=== PATIENT | female | born 1965 | race Caucasian/White ===

== ENCOUNTER 2016-12-08 10:31 | Outpatient (CLI) | payer MEDICAID | END 2016-12-08 10:32 | disposition home or self-care (01) | DX: Z47.89 Encounter for other orthopedic aftercare (principal); M21.162 Varus deformity, not elsewhere classified, left knee ==

== ENCOUNTER 2016-12-10 | Outpatient (CLI) | payer MEDICAID | END 2016-12-10 06:53 | disposition critical access hospital (66) | CPT/HCPCS: A0425; A0429 ==

== ENCOUNTER 2016-12-10 | Outpatient (CLI) | payer MEDICAID | END 2016-12-10 16:33 | disposition critical access hospital (66) | CPT/HCPCS: A0425; A0429 ==

== ENCOUNTER 2016-12-10 07:36 | Emergency (ER) | payer MEDICAID ==
[2016-12-10] MEDS ORDERED: SODIUM CHLORIDE 0.9% 1,000 ML IV ONE (08:04)
[2016-12-10] MEDS ORDERED: HYDROmorphone 1 MG/ML SYRINGE IVP STA (08:04)
[2016-12-10] MEDS ORDERED: ONDANSETRON 4 MG/2 ML VIAL IVP STA ×2 (08:04→12:08)
[2016-12-10] MEDS ORDERED: ONDANSETRON 4 MG/2 ML VIAL ONE ×2 (08:07→12:13)
[2016-12-10] MEDS ORDERED: HYDROmorphone 1 MG/ML SYRINGE ONE (08:07)
== END 2016-12-10 12:24 | disposition home or self-care (01) ==
DX: F11.23 Opioid dependence with withdrawal (principal); T40.2X5A Adverse effect of other opioids, initial encounter; R11.2 Nausea with vomiting, unspecified; R10.9 Unspecified abdominal pain; R51 Headache; E86.0 Dehydration; Z98.890 Other specified postprocedural states

== ENCOUNTER 2016-12-10 17:15 | Emergency (ER) | payer MEDICAID ==
[2016-12-10] MEDS ORDERED: ONDANSETRON 4 MG/2 ML VIAL IVP STA (19:12)
[2016-12-10] MEDS ORDERED: ONDANSETRON 4 MG/2 ML VIAL ONE (19:26)
[2016-12-10] MEDS ORDERED: SODIUM CHLORIDE 0.9% 1,000 ML IV ONE (20:05)
[2016-12-10] MEDS ORDERED: HALOPERIDOL 5 MG/ML VIAL IVP STA (20:58)
[2016-12-10] MEDS ORDERED: HALOPERIDOL 5 MG/ML VIAL ONE (21:24)
[2016-12-10] MEDS ORDERED: DICYCLOMINE 10 MG CAPSULE PO STA (21:24)
[2016-12-10] MEDS ORDERED: IOPAMIDOL-300 100 ML VIAL IVP ONE (21:25)
[2016-12-10] MEDS ORDERED: DICYCLOMINE 10 MG CAPSULE PO ONE (21:29)
[2016-12-10] MEDS ORDERED: CIPROFLOXACIN 250 MG TABLET PO STA (22:12)
[2016-12-10] MEDS ORDERED: metroNIDAZOLE 250 MG TABLET PO STA (22:12)
[2016-12-10] MEDS ORDERED: CIPROFLOXACIN 250 MG TABLET PO ONE (22:16)
[2016-12-10] MEDS ORDERED: metroNIDAZOLE 250 MG TABLET PO ONE (22:16)
== END 2016-12-10 22:36 | disposition home or self-care (01) ==
DX: K92.1 Melena (principal); R19.7 Diarrhea, unspecified; R10.31 Right lower quadrant pain; R10.32 Left lower quadrant pain; R51 Headache; K21.9 Gastro-esophageal reflux disease without esophagitis; F11.23 Opioid dependence with withdrawal; T40.2X5A Adverse effect of other opioids, initial encounter; R11.2 Nausea with vomiting, unspecified; E86.0 Dehydration; Z98.890 Other specified postprocedural states
CPT/HCPCS: 36415; 74177; 80053; 81003; 83690; 85025; 85610; 85730; 96361; 96374; 96375; 96376; 99284; A9270; J1170; Q9967

== ENCOUNTER 2016-12-16 10:43 | Outpatient (CLI) | payer MEDICAID | END 2016-12-16 10:44 | disposition home or self-care (01) | DX: R53.83 Other fatigue (principal); D72.829 Elevated white blood cell count, unspecified; M25.562 Pain in left knee ==

== ENCOUNTER 2016-12-17 16:02 | Outpatient (CLI) | payer MEDICAID | END 2016-12-17 16:03 | disposition home or self-care (01) | DX: R60.0 Localized edema (principal) ==

== ENCOUNTER 2017-01-28 08:00 | Outpatient (CLI) | payer MEDICAID | END 2017-01-28 23:59 | DX: Z79.891 Long term (current) use of opiate analgesic (principal) ==

== ENCOUNTER 2017-02-18 09:05 | Outpatient (CLI) | payer MEDICAID | END 2017-02-18 09:06 | disposition home or self-care (01) | DX: T84.623A Infection and inflammatory reaction due to internal fixation device of left tibia, initial encounter (principal) ==

== ENCOUNTER 2017-02-24 09:10 | Outpatient (CLI) | payer MEDICAID | END 2017-02-24 09:11 | disposition home or self-care (01) | DX: T84.623A Infection and inflammatory reaction due to internal fixation device of left tibia, initial encounter (principal) ==

== ENCOUNTER 2017-03-03 14:48 | Outpatient (CLI) | payer MEDICAID | END 2017-03-03 14:49 | disposition home or self-care (01) | DX: T84.623A Infection and inflammatory reaction due to internal fixation device of left tibia, initial encounter (principal) ==

== ENCOUNTER 2017-03-10 11:01 | Outpatient (CLI) | payer MEDICAID | END 2017-03-10 11:02 | disposition home or self-care (01) | DX: T84.623A Infection and inflammatory reaction due to internal fixation device of left tibia, initial encounter (principal) ==

== ENCOUNTER 2017-03-17 09:15 | Outpatient (CLI) | payer MEDICAID | END 2017-03-17 09:16 | disposition home or self-care (01) | DX: T84.623A Infection and inflammatory reaction due to internal fixation device of left tibia, initial encounter (principal) ==

== ENCOUNTER 2017-03-24 10:05 | Outpatient (CLI) | payer MEDICAID ==
[2017-03-24 11:27] LABS: BASOPHILS % (AUTO) 0.4 %; EOSINOPHILS # (AUTO) 0.3 10^3/uL (0.0-0.7); EOSINOPHILS % (AUTO) 4.5 %; HCT - HEMATOCRIT 29.4 % (37.0-47.0); HGB - HEMOGLOBIN 9.8 g/dL (12.0-16.0); LYMPHOCYTES # (AUTO) 1.4 10^3/uL (1.5-3.5); LYMPHOCYTES % (AUTO) 21.2 %; MEAN CORPUSCULAR HEMOGLOBIN 28.5 pg (27.0-31.0); MEAN CORPUSCULAR HGB CONC 33.5 g/dL (32.0-36.0); MEAN CORPUSCULAR VOLUME 85.1 fL (81.0-99.0); MEAN PLATELET VOLUME 7.2 fL (7.9-10.8); MONOCYTES # (AUTO) 0.6 10^3/uL (0.0-1.0); MONOCYTES % (AUTO) 9.7 %; NEUTROPHILS # (AUTO) 4.1 10^3/uL (1.5-6.6); NEUTROPHILS % (AUTO) 64.2 %; RED BLOOD COUNT 3.45 10^6/uL (4.20-5.40); RED CELL DISTRIBUTION WIDTH 14.3 % (12.0-15.0); UNCORRECTED WHITE BLOOD COUNT 6.4 x10^3/uL; WHITE BLOOD COUNT 6.4 x10^3/uL (4.8-10.8)
[2017-03-24 11:49] LABS: ALBUMIN/GLOBULIN RATIO 1.2 (1.0-2.2); BILIRUBIN,TOTAL 0.3 mg/dL (0.2-1.0); BUN - BLOOD UREA NITROGEN 19 mg/dL (6-20); CALCIUM 8.8 mg/dL (8.5-10.3); CARBON DIOXIDE - CO2 24 mmol/L (21-32); CHLORIDE 105 mmol/L (101-111); CREATININE 1.3 mg/dL (0.4-1.0); GFR - MDRD 43 (>89); GLUCOSE 95 mg/dL (70-100); POTASSIUM 4.6 mmol/L (3.5-5.0); SODIUM 136 mmol/L (135-145); TOTAL PROTEIN 6.4 g/dL (6.7-8.2)
== END 2017-03-24 10:06 | disposition home or self-care (01) ==
LOC: LAB.R 10:05
PROVIDERS: ATTEND Internal Medicine Infectious Disease
DX: T84.623A Infection and inflammatory reaction due to internal fixation device of left tibia, initial encounter (principal)
CPT/HCPCS: 80053; 85025

== ENCOUNTER 2017-04-28 03:38 | Outpatient (CLI) | payer MEDICAID | END 2017-04-28 03:39 | disposition critical access hospital (66) | LOC: EMS 03:38 | PROVIDERS: ATTEND Surgery | DX: R07.9 Chest pain, unspecified (principal) | CPT/HCPCS: A0425; A0429 ==

== ENCOUNTER 2017-04-28 04:17 | Emergency (ER) | payer MEDICAID ==
--- NOTE | 2017-04-28 04:44 | ED Physician Documentation ---
PD HPI CHEST PAIN - Stated complaint Stated Complaint: CP/VOMITING - Chief complaint Chief Complaint: Abd Pain - History obtained from History obtained from: Patient, EMS - History of Present Illness Timing - onset: Today Timing - onset during: Rest Timing - details: Abrupt onset, Now resolved, Intermittant Quality: Sharp, Pain Location: Left chest, Left shoulder/arm Improved by: Nothing Associated symptoms: Nausea, Vomiting Similar symptoms before: Has not had sx before Recently seen: Other (The patient has) - Additional information Additional information: 51 y/o female s/p left tibial osteotomy 02-10-17. with post surgical infection has been on a 6 week course of abx by vein followed by a 6 week course of oral antibiotic has developed nausea and vomiting with oral doxycycline and since has developed random vomiting. She is off of the doxy and continues to have some issues with vomiting and this evening she developed a pain in her left upper chest and has come to the hospital not feeling well. She has been on pain management with oxycocone 10 about 7 per day. She indicates that she had a 2 week fill on the of this month and ran out early because of the vomiting. She did call [facility] about the vomiting with the antibiotic and was prescribed zofran. Review of Systems Constitutional: denies: Fever Eyes: denies: Decreased vision Ears: denies: Ear pain Nose: denies: Rhinorrhea / runny nose, Congestion Throat: denies: Sore throat Cardiac: reports: Chest pain / pressure, Calf pain. denies: Palpitations, Pedal edema Respiratory: denies: Dyspnea, Cough GI: reports: Nausea, Vomiting. denies: Abdominal Pain : denies: Dysuria, Frequency Skin: denies: Rash Musculoskeletal: reports: Extremity pain. 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 - Present Medications Home Medications: Ambulatory Orders Medication Instructions Recorded Confirmed Trazodone HCl 200 mg PO HS 06/02/12/10/16 Guanfacine HCl [Tenex] 3 mg PO QPM 11/30/15 12/10/16 Lisinopril 20 mg PO DAILY 05/04/16 12/10/16 Albuterol Sulf [Ventolin Hfa 2 puffs INH Q4HR PRN 09/17/16 12/10/16 Inhaler] Estradiol [Estrace] 1 mg PO DAILY 09/17/16 12/10/16 Promethazine [Phenergan] 25 mg PO Q6H PRN 09/17/16 12/10/16 tiZANidine [Zanaflex] 4 mg PO TID 09/17/16 12/10/16 Venlafaxine [Effexor] 75 mg PO TID 09/20/16 12/10/16 Ciprofloxacin HCl [Cipro] 500 mg PO BID #6 tablet 12/10/16 Dicyclomine [Bentyl] 10 mg PO QID PRN #20 capsule 12/10/16 Metronidazole [Flagyl] 500 mg PO BID #6 tablet 12/10/16 Ondansetron Odt [Zofran] 4 mg TL Q6H PRN #10 tablet 12/10/16 12/10/16 oxyCODONE [Roxicodone] 10 mg PO Q6H PRN #25 tablet 04/28/17 - Allergies Allergies/Adverse Reactions: Allergies Allergy/AdvReac Type Severity Reaction Status Date / Time amoxicillin trihydrate * Allergy anaphalaxis Verified 12/10/16 17:19 [From Augmentin] cephalexin monohydrate * Allergy anaphalaxis Verified 12/10/16 17:19 [From Keflex] doxycycline Allergy Unknown Verified 12/10/16 17:19 hydrocodone bitartrate * Allergy itchy Verified 12/10/16 17:19 [From Vicodin] Penicillins Allergy anaphalaxis Verified 12/10/16 17:19 potassium clavulanate * Allergy anaphalaxis Verified 12/10/16 17:19 [From Augmentin] prednisone Allergy psychotic Verified 12/10/16 17:19 prochlorperazine edisylate * Allergy anxious Verified 12/10/16 17:19 [From Compazine] prochlorperazine maleate * Allergy anxious Verified 12/10/16 17:19 [From Compazine] propoxyphene napsylate * Allergy Unknown Verified 12/10/16 17:19 [From Darvocet-N] codeine AdvReac Nausea Verified 12/10/16 17:19 gabapentin [From Neurontin] AdvReac Unknown Verified 12/10/16 17:19 topiramate [From Topamax] AdvReac Unknown Verified 12/10/16 17:19 steroids Allergy Unknown Uncoded 12/10/16 17:19 - Social History Does the pt smoke?: No Smoking Status: Never smoker Does the pt drink ETOH?: Yes Does the pt have substance abuse?: No - Immunizations Immunizations are current?: Yes - POLST Patient has POLST: No PD ED PE NORMAL - Vitals Vital signs reviewed: Yes - General General: Alert and oriented X 3, Well developed/nourished, Other (The patient appears to be in pain with lsat instructor tone and flat affect ) - HEENT HEENT: Atraumatic, PERRL - Neck Neck: Supple, no meningeal sign - Cardiac Cardiac: RRR, No murmur - Respiratory Respiratory: No respiratory distress, Clear bilaterally - Abdomen Abdomen: Soft, Non tender - Back Back: No CVA TTP, No spinal TTP - Derm Derm: Normal color, Warm and dry, No rash - Extremities Extremities: Other (The surgical wound on the left calf is without inflamation or specific point tenderness. ) - Neuro Neuro: No motor deficit, No sensory deficit, Normal speech - Psych Psych: Other (mood is painful and the affect is flat ) Results - Vitals Vitals: Vital Signs - 24 hr 04/28/17 04/28/17 04/28/17 04:19 06:09 07:12 Temperature 36.5 C Heart Rate 76 78 77 Respiratory 18 18 11 L Rate Blood Pressure 131/81 H 142/63 H 145/65 H O2 Saturation 100 100 98 Oxygen O2 Source Room air - EKG (time done) 0519 Rate: Rate (enter#) (70) Rhythm: NSR Compare to prior EKG: Unchanged from prior EKG (09-16-16) Computer interpretation: Agree with computer - Labs Labs: Laboratory Tests 04/28/17 04/28/17 04/28/17 04:45 04:45 04:45 WBC 8.1 RBC 4.22 Hgb 11.7 L Hct 35.2 L MCV 83.6 MCH 27.7 MCHC 33.2 RDW 15.0 Plt Count 321 MPV 7.1 L Neut # 5.8 Lymph # 1.5 Tyrrell # 0.6 Eos # 0.2 Baso # 0.0 Absolute Nucleated RBC 0.00 Nucleated RBCs 0.0 ESR D-Dimer Sodium 138 Potassium 3.9 Chloride 105 Carbon Dioxide 25 Anion Gap 8.0 BUN 14 Creatinine 1.1 H Estimated GFR (MDRD) 53 L Glucose 126 H Lactic Acid Calcium 9.0 Total Bilirubin 0.2 AST 15 ALT 11 Alkaline Phosphatase 85 Troponin I 0.04 C-Reactive Protein Total Protein 7.4 Albumin 3.5 Globulin 3.9 Albumin/Globulin Ratio 0.9 L Lipase 13 L Urine Color Urine Clarity Urine pH Ur Specific Thermal Urine Protein Urine Glucose (UA) Urine Ketones Urine Occult Blood Urine Nitrite Urine Bilirubin Urine Urobilinogen Ur Leukocyte Esterase Ur Microscopic Review Urine Culture Comments 04/28/17 04/28/17 04/28/17 04:45 04:45 04:45 WBC RBC Hgb Hct MCV MCH MCHC RDW Plt Count MPV Neut # Lymph # Tyrrell # Eos # Baso # Absolute Nucleated RBC Nucleated RBCs ESR D-Dimer < 200.0 L Sodium Potassium Chloride Carbon Dioxide Anion Gap BUN Creatinine Estimated GFR (MDRD) Glucose Lactic Acid 1.2 Calcium Total Bilirubin AST ALT Alkaline Phosphatase Troponin I C-Reactive Protein < 1.0 Total Protein Albumin Globulin Albumin/Globulin Ratio Lipase Urine Color Urine Clarity Urine pH Ur Specific Thermal Urine Protein Urine Glucose (UA) Urine Ketones Urine Occult Blood Urine Nitrite Urine Bilirubin Urine Urobilinogen Ur Leukocyte Esterase Ur Microscopic Review Urine Culture Comments 04/28/17 04/28/17 04:45 06:09 WBC RBC Hgb Hct MCV MCH MCHC RDW Plt Count MPV Neut # Lymph # Tyrrell # Eos # Baso # Absolute Nucleated RBC Nucleated RBCs ESR 66 H D-Dimer Sodium Potassium Chloride Carbon Dioxide Anion Gap BUN Creatinine Estimated GFR (MDRD) Glucose Lactic Acid Calcium Total Bilirubin AST ALT Alkaline Phosphatase Troponin I C-Reactive Protein Total Protein Albumin Globulin Albumin/Globulin Ratio Lipase Urine Color YELLOW Urine Clarity CLEAR Urine pH 6.0 Ur Specific Thermal 1.025 Urine Protein NEGATIVE Urine Glucose (UA) NEGATIVE Urine Ketones NEGATIVE Urine Occult Blood NEGATIVE Urine Nitrite NEGATIVE Urine Bilirubin NEGATIVE Urine Urobilinogen 0.2 (NORMAL) Ur Leukocyte Esterase NEGATIVE Ur Microscopic Review NOT INDICATED Urine Culture Comments NOT INDICATED - Rads (name of study) 2 view chest Radiology: Prelim report reviewed (Impression: 1. No acute abnormality seen in the chest.), EMP read indepedently, See rad report Procedures - IVC sono (time) 0430 Bedside IVC sono: IVC measures (cm) (1.3), IVC collapsed c insp (cm) (complete) , Dehydration PD MEDICAL DECISION MAKING - ED course Complexity details: reviewed old records, reviewed results, re-evaluated patient , considered differential, d/w patient ED course: 51 y/o female does not feel well for the past 3 weeks with starting doxycycline. She has had nausea and vomiting and has run out of her pain medication. Here in the ED she appeared uncomfortable and dilaludid and zofran helped. Her pain appears to be in the left chest wall and is lancinating in nature and she describes it as a shock like sensation and episodes are brief and severe. She has had chicken pox as an adult 20 years ago and I suspect this may be shinlges but I am not seeing a rash or skin breakdown. She does indicate a lot of stress living with her fiance in someone else's house and needing to move. The bigger problem is she is out of her pain medication a week early and she takes a lot of pain medication and I believe she is having withdrawal symptoms now. Her PMD Betsy Clemens called me here in the ED this morning regarding her care and elaborated on the trouble this patient has had with narcotics over the past 5 years. The patient is unreliable and has been terminated by pain clinics previously. She is trying to get the patient referred to the pain clinic at [facility] as it is apparent we will need help with her care. I have agreed to script the patient 5 pills per day for 5 days and Betsy will taper further next week. Departure - Departure Disposition: 01 Home, Self Care Clinical Impression: Narcotic withdrawal, Left-sided chest wall pain Condition: Stable Instructions: ED Withdrawal Narcotic Follow-Up: Deidre Clemens ARNP [Provider Admit Priv/Credential] - Prescriptions: oxyCODONE [Roxicodone] 10 mg PO Q6H PRN #25 tablet PRN Reason: Pain Comments: Today it appears some of your symptoms are related to narcotic withdrawal and we will provide you with 5 pills per day for 5 days and you will need to follow up with Betsy next week. If your skin breaks out over the area of pain call the clinic immediately as there is medication to treat shingles that will help.
[2017-04-28] MEDS ORDERED: HYDROmorphone 1 MG/ML SYRINGE IVP STA ×2 (05:02→05:53)
[2017-04-28] MEDS ORDERED: ONDANSETRON 4 MG/2 ML VIAL IVP STA ×2 (05:02→07:19)
[2017-04-28] MEDS ORDERED: SODIUM CHLORIDE 0.9% 1,000 ML IV ONE (05:02)
[2017-04-28] MEDS ORDERED: HYDROmorphone 1 MG/ML SYRINGE ONE ×2 (05:03→06:03)
[2017-04-28] MEDS ORDERED: ONDANSETRON 4 MG/2 ML VIAL ONE ×2 (05:03→07:18)
[2017-04-28 05:19] LABS: BASOPHILS % (AUTO) 0.5 %; EOSINOPHILS # (AUTO) 0.2 10^3/uL (0.0-0.7); EOSINOPHILS % (AUTO) 1.9 %; HCT - HEMATOCRIT 35.2 % (37.0-47.0); HGB - HEMOGLOBIN 11.7 g/dL (12.0-16.0); LYMPHOCYTES # (AUTO) 1.5 10^3/uL (1.5-3.5); LYMPHOCYTES % (AUTO) 18.8 %; MEAN CORPUSCULAR HEMOGLOBIN 27.7 pg (27.0-31.0); MEAN CORPUSCULAR HGB CONC 33.2 g/dL (32.0-36.0); MEAN CORPUSCULAR VOLUME 83.6 fL (81.0-99.0); MEAN PLATELET VOLUME 7.1 fL (7.9-10.8); MONOCYTES # (AUTO) 0.6 10^3/uL (0.0-1.0); MONOCYTES % (AUTO) 7.5 %; NEUTROPHILS # (AUTO) 5.8 10^3/uL (1.5-6.6); NEUTROPHILS % (AUTO) 71.3 %; RED BLOOD COUNT 4.22 10^6/uL (4.20-5.40); UNCORRECTED WHITE BLOOD COUNT 8.1 x10^3/uL; WHITE BLOOD COUNT 8.1 x10^3/uL (4.8-10.8)
[2017-04-28 05:33] LABS: ALBUMIN/GLOBULIN RATIO 0.9 (1.0-2.2); BILIRUBIN,TOTAL 0.2 mg/dL (0.2-1.0); CREATININE 1.1 mg/dL (0.4-1.0); POTASSIUM 3.9 mmol/L (3.5-5.0); TOTAL PROTEIN 7.4 g/dL (6.7-8.2)
--- NOTE | 2017-04-28 06:19 | XRAY Preliminary Report ---
Exam: XR Chest 2 View PA/LAT IMPRESSION: 1. No acute abnormality seen in the chest. [facility] SITE ID: [id number]
[2017-04-28 06:21] LABS: BILIRUBIN,URINE NEGATIVE (NEGATIVE)
--- NOTE | 2017-04-28 06:21 | XRAY Report ---
EXAM: CHEST RADIOGRAPHY EXAM DATE: 04/28/2017 06:00 AM. CLINICAL HISTORY: Left upper chest pain and vomiting. COMPARISON: 10/25/2014. TECHNIQUE: 2 views. FINDINGS: Lungs/Pleura: No alveolar consolidation or pleural effusion. No pneumothorax. Mediastinum: Heart and mediastinal contours are unremarkable. Other: None. IMPRESSION: 1. No acute abnormality seen in the chest. [facility] Referring Provider Line: [phone] SITE ID: [id number]
[2017-04-28 06:27] LABS: UA CHARGE (STRIP ONLY) YES; UR CULTURE IF IND NOT INDICATED
[2017-04-28 07:14] VITALS: BP 145/65
== END 2017-04-28 07:45 | disposition home or self-care (01) ==
LOC: EDUNIT# → ED 04:17
DX: F11.23 Opioid dependence with withdrawal (principal); T40.2X5A Adverse effect of other opioids, initial encounter; R07.89 Other chest pain; R11.2 Nausea with vomiting, unspecified; J45.909 Unspecified asthma, uncomplicated; K21.9 Gastro-esophageal reflux disease without esophagitis
CPT/HCPCS: 36415; 71020; 80053; 81001; 81003; 83605; 83690; 84484; 85025; 85379; 85651; 86140; 87040; 87086; 93005; 93010; 96374; 96375; 96376; 99284; 99285

== ENCOUNTER 2017-04-28 18:45 | Outpatient (CLI) | payer MEDICAID | END 2017-04-28 18:46 | disposition critical access hospital (66) | LOC: EMS 18:45 | PROVIDERS: ATTEND Surgery | DX: R07.9 Chest pain, unspecified (principal) | CPT/HCPCS: A0425; A0427 ==

== ENCOUNTER 2017-04-28 19:30 | Emergency (ER) | payer MEDICAID ==
[2017-04-28] MEDS ORDERED: HYDROmorphone 1 MG/ML SYRINGE IVP STA (19:55)
[2017-04-28] MEDS ORDERED: SODIUM CHLORIDE 0.9% 1,000 ML IV ONE (19:55)
[2017-04-28] MEDS ORDERED: METOCLOPRAMIDE 10 MG/2 ML VIAL IVP STA (19:55)
[2017-04-28] MEDS ORDERED: METOCLOPRAMIDE 10 MG/2 ML VIAL ONE (19:56)
[2017-04-28] MEDS ORDERED: HYDROmorphone 1 MG/ML SYRINGE ONE (19:56)
--- NOTE | 2017-04-28 20:03 | ED Physician Documentation ---
PD HPI ABD PAIN - Stated complaint Stated Complaint: NAUSEA - Chief complaint Chief Complaint: Abd Pain - History obtained from History obtained from: Patient - History of Present Illness Timing - onset: Other (51-year-old woman with now chronic leg infection, sound like osteomyelitis. Was being seen at [facility], transitioned from PICC line Vanco to oral doxycycline about a month ago. In the past she's had issues with doxycycline and she's had intermittent vomiting ever since starting the doxycycline which is been worse over the last few days. Seen last night and felt like some of the presentation was related to narcotic withdrawal and given narcotics but despite that she is still having vomiting today associated with upper, pain radiating to the left chest. There is no associated shortness of breath. The pain and nausea comes in waves. She's vomited several times but has had normal albeit frequent formed bowel movements.) - Additional information Additional information: She does use marijuana but only a couple of times a month, denies any help with hot shower/bath. 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 - Present Medications Home Medications: Ambulatory Orders Medication Instructions Recorded Confirmed Trazodone HCl 200 mg PO HS 06/02/13 12/10/16 Guanfacine HCl [Tenex] 3 mg PO QPM 11/30/15 12/10/16 Lisinopril 20 mg PO DAILY 05/04/16 12/10/16 Albuterol Sulf [Ventolin Hfa 2 puffs INH Q4HR PRN 09/17/16 12/10/16 Inhaler] Estradiol [Estrace] 1 mg PO DAILY 09/17/16 12/10/16 Promethazine [Phenergan] 25 mg PO Q6H PRN 09/17/16 12/10/16 tiZANidine [Zanaflex] 4 mg PO TID 09/17/16 12/10/16 Venlafaxine [Effexor] 75 mg PO TID 09/20/16 12/10/16 Ciprofloxacin HCl [Cipro] 500 mg PO BID #6 tablet 12/10/16 Dicyclomine [Bentyl] 10 mg PO QID PRN #20 capsule 12/10/16 Metronidazole [Flagyl] 500 mg PO BID #6 tablet 12/10/16 Ondansetron Odt [Zofran] 4 mg TL Q6H PRN #10 tablet 12/10/16 12/10/16 Metoclopramide [Reglan] 10 mg PO Q6H PRN #20 tablet 04/28/17 Moxifloxacin [Avelox] 400 mg PO DAILY #10 tablet 04/28/17 oxyCODONE [Roxicodone] 10 mg PO Q6H PRN #25 tablet 04/28/17 - Allergies Allergies/Adverse Reactions: Allergies Allergy/AdvReac Type Severity Reaction Status Date / Time amoxicillin trihydrate * Allergy anaphalaxis Verified 12/10/16 17:19 [From Augmentin] cephalexin monohydrate * Allergy anaphalaxis Verified 12/10/16 17:19 [From Keflex] doxycycline Allergy Unknown Verified 12/10/16 17:19 hydrocodone bitartrate * Allergy itchy Verified 12/10/16 17:19 [From Vicodin] Penicillins Allergy anaphalaxis Verified 12/10/16 17:19 potassium clavulanate * Allergy anaphalaxis Verified 12/10/16 17:19 [From Augmentin] prednisone Allergy psychotic Verified 12/10/16 17:19 prochlorperazine edisylate * Allergy anxious Verified 12/10/16 17:19 [From Compazine] prochlorperazine maleate * Allergy anxious Verified 12/10/16 17:19 [From Compazine] propoxyphene napsylate * Allergy Unknown Verified 12/10/16 17:19 [From Darvocet-N] codeine AdvReac Nausea Verified 12/10/16 17:19 gabapentin [From Neurontin] AdvReac Unknown Verified 12/10/16 17:19 topiramate [From Topamax] AdvReac Unknown Verified 12/10/16 17:19 steroids Allergy Unknown Uncoded 12/10/16 17:19 - Social History Does the pt smoke?: No Smoking Status: Never smoker Does the pt drink ETOH?: Yes Does the pt have substance abuse?: No - Immunizations Immunizations are current?: Yes - POLST Patient has POLST: No PD ED PE NORMAL - Vitals Vital signs reviewed: Yes - General General: Alert and oriented X 3, No acute distress, Other (ooccasionally retching) - Abdomen Abdomen: Normal bowel sounds, Soft, Non tender - Back Back: No CVA TTP, No spinal TTP - Extremities Extremities: No edema, No calf tenderness / cord - Neuro Neuro: Alert and oriented X 3, Normal speech - Psych Psych: Normal mood, Normal affect Results - Vitals Vitals: Vital Signs - 24 hr 04/28/17 19:32 Temperature 36.7 C Heart Rate 71 Respiratory 18 Rate Blood Pressure 203/91 H O2 Saturation 98 Oxygen O2 Source Room air PD MEDICAL DECISION MAKING - ED course ED course: 51-year-old woman presents with upper abdominal pain and vomiting, potentially related to doxycycline use, seems less likely to be cannabinoid hyperemesis. Some of her description sounds consistent with gastroparesis. She excellent relief here with Reglan and pass an oral challenge. Given 2 Reglan tablets to go. I spoke with [facility], they have plans to switch her over to moxifloxacin because of her GI symptoms related to doxycycline and she was given a prescription for this. Departure - Departure Disposition: 01 Home, Self Care Clinical Impression: Vomiting Qualifiers: Vomiting type: unspecified Vomiting Intractability: non-intractable Nausea presence: with nausea Qualified Code(s): R11.2 - Nausea with vomiting, unspecified Condition: Good Record reviewed to determine appropriate education?: Yes Instructions: ED Nausea Vomiting Prescriptions: Moxifloxacin [Avelox] 400 mg PO DAILY #10 tablet Metoclopramide [Reglan] 10 mg PO Q6H PRN #20 tablet PRN Reason: Nausea / Vomiting Comments: Followup with the infectious disease clinic at [facility] next week as scheduled. Return if worse. Your blood pressure was elevated today on check in to the emergency department. This does not mean that you have hypertension, it is a common phenomenon to check into the emergency department and have elevated blood pressure. I recommend that you see your primary care physician within the week to have it rechecked when you're feeling better.
[2017-04-28] MEDS ORDERED: METOCLOPRAMIDE 10 MG TABLET ONE (20:58)
[2017-04-28] MEDS ORDERED: METOCLOPRAMIDE 10 MG TABLET PO STA (20:59)
[2017-04-28 21:03] VITALS: BP 143/70
== END 2017-04-28 21:19 | disposition home or self-care (01) ==
LOC: EDUNIT# → EDBD → ED 19:30
DX: F11.23 Opioid dependence with withdrawal (principal); T40.2X5A Adverse effect of other opioids, initial encounter; R11.2 Nausea with vomiting, unspecified; R07.89 Other chest pain; J45.909 Unspecified asthma, uncomplicated; K21.9 Gastro-esophageal reflux disease without esophagitis; Z86.19 Personal history of other infectious and parasitic diseases; R03.0 Elevated blood-pressure reading, without diagnosis of hypertension
CPT/HCPCS: 36415; 71020; 80053; 81003; 83605; 83690; 84484; 85025; 85379; 85651; 86140; 87040; 93005; 93010; 96374; 96375; 96376; 99283; 99284; 99285; A9270; J1170; 81001; 87086

== ENCOUNTER 2017-06-01 11:03 | Outpatient (CLI) | payer MEDICAID ==
--- NOTE | 2017-06-01 13:22 | Mammography Report ---
DIGITAL DIAGNOSTIC BILATERAL MAMMOGRAM: 06/01/2017 CLINICAL HISTORY: A 51-year-old female who had a palpable prominence in the 9 o'clock position of th e left breast on a physical exam by her physician. The patient also notes some palpable prominences in the upper outer quadrant of the right breast. Patient does have a family history of breast cancer . Her mother had breast cancer at age 60. Her sister had breast cancer at age 43. Patient has had no prior breast surgeries. COMPARISON: 06/21/2007, 03/18/2011, 06/16/2012, 02/12/2014, 12/04/2015 TECHNIQUE: Craniocaudad and oblique lateral views of each breast were obtained with [facility] digital mammography. To compliment the exam, bilateral mediolateral views of each breast were obt ained. FINDINGS: Breasts are almost entirely composed of fat. No significant clusters of calcification are seen. No significant masses are noted. No change is detected as compared to multiple preceding exa ms. Because there are palpable prominences in each breast reported by patient's physician and/or the rodolfo ent, recommend present exam be complimented by bilateral breast ultrasound, especially in the upper o uter quadrant of the right breast and in the 9 o'clock position of the left breast. Ultrasound can s how abnormalities that are not demonstrable on mammography. IMPRESSION: BIRADS CATEGORY 0 - INCOMPLETE. NEEDS ADDITIONAL IMAGING EVALUATION. BILATERAL BREAST ULTRASOUND IS INDICATED FOR REASONS DISCUSSED ABOVE. BREAST ULTRASOUND WILL BE DONE TODAY PART OF PATIENT'S EVALUATION. STANDARD QUALIFYING STATEMENTS 1. This examination was reviewed with the aid of Computer-Aided Detection (CAD). 2. A negative or benign imaging report should not delay biopsy if clinically suspicious findings are present. Consider surgical consultation if warranted. More than 5% of cancers are not identified by i asif. 3. Dense breasts may obscure an underlying neoplasm. JOB #: [id number] EXT JOB #:
--- NOTE | 2017-06-01 13:25 | Ultrasound Report ---
REVISED: THIS REPORT WAS ORIGINALLY SIGNED ON 06/01/2017 @ 2200. ORDERS LINKED ON 06/14/2017. BILATERAL BREAST ULTRASOUND: 06/01/2017 CLINICAL HISTORY: A 51-year-old female who has a mother and a sister with breast cancer. Patient had a negative mammogram today. Patient does have some palpable prominences in the tail of the right breast to right axilla and also in the 9 o'clock position of the left breast. These areas were each evaluated by ultrasound today after patient's negative mammogram was read. FINDINGS: The right axilla and tail of the right breast show a few small benign -appearing lymph node. These are of no clinical concern. They each measure 1 cm or less in diameter. Left breast ultrasound shows no significant abnormality in the 9 o'clock position. Ultrasound findings in the breast as well as the right axilla indicate the patient's area of palpable concern is of benign etiology. Recommend patient be followed with annual bilateral screening mammography. IMPRESSION: NEGATIVE BILATERAL BREAST ULTRASOUND. BIRADS CATEGORY 1 - NEGATIVE. RECOMMENDATIONS: Annual bilateral screening mammogram. COMMENT: Dr. Howe informed the patient of the benign results. He encouraged her to return for annual bilateral screening mammography next year. He also gave her a written form instructing her to return for annual screening mammography in one year. JOB #: [id number] EXT JOB #: [id number] [facility]
== END 2017-06-01 11:04 | disposition home or self-care (01) ==
LOC: DI 11:03
PROVIDERS: ATTEND Nurse Practitioner Family
DX: N63 Unspecified lump in breast (principal)
CPT/HCPCS: 76642; 77066

== ENCOUNTER 2017-07-03 07:04 | Emergency (ER) | payer MEDICAID ==
[2017-07-03] MEDS ORDERED: ONDANSETRON 4 MG/2 ML VIAL IVP STA (07:29)
[2017-07-03] MEDS ORDERED: HYOSCYAMINE SL 0.125 MG TABLET SL STA (07:29)
[2017-07-03] MEDS ORDERED: KETOROLAC 15 MG/ML VIAL IVP STA (07:29)
[2017-07-03] MEDS ORDERED: SODIUM CHLORIDE 0.9% 1,000 ML IV ONE (07:29)
--- NOTE | 2017-07-03 07:33 | ED Physician Documentation ---
PD HPI ABD PAIN - Stated complaint Stated Complaint: VOMITING/BLOOD IN STOOL - Chief complaint Chief Complaint: Abd Pain - History obtained from History obtained from: Patient - History of Present Illness Timing - onset: How many days ago (2) Timing - duration: Days (2) Timing - details: Gradual onset Pain level max: 8 Pain level now: 8 Quality: Cramping, Aching, Pain Location: All over / everywhere (worse in the LLQ) Radiation: Other (non-radiating) Improved by: Other (nothing) Worsened by: Other (nothing) Associated symptoms: Nausea, Vomiting, Diarrhea (with bright red blood in the stool today). No: Fever, Hematemesis, Constipation, Melena Similar symptoms before: Diagnosis (diverticulitis) Recently seen: Not recently seen - Additional information Additional information: Patient is a 52-year-old female who presents to the emergency department with nausea, vomiting and diarrhea for the past 2 days. States feels weak today and noticed blood in her stool today. Similar findings with diverticulitis in the past. Denies any recent antibiotics. Denies any recent travel. No fevers. She also states that she has had a headache for the past week. Has not taken any medication for this at home. Did take a dose of Phenergan prior to arrival for the nausea. She also states that she has been off of narcotics since the end of April. Does use cannabis occasionally. Review of Systems Ten Systems: 10 systems reviewed and negative Constitutional: denies: Fever, Chills Ears: denies: Ear pain Nose: denies: Rhinorrhea / runny nose, Congestion Throat: denies: Sore throat Cardiac: denies: Chest pain / pressure Respiratory: denies: Cough : denies: Dysuria, Frequency, Hesitancy Skin: denies: Rash Musculoskeletal: denies: Neck pain, Back pain Neurologic: reports: Headache (Gradual onset, holoacranial). 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 HEENT: Chronic vision loss Psych: Depression, Anxiety Musculoskeletal: Chronic back pain Derm: None - Past Surgical History Past Surgical History: Yes General: Appendectomy, Other Ortho: Spine surgery /VIRTUAL CUSTOMER ASSISTANT: 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 - Present Medications Home Medications: Ambulatory Orders Medication Instructions Recorded Confirmed Trazodone HCl 200 mg PO HS 06/02/13 07/03/17 Guanfacine HCl [Tenex] 3 mg PO QPM 11/30/15 07/03/17 Lisinopril 20 mg PO DAILY 05/04/16 07/03/17 Albuterol Sulf [Ventolin Hfa 2 puffs INH Q4HR PRN 09/17/16 07/03/17 Inhaler] Estradiol [Estrace] 1 mg PO DAILY 09/17/16 07/03/17 Promethazine [Phenergan] 25 mg PO Q6H PRN 09/17/16 07/03/17 tiZANidine [Zanaflex] 4 mg PO TID 09/17/16 07/03/17 Venlafaxine [Effexor] 75 mg PO TID 09/20/16 07/03/17 oxyCODONE [Roxicodone] 10 mg PO Q6H PRN #25 tablet 04/28/17 07/03/17 Ciprofloxacin HCl [Cipro] 500 mg PO BID #20 tablet 07/03/17 Dicyclomine [Bentyl] 10 mg PO QID PRN #20 capsule 07/03/17 Metronidazole [Flagyl] 500 mg PO BID #20 tablet 07/03/17 oxyCODONE [Roxicodone] 5 mg PO Q4-6H PRN #20 tablet 07/03/17 - Allergies Allergies/Adverse Reactions: Allergies Allergy/AdvReac Type Severity Reaction Status Date / Time amoxicillin trihydrate * Allergy anaphalaxis Verified 12/10/16 17:19 [From Augmentin] cephalexin monohydrate * Allergy anaphalaxis Verified 12/10/16 17:19 [From Keflex] doxycycline Allergy Unknown Verified 12/10/16 17:19 hydrocodone bitartrate * Allergy itchy Verified 12/10/16 17:19 [From Vicodin] metoclopramide HCl * Allergy Anxiety Verified 07/03/17 07:13 [From Reglan] Penicillins Allergy anaphalaxis Verified 12/10/16 17:19 potassium clavulanate * Allergy anaphalaxis Verified 12/10/16 17:19 [From Augmentin] prednisone Allergy psychotic Verified 12/10/16 17:19 prochlorperazine edisylate * Allergy anxious Verified 12/10/16 17:19 [From Compazine] prochlorperazine maleate * Allergy anxious Verified 12/10/16 17:19 [From Compazine] propoxyphene napsylate * Allergy Unknown Verified 12/10/16 17:19 [From Darvocet-N] codeine AdvReac Nausea Verified 12/10/16 17:19 gabapentin [From Neurontin] AdvReac Unknown Verified 12/10/16 17:19 topiramate [From Topamax] AdvReac Unknown Verified 12/10/16 17:19 steroids Allergy Unknown Uncoded 12/10/16 17:19 - Social History Does the pt smoke?: No Smoking Status: Never smoker Does the pt drink ETOH?: Yes Does the pt have substance abuse?: No - Immunizations Immunizations are current?: Yes - POLST Patient has POLST: No PD ED PE NORMAL - Vitals Vital signs reviewed: Yes - General General: Alert and oriented X 3, No acute distress, Well developed/nourished - HEENT HEENT: Atraumatic, PERRL, EOMI, Ears normal, Moist mucous membranes, Pharynx benign - Neck Neck: Supple, no meningeal sign - Cardiac Cardiac: RRR, Strong equal pulses - Respiratory Respiratory: No respiratory distress, Clear bilaterally - Abdomen Abdomen: Soft, Other (Mild tender to palpation left lower quadrant. No peritoneal signs.) - Rectal Rectal: Pt declined - Derm Derm: Warm and dry - Extremities Extremities: No calf tenderness / cord - Neuro Neuro: Alert and oriented X 3 - Psych Psych: Normal mood, Normal affect Results - Vitals Vitals: Vital Signs - 24 hr 07/03/17 07:10 Temperature 36.8 C Heart Rate 93 Respiratory 16 Rate Blood Pressure 154/84 H O2 Saturation 99 Oxygen O2 Source Room air - Labs Labs: Laboratory Tests 07/03/17 07/03/17 07/03/17 07:29 07:29 07:29 WBC 15.5 H RBC 4.49 Hgb 11.6 L Hct 35.6 L MCV 79.3 L MCH 25.8 L MCHC 32.6 RDW 16.3 H Plt Count 371 MPV 6.7 L Neut # 13.2 H Lymph # 1.4 L [place] # 0.7 Eos # 0.0 Baso # 0.1 Absolute Nucleated RBC 0.02 Nucleated RBCs 0.1 PT 12.7 H INR 1.1 APTT 26.2 Sodium 136 Potassium 3.7 Chloride 104 Carbon Dioxide 22 Anion Gap 10.0 BUN 17 Creatinine 1.2 H Estimated GFR (MDRD) 47 L Glucose 124 H Calcium 9.3 Total Bilirubin 0.8 AST 16 ALT 13 Alkaline Phosphatase 108 Total Protein 8.4 H Albumin 4.1 Globulin 4.3 H Albumin/Globulin Ratio 1.0 Lipase 14 L Urine Color Urine Clarity Urine pH Ur Specific [place] Urine Protein Urine Glucose (UA) Urine Ketones Urine Occult Blood Urine Nitrite Urine Bilirubin Urine Urobilinogen Ur Leukocyte Esterase Ur Microscopic Review Urine Culture Comments 07/03/17 08:15 WBC RBC Hgb Hct MCV MCH MCHC RDW Plt Count MPV Neut # Lymph # [place] # Eos # Baso # Absolute Nucleated RBC Nucleated RBCs PT INR APTT Sodium Potassium Chloride Carbon Dioxide Anion Gap BUN Creatinine Estimated GFR (MDRD) Glucose Calcium Total Bilirubin AST ALT Alkaline Phosphatase Total Protein Albumin Globulin Albumin/Globulin Ratio Lipase Urine Color DARK YELLOW Urine Clarity CLEAR Urine pH 5.5 Ur Specific [place] 1.015 Urine Protein NEGATIVE Urine Glucose (UA) NEGATIVE Urine Ketones NEGATIVE Urine Occult Blood NEGATIVE Urine Nitrite NEGATIVE Urine Bilirubin NEGATIVE Urine Urobilinogen 0.2 (NORMAL) Ur Leukocyte Esterase NEGATIVE Ur Microscopic Review NOT INDICATED Urine Culture Comments NOT INDICATED - Rads (name of study) CT abdomen and pelvis Radiology: Prelim report reviewed, EMP read contemporaneously, See rad report ( Probable colitis centered at the splenic flexure. Early colonoscopy would be recommended to exclude underlying mass if not recently performed.) PD MEDICAL DECISION MAKING - ED course Complexity details: reviewed results, re-evaluated patient, considered differential, d/w patient ED course: Patient is a 52-year-old female who presents to the emergency department with what appears to be colitis. She is tolerating p.o. without difficulty after medications here. Pain improved with Toradol. Will prescribe a small amount of pain medication for home. She is well-appearing, nontoxic. Afebrile. No diarrhea in the emergency department. She has multiple allergies to antibiotics , therefore we will use ciprofloxacin and Flagyl together. She was counseled regarding the black box warnings associated with ciprofloxacin as well as the risk of Clostridium difficile. She accepts these risks. Her last colonoscopy was approximately 5 years ago, will have her follow-up with her doctor for repeat colonoscopy after the infection clears. Patient counseled regarding signs and symptoms for which I believe and urgent re-evaluation would be necessary. Patient with good understanding of and agreement to plan and is comfortable going home at this time This document was made in part using voice recognition software. While efforts are made to proofread this document, sound alike and grammatical errors may occur. Patient states that she has Phenergan at home for nausea and declines any other nausea medication for home. Departure - Departure Disposition: 01 Home, Self Care Clinical Impression: Colitis Condition: Good Instructions: ED Diverticulitis Follow-Up: your,doctor in 1 week [Other] Prescriptions: Dicyclomine [Bentyl] 10 mg PO QID PRN #20 capsule PRN Reason: Abdominal Pain Ciprofloxacin HCl [Cipro] 500 mg PO BID #20 tablet Metronidazole [Flagyl] 500 mg PO BID #20 tablet oxyCODONE [Roxicodone] 5 mg PO Q4-6H PRN #20 tablet PRN Reason: Abdominal Pain Comments: Return if you worsen. Take all antibiotics until gone. You need to have a colonoscopy after your infection clears. This can be arranged with your doctor. Do not drink alcohol or drive while on narcotic pain medicine. Note that many narcotic pain relievers also contain tylenol/acetaminophen. Please ensure that your total dose of acetaminophen from all sources does not exceed 3 grams (3000mg) per day. You may constipated on this medication, take a stool softener such as "Colace" twice a day while you are on it. Also recommend a knlo-ybe-emmuybd laxative such as senna or MiraLAX any day that you do not have a bowel movement. If you received narcotic pain medication in the emergency department, do not drive or operate machinery for the next 24 hours. Your blood pressure was elevated today on check in to the emergency department. This does not mean that you have hypertension, it is a common phenomenon to check into the emergency department and have elevated blood pressure. I recommend that you see your primary care physician within the week to have it rechecked when you're feeling better.
[2017-07-03 07:39] LABS: BASOPHILS # (AUTO) 0.1 10^3/uL (0.0-0.1); BASOPHILS % (AUTO) 0.5 %; EOSINOPHILS % (AUTO) 0.2 %; HCT - HEMATOCRIT 35.6 % (37.0-47.0); HGB - HEMOGLOBIN 11.6 g/dL (12.0-16.0); LYMPHOCYTES # (AUTO) 1.4 10^3/uL (1.5-3.5); LYMPHOCYTES % (AUTO) 9.3 %; MEAN CORPUSCULAR HEMOGLOBIN 25.8 pg (27.0-31.0); MEAN CORPUSCULAR HGB CONC 32.6 g/dL (32.0-36.0); MEAN CORPUSCULAR VOLUME 79.3 fL (81.0-99.0); MEAN PLATELET VOLUME 6.7 fL (7.9-10.8); MONOCYTES # (AUTO) 0.7 10^3/uL (0.0-1.0); MONOCYTES % (AUTO) 4.8 %; NEUTROPHILS # (AUTO) 13.2 10^3/uL (1.5-6.6); NEUTROPHILS % (AUTO) 85.2 %; NUCLEATED RED BLOOD CELLS AUTO 0.1 /100WBC; RED BLOOD COUNT 4.49 10^6/uL (4.20-5.40); RED CELL DISTRIBUTION WIDTH 16.3 % (12.0-15.0); UNCORRECTED WHITE BLOOD COUNT 15.5 x10^3/uL; WHITE BLOOD COUNT 15.5 x10^3/uL (4.8-10.8)
[2017-07-03] MEDS ORDERED: HYOSCYAMINE SL 0.125 MG TABLET SL ONE (07:42)
[2017-07-03] MEDS ORDERED: KETOROLAC 30 MG/ML VIAL ONE (07:42)
[2017-07-03] MEDS ORDERED: ONDANSETRON 4 MG/2 ML VIAL ONE (07:42)
[2017-07-03 07:43] LABS: INR 1.1 (0.8-1.2); PT - PROTHROMBIN TIME 12.7 secs (9.9-12.6)
[2017-07-03] MEDS ORDERED: KETOROLAC 15 MG/ML VIAL ONE (07:44)
[2017-07-03] MEDS ORDERED: SODIUM CHLORIDE FLUSH 0.9% 10 ML SYRINGE IVP ONE (07:47)
[2017-07-03 07:48] LABS: BILIRUBIN,TOTAL 0.8 mg/dL (0.2-1.0); CALCIUM 9.3 mg/dL (8.5-10.3); CREATININE 1.2 mg/dL (0.4-1.0); POTASSIUM 3.7 mmol/L (3.5-5.0); TOTAL PROTEIN 8.4 g/dL (6.7-8.2)
[2017-07-03 08:02] LABS: PARTIAL THROMBOPLASTIN TIME 26.2 secs (24.9-33.3)
[2017-07-03] MEDS ORDERED: IOPAMIDOL-300 100 ML VIAL IVP ONE (08:04)
[2017-07-03 08:25] LABS: BILIRUBIN,URINE NEGATIVE (NEGATIVE); PH,URINE 5.5 PH (5.0-7.5)
--- NOTE | 2017-07-03 08:29 | CT Preliminary Report ---
Exam: CT Abdomen/Pelvis W/ IMPRESSION: Probable colitis centered at splenic flexure. Early colonoscopy would be recommended to e xclude underlying mass if not recently performed. [facility] SITE ID: [id number]
[2017-07-03 08:30] LABS: UA CHARGE (STRIP ONLY) YES; UR CULTURE IF IND NOT INDICATED
--- NOTE | 2017-07-03 08:31 | CT Report ---
EXAM: CT ABDOMEN AND PELVIS EXAM DATE: 07/03/2017 08:06 AM. CLINICAL HISTORY: LLQ abd pain, diarrhea. COMPARISONS: Abdominal pelvic CT 12/10/2016. TECHNIQUE: Routine helical CT imaging was performed through the abdomen and pelvis. IV contrast: 100 cc Isovue 300. Enteric contrast: No. Reconstructions: Coronal and sagittal. In accordance with CT protocol optimization, one or more of the following dose reduction techniques w ere utilized for this exam: automated exposure control, adjustment of mA and/or KV based on patient s ize, or use of iterative reconstructive technique. FINDINGS: Lung Bases: Unremarkable. Liver: Normal. No masses. Gallbladder/Bile Ducts: Unremarkable. Spleen: Normal. Pancreas: Partial fatty replacement. Adrenal Glands: Normal. Kidneys: Normal. No masses or hydronephrosis. Peritoneal Cavity/Bowel: Long segment of wall thickening involving the distal transverse colon, splen ic flexure and proximal descending colon. Evaluation limited by under distention and lack of enteric contrast. Mild adjacent soft tissue stranding. Appendix not identified. No inflamed appendix evident. Pelvic Organs: Prior hysterectomy. Bladder is mostly collapsed. Vasculature: No aneurysms or other significant abnormality. Bones: Prior posterior L4-S1 fusion. Other: None. IMPRESSION: Probable colitis centered at splenic flexure. Early colonoscopy would be recommended to e xclude underlying mass if not recently performed. [facility] Referring Provider Line: [phone] SITE ID: [id number]
[2017-07-03] MEDS ORDERED: metroNIDAZOLE 250 MG TABLET PO STA (08:32)
[2017-07-03] MEDS ORDERED: CIPROFLOXACIN 250 MG TABLET PO STA (08:32)
[2017-07-03] MEDS ORDERED: metroNIDAZOLE 250 MG TABLET PO ONE (08:41)
[2017-07-03] MEDS ORDERED: CIPROFLOXACIN 250 MG TABLET PO ONE (08:41)
[2017-07-03 08:51] VITALS: BP 162/78
== END 2017-07-03 08:50 | disposition home or self-care (01) ==
LOC: ED 07:04
DX: K52.9 Noninfective gastroenteritis and colitis, unspecified (principal); R03.0 Elevated blood-pressure reading, without diagnosis of hypertension
CPT/HCPCS: 36415; 74177; 80053; 80306; 81003; 83690; 85025; 85610; 85730; 96361; 96374; 96375; 99283; 99284; A9270; Q9967; 81001; 87086

== ENCOUNTER 2017-07-14 09:23 | Outpatient (CLI) | payer MEDICAID ==
[2017-07-14 18:09] LABS: BASOPHILS % (AUTO) 0.6 %; EOSINOPHILS # (AUTO) 0.2 10^3/uL (0.0-0.7); EOSINOPHILS % (AUTO) 2.9 %; HCT - HEMATOCRIT 38.9 % (37.0-47.0); HGB - HEMOGLOBIN 12.5 g/dL (12.0-16.0); LYMPHOCYTES # (AUTO) 1.6 10^3/uL (1.5-3.5); LYMPHOCYTES % (AUTO) 24.9 %; MEAN CORPUSCULAR HEMOGLOBIN 26.3 pg (27.0-31.0); MEAN CORPUSCULAR HGB CONC 32.2 g/dL (32.0-36.0); MEAN CORPUSCULAR VOLUME 81.7 fL (81.0-99.0); MEAN PLATELET VOLUME 7.3 fL (7.9-10.8); MONOCYTES # (AUTO) 0.5 10^3/uL (0.0-1.0); MONOCYTES % (AUTO) 7.2 %; NEUTROPHILS # (AUTO) 4.1 10^3/uL (1.5-6.6); NEUTROPHILS % (AUTO) 64.4 %; NUCLEATED RED BLOOD CELLS AUTO 0.2 /100WBC; RED BLOOD COUNT 4.76 10^6/uL (4.20-5.40); RED CELL DISTRIBUTION WIDTH 17.2 % (12.0-15.0); UNCORRECTED WHITE BLOOD COUNT 6.3 x10^3/uL; WHITE BLOOD COUNT 6.3 x10^3/uL (4.8-10.8)
[2017-07-14 18:25] LABS: BILIRUBIN,TOTAL 0.4 mg/dL (0.2-1.0); CREATININE 1.2 mg/dL (0.4-1.0); POTASSIUM 4.2 mmol/L (3.5-5.0); TOTAL PROTEIN 7.7 g/dL (6.7-8.2)
== END 2017-07-14 09:24 | disposition home or self-care (01) ==
LOC: LAB.F 09:23
PROVIDERS: ATTEND Nurse Practitioner Family
DX: R10.9 Unspecified abdominal pain (principal)
CPT/HCPCS: 36415; 80053; 81001; 83690; 85025; 87086

== ENCOUNTER 2017-07-22 16:58 | Outpatient (CLI) | payer MEDICAID ==
--- NOTE | 2017-07-23 08:12 | Ultrasound Report ---
EXAM: LEFT LOWER EXTREMITY VENOUS ULTRASOUND EXAM DATE: 07/22/2017 05:26 PM. CLINICAL HISTORY: PAIN IN LEFT LEG. History osteotomy. COMPARISON: None. TECHNIQUE: Real-time sonographic vascular imaging was performed by the csr technician through the lower extremity utilizing both color-flow and Doppler spectral analysis. Multiple medical field representative static jeff ges were saved for review. FINDINGS: Common Femoral Vein (CFV): Normal. CFV-GSV Junction: Normal. Profunda Femoral Vein (PFV): Normal. Femoral Vein (FV) Prox: Normal. Femoral Vein (FV) Mid: Limited for compression. Femoral Vein (FV) Dist: Limited for compression. Popliteal Vein: Normal. Posterior Tibial Veins: Not well visualized. Peroneal Veins: Not well visualized. Other: Ill-defined fluid collection in the anterior calf may represent hematoma or focal inflammation . IMPRESSION: No convincing evidence for deep venous thrombosis. Note limitations described above. [facility] Referring Provider Line: [phone] SITE ID: [id number]
--- NOTE | 2017-07-24 09:17 | Ultrasound Report ---
EXAM: RIGHT/LEFT UPPER EXTREMITY ULTRASOUND - LIMITED EXAM DATE: 07/22/2017 05:42 PM. CLINICAL HISTORY: PAIN IN LEFT LEG. COMPARISON: None. TECHNIQUE: Real-time scanning of the anterior calf process palpable lump) was performed with static i mages obtained. FINDINGS/IMPRESSION: Heterogeneous subcutaneous soft tissue focus measuring 2.6 cm in maximal transverse dimension may rep resent residual hematoma/ scar formation. Active inflammation cannot be excluded. Recommend correlation with surgical history and clinical presentation. [facility] Referring Provider Line: [phone] SITE ID: [id number]
== END 2017-07-22 16:59 | disposition home or self-care (01) ==
LOC: DI 16:58
PROVIDERS: ATTEND Nurse Practitioner Family
DX: R22.42 Localized swelling, mass and lump, left lower limb (principal)
CPT/HCPCS: 76882

== ENCOUNTER 2017-08-03 10:44 | Emergency (ER) | payer MEDICAID ==
[2017-08-03 12:51] LABS: BILIRUBIN,URINE NEGATIVE (NEGATIVE)
[2017-08-03 12:52] LABS: UA CHARGE (STRIP ONLY) YES; UR CULTURE IF IND NOT INDICATED
[2017-08-03] MEDS ORDERED: KETOROLAC 60 MG/2 ML VIAL IM STA (14:11)
[2017-08-03] MEDS ORDERED: ACETAMINOPHEN 325 MG TABLET PO STA (14:11)
[2017-08-03] MEDS ORDERED: CYCLOBENZAPRINE 10 MG TABLET PO STA (14:11)
[2017-08-03] MEDS ORDERED: CYCLOBENZAPRINE 10 MG TABLET PO ONE (14:30)
[2017-08-03] MEDS ORDERED: KETOROLAC 60 MG/2 ML VIAL ONE (14:30)
[2017-08-03] MEDS ORDERED: ACETAMINOPHEN 325 MG TABLET PO ONE (14:30)
--- NOTE | 2017-08-03 14:54 | ED Physician Documentation ---
PD HPI BACK PAIN - Stated complaint Stated Complaint: BACK PX - Chief complaint Chief Complaint: Back Pain - History obtained from History obtained from: Patient - History of Present Illness Timing - onset: Chronic Timing - duration: Other (chronic back pain) Timing - details: Gradual onset Pain level max: 8 Pain level now: 8 Location: Lower, Right, Left Quality: Pain, Spasm, Similar to prior episodes Associated symptoms: No: Fever, Weakness, Numbness, Incontinent of urine, Unable to urinate, Hematuria, Incontinent of stool Improves with: Rest Worsened by: Movement Contributing factors: Out of meds. No: Lifting, Twisting, Trauma, Anticoagulated, Cancer, IVDA Similar symptoms before: Diagnosis (low back pain) Review of Systems Constitutional: denies: Fever, Chills Nose: denies: Rhinorrhea / runny nose, Congestion Throat: denies: Sore throat Cardiac: denies: Chest pain / pressure Respiratory: denies: Cough, Wheezing GI: denies: Abdominal Pain, Nausea, Vomiting, Diarrhea : denies: Dysuria, Frequency, Hesitancy, Incontinent Skin: denies: Rash Musculoskeletal: denies: Neck pain Neurologic: denies: Focal weakness, Numbness PD PAST MEDICAL HISTORY - Past Medical History Cardiovascular: None Respiratory: Asthma, Pneumonia Neuro: None Endocrine/Autoimmune: None GI: GERD 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 HEENT: None Psych: Depression, Anxiety Musculoskeletal: Chronic back pain Derm: None - Past Surgical History Past Surgical History: Yes General: Appendectomy, Other Ortho: Spine surgery /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: 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 - Present Medications Home Medications: Ambulatory Orders Medication Instructions Recorded Confirmed Guanfacine HCl [Tenex] 3 mg PO QPM 11/30/15 08/03/17 Lisinopril 40 mg PO DAILY 05/04/16 08/03/17 Albuterol Sulf [Ventolin Hfa 2 puffs INH Q4HR PRN 09/17/16 08/03/17 Inhaler] Estradiol [Estrace] 1 mg PO DAILY 09/17/16 08/03/17 Promethazine [Phenergan] 25 mg PO Q6H PRN 09/17/16 08/03/17 tiZANidine [Zanaflex] 4 mg PO TID 09/17/16 08/03/17 Venlafaxine [Effexor] 75 mg PO TID 09/20/16 08/03/17 Dicyclomine [Bentyl] 10 mg PO QID PRN #20 capsule 07/03/17 08/03/17 Cyclobenzaprine [Flexeril] 10 mg PO TID PRN #20 tablet 08/03/17 Diclofenac Epolamine [Flector] 1 each TD BID PRN #10 patch.td12 08/03/17 diazePAM [Valium] 5 mg PO DAILY 08/03/17 08/03/17 - Allergies Allergies/Adverse Reactions: Allergies Allergy/AdvReac Type Severity Reaction Status Date / Time amoxicillin trihydrate * Allergy anaphalaxis Verified 12/10/16 17:19 [From Augmentin] cephalexin monohydrate * Allergy anaphalaxis Verified 12/10/16 17:19 [From Keflex] doxycycline Allergy Unknown Verified 12/10/16 17:19 hydrocodone bitartrate * Allergy itchy Verified 12/10/16 17:19 [From Vicodin] metoclopramide HCl * Allergy Anxiety Verified 07/03/17 07:13 [From Reglan] Penicillins Allergy anaphalaxis Verified 12/10/16 17:19 potassium clavulanate * Allergy anaphalaxis Verified 12/10/16 17:19 [From Augmentin] prednisone Allergy psychotic Verified 12/10/16 17:19 prochlorperazine edisylate * Allergy anxious Verified 12/10/16 17:19 [From Compazine] prochlorperazine maleate * Allergy anxious Verified 12/10/16 17:19 [From Compazine] propoxyphene napsylate * Allergy Unknown Verified 12/10/16 17:19 [From Darvocet-N] codeine AdvReac Nausea Verified 12/10/16 17:19 gabapentin [From Neurontin] AdvReac Unknown Verified 12/10/16 17:19 topiramate [From Topamax] AdvReac Unknown Verified 12/10/16 17:19 steroids Allergy Unknown Uncoded 12/10/16 17:19 - Social History Does the pt smoke?: No Smoking Status: Never smoker Does the pt drink ETOH?: Yes Does the pt have substance abuse?: No - Immunizations Immunizations are current?: Yes - POLST Patient has POLST: No PD ED PE NORMAL - Vitals Vital signs reviewed: Yes - General General: Alert and oriented X 3, No acute distress - HEENT HEENT: Moist mucous membranes - Neck Neck: Supple, no meningeal sign - Cardiac Cardiac: RRR, Strong equal pulses - Respiratory Respiratory: No respiratory distress, Clear bilaterally - Abdomen Abdomen: Soft, Non tender, Non distended - Back Back: No CVA TTP, Other (Mild lower lumbar tenderness to palpation, midline. No significant paraspinal spasm. ) - Derm Derm: Warm and dry - Extremities Extremities: Normal ROM s pain, Other (normal bilateral lower extremity patellar and ankle jerk reflexes. Normal great toe extension bilaterally) - Neuro Neuro: Alert and oriented X 3, No motor deficit, No sensory deficit - Psych Psych: Normal mood, Normal affect Results - Vitals Vitals: Oxygen O2 Source Room air - Labs Labs: Laboratory Tests 08/03/17 12:35 Urine Color YELLOW Urine Clarity CLEAR Urine pH 6.0 Ur Specific [place] 1.025 Urine Protein NEGATIVE Urine Glucose (UA) NEGATIVE Urine Ketones NEGATIVE Urine Occult Blood NEGATIVE Urine Nitrite NEGATIVE Urine Bilirubin NEGATIVE Urine Urobilinogen 0.2 (NORMAL) Ur Leukocyte Esterase NEGATIVE Ur Microscopic Review NOT INDICATED Urine Culture Comments NOT INDICATED Urine Opiates Screen NEGATIVE Ur Oxycodone Screen NEGATIVE Urine Methadone Screen NEGATIVE Ur Propoxyphene Screen NEGATIVE Ur Barbiturates Screen NEGATIVE Ur Tricyclics Screen NEGATIVE Ur Phencyclidine Scrn NEGATIVE Ur Amphetamine Screen NEGATIVE U Methamphetamines Scrn NEGATIVE U Benzodiazepines Scrn POSITIVE H Urine Cocaine Screen NEGATIVE U Cannabinoids Screen NEGATIVE - Rads (name of study) L spine xray Radiology: Prelim report reviewed, EMP read contemporaneously, See rad report ( Posterior rods and pedicle screws at L4 S1 with laminectomies, unchanged. New minimal anterior listhesis of 2 mm at L3-L4. L3-L4 degenerative disc disease appears mildly worse, otherwise as above) PD MEDICAL DECISION MAKING - ED course Complexity details: reviewed old records, reviewed results, re-evaluated patient , considered differential (no cauda equina, no spinal epidural abscess, no fracture, no aortic dissection or evidence of aneursym rupture), d/w patient, d/ w PMD ED course: Patient is a 52-year-old female who presents to the emergency department with chronic back pain. Her primary care provider called the emergency department and requested that we do not use any narcotics or controlled substances for this patient. Her lumbar spine film reveals no acute abnormalities. She became upset when told that, when after evaluation, we would not use narcotics for her issue and walked out of the emergency department without her paperwork or prescriptions. Steady gait. Patient counseled regarding signs and symptoms for which I believe and urgent re-evaluation would be necessary. Patient with good understanding of and agreement to plan and is comfortable going home at this time This document was made in part using voice recognition software. While efforts are made to proofread this document, sound alike and grammatical errors may occur. Departure - Departure Disposition: 01 Home, Self Care Clinical Impression: Low back pain Qualifiers: Chronicity: acute Back pain laterality: bilateral Sciatica presence: without sciatica Qualified Code(s): M54.5 - Low back pain Condition: Good Instructions: ED Back Care Tips, ED Neck Back Pain General Follow-Up: Deidre Clemens ARNP [Provider Admit Priv/Credential] - 08/05/17 (as scheduled ) Prescriptions: Diclofenac Epolamine [Flector] 1 each TD BID PRN #10 patch.td12 PRN Reason: back pain Cyclobenzaprine [Flexeril] 10 mg PO TID PRN #20 tablet PRN Reason: Spasms Comments: You need to follow-up with your doctor about your pain medication. You may benefit from physical therapy or steroid injections in your back which can be arranged with your doctor. Your x-rays did not reveal any acute abnormalities today. Discharge Date/Time: 08/03/17 15:07
[2017-08-03 15:11] VITALS: BP 136/94
--- NOTE | 2017-08-03 15:42 | XRAY Preliminary Report ---
Exam: XR Lumbar Spine 2 View IMPRESSION: 1. Posterior rods and pedicle screws at L4-S1 with laminectomies, unchanged. 2. New minimal anterior listhesis of 2 mm at L3-L4. L3-L4 degenerative disk disease appears mildly wo rse. Otherwise, as above. [facility] SITE ID: [id number]
--- NOTE | 2017-08-03 15:45 | XRAY Report ---
EXAM: LUMBOSACRAL SPINE RADIOGRAPHY EXAM DATE: 08/03/2017 02:53 PM. CLINICAL HISTORY: Fall, low back pain. COMPARISONS: Lumbar spine 08/06/2014. TECHNIQUE: 3 views. FINDINGS: Alignment: New minimal anterior listhesis of 2 mm at L3-L4. Moderate L3-L4 disk height loss, appears mildly worse. Bones: No evidence for acute fracture or bone lesion. Disks: Posterior rods and pedicle screws at L4-S1 with laminectomies, unchanged. Moderate L3-L4 disk height loss, appears mildly worse. Mild endplate osteophytes at L3-L4. Facets: Mild facet arthropathy suspected at L3-L4. Sacroiliac Joints: There appears to be mild right sacroiliac degenerative joint disease. Soft Tissues: No acute findings. IMPRESSION: 1. Posterior rods and pedicle screws at L4-S1 with laminectomies, unchanged. 2. New minimal anterior listhesis of 2 mm at L3-L4. L3-L4 degenerative disk disease appears mildly wo rse. Otherwise, as above. [facility] Referring Provider Line: [phone] SITE ID: [id number]
== END 2017-08-03 15:07 | disposition home or self-care (01) ==
LOC: ED 10:44
DX: M54.5 Low back pain (principal); G89.29 Other chronic pain
CPT/HCPCS: 72100; 80306; 81003; 96372; 99283; A9270; 81001; 87086

== ENCOUNTER 2017-08-26 13:45 | Outpatient (CLI) | payer MEDICAID | END 2017-08-26 13:46 | disposition home or self-care (01) | LOC: LAB.F 13:45 | PROVIDERS: ATTEND Nurse Practitioner Family | DX: R10.9 Unspecified abdominal pain (principal) | CPT/HCPCS: 36415; 80053 ==

== ENCOUNTER 2017-11-22 18:16 | Outpatient (CLI) | payer MEDICAID | END 2017-11-22 18:17 | disposition critical access hospital (66) | LOC: EMS 18:16 | PROVIDERS: ATTEND Surgery | DX: R46.89 Other symptoms and signs involving appearance and behavior (principal) | CPT/HCPCS: A0425; A0427 ==

== ENCOUNTER 2017-11-22 18:40 | Emergency (ER) | payer MEDICAID ==
--- NOTE | 2017-11-22 18:49 | ED Physician Documentation ---
PD HPI ALTERED MENTAL STATUS - Stated complaint Stated Complaint: AMS - History obtained from History obtained from: Patient, EMS - History of Present Illness Timing - onset: Today Timing - duration: Days (1) Timing - details: Gradual onset Quality / character: Confused, Disoriented, Agitated, Combative, Hallucinating Associated symptoms: No: Fever, Headache, Stiff neck, Dyspnea, Cough, NVD, Urinary sx, General weakness, Focal weakness, Seizure activity, Syncope Basline status: Alert and oriented X 3 - Additional information Additional information: has a history of chronic back pain and substance abuse of narcotics and benzos. 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: None : None HEENT: None Psych: Depression, Anxiety Musculoskeletal: Chronic back pain Derm: None - Past Surgical History Past Surgical History: Yes General: Appendectomy, Other Ortho: Spine surgery /OVEN STRIPPER: 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 - Present Medications Home Medications: Ambulatory Orders Medication Instructions Recorded Confirmed Guanfacine HCl [Tenex] 3 mg PO QPM 11/30/15 11/22/17 Lisinopril 40 mg PO DAILY 05/04/16 11/22/17 Albuterol Sulf [Ventolin Hfa 2 puffs INH Q4HR PRN 09/17/16 11/22/17 Inhaler] Estradiol [Estrace] 1 mg PO DAILY 09/17/16 11/22/17 Promethazine [Phenergan] 25 mg PO Q6H PRN 09/17/16 11/22/17 tiZANidine [Zanaflex] 4 mg PO TID 09/17/16 11/22/17 Venlafaxine [Effexor] 75 mg PO TID 09/20/16 11/22/17 Dicyclomine [Bentyl] 10 mg PO QID PRN #20 capsule 07/03/17 11/22/17 Cyclobenzaprine [Flexeril] 10 mg PO TID PRN #20 tablet 08/03/17 11/22/17 Diclofenac Epolamine [Flector] 1 each TD BID PRN #10 patch.td12 08/03/17 diazePAM [Valium] 5 mg PO DAILY 08/03/17 11/22/17 - Allergies Allergies/Adverse Reactions: Allergies Allergy/AdvReac Type Severity Reaction Status Date / Time amoxicillin trihydrate * Allergy anaphalaxis Verified 11/22/17 18:49 [From Augmentin] cephalexin monohydrate * Allergy anaphalaxis Verified 11/22/17 18:49 [From Keflex] doxycycline Allergy Unknown Verified 11/22/17 18:49 hydrocodone bitartrate * Allergy itchy Verified 11/22/17 18:49 [From Vicodin] metoclopramide HCl * Allergy Anxiety Verified 11/22/17 18:49 [From Reglan] Penicillins Allergy anaphalaxis Verified 11/22/17 18:49 potassium clavulanate * Allergy anaphalaxis Verified 11/22/17 18:49 [From Augmentin] prednisone Allergy psychotic Verified 11/22/17 18:49 prochlorperazine edisylate * Allergy anxious Verified 11/22/17 18:49 [From Compazine] prochlorperazine maleate * Allergy anxious Verified 11/22/17 18:49 [From Compazine] propoxyphene napsylate * Allergy Unknown Verified 11/22/17 18:49 [From Darvocet-N] codeine AdvReac Nausea Verified 11/22/17 18:49 gabapentin [From Neurontin] AdvReac Unknown Verified 11/22/17 18:49 topiramate [From Topamax] AdvReac Unknown Verified 11/22/17 18:49 steroids Allergy Unknown Uncoded 12/10/16 17:19 - Social History Does the pt smoke?: No Smoking Status: Never smoker Does the pt drink ETOH?: Yes Does the pt have substance abuse?: No - Immunizations Immunizations are current?: Yes - POLST Patient has POLST: No PD ED PE NORMAL - Vitals Vital signs reviewed: Yes - General General: Other (agitated, restless, repetitive) - HEENT HEENT: PERRL, Moist mucous membranes - Neck Neck: Supple, no meningeal sign - Cardiac Cardiac: RRR - Respiratory Respiratory: No respiratory distress, Clear bilaterally - Abdomen Abdomen: Soft, Non tender, Non distended - Derm Derm: Warm and dry - Extremities Extremities: Other (FROM without pain.) - Neuro Neuro: Other (alert) Results - Vitals Vitals: Vital Signs - 24 hr 11/22/17 11/22/17 11/22/17 18:41 19:37 20:35 Temperature 37.1 C Heart Rate 92 83 72 Respiratory 22 15 18 Rate Blood Pressure 142/126 H 121/75 99/58 L O2 Saturation 98 96 92 11/22/17 11/22/17 21:31 23:16 Temperature Heart Rate 94 98 Respiratory 18 18 Rate Blood Pressure 111/57 L 133/104 H O2 Saturation 100 94 Oxygen O2 Source Room air - Labs Labs: Laboratory Tests 11/22/17 11/22/17 11/22/17 19:00 19:00 19:00 WBC 15.7 H RBC 4.57 Hgb 12.3 Hct 38.1 MCV 83.4 MCH 27.0 MCHC 32.4 RDW 15.9 H Plt Count 349 MPV 6.5 L Neut # 13.5 H Lymph # 1.3 L Armstrong # 0.8 Eos # 0.0 Baso # 0.1 Absolute Nucleated RBC 0.00 Nucleated RBC % 0.0 Sodium 140 Potassium 4.3 Chloride 106 Carbon Dioxide 22 Anion Gap 12.0 BUN 25 H Creatinine 2.2 H Estimated GFR (MDRD) 24 L Glucose 112 H Calcium 9.3 Total Bilirubin 0.5 AST 23 ALT 16 Alkaline Phosphatase 86 Total Protein 8.7 H Albumin 4.5 Globulin 4.2 Albumin/Globulin Ratio 1.1 Lipase 11 L Urine Color Urine Clarity Urine pH Ur Specific [place] Urine Protein Urine Glucose (UA) Urine Ketones Urine Occult Blood Urine Nitrite Urine Bilirubin Urine Urobilinogen Ur Leukocyte Esterase Ur Microscopic Review Urine Culture Comments Salicylates < 6.0 Urine Opiates Screen Ur Oxycodone Screen Urine Methadone Screen Ur Propoxyphene Screen Acetaminophen < 10 L Ur Barbiturates Screen Ur Tricyclics Screen Ur Phencyclidine Scrn Ur Amphetamine Screen U Methamphetamines Scrn U Benzodiazepines Scrn Urine Cocaine Screen U Cannabinoids Screen Ethyl Alcohol < 5.0 11/22/17 19:24 WBC RBC Hgb Hct MCV MCH MCHC RDW Plt Count MPV Neut # Lymph # Armstrong # Eos # Baso # Absolute Nucleated RBC Nucleated RBC % Sodium Potassium Chloride Carbon Dioxide Anion Gap BUN Creatinine Estimated GFR (MDRD) Glucose Calcium Total Bilirubin AST ALT Alkaline Phosphatase Total Protein Albumin Globulin Albumin/Globulin Ratio Lipase Urine Color DARK YELLOW Urine Clarity CLEAR Urine pH 5.5 Ur Specific [place] >=1.030 H Urine Protein TRACE Urine Glucose (UA) NEGATIVE Urine Ketones 15 H Urine Occult Blood NEGATIVE Urine Nitrite NEGATIVE Urine Bilirubin NEGATIVE Urine Urobilinogen 0.2 (NORMAL) Ur Leukocyte Esterase NEGATIVE Ur Microscopic Review NOT INDICATED Urine Culture Comments NOT INDICATED Salicylates Urine Opiates Screen NEGATIVE Ur Oxycodone Screen NEGATIVE Urine Methadone Screen NEGATIVE Ur Propoxyphene Screen NEGATIVE Acetaminophen Ur Barbiturates Screen NEGATIVE Ur Tricyclics Screen NEGATIVE Ur Phencyclidine Scrn POSITIVE H Ur Amphetamine Screen NEGATIVE U Methamphetamines Scrn POSITIVE H U Benzodiazepines Scrn POSITIVE H Urine Cocaine Screen POSITIVE H U Cannabinoids Screen POSITIVE H Ethyl Alcohol PD MEDICAL DECISION MAKING - ED course Complexity details: reviewed results, re-evaluated patient, considered differential, d/w patient ED course: Patient is a 52-year-old female presents to the emergency department with altered mental status and agitation. She is found to be positive for several illicit substances on her drug screen. She denies any drug use. She was given IV fluids for her renal insufficiency. Monitored in the emergency department and her spasms began to decrease and her mental status is beginning to clear. Will likely need a few more hours of observation and then will likely be able to be discharged home. Patient will be signed out to the [facility] emergency department physician for repeat evaluation and likely be able to be discharged home by morning. This document was made in part using voice recognition software. While efforts are made to proofread this document, sound alike and grammatical errors may occur. Departure - Departure Clinical Impression: Methamphetamine abuse, Cocaine abuse, Dehydration, Acute renal insufficiency Phencyclidine (PCP) intoxication Qualifiers: Complication of substance-induced condition: uncomplicated Qualified Code(s): F16.920 - Hallucinogen use, unspecified with intoxication, uncomplicated Condition: Good Instructions: ED Drug Abuse General Follow-Up: Deidre Clemens ARNP [Primary Care Provider] - Within 1 week Comments: You tested positive for cocaine, methamphetamines and PCP tonight. You need to stop using all of these drugs.
[2017-11-22 19:05] LABS: BASOPHILS # (AUTO) 0.1 10^3/uL (0.0-0.1); BASOPHILS % (AUTO) 0.6 %; EOSINOPHILS % (AUTO) 0.2 %; HGB - HEMOGLOBIN 12.3 g/dL (12.0-16.0); LYMPHOCYTES # (AUTO) 1.3 10^3/uL (1.5-3.5); LYMPHOCYTES % (AUTO) 8.1 %; MEAN CORPUSCULAR HGB CONC 32.4 g/dL (32.0-36.0); MEAN CORPUSCULAR VOLUME 83.4 fL (81.0-99.0); MEAN PLATELET VOLUME 6.5 fL (7.9-10.8); MONOCYTES # (AUTO) 0.8 10^3/uL (0.0-1.0); MONOCYTES % (AUTO) 5.1 %; NEUTROPHILS # (AUTO) 13.5 10^3/uL (1.5-6.6); PLT - PLATELET COUNT 349 10^3/uL (130-450); RED BLOOD COUNT 4.57 10^6/uL (4.20-5.40); RED CELL DISTRIBUTION WIDTH 15.9 % (12.0-15.0); WHITE BLOOD COUNT 15.7 x10^3/uL (4.8-10.8)
[2017-11-22 19:20] LABS: ALBUMIN 4.5 g/dL (3.2-5.5); ALBUMIN/GLOBULIN RATIO 1.1 (1.0-2.2); ALKALINE PHOSPHATASE 86 IU/L (42-121); ALT ALANINE AMINOTRANSFERASE 16 IU/L (10-60); AST ASPARTATE AMINOTRANSFERASE 23 IU/L (10-42); BILIRUBIN,TOTAL 0.5 mg/dL (0.2-1.0); BUN - BLOOD UREA NITROGEN 25 mg/dL (6-20); CALCIUM 9.3 mg/dL (8.5-10.3); CARBON DIOXIDE - CO2 22 mmol/L (21-32); CHLORIDE 106 mmol/L (101-111); CREATININE 2.2 mg/dL (0.4-1.0); GFR - MDRD 24 (>89); GLUCOSE 112 mg/dL (70-100); LIPASE 11 U/L (22-51); SODIUM 140 mmol/L (135-145); TOTAL PROTEIN 8.7 g/dL (6.7-8.2)
[2017-11-22 19:30] LABS: MUDS CUTOFF CONCENTRATIONS CUTOFF CONC BELOW:
[2017-11-22] MEDS ORDERED: SODIUM CHLORIDE 0.9% 1,000 ML IV ONE ×2 (19:30→21:46)
[2017-11-22 19:32] LABS: GLUCOSE, URINE (UA) NEGATIVE (NEGATIVE); KETONES,URINE (UA) 15 mg/dL (NEGATIVE); LEUKOCYTE ESTERASE, URINE NEGATIVE (NEGATIVE); NITRITE,URINE NEGATIVE (NEGATIVE); OCCULT BLOOD,URINE NEGATIVE (NEGATIVE); PH,URINE 5.5 PH (5.0-7.5); PROTEIN,URINE TRACE mg/dL (NEGATIVE); UROBILINOGEN,URINE 0.2 (NORMAL) E.U./dL (NORMAL)
[2017-11-22 19:45] LABS: BILIRUBIN,URINE NEGATIVE (NEGATIVE); CLARITY,URINE CLEAR (CLEAR)
[2017-11-22 19:47] LABS: AMPHETAMINE SCREEN,URINE NEGATIVE (NEGATIVE); BENZODIAZEPINES SCREEN, URINE POSITIVE (NEGATIVE); COCAINE SCREEN URINE POSITIVE (NEGATIVE); METHADONE SCREEN, URINE NEGATIVE (NEGATIVE); METHAMPHETAMINES SCREEN, URINE POSITIVE (NEGATIVE); OPIATE SCREEN, URINE NEGATIVE (NEGATIVE); OXYCODONE SCREEN, URINE NEGATIVE (NEGATIVE); PROPOXYPHENE SCREEN, URINE NEGATIVE (NEGATIVE); TRICYCLIC ANTIDEPRESSANT,URINE NEGATIVE (NEGATIVE)
[2017-11-22 20:08] LABS: SALICYLATE < 6.0 mg/dL
[2017-11-22 20:09] LABS: ACETAMINOPHEN < 10 ug/mL (10-30)
[2017-11-23] MEDS ORDERED: ONDANSETRON 4 MG/2 ML VIAL IVP STA (02:19)
[2017-11-23 02:57] VITALS: BP 178/95
== END 2017-11-23 04:10 | disposition home or self-care (01) ==
LOC: EDUNIT# → ED 18:40
DX: F15.10 Other stimulant abuse, uncomplicated (principal); F14.10 Cocaine abuse, uncomplicated; E86.0 Dehydration; N28.9 Disorder of kidney and ureter, unspecified; F16.920 Hallucinogen use, unspecified with intoxication, uncomplicated
CPT/HCPCS: 36415; 51701; 80053; 80306; 80307; 80320; 80329; 81001; 81003; 83690; 85025; 87086; 96361; 96374; 99284

== ENCOUNTER 2018-01-05 11:28 | Outpatient (CLI) | payer MEDICAID | END 2018-01-05 11:29 | disposition critical access hospital (66) | LOC: EMS 11:28 | PROVIDERS: ATTEND Surgery | DX: M54.2 Cervicalgia (principal); M54.5 Low back pain; V48.5XXA Car driver injured in noncollision transport accident in traffic accident, initial encounter; Y92.410 Unspecified street and highway as the place of occurrence of the external cause | CPT/HCPCS: A0425; A0429 ==

== ENCOUNTER 2018-01-05 12:01 | Emergency (ER) | payer MEDICAID ==
[2018-01-05] MEDS ORDERED: oxyCOD/ACETAMIN 5 MG/325 MG TABLET PO STA (12:09)
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
--- NOTE | 2018-01-05 13:18 | CT Preliminary Report ---
Exam: CT CERVICAL SPINE W/O IMPRESSION: No fracture or subluxation in the cervical spine. [facility] SITE ID: [id number]
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
[2018-01-05 13:36] VITALS: BP 155/90
== END 2018-01-05 13:34 | disposition home or self-care (01) ==
LOC: EDUNIT# → ED 12:01 → SUPCPDRO 12:01 → ED 13:34
DX: M54.30 Sciatica, unspecified side (principal); S16.1XXA Strain of muscle, fascia and tendon at neck level, initial encounter; V57.9XXA Unspecified occupant of pick-up truck or van injured in collision with fixed or stationary object in traffic accident, initial encounter
CPT/HCPCS: 72125; 72131; 99283; 99284; A9270

== ENCOUNTER 2018-07-17 07:01 | Emergency (ER) | payer MEDICAID ==
[2018-07-17] MEDS ORDERED: ONDANSETRON 4 MG/2 ML VIAL IVP STA ×2 (08:15→09:38)
[2018-07-17 08:25] LABS: BASOPHILS % (AUTO) 0.4 %; EOSINOPHILS # (AUTO) 0.2 10^3/uL (0.0-0.7); EOSINOPHILS % (AUTO) 1.8 %; HGB - HEMOGLOBIN 12.4 g/dL (12.0-16.0); LYMPHOCYTES # (AUTO) 1.3 10^3/uL (1.5-3.5); LYMPHOCYTES % (AUTO) 14.8 %; MEAN CORPUSCULAR HEMOGLOBIN 26.6 pg (27.0-31.0); MEAN CORPUSCULAR VOLUME 80.7 fL (81.0-99.0); MEAN PLATELET VOLUME 7.2 fL (7.9-10.8); MONOCYTES # (AUTO) 0.5 10^3/uL (0.0-1.0); MONOCYTES % (AUTO) 5.5 %; NEUTROPHILS # (AUTO) 6.9 10^3/uL (1.5-6.6); NEUTROPHILS % (AUTO) 77.5 %; PLT - PLATELET COUNT 312 10^3/uL (130-450); RED BLOOD COUNT 4.64 10^6/uL (4.20-5.40); RED CELL DISTRIBUTION WIDTH 16.4 % (12.0-15.0); WHITE BLOOD COUNT 8.8 x10^3/uL (4.8-10.8)
[2018-07-17 08:35] LABS: ALBUMIN 3.7 g/dL (3.2-5.5); ALBUMIN/GLOBULIN RATIO 0.9 (1.0-2.2); BILIRUBIN,TOTAL 0.3 mg/dL (0.2-1.0); CREATININE 1.1 mg/dL (0.4-1.0); TOTAL PROTEIN 7.8 g/dL (6.7-8.2)
[2018-07-17 08:37] LABS: BILIRUBIN,URINE NEGATIVE (NEGATIVE); CLARITY,URINE CLEAR (CLEAR); GLUCOSE, URINE (UA) NEGATIVE (NEGATIVE); KETONES,URINE (UA) NEGATIVE (NEGATIVE); LEUKOCYTE ESTERASE, URINE NEGATIVE (NEGATIVE); NITRITE,URINE NEGATIVE (NEGATIVE); OCCULT BLOOD,URINE NEGATIVE (NEGATIVE); PROTEIN,URINE NEGATIVE (NEGATIVE); UROBILINOGEN,URINE 0.2 (NORMAL) E.U./dL (NORMAL)
[2018-07-17] MEDS ORDERED: HYDROmorphone 1 MG/ML CARPUJECT IVP STA (09:38)
[2018-07-17] MEDS ORDERED: SODIUM CHLORIDE 0.9% 1,000 ML IV ONE (09:38)
--- NOTE | 2018-07-17 11:08 | CT Report ---
Reason: LLQ pain Procedure Date: 07/17/2018 Accession Number: [id number] / [id number] Procedure: CT - Abdomen/Pelvis W/O CPT Code: FULL RESULT: EXAM: CT ABDOMEN AND PELVIS EXAM DATE: 07/17/2018 10:12 AM. CLINICAL HISTORY: LLQ pain. History of multiple laparoscopic abdominal surgeries. COMPARISONS: 07/03/2017. TECHNIQUE: Routine helical CT imaging was performed through the abdomen and pelvis. IV contrast: None. Enteric contrast: No. Reconstructions: Coronal and sagittal. In accordance with CT protocol optimization, one or more of the following dose reduction techniques were utilized for this exam: automated exposure control, adjustment of mA and/or KV based on patient size, or use of iterative reconstructive technique. FINDINGS: Lung Bases: Unremarkable. Liver: Normal. No masses. Gallbladder/Bile Ducts: Unremarkable. Spleen: Normal. Pancreas: Normal. Adrenal Glands: Normal. Kidneys: Normal. No masses or hydronephrosis. Peritoneal Cavity/Bowel: There may be very minimal thickening of the sigmoid colon, suggestive of colitis. No free fluid, free air or adenopathy. No masses. The appendix is not well visualized. Pelvic Organs: Bladder is normal. Uterus and ovaries not well visualized and may have been surgically removed. Vasculature: Atherosclerotic disease of the aorta and its branches. No aneurysm. Bones: Posterior fusion of L4-S1. Other: None. IMPRESSION: 1. Very minimal thickening of the sigmoid colon, suggestive of colitis. 2. Probable hysterectomy and oophorectomy. 3. Appendix is not well visualized, but no evidence of appendicitis. [facility]
--- NOTE | 2018-07-17 11:10 | ED Physician Documentation ---
PD HPI ABD PAIN - Stated complaint Stated Complaint: N/V/D - Chief complaint Chief Complaint: Abd Pain - History obtained from History obtained from: Patient - History of Present Illness Timing - onset: How many weeks ago (1) Timing - duration: Weeks (1) Timing - details: Gradual onset, Still present, Waxing and waning Quality: Sharp, Pain Location: LLQ Radiation: Right flank Improved by: Laying still Associated symptoms: Nausea, Constipation, Loss of appetite Similar symptoms before: Diagnosis (colitis and diverticulitis) Recently seen: Not recently seen - Additional information Additional information: 53-year-old female is had 1 week history of abdominal pain with some nausea she has had constipation and she has not had relief of her constipation. She did have some mucousy stool out yesterday. She feels similar to what she has had previously when she has had colitis. Review of Systems Constitutional: reports: Chills, Myalgias, Fatigue, Sweats. denies: Fever Eyes: denies: Decreased vision Ears: denies: Ear pain Nose: denies: Congestion Throat: denies: Sore throat Cardiac: denies: Chest pain / pressure, Palpitations Respiratory: denies: Dyspnea, Cough GI: reports: Abdominal Pain, Nausea, Constipation : denies: Dysuria, Frequency Skin: denies: Rash Musculoskeletal: denies: Neck pain, Back pain, Extremity pain Neurologic: reports: Generalized weakness. denies: Focal weakness, Numbness PD PAST MEDICAL HISTORY - Past Medical History Cardiovascular: None Respiratory: Asthma, Pneumonia Endocrine/Autoimmune: None GI: GERD CLERICAL ORDER FILLER: None : None HEENT: None Psych: Depression, Anxiety Musculoskeletal: Chronic back pain Derm: None - Past Surgical History Past Surgical History: Yes General: Appendectomy, Other Ortho: Spine surgery /CLERICAL ORDER FILLER: 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 - Present Medications Home Medications: Ambulatory Orders Medication Instructions Recorded Confirmed Lisinopril 40 mg PO DAILY 05/04/16 01/05/18 Albuterol Sulf [Ventolin Hfa 2 puffs INH Q4HR PRN 09/17/16 01/05/18 Inhaler] Venlafaxine [Effexor] 75 mg PO TID 09/20/16 01/05/18 Oxycodone HCl/Acetaminophen 1 - 2 tab PO Q4H PRN #15 tablet 01/05/18 [Percocet 5-325 mg Tablet] traZODone [Desyrel] 100 mg PO QPM 01/05/18 01/05/18 Ciprofloxacin HCl [Cipro] 500 mg PO BID #14 tablet 07/17/18 Metronidazole [Flagyl] 500 mg PO BID #14 tablet 07/17/18 oxyCODONE/ACET 5/325 [Percocet 5 1 - 2 each PO Q4-6H PRN #12 tablet 07/17/18 mg/325 mg] - Allergies Allergies/Adverse Reactions: Allergies Allergy/AdvReac Type Severity Reaction Status Date / Time amoxicillin trihydrate * Allergy anaphalaxis Verified 07/17/18 07:23 [From Augmentin] cephalexin monohydrate * Allergy anaphalaxis Verified 07/17/18 07:23 [From Keflex] doxycycline Allergy Unknown Verified 07/17/18 07:23 hydrocodone bitartrate * Allergy itchy Verified 07/17/18 07:23 [From Vicodin] metoclopramide HCl * Allergy Anxiety Verified 07/17/18 07:23 [From Reglan] Penicillins Allergy anaphalaxis Verified 07/17/18 07:23 potassium clavulanate * Allergy anaphalaxis Verified 07/17/18 07:23 [From Augmentin] prednisone Allergy psychotic Verified 07/17/18 07:23 prochlorperazine edisylate * Allergy anxious Verified 07/17/18 07:23 [From Compazine] prochlorperazine maleate * Allergy anxious Verified 07/17/18 07:23 [From Compazine] propoxyphene napsylate * Allergy Unknown Verified 07/17/18 07:23 [From Darvocet-N] codeine AdvReac Nausea Verified 07/17/18 07:23 gabapentin [From Neurontin] AdvReac Unknown Verified 07/17/18 07:23 topiramate [From Topamax] AdvReac Unknown Verified 07/17/18 07:23 steroids Allergy Unknown Uncoded 07/17/18 07:23 - Social History Does the pt smoke?: No Smoking Status: Never smoker Does the pt drink ETOH?: Yes Does the pt have substance abuse?: No - Immunizations Immunizations are current?: Yes - POLST Patient has POLST: No PD ED PE NORMAL - Vitals Vital signs reviewed: Yes (hypoertensive) - General General: Alert and oriented X 3, Well developed/nourished - HEENT HEENT: Atraumatic, PERRL, EOMI - Neck Neck: Supple, no meningeal sign - Cardiac Cardiac: RRR, No murmur - Respiratory Respiratory: No respiratory distress, Clear bilaterally - Abdomen Abdomen: Soft, Other (left lower quadrant tenderness to palpation without garding ) - Back Back: No CVA TTP, No spinal TTP - Derm Derm: Normal color, Warm and dry, No rash - Extremities Extremities: No deformity, No edema - Neuro Neuro: Alert and oriented X 3, state assessed properties director 2-12 intact, No motor deficit, No sensory deficit, Normal speech Eye Opening: Spontaneous Motor: Obeys Commands Verbal: Oriented GCS Score: 15 - Psych Psych: Other (mood is helpless and the affect is flat. ) Results - Vitals Vitals: Vital Signs - 24 hr 07/17/18 07/17/18 07/17/18 07:20 08:23 09:52 Temperature 37.2 C 98.9 C H Heart Rate 72 64 Respiratory 16 15 Rate Blood Pressure 178/92 H 161/96 H O2 Saturation 100 100 07/17/18 11:22 Temperature Heart Rate 70 Respiratory 18 Rate Blood Pressure 139/73 H O2 Saturation 100 Oxygen O2 Source Room air - Labs Labs: Laboratory Tests 07/17/18 07/17/18 07/17/18 07:36 07:36 07:36 WBC 8.8 RBC 4.64 Hgb 12.4 Hct 37.4 MCV 80.7 L MCH 26.6 L MCHC 33.0 RDW 16.4 H Plt Count 312 MPV 7.2 L Neut # (Auto) 6.9 H Lymph # (Auto) 1.3 L [place] # (Auto) 0.5 Eos # (Auto) 0.2 Baso # (Auto) 0.0 Absolute Nucleated RBC 0.00 Nucleated RBC % 0.0 Sodium 137 Potassium 4.0 Chloride 103 Carbon Dioxide 27 Anion Gap 7.0 BUN 13 Creatinine 1.1 H Estimated GFR (MDRD) 52 L Glucose 114 H Calcium 9.0 Total Bilirubin 0.3 AST 17 ALT 14 Alkaline Phosphatase 91 Troponin I < 0.04 Total Protein 7.8 Albumin 3.7 Globulin 4.1 Albumin/Globulin Ratio 0.9 L Lipase 25 Urine Color Urine Clarity Urine pH Ur Specific [place] Urine Protein Urine Glucose (UA) Urine Ketones Urine Occult Blood Urine Nitrite Urine Bilirubin Urine Urobilinogen Ur Leukocyte Esterase Ur Microscopic Review Urine Culture Comments 07/17/18 08:10 WBC RBC Hgb Hct MCV MCH MCHC RDW Plt Count MPV Neut # (Auto) Lymph # (Auto) [place] # (Auto) Eos # (Auto) Baso # (Auto) Absolute Nucleated RBC Nucleated RBC % Sodium Potassium Chloride Carbon Dioxide Anion Gap BUN Creatinine Estimated GFR (MDRD) Glucose Calcium Total Bilirubin AST ALT Alkaline Phosphatase Troponin I Total Protein Albumin Globulin Albumin/Globulin Ratio Lipase Urine Color YELLOW Urine Clarity CLEAR Urine pH 6.0 Ur Specific [place] 1.025 Urine Protein NEGATIVE Urine Glucose (UA) NEGATIVE Urine Ketones NEGATIVE Urine Occult Blood NEGATIVE Urine Nitrite NEGATIVE Urine Bilirubin NEGATIVE Urine Urobilinogen 0.2 (NORMAL) Ur Leukocyte Esterase NEGATIVE Ur Microscopic Review NOT INDICATED Urine Culture Comments NOT INDICATED - Rads (name of study) CT abd/pel without Radiology: Prelim report reviewed (Impression: 1. Very minimal thickening of the sigmoid colon, suggestive of colitis. Probable hysterectomy and nephrectomy. Appendix is not well-visualized, but no evidence of appendicitis.) , EMP read indepedently, See rad report PD MEDICAL DECISION MAKING - ED course Complexity details: reviewed results, re-evaluated patient, considered differential, d/w patient, d/w family ED course: 53 y/o female with a history of colitis has colitis again. She has some improvement with the use of dilaudid and zofran and she is hydrated with saline. We will provide empiric antibiotic therapy for colitis with flagyl and cipro and provide a short course of pain management. - Sepsis Event Vital Signs: Vital Signs - 24 hr 07/17/18 07/17/18 07/17/18 07:20 08:23 09:52 Temperature 37.2 C 98.9 C H Heart Rate 72 64 Respiratory 16 15 Rate Blood Pressure 178/92 H 161/96 H O2 Saturation 100 100 07/17/18 11:22 Temperature Heart Rate 70 Respiratory 18 Rate Blood Pressure 139/73 H O2 Saturation 100 Oxygen O2 Source Room air Departure - Departure Disposition: 01 Home, Self Care Clinical Impression: Colitis Condition: Stable Instructions: ED IBS Follow-Up: LYDIA DIOP MD [Primary Care Provider] - Prescriptions: Ciprofloxacin HCl [Cipro] 500 mg PO BID #14 tablet Metronidazole [Flagyl] 500 mg PO BID #14 tablet oxyCODONE/ACET 5/325 [Percocet 5 mg/325 mg] 1 - 2 each PO Q4-6H PRN #12 tablet PRN Reason: Pain
[2018-07-17 12:13] VITALS: BP 157/80
== END 2018-07-17 12:14 | disposition home or self-care (01) ==
LOC: ED 07:01
DX: K52.9 Noninfective gastroenteritis and colitis, unspecified (principal)
CPT/HCPCS: 36415; 74176; 80053; 81003; 83690; 84484; 85025; 96361; 96374; 96375; 96376; 99283; 99284; J1170; 81001; 87086

== ENCOUNTER 2018-12-03 07:01 | Emergency (ER) | payer MEDICAID ==
--- NOTE | 2018-12-03 07:22 | ED Physician Documentation ---
PD HPI NVD - Stated complaint Stated Complaint: N/D - Chief complaint Chief Complaint: Abd Pain - History obtained from History obtained from: Patient - History of Present Illness Timing - onset: How many days ago (5) Timing - duration: Days (5) Timing - details: Gradual onset (initially with some headache and general malaise, nausea, then worsened nausea and developed loose stool/diarrhea with blood and mucous to it. Similar episodes in the past Dx as colitis. Last episode was July. She says between episodes she still has commonly intestinal cramping but formed stools.) Associated symptoms: Abdominal pain (cramping diffuse), Dizzy (yesterday and today, feeling lightheaded.), Loss of appetite. No: Fever Contributing factors: No: Sick contact, Bad food, Recent antibiotics Improved by: BM Worsened by: Eating Similar symptoms before: No diagnosis (nonspecific diagnosis of colitis) Review of Systems Constitutional: reports: Myalgias, Fatigue. denies: Fever, Chills Nose: denies: Rhinorrhea / runny nose, Congestion Throat: denies: Sore throat Cardiac: denies: Chest pain / pressure Respiratory: denies: Dyspnea, Cough GI: reports: Abdominal Pain, Nausea, Diarrhea, Bloody / black stool (red blood streaks with mucous. No large volume of blood.). denies: Abdominal Swelling, Vomiting, Constipation : denies: Dysuria, Frequency PD PAST MEDICAL HISTORY - Past Medical History Cardiovascular: None Respiratory: Asthma, Pneumonia Endocrine/Autoimmune: None GI: GERD DELIVERY TECH: None : None HEENT: None Psych: Depression, Anxiety Musculoskeletal: Chronic back pain Derm: None - Past Surgical History Past Surgical History: Yes General: Appendectomy, Other Ortho: Spine surgery /DELIVERY TECH: 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 - Present Medications Home Medications: Ambulatory Orders Medication Instructions Recorded Confirmed Lisinopril 40 mg PO DAILY 05/04/16 01/05/18 Albuterol Sulf [Ventolin Hfa 2 puffs INH Q4HR PRN 09/17/16 01/05/18 Inhaler] Venlafaxine [Effexor] 75 mg PO TID 09/20/16 01/05/18 Oxycodone HCl/Acetaminophen 1 - 2 tab PO Q4H PRN #15 tablet 01/05/18 [Percocet 5-325 mg Tablet] traZODone [Desyrel] 100 mg PO QPM 01/05/18 01/05/18 Ciprofloxacin HCl [Cipro] 500 mg PO BID #14 tablet 07/17/18 Metronidazole [Flagyl] 500 mg PO BID #14 tablet 07/17/18 oxyCODONE/ACET 5/325 [Percocet 5 1 - 2 each PO Q4-6H PRN #12 tablet 07/17/18 mg/325 mg] Ciprofloxacin HCl [Cipro] 500 mg PO BID #10 tablet 12/03/18 Diphenoxylate/Atropine [Lomotil] 1 each PO QID PRN #12 tablet 12/03/18 Metronidazole [Flagyl] 500 mg PO BID #14 tablet 12/03/18 Ondansetron Odt [Zofran] 4 mg TL Q6H PRN #10 tablet 12/03/18 Oxycodone HCl/Acetaminophen 1 - 2 each PO Q6H PRN #14 tablet 12/03/18 [Percocet 5-325 mg Tablet] - Allergies Allergies/Adverse Reactions: Allergies Allergy/AdvReac Type Severity Reaction Status Date / Time amoxicillin trihydrate * Allergy anaphalaxis Verified 12/03/18 07:11 [From Augmentin] cephalexin monohydrate * Allergy anaphalaxis Verified 12/03/18 07:11 [From Keflex] doxycycline Allergy Unknown Verified 12/03/18 07:11 hydrocodone bitartrate * Allergy itchy Verified 12/03/18 07:11 [From Vicodin] metoclopramide HCl * Allergy Anxiety Verified 12/03/18 07:11 [From Reglan] Penicillins Allergy anaphalaxis Verified 12/03/18 07:11 potassium clavulanate * Allergy anaphalaxis Verified 12/03/18 07:11 [From Augmentin] prednisone Allergy psychotic Verified 12/03/18 07:11 prochlorperazine edisylate * Allergy anxious Verified 12/03/18 07:11 [From Compazine] prochlorperazine maleate * Allergy anxious Verified 12/03/18 07:11 [From Compazine] propoxyphene napsylate * Allergy Unknown Verified 12/03/18 07:11 [From Darvocet-N] codeine AdvReac Nausea Verified 12/03/18 07:11 gabapentin [From Neurontin] AdvReac Unknown Verified 12/03/18 07:11 topiramate [From Topamax] AdvReac Unknown Verified 12/03/18 07:11 steroids Allergy Unknown Uncoded 12/03/18 07:11 - Social History Does the pt smoke?: No Smoking Status: Never smoker Does the pt drink ETOH?: Yes Does the pt have substance abuse?: No - Immunizations Immunizations are current?: Yes - POLST Patient has POLST: No PD ED PE NORMAL - Vitals Vital signs reviewed: Yes - General General: Alert and oriented X 3, Well developed/nourished, Other (appears uncomfortable) - HEENT HEENT: Pharynx benign. No: Moist mucous membranes - Neck Neck: Supple, no meningeal sign, No adenopathy - Cardiac Cardiac: RRR, No murmur - Respiratory Respiratory: Clear bilaterally - Abdomen Abdomen: Soft, Non distended, No organomegaly, Other (tender diffusely, least tender right side. No percussion nor rebound nor guarding. ). No: Normal bowel sounds (diminished) - Female Female : Deferred - Rectal Rectal: Deferred - Back Back: No CVA TTP - Derm Derm: Normal color - Extremities Extremities: No deformity, Normal ROM s pain - Neuro Neuro: Alert and oriented X 3, No motor deficit, Normal speech Results - Vitals Vitals: Vital Signs - 24 hr 12/03/18 12/03/18 12/03/18 07:09 11:39 12:30 Temperature 35.5 C L Heart Rate 74 63 58 L Respiratory 14 18 16 Rate Blood Pressure 163/100 H 157/87 H 165/82 H O2 Saturation 98 100 99 Oxygen O2 Source Room air - Labs Labs: Laboratory Tests 12/03/18 12/03/18 12/03/18 07:15 08:06 08:06 WBC 8.3 RBC 4.89 Hgb 13.8 Hct 40.9 MCV 83.7 MCH 28.2 MCHC 33.7 RDW 16.1 H Plt Count 284 MPV 6.9 L Neut # (Auto) 6.3 Lymph # (Auto) 1.4 L [place] # (Auto) 0.4 Eos # (Auto) 0.2 Baso # (Auto) 0.1 Absolute Nucleated RBC 0.00 Nucleated RBC % 0.0 ESR Sodium 139 Potassium 3.6 Chloride 104 Carbon Dioxide 27 Anion Gap 8.0 BUN 13 Creatinine 0.9 Estimated GFR (MDRD) 66 L Glucose 107 H Calcium 9.4 Magnesium 1.9 Total Bilirubin 0.5 AST 21 ALT 18 Alkaline Phosphatase 97 Total Protein 7.8 Albumin 3.9 Globulin 3.9 Albumin/Globulin Ratio 1.0 Lipase 19 L Urine Color YELLOW Urine Clarity CLEAR Urine pH 6.0 Ur Specific [place] 1.025 Urine Protein NEGATIVE Urine Glucose (UA) NEGATIVE Urine Ketones NEGATIVE Urine Occult Blood NEGATIVE Urine Nitrite NEGATIVE Urine Bilirubin NEGATIVE Urine Urobilinogen 0.2 (NORMAL) Ur Leukocyte Esterase TRACE H Urine RBC 0-5 Urine WBC 0-3 Ur Squamous Epith Cells MOD Squamous H Urine Bacteria Many H Ur Microscopic Review INDICATED Urine Culture Comments NOT INDICATED Urine HCG, Qual NEGATIVE 12/03/18 08:06 WBC RBC Hgb Hct MCV MCH MCHC RDW Plt Count MPV Neut # (Auto) Lymph # (Auto) [place] # (Auto) Eos # (Auto) Baso # (Auto) Absolute Nucleated RBC Nucleated RBC % ESR 8 Sodium Potassium Chloride Carbon Dioxide Anion Gap BUN Creatinine Estimated GFR (MDRD) Glucose Calcium Magnesium Total Bilirubin AST ALT Alkaline Phosphatase Total Protein Albumin Globulin Albumin/Globulin Ratio Lipase Urine Color Urine Clarity Urine pH Ur Specific [place] Urine Protein Urine Glucose (UA) Urine Ketones Urine Occult Blood Urine Nitrite Urine Bilirubin Urine Urobilinogen Ur Leukocyte Esterase Urine RBC Urine WBC Ur Squamous Epith Cells Urine Bacteria Ur Microscopic Review Urine Culture Comments Urine HCG, Qual PD MEDICAL DECISION MAKING - ED course Complexity details: reviewed old records, re-evaluated patient (improved with fluids and meds. ), considered differential (has had colitis in the past, with CT scan twice for this showing colitis, without abscess nor free air. ), d/w patient Departure - Departure Disposition: 01 Home, Self Care Clinical Impression: Acute colitis Abdominal pain Qualifiers: Abdominal location: generalized Qualified Code(s): R10.84 - Generalized abdominal pain Diarrhea Qualifiers: Diarrhea type: presumed infectious Qualified Code(s): R19.7 - Diarrhea, unspecified Condition: Stable Record reviewed to determine appropriate education?: Yes Instructions: ED Gastroenteritis Non Infec Follow-Up: LYDIA DIOP MD [Primary Care Provider] - Prescriptions: Ciprofloxacin HCl [Cipro] 500 mg PO BID #10 tablet Diphenoxylate/Atropine [Lomotil] 1 each PO QID PRN #12 tablet PRN Reason: Diarrhea Metronidazole [Flagyl] 500 mg PO BID #14 tablet Ondansetron Odt [Zofran] 4 mg TL Q6H PRN #10 tablet PRN Reason: Nausea / Vomiting Oxycodone HCl/Acetaminophen [Percocet 5-325 mg Tablet] 1 - 2 each PO Q6H PRN #14 tablet PRN Reason: pain Comments: We will treat this as the other episodes of colitis have been treated with Cipro and metronidazole antibiotics as well as Lomotil for diarrhea and ondansetron for nausea. Use Tylenol or Percocet if needed for pains. Follow-up with your primary care this coming week, call for an appointment. Return if worsening symptoms. Discharge Date/Time: 12/03/18 12:37
[2018-12-03 07:37] LABS: BILIRUBIN,URINE NEGATIVE (NEGATIVE); GLUCOSE, URINE (UA) NEGATIVE (NEGATIVE); KETONES,URINE (UA) NEGATIVE (NEGATIVE); LEUKOCYTE ESTERASE, URINE TRACE (NEGATIVE); NITRITE,URINE NEGATIVE (NEGATIVE); OCCULT BLOOD,URINE NEGATIVE (NEGATIVE); PROTEIN,URINE NEGATIVE (NEGATIVE); UROBILINOGEN,URINE 0.2 (NORMAL) E.U./dL (NORMAL)
[2018-12-03 07:41] LABS: CLARITY,URINE CLEAR (CLEAR); HCG UR QUAL NEGATIVE
[2018-12-03] MEDS ORDERED: ONDANSETRON 4 MG/2 ML VIAL IVP STA ×2 (07:42→09:59)
[2018-12-03] MEDS ORDERED: SODIUM CHLORIDE 0.9% 1,000 ML IV ONE ×2 (07:42→07:47)
[2018-12-03] MEDS ORDERED: DIPHENOX/ATROPINE 2.5/0.025 MG TABLET PO STA (07:43)
[2018-12-03] MEDS ORDERED: KETOROLAC 15 MG/ML VIAL IVP STA (07:43)
[2018-12-03] MEDS ORDERED: HYDROmorphone 2 MG/ML VIAL IVP STA (07:43)
[2018-12-03 07:50] LABS: BACTERIA,URINE Many /HPF (None Seen); RBC,URINE 0-5 /HPF (0-5); SQUAMOUS EPITHELIAL CELL,UR MOD Squamous (<= Few)
[2018-12-03 08:21] LABS: BASOPHILS # (AUTO) 0.1 10^3/uL (0.0-0.1); EOSINOPHILS # (AUTO) 0.2 10^3/uL (0.0-0.7); EOSINOPHILS % (AUTO) 2.1 %; HGB - HEMOGLOBIN 13.8 g/dL (12.0-16.0); LYMPHOCYTES # (AUTO) 1.4 10^3/uL (1.5-3.5); LYMPHOCYTES % (AUTO) 16.6 %; MEAN CORPUSCULAR HEMOGLOBIN 28.2 pg (27.0-31.0); MEAN CORPUSCULAR HGB CONC 33.7 g/dL (32.0-36.0); MEAN CORPUSCULAR VOLUME 83.7 fL (81.0-99.0); MEAN PLATELET VOLUME 6.9 fL (7.9-10.8); MONOCYTES # (AUTO) 0.4 10^3/uL (0.0-1.0); MONOCYTES % (AUTO) 4.3 %; NEUTROPHILS # (AUTO) 6.3 10^3/uL (1.5-6.6); PLT - PLATELET COUNT 284 10^3/uL (130-450); RED BLOOD COUNT 4.89 10^6/uL (4.20-5.40); RED CELL DISTRIBUTION WIDTH 16.1 % (12.0-15.0); WHITE BLOOD COUNT 8.3 x10^3/uL (4.8-10.8)
[2018-12-03 08:37] LABS: ALBUMIN 3.9 g/dL (3.2-5.5); BILIRUBIN,TOTAL 0.5 mg/dL (0.2-1.0); CALCIUM 9.4 mg/dL (8.5-10.3); CREATININE 0.9 mg/dL (0.4-1.0); MAGNESIUM 1.9 mg/dL (1.7-2.8); TOTAL PROTEIN 7.8 g/dL (6.7-8.2)
[2018-12-03] MEDS ORDERED: metroNIDAZOLE 500 MG/100 ML 500 MG/100 ML BAG IV ONE (09:59)
[2018-12-03] MEDS ORDERED: CIPROFLOXACIN 250 MG TABLET PO STA (09:59)
[2018-12-03] MEDS ORDERED: HYDROmorphone 1 MG/ML CARPUJECT IVP STA (11:26)
[2018-12-03 12:32] VITALS: BP 165/82
== END 2018-12-03 12:37 | disposition home or self-care (01) ==
LOC: ED 07:01
DX: K52.9 Noninfective gastroenteritis and colitis, unspecified (principal)
CPT/HCPCS: 36415; 80053; 81001; 81025; 83516; 83690; 83735; 85025; 85651; 96361; 96365; 96375; 96376; 99283; 99284; A9270; J1170; 81003; 87086

== ENCOUNTER 2019-03-08 08:58 | Outpatient (CLI) | payer MEDICAID ==
--- NOTE | 2019-03-08 11:40 | Mammography Report ---
Reason: SCREENING MAMMO Procedure Date: 03/08/2019 Accession Number: [id number] / [id number] Procedure: [facility] - Screening Mammo w/[facility] CPT Code: FULL RESULT: EXAM: Screening Mammo w/[facility] DATE: 03/08/2019 9:24 AM CLINICAL HISTORY: Screening encounter. History of early menses. Family history of breast cancer in the mother at age 60 and sister at age 42. TECHNIQUE: (B) - Bilateral CC and MLO views were obtained. COMPARISON: 02/16/2017 2 01/16/2014. PARENCHYMAL PATTERN: (A) - The breast(s) demonstrate(s) scattered fibroglandular densities. FINDINGS: Interval increase in apparent right breast density, asymmetry, in the upper portion of the right MLO projection, possibly tissue overlap and no definite correlate on CC images. This finding requires additional views for clarification. There are no suspicious masses, calcifications, or areas of distortion in the left breast. IMPRESSION: Incomplete examination. BI-RADS category 0. RECOMMENDATION: ([facility]) - Additional views using both Mammography and Ultrasound recommended. Additional views of the right breast, possibly ultrasound. BI-RADS CATEGORY: (0) - Incomplete Examination - need additional evaluation. STANDARD QUALIFYING STATEMENTS: 1. This examination was not reviewed with the aid of Computer-Aided Detection (CAD). 2. A negative or benign imaging report should not preclude biopsy if clinically suspicious findings are present. 3. Dense breasts may obscure an underlying neoplasm. 4. This examination was reviewed without the aid of 3D breast imaging (tomosynthesis).
== END 2019-03-08 08:59 | disposition home or self-care (01) ==
LOC: DI 08:58
PROVIDERS: ATTEND Student in an Organized Health Care Education/Training Program
DX: Z12.31 Encounter for screening mammogram for malignant neoplasm of breast (principal); Z80.3 Family history of malignant neoplasm of breast
CPT/HCPCS: 77063; 77067

== ENCOUNTER 2019-05-02 07:14 | Emergency (ER) | payer MEDICAID ==
--- NOTE | 2019-05-02 07:32 | ED Physician Documentation ---
History of Present Illness - Stated complaint Stated Complaint: LEG PX - History obtained from History obtained from: Patient - History of Present Illness Timing: Yesterday - Additonal information Additional information: Patient is a 53-year-old female presenting with left toe and foot pain after accidentally running her foot into the wall yesterday and then dropping a vacuum on it. Patient reports left fourth toe pain with extensive bruising and mild swelling. Patient states this pain radiates towards the underside of her foot. Patient denies other injuries or areas of pain. No change in sensation, strength, range of motion. Patient has been able to bear weight on this foot. Patient is not on any anticoagulation. No other improving or worsening factors noted. Review of Systems Skin: reports: Other (Ecchymosis) Musculoskeletal: reports: Extremity pain PD PAST MEDICAL HISTORY - Past Medical History Cardiovascular: None Respiratory: Asthma, Pneumonia Endocrine/Autoimmune: None GI: GERD TRIPPER: None : None HEENT: None Psych: Depression, Anxiety Musculoskeletal: Chronic back pain Derm: None - Past Surgical History Past Surgical History: Yes General: Appendectomy, Other Ortho: Spine surgery /TRIPPER: 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 - Present Medications Home Medications: Ambulatory Orders Medication Instructions Recorded Confirmed Venlafaxine [Effexor] 75 mg PO TID 09/20/16 01/05/18 Zolpidem Tartrate [Ambien] 05/02/19 - Allergies Allergies/Adverse Reactions: Allergies Allergy/AdvReac Type Severity Reaction Status Date / Time amoxicillin trihydrate * Allergy anaphalaxis Verified 05/02/19 07:45 [From Augmentin] cephalexin monohydrate * Allergy anaphalaxis Verified 05/02/19 07:45 [From Keflex] doxycycline Allergy Unknown Verified 05/02/19 07:45 hydrocodone bitartrate * Allergy itchy Verified 05/02/19 07:45 [From Vicodin] metoclopramide HCl * Allergy Anxiety Verified 05/02/19 07:45 [From Reglan] Penicillins Allergy anaphalaxis Verified 05/02/19 07:45 potassium clavulanate * Allergy anaphalaxis Verified 05/02/19 07:45 [From Augmentin] prednisone Allergy psychotic Verified 05/02/19 07:45 prochlorperazine edisylate * Allergy anxious Verified 05/02/19 07:45 [From Compazine] prochlorperazine maleate * Allergy anxious Verified 05/02/19 07:45 [From Compazine] propoxyphene napsylate * Allergy Unknown Verified 05/02/19 07:45 [From Darvocet-N] codeine AdvReac Nausea Verified 05/02/19 07:45 gabapentin [From Neurontin] AdvReac Unknown Verified 05/02/19 07:45 topiramate [From Topamax] AdvReac Unknown Verified 05/02/19 07:45 steroids Allergy Unknown Uncoded 12/03/18 07:11 - Social History Does the pt smoke?: No Smoking Status: Never smoker Does the pt drink ETOH?: Yes Does the pt have substance abuse?: No - Immunizations Immunizations are current?: Yes - POLST Patient has POLST: No PD ED PE NORMAL - Vitals Vital signs reviewed: Yes - General General: Alert and oriented X 3, No acute distress, Well developed/nourished - HEENT HEENT: Atraumatic, Moist mucous membranes - Cardiac Cardiac: Strong equal pulses (Cap refill brisk) - Respiratory Respiratory: No respiratory distress - Derm Derm: Warm and dry, No rash, Other (Area of ecchymosis over left fourth toe only with mild swelling and erythema present.) - Extremities Extremities: No deformity, Normal ROM s pain, Other (No change in strength, sensation, range of motion to left lower extremity including foot and toes.). No: No tenderness to palpate (Left fourth toe tender to the touch.) - Neuro Neuro: Alert and oriented X 3, No motor deficit, No sensory deficit - Psych Psych: Normal mood, Normal affect Results - Vitals Vitals: Vital Signs - 24 hr 05/02/19 07:30 Temperature 36.3 C L Heart Rate 72 Respiratory 18 Rate Blood Pressure 174/88 H O2 Saturation 99 Oxygen O2 Source Room air PD MEDICAL DECISION MAKING - ED course Complexity details: reviewed results, re-evaluated patient, considered differential, d/w patient ED course: Patient presenting with mechanical injury to her left foot and toes. Do have concern for possible dislocation and fracture. Obtained plain films which returned without evidence of acute abnormalities. Do not feel patient is at high risk for other etiologies such as DVT, joint infection, gout, cellulitis, abscess. Feel that she is safe to discharge home with supportive care such as elevation, ice application, anti-inflammatories. Also discussed return precautions and appropriate follow-up. Patient voiced understanding and is comfortable with discharge plan. Departure - Departure Disposition: 01 Home, Self Care Clinical Impression: Pain of lower extremity Qualifiers: Laterality: left Qualified Code(s): M79.605 - Pain in left leg Instructions: ED Contusion Lower Ext Follow-Up: LYDIA DIOP MD [Primary Care Provider] - Within 3 Days Comments: Please continue home medications as previously instructed. Recommend supportive cares for your toe such as elevation, ice application, ibuprofen/Tylenol as needed. Follow-up with your primary care physician and return to ED sooner if experience worsening symptoms or have other concerns.
[2019-05-02 07:44] VITALS: BP 174/88
[2019-05-02] MEDS ORDERED: KETOROLAC 60 MG/2 ML VIAL IM STA (07:47)
--- NOTE | 2019-05-02 08:43 | XRAY Report ---
Reason: 5th toe pain and bruising extending into foot Procedure Date: 05/02/2019 Accession Number: [id number] / [id number] Procedure: XR - Foot 3 View LT CPT Code: FULL RESULT: EXAM: LEFT FOOT RADIOGRAPHY EXAM DATE: 05/02/2019 08:01 AM. CLINICAL HISTORY: 5th toe pain and bruising extending into foot. COMPARISON: None. TECHNIQUE: 3 views. FINDINGS: Bones: Bones are osteopenic. Joints: Mild degenerative changes at the interphalangeal joint of the first digit. Question chronic fracture deformity of the distal aspect of the proximal first phalanx. Mild degenerative changes at the PIP joint of the fifth digit. Soft Tissues: Normal. No soft tissue swelling. IMPRESSION: 1. Question chronic fracture deformity of the distal aspect of the proximal first phalanx. 2. Mild degenerative changes at the interphalangeal joint of the first digit. 3. Mild degenerative changes at the PIP joint of the fifth digit. RADIA
== END 2019-05-02 08:56 | disposition home or self-care (01) ==
LOC: ED 07:14
DX: S90.122A Contusion of left lesser toe(s) without damage to nail, initial encounter (principal); M79.675 Pain in left toe(s); W20.8XXA Other cause of strike by thrown, projected or falling object, initial encounter; W22.01XA Walked into wall, initial encounter
CPT/HCPCS: 96372; 99282

== ENCOUNTER 2019-08-08 17:29 | Outpatient (CLI) | payer MEDICAID ==
--- NOTE | 2019-08-10 08:16 | Ultrasound Report ---
Reason: ABDOMINAL PAIN Procedure Date: 08/08/2019 Accession Number: [id number] / [id number] Procedure: US - Abdomen Complete CPT Code: FULL RESULT: EXAM: ABDOMEN ULTRASOUND EXAM DATE: 08/08/2019 05:52 PM. CLINICAL HISTORY: Abdominal pain. COMPARISON: ABDOMEN/PELVIS W/O 07/17/2018 9:59 AM. TECHNIQUE: Real-time scanning was performed with static images obtained. FINDINGS: Liver: Suboptimal visualization of the left liver due to body habitus. Parenchyma is heterogeneous. No mass or intrahepatic bile duct dilation. 13.8 cm. Main portal vein flow: Hepatopetal. Gallbladder: Normal. No stones, wall thickening, or sonographic Zayas's sign. Biliary System: Common bile duct measures 2.5 mm. No intrahepatic or extrahepatic ductal dilatation. Pancreas: Obscured by bowel gas. Kidneys: Right: 10.8 cm longitudinally. Normal. No contour-deforming mass, stones, or hydronephrosis. Left: 10.5 cm longitudinally. Normal. No contour-deforming mass, stones, or hydronephrosis. Spleen: 9.1 x 4.5 x 6.9 cm. Normal in size and echotexture. Aorta and Inferior Vena Cava: Abdominal aorta largely obscured. Given the limitations, no abdominal aortic aneurysm. IVC is obscured. Other: Study limited by body habitus and bowel gas. IMPRESSION: 1. Study significantly limited due to body habitus and bowel gas. 2. Heterogeneous liver parenchyma. No mass or intrahepatic bile duct dilation. 3. Normal gallbladder and common bile duct. Pancreas obscured by bowel gas. 4. If symptoms persist, recommend contrast enhanced CT evaluation of the abdomen and pelvis. RADIA
== END 2019-08-08 17:30 | disposition home or self-care (01) ==
LOC: DI 17:29
DX: R10.9 Unspecified abdominal pain (principal)
CPT/HCPCS: 76700

== ENCOUNTER 2019-11-21 14:55 | Outpatient (CLI) | payer MEDICAID | END 2019-11-21 14:56 | disposition critical access hospital (66) | LOC: EMS 14:55 | PROVIDERS: ATTEND Surgery | DX: M54.5 Low back pain (principal); M25.552 Pain in left hip | CPT/HCPCS: A0425; A0427; A0999 ==

== ENCOUNTER 2019-11-21 15:25 | Emergency (ER) | payer MEDICAID ==
--- NOTE | 2019-11-21 15:33 | ED Physician Documentation ---
PD HPI LOWER EXT INJURY - Stated complaint Stated Complaint: HIP PX - Chief complaint Chief Complaint: Back Pain - History obtained from History obtained from: Patient, EMS - History of Present Illness PD HPI LOW EXT INJURY LOCATION: Left, Hip, Other (lower back) Type of injury: Twist (She was getting out of her car earlier and just stopped down onto her left leg and felt a pop in her hip and low back. She had significant pain and spasming occurring with movement and weightbearing since that time which was about 6 hours ago. She tried smoking marijuana without any improvement. She did not take any medication. She has had previous low back surgeries but had not been having any pain recently. No prior hip problems in the past.) Where injury occurred: Home Timing - onset: How many hours ago (6), Today Timing - duration: Hours (6) Timing - details: Abrupt onset, Still present Improved by: No: Rest Worsened by: Moving, Palpating Associated symptoms: Numbness (She has some chronic numbness in the left leg from prior back surgeries. She denies any new symptoms of that today.). No: Weakness Contributing factors: Prior ortho surgery (lumbar spine with hardware.) Recently seen: Not recently seen Review of Systems Constitutional: denies: Fever, Chills, Myalgias Nose: denies: Rhinorrhea / runny nose, Congestion Throat: denies: Sore throat Respiratory: denies: Cough : denies: Dysuria, Frequency Skin: denies: Rash, Lesions Neurologic: reports: Numbness (chronic lateral lower leg, from prior back disc problem). 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 : None HEENT: None Psych: Depression, Anxiety Musculoskeletal: Chronic back pain Derm: None - Past Surgical History Past Surgical History: Yes General: Appendectomy, Other Ortho: Spine surgery /AEROSPACE MECHANIC: 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 - Present Medications Home Medications: Ambulatory Orders Medication Instructions Recorded Confirmed Venlafaxine [Effexor] 75 mg PO TID 09/20/16 01/05/18 Zolpidem Tartrate [Ambien] 05/02/19 Naproxen 375 mg PO BID #20 tablet 11/21/19 Oxycodone HCl/Acetaminophen 1 each PO Q4H PRN #25 tablet 01/08/20 [Oxycodon-Acetaminophen 7.5-325] Tizanidine HCl 4 mg PO TID PRN #25 capsule 11/21/19 - Allergies Allergies/Adverse Reactions: Allergies Allergy/AdvReac Type Severity Reaction Status Date / Time amoxicillin trihydrate * Allergy anaphalaxis Verified 11/21/19 15:30 [From Augmentin] cephalexin monohydrate * Allergy anaphalaxis Verified 11/21/19 15:30 [From Keflex] doxycycline Allergy Unknown Verified 11/21/19 15:30 hydrocodone bitartrate * Allergy itchy Verified 11/21/19 15:30 [From Vicodin] metoclopramide HCl * Allergy Anxiety Verified 11/21/19 15:30 [From Reglan] Penicillins Allergy anaphalaxis Verified 11/21/19 15:30 potassium clavulanate * Allergy anaphalaxis Verified 11/21/19 15:30 [From Augmentin] prednisone Allergy psychotic Verified 11/21/19 15:30 prochlorperazine edisylate * Allergy anxious Verified 11/21/19 15:30 [From Compazine] prochlorperazine maleate * Allergy anxious Verified 11/21/19 15:30 [From Compazine] propoxyphene napsylate * Allergy Unknown Verified 11/21/19 15:30 [From Darvocet-N] codeine AdvReac Nausea Verified 11/21/19 15:30 gabapentin [From Neurontin] AdvReac Unknown Verified 11/21/19 15:30 topiramate [From Topamax] AdvReac Unknown Verified 11/21/19 15:30 steroids Allergy Unknown Uncoded 12/03/18 07:11 - Social History Does the pt smoke?: No Smoking Status: Never smoker Does the pt drink ETOH?: Yes Does the pt have substance abuse?: No - Immunizations Immunizations are current?: Yes - POLST Patient has POLST: No PD ED PE NORMAL - Vitals Vital signs reviewed: Yes - General General: Alert and oriented X 3, Well developed/nourished, Other (She appears in pain and has guarded range of motion both of the left hip and the low back. No obvious deformity.) - Abdomen Abdomen: Soft, Non tender - Back Back: No CVA TTP, Other (She has tenderness in the left lateral lumbar area and along the iliac crest and the SI joint. There is also tenderness on the lateral aspect of the left hip. Pain is elicited with impaction and rotation of the left hip. There is no obvious deformity.) - Derm Derm: Normal color, Warm and dry, No rash - Extremities Extremities: No tenderness to palpate, No edema - Neuro Neuro: Alert and oriented X 3, No motor deficit, Normal speech, Other (Some decrease sensation to touch along the lateral aspect of the lower leg on the left which she states is baseline. There is good color pulses and capillary refill in the ankle and toes. She is good motor exam of both lower ankles/toes. This is of course limited because of guarded motion at the hip.) Results - Vitals Vitals: Vital Signs - 24 hr 11/21/19 11/21/19 11/21/19 15:30 15:38 17:10 Temperature 37.3 C 37.2 C Heart Rate 89 85 75 Respiratory 18 18 16 Rate Blood Pressure 167/89 H 165/110 H 174/103 H O2 Saturation 98 98 96 Oxygen O2 Source Room air - Rads (name of study) lumbar and pelvic CT Radiology: Prelim report reviewed (Patient's prior surgical hardware is in place. There is no obvious displacement of it. No noted fractures nor dislocation. There is arthritis at the SI joint. No acute abnormality to account for the pain.), See rad report PD MEDICAL DECISION MAKING - ED course Complexity details: reviewed results (The CT scans of do not show any acute process. At this point we can approach it with anti-inflammatories, muscle relaxants, pain medicines. She has no acute neurologic symptoms in the legs. There are no other red flags to suggest need for other testing.), re-evaluated patient (Stepwise improvement in the pain with doses of pain medicine as well as muscle relaxant and a dose of Toradol. She is able to walk to the bathroom. It was still hurting but not nearly as bad and was tolerable enough to at home.), considered differential, d/w patient Departure - Departure Disposition: 01 Home, Self Care Clinical Impression: Acute pain of left hip Strain of pelvis Qualifiers: Encounter type: initial encounter Qualified Code(s): S39.013A - Strain of muscle, fascia and tendon of pelvis, initial encounter Condition: Stable Record reviewed to determine appropriate education?: Yes Instructions: ED Low Back Pain Injury Follow-Up: LYDIA DIOP MD [Primary Care Provider] - Prescriptions: Naproxen 375 mg PO BID #20 tablet Oxycodone HCl/Acetaminophen [Oxycodon-Acetaminophen 7.5-325] 1 each PO Q4H PRN #25 tablet PRN Reason: Pain Tizanidine HCl 4 mg PO TID PRN #25 capsule PRN Reason: Spasms Comments: Gentle range of motion and stretching of the hip and low back. Try some anti- inflammatories such as naproxen low-dose twice daily, with food to try not to upset your stomach. Do this for 4 to 5 days. Tizanidine muscle relaxant for spasms and stiffness. Add Tylenol 500 mg 4 times a day for pain or oxycodone every 4-6 hours if needed for worse pain. Recheck with your primary care if not improving well over the next several days for potential of physical therapy or other treatments. Your CT scan does not show any acute dislodgment of the hardware nor any fractures or other identifiable process. This does not preclude muscular problem, strain of ligaments, some disc displacement/ nerve impingement or arthritic flareup.
[2019-11-21] MEDS ORDERED: HYDROmorphone 2 MG/ML VIAL IVP STA (15:49)
[2019-11-21] MEDS ORDERED: KETOROLAC 30 MG/ML VIAL IVP STA (15:49)
[2019-11-21] MEDS ORDERED: LORazepam 2 MG/ML VIAL IVP STA ×2 (15:49→17:39)
[2019-11-21] MEDS ORDERED: HYDROmorphone 1 MG/ML CARPUJECT IVP STA ×2 (17:01→17:39)
--- NOTE | 2019-11-21 17:02 | CT Report ---
Reason: pain left hip and low back, onset 9 am Procedure Date: 11/21/2019 Accession Number: [id number] / [id number] Procedure: CT - LUMBAR SPINE WO CPT Code: Final Report FULL RESULT: EXAM: CT LUMBAR SPINE WITHOUT CONTRAST EXAM DATE: 11/21/2019 04:33 PM. CLINICAL HISTORY: Pain left hip and low back, onset 9 am. COMPARISONS: LUMBAR SPINE W/O 01/05/2018 12:49 PM. TECHNIQUE: Thin-section axial images were acquired of the lumbar spine from T12 to S1 without contrast. Post-processing: Coronal and sagittal reformats. Other: None. In accordance with CT protocol optimization, one or more of the following dose reduction techniques were utilized for this exam: automated exposure control, adjustment of mA and/or KV based on patient size, or use of iterative reconstructive technique. FINDINGS: Alignment: There is grade 1 anterolisthesis of L3 on L4. No acute dislocation. No evidence of scoliosis. Patient has undergone L4-S1 fusion and laminectomy. No evidence of hardware dysfunction. Bones: Normal mineralization. No fractures or bone lesions. Disk Levels/Facets: T12-L1: Unremarkable. L1-L2: Unremarkable. L2-L3: Unremarkable. L3-L4: There is moderate to severe spinal stenosis and bilateral neural foramen narrowing secondary to disk bulge, anterolisthesis, and facet arthrosis. L4-L5: Unremarkable. L5-S1: Unremarkable. Musculature: Normal. No fatty atrophy. Other: The visualized retroperitoneum is unremarkable. IMPRESSION: 1. Status post L4-S1 laminectomy and fusion. No evidence of hardware dysfunction. 2. There is moderate to severe spinal stenosis and neural foramen narrowing at the L3-L4 level secondary to disk bulge, anterolisthesis, and facet arthrosis. 3. No evidence of fracture or dislocation. [facility]
--- NOTE | 2019-11-21 17:10 | CT Report ---
Reason: pain left hip and low back, onset 9 am Procedure Date: 11/21/2019 Accession Number: [id number] / [id number] Procedure: CT - PELVIS WO CPT Code: Final Report FULL RESULT: EXAM: CT BONY PELVIS WITHOUT CONTRAST EXAM DATE: 11/21/2019 04:33 PM. CLINICAL HISTORY: Pain left hip and low back, onset 9 am. COMPARISON: 11/21/[address] TECHNIQUE: Thin-section axial images were acquired of the pelvis without contrast. Post-processing: Coronal and sagittal reformats. Other: None. In accordance with CT protocol optimization, one or more of the following dose reduction techniques were utilized for this exam: automated exposure control, adjustment of mA and/or KV based on patient size, or use of iterative reconstructive technique. FINDINGS: Bones: No fracture or bone lesion. Postsurgical changes of lumbosacral fusion, with solid osseous bridging across the disk spaces. No osteolysis surrounding the pedicle screws. Prior posterior decompression at the fused levels. Sacroiliac Joints: Minimal subchondral sclerosis and small marginal osteophytes at the bilateral sacroiliac joints. Symphysis Pubis: Unremarkable. Right Hip: The joint space is preserved. No calcified loose bodies. Left Hip: The joint space is preserved. No calcified loose bodies. Musculature: Normal. No fatty atrophy. Pelvic Cavity: The visualized bowel, bladder, and reproductive organs are unremarkable on this noncontrast exam. Other: No lymphadenopathy. No free air or free fluid. The other visualized soft tissues are unremarkable. IMPRESSION: 1. No fractures. 2. Mild bilateral sacroiliac joint osteoarthritis. 3. Prior L4-S1 posterior segmental instrumented fusion and posterior decompression, with a solid fusion across the disk spaces and no evidence of hardware complication. [facility]
[2019-11-21 17:53] VITALS: BP 162/81
== END 2019-11-21 18:04 | disposition home or self-care (01) ==
LOC: EDUNIT# → ED 15:25
DX: S39.013A Strain of muscle, fascia and tendon of pelvis, initial encounter (principal); M25.552 Pain in left hip; X50.1XXA Overexertion from prolonged static or awkward postures, initial encounter; Y93.89 Activity, other specified; Y92.008 Other place in unspecified non-institutional (private) residence as the place of occurrence of the external cause; M47.818 Spondylosis without myelopathy or radiculopathy, sacral and sacrococcygeal region; M48.061 Spinal stenosis, lumbar region without neurogenic claudication; M51.26 Other intervertebral disc displacement, lumbar region; Z98.1 Arthrodesis status
CPT/HCPCS: 72131; 72192; 96374; 96375; 96376; 99284; J1170; J2060

== ENCOUNTER 2019-12-26 10:08 | Emergency (ER) | payer MEDICAID ==
[2019-12-26 10:41] LABS: BILIRUBIN,URINE NEGATIVE (NEGATIVE); GLUCOSE, URINE (UA) NEGATIVE (NEGATIVE); KETONES,URINE (UA) TRACE mg/dL (NEGATIVE); LEUKOCYTE ESTERASE, URINE NEGATIVE (NEGATIVE); NITRITE,URINE NEGATIVE (NEGATIVE); OCCULT BLOOD,URINE NEGATIVE (NEGATIVE); PROTEIN,URINE NEGATIVE (NEGATIVE); UROBILINOGEN,URINE 0.2 (NORMAL) E.U./dL (NORMAL)
[2019-12-26] MEDS ORDERED: SODIUM CHLORIDE 0.9% 1,000 ML IV ONE (10:49)
[2019-12-26] MEDS ORDERED: KETOROLAC 30 MG/ML VIAL IVP STA (10:49)
--- NOTE | 2019-12-26 10:51 | ED Physician Documentation ---
PD HPI ABD PAIN - Stated complaint Stated Complaint: ABD PX,DIARRHEA - Chief complaint Chief Complaint: Abd Pain - History obtained from History obtained from: Patient - History of Present Illness Timing - onset: How many days ago (5) Timing - duration: Days (5) Timing - details: Gradual onset, Still present Quality: Sharp, Pain Location: LLQ Radiation: Lower back Improved by: Laying still Worsened by: Moving, Position, Palpation Associated symptoms: Nausea, Diarrhea Similar symptoms before: Diagnosis (colitis) Recently seen: Not recently seen - Additional information Additional information: 54-year-old female with a history of recurrent colitis has developed some diarrhea and abdominal pain starting about 5 days ago she has had a progression of the pain in the left lower quadrant similar to what she is had previously with colitis. She indicates that she has had improvement with the use of Cipro and Flagyl previously. She has not had fever with this. Review of Systems Constitutional: reports: Fatigue. denies: Fever, Chills Eyes: denies: Decreased vision Ears: denies: Ear pain Nose: denies: Rhinorrhea / runny nose, Congestion Throat: denies: Sore throat Cardiac: denies: Chest pain / pressure, Palpitations Respiratory: denies: Dyspnea GI: reports: Abdominal Pain, Nausea, Diarrhea : denies: Dysuria, Frequency Skin: denies: Rash Musculoskeletal: reports: Back pain. 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 : None HEENT: None Psych: Depression, Anxiety Musculoskeletal: Chronic back pain Derm: None Other Past Medical History: colitis - Past Surgical History Past Surgical History: Yes General: Appendectomy, Other Ortho: Spine surgery /SHOW WORKER: 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 - Present Medications Home Medications: Ambulatory Orders Medication Instructions Recorded Confirmed Venlafaxine [Effexor] 75 mg PO TID 09/20/16 01/05/18 Zolpidem Tartrate [Ambien] 05/02/19 Naproxen 375 mg PO BID #20 tablet 11/21/19 Oxycodone HCl/Acetaminophen 1 each PO Q4H PRN #25 tablet 11/21/19 [Oxycodon-Acetaminophen 7.5-325] Tizanidine HCl 4 mg PO TID PRN #25 capsule 11/21/19 Ciprofloxacin HCl [Cipro] 500 mg PO BID #14 tablet 12/26/19 Ondansetron Odt [Zofran] 4 mg TL Q6H PRN #10 tablet 12/26/19 Oxycodone HCl/Acetaminophen 1 - 2 each PO Q6H PRN #14 tablet 12/26/19 [Percocet 5-325 mg Tablet] - Allergies Allergies/Adverse Reactions: Allergies Allergy/AdvReac Type Severity Reaction Status Date / Time amoxicillin trihydrate * Allergy anaphalaxis Verified 12/26/19 10:15 [From Augmentin] cephalexin monohydrate * Allergy anaphalaxis Verified 12/26/19 10:15 [From Keflex] doxycycline Allergy Unknown Verified 12/26/19 10:15 hydrocodone bitartrate * Allergy itchy Verified 12/26/19 10:15 [From Vicodin] metoclopramide HCl * Allergy Anxiety Verified 12/26/19 10:15 [From Reglan] Penicillins Allergy anaphalaxis Verified 12/26/19 10:15 potassium clavulanate * Allergy anaphalaxis Verified 12/26/19 10:15 [From Augmentin] prednisone Allergy psychotic Verified 12/26/19 10:15 prochlorperazine edisylate * Allergy anxious Verified 12/26/19 10:15 [From Compazine] prochlorperazine maleate * Allergy anxious Verified 12/26/19 10:15 [From Compazine] propoxyphene napsylate * Allergy Unknown Verified 12/26/19 10:15 [From Darvocet-N] codeine AdvReac Nausea Verified 12/26/19 10:15 gabapentin [From Neurontin] AdvReac Unknown Verified 12/26/19 10:15 topiramate [From Topamax] AdvReac Unknown Verified 12/26/19 10:15 steroids Allergy Unknown Uncoded 12/26/19 10:15 - Social History Does the pt smoke?: No Smoking Status: Never smoker Does the pt drink ETOH?: Yes Does the pt have substance abuse?: No - Immunizations Immunizations are current?: Yes - POLST Patient has POLST: No PD ED PE NORMAL - Vitals Vital signs reviewed: Yes (tachy and hypertensive ) - General General: Alert and oriented X 3, No acute distress, Well developed/nourished - HEENT HEENT: Atraumatic, PERRL, EOMI - Neck Neck: Supple, no meningeal sign, No bony TTP - Cardiac Cardiac: RRR, Other (2/6 blowing holosystolic murmer at LSB consistent with aortic stenosis. ) - Respiratory Respiratory: No respiratory distress, Clear bilaterally - Abdomen Abdomen: Soft, Other (LLQ tenderness without gaurding or rebound. Referred and direct tenderness to palpation of the RLQ. ) - Back Back: No CVA TTP, No spinal TTP - Derm Derm: Normal color, Warm and dry, No rash - Extremities Extremities: No deformity, No edema, No calf tenderness / cord - Neuro Neuro: Alert and oriented X 3, goodwill representative 2-12 intact, No motor deficit, No sensory deficit, Normal speech Eye Opening: Spontaneous Motor: Obeys Commands Verbal: Oriented GCS Score: 15 - Psych Psych: Normal mood, Normal affect Results - Vitals Vitals: Vital Signs - 24 hr 12/26/19 10:12 Temperature 36.5 C Heart Rate 102 H Respiratory 17 Rate Blood Pressure 171/105 H O2 Saturation 99 Oxygen O2 Source Room air - Labs Labs: Laboratory Tests 12/26/19 12/26/19 12/26/19 10:36 11:18 11:18 WBC 6.8 RBC 4.91 Hgb 14.3 Hct 44.6 MCV 90.8 MCH 29.1 MCHC 32.1 RDW 13.4 Plt Count 277 MPV 8.6 Neut # (Auto) 5.0 Lymph # (Auto) 1.3 L Meagher # (Auto) 0.4 Eos # (Auto) 0.1 Baso # (Auto) 0.0 Absolute Nucleated RBC 0.00 Nucleated RBC % 0.0 Sodium 140 Potassium 3.7 Chloride 102 Carbon Dioxide 29 Anion Gap 9.0 BUN 13 Creatinine 1.0 Estimated GFR (MDRD) 58 L Glucose 106 H Calcium 9.1 Total Bilirubin 0.4 AST 18 ALT 19 Alkaline Phosphatase 80 Total Protein 7.9 Albumin 3.8 Globulin 4.1 Albumin/Globulin Ratio 0.9 L Lipase 28 Urine Color YELLOW Urine Clarity CLEAR Urine pH 6.0 Ur Specific [place] >=1.030 H Urine Protein NEGATIVE Urine Glucose (UA) NEGATIVE Urine Ketones TRACE Urine Occult Blood NEGATIVE Urine Nitrite NEGATIVE Urine Bilirubin NEGATIVE Urine Urobilinogen 0.2 (NORMAL) Ur Leukocyte Esterase NEGATIVE Ur Microscopic Review NOT INDICATED Urine Culture Comments NOT INDICATED - Rads (name of study) CT ab/pel w Radiology: Prelim report reviewed (Impression: No bowel obstruction, or CT evidence of colitis or diverticulitis.), EMP read indepedently, See rad report PD MEDICAL DECISION MAKING - ED course Complexity details: reviewed old records, reviewed results, re-evaluated patient, considered differential, d/w patient ED course: 54-year-old female with abdominal pain similar to what she is had previously with colitis has some diarrhea associated with this and she does not have findings on her CT scan to confirm the diagnosis. She has had similar symptoms previously a number of times sometimes she has resolved symptoms spontaneously by herself and this time she has not and a course of empiric antibiotic is indicated. I discussed these findings with the patient she will also try some yogurt. Departure - Departure Disposition: 01 Home, Self Care Clinical Impression: Colitis Condition: Stable Instructions: ED Gastroenteritis Bacterial Follow-Up: LYDIA DIOP MD [Primary Care Provider] - Prescriptions: Ciprofloxacin HCl [Cipro] 500 mg PO BID #14 tablet Ondansetron Odt [Zofran] 4 mg TL Q6H PRN #10 tablet PRN Reason: Nausea / Vomiting Oxycodone HCl/Acetaminophen [Percocet 5-325 mg Tablet] 1 - 2 each PO Q6H PRN #14 tablet PRN Reason: pain
[2019-12-26 10:52] LABS: CLARITY,URINE CLEAR (CLEAR)
[2019-12-26 11:27] LABS: BASOPHILS % (AUTO) 0.3 %; EOSINOPHILS # (AUTO) 0.1 10^3/uL (0.0-0.7); EOSINOPHILS % (AUTO) 1.3 %; HGB - HEMOGLOBIN 14.3 g/dL (12.0-16.0); LYMPHOCYTES # (AUTO) 1.3 10^3/uL (1.5-3.5); LYMPHOCYTES % (AUTO) 18.4 %; MEAN CORPUSCULAR HEMOGLOBIN 29.1 pg (27.0-31.0); MEAN CORPUSCULAR HGB CONC 32.1 g/dL (32.0-36.0); MEAN CORPUSCULAR VOLUME 90.8 fL (81.0-99.0); MEAN PLATELET VOLUME 8.6 fL (7.9-10.8); MONOCYTES # (AUTO) 0.4 10^3/uL (0.0-1.0); MONOCYTES % (AUTO) 5.9 %; NEUTROPHILS % (AUTO) 73.8 %; PLT - PLATELET COUNT 277 10^3/uL (130-450); RED BLOOD COUNT 4.91 10^6/uL (4.20-5.40); RED CELL DISTRIBUTION WIDTH 13.4 % (12.0-15.0); WHITE BLOOD COUNT 6.8 x10^3/uL (4.8-10.8)
[2019-12-26] MEDS ORDERED: ONDANSETRON 4 MG/2 ML VIAL IVP STA ×2 (11:32→12:19)
[2019-12-26] MEDS ORDERED: ONDANSETRON 4 MG/2 ML VIAL ONE (11:36)
[2019-12-26 11:39] LABS: ALBUMIN 3.8 g/dL (3.2-5.5); ALBUMIN/GLOBULIN RATIO 0.9 (1.0-2.2); BILIRUBIN,TOTAL 0.4 mg/dL (0.2-1.0); CALCIUM 9.1 mg/dL (8.5-10.3); TOTAL PROTEIN 7.9 g/dL (6.7-8.2)
[2019-12-26] MEDS ORDERED: IOVERSOL 320 100 ML VIAL IVP ONE (11:45)
[2019-12-26] MEDS ORDERED: HYDROmorphone 1 MG/ML CARPUJECT IVP STA (12:19)
--- NOTE | 2019-12-26 12:37 | CT Report ---
Reason: LLQ pain, diverticulitis suspected Procedure Date: 12/26/2019 Accession Number: [id number] / [id number] Procedure: CT - Abdomen/Pelvis W CPT Code: Final Report FULL RESULT: EXAM: CT ABDOMEN AND PELVIS EXAM DATE: 12/26/2019 12:02 PM. CLINICAL HISTORY: Left lower quadrant, pain, diverticulitis suspected. COMPARISONS: ABDOMEN/PELVIS W/O 07/17/2018 9:59 AM. TECHNIQUE: Routine helical CT imaging was performed through the abdomen and pelvis. IV contrast: 100 mL Optiray 320. Enteric contrast: No. Reconstructions: Coronal and sagittal. In accordance with CT protocol optimization, one or more of the following dose reduction techniques were utilized for this exam: automated exposure control, adjustment of mA and/or KV based on patient size, or use of iterative reconstructive technique. FINDINGS: Lung Bases: Unremarkable. Liver: Normal. No masses. Gallbladder/Bile Ducts: Unremarkable. Spleen: Normal. Pancreas: Normal. Adrenal Glands: Normal. Kidneys: Normal. No masses or hydronephrosis. Peritoneal Cavity/Bowel: No bowel obstruction. No pericolonic fat stranding, free fluid, or mural thickening to indicate diverticulitis or colitis. No significant diverticulosis. The appendix is not well seen. Pelvic Organs: Normal. The bladder and visualized pelvic organs are within normal limits. Vasculature: No aneurysms or other significant abnormality. Bones: Previous posterior lower lumbar spinous fixation. Other: None. IMPRESSION: No bowel obstruction, or CT evidence of colitis or diverticulitis. [facility]
[2019-12-26 13:03] VITALS: BP 175/94
== END 2019-12-26 13:15 | disposition home or self-care (01) ==
LOC: ED 10:08
DX: K52.9 Noninfective gastroenteritis and colitis, unspecified (principal); R01.1 Cardiac murmur, unspecified
CPT/HCPCS: 36415; 74177; 80053; 81003; 83690; 85025; 96374; 96375; 99284; J1170; Q9967; 81001; 87086

== ENCOUNTER 2020-04-29 06:33 | Outpatient (CLI) | payer MEDICAID ==
--- NOTE | 2020-04-29 08:41 | Ultrasound Report ---
Reason: ENLARGED LYMPH NODES Procedure Date: 04/29/2020 Accession Number: [id number] / [id number] Procedure: US - Head or Neck Soft Tissue CPT Code: Final Report FULL RESULT: PROCEDURE: Head or Neck Soft Tissue INDICATIONS: ENLARGED LYMPH NODES TECHNIQUE: Real time scanning was performed of the neck region of interest, with image documentation. COMPARISON: CT neck dated 01/05/2018. FINDINGS: At the patient directed palpable area of concern, there is a right submandibular lymph node measuring approximately 1.4 x 0.8 x 1.2 cm in size. It maintains normal reniform shape with uniform cortex and a central fatty hilum. Otherwise, no soft tissue neck abnormality seen in the imaged portions of the neck. IMPRESSION: Palpable area of concern correlates with a morphologically normal-appearing submandibular lymph node in the right neck. This may be reactive in etiology. Recommend continued clinical surveillance with follow-up imaging as needed. Reviewed by: Wesley English MD on 04/29/2020 8:39 AM PDT Approved by: Wesley English MD on 04/29/2020 8:39 AM PDT Station ID: [id number]
== END 2020-04-29 06:34 | disposition home or self-care (01) ==
LOC: DI 06:33
PROVIDERS: ATTEND Student in an Organized Health Care Education/Training Program
DX: R59.0 Localized enlarged lymph nodes (principal)
CPT/HCPCS: 76536

== ENCOUNTER 2020-04-29 06:35 | Outpatient (CLI) | payer MEDICAID ==
--- NOTE | 2020-04-29 09:29 | MRI Report ---
PROCEDURE: Lumbar Spine W/O INDICATIONS: LUMBAR RADICULOPATHY TECHNIQUE: Noncontrast sagittal T1 spin echo and T2 fast echo, and sagittal STIR sequences were obtained. Patien t was unable to tolerate further imaging secondary to claustrophobia.. COMPARISON: CT examination dated 11.21.19 FINDINGS: Image quality: Excellent. Alignment and Curvature: 5 lumbar type vertebral bodies are present by CT. There is mild grade 1 ante rolisthesis of L3 on L4. Bone Marrow: Marrow is of normal overall signal. No acute vertebral body compression fractures. Po sterior fusion of S1 has been performed, as before. There is mild reactive signal within the endplate s adjacent to the L3-L4 intervertebral disc. Spinal Cord: Conus medullaris terminates at the mid L1 level. Visualized cord demonstrates normal s ignal and size. Paraspinous Soft Tissues: No paravertebral masses. Postsurgical STIR signal elevation within the po sterior subcutaneous fat. T12-L1: Normal in appearance on sagittal imaging. L1-L2: Normal in appearance on sagittal imaging. L2-L3: Epidural lipomatosis. Mild facet hypertrophy bilaterally. Mild canal stenosis. Mild bilater al foraminal stenosis on sagittal imaging only. L3-L4: Moderate disc desiccation. Mild diffuse disc bulge. Mild facet and ligament flavum hypertrop hy. Epidural lipomatosis. Severe canal stenosis. Moderate subarticular foraminal stenosis on sagittal imaging only. L4-L5: Status post fusion. No definite canal, nor foraminal stenosis seen on sagittal imaging only. L5-S1: Status post fusion. No definite canal, nor foraminal stenosis is seen on sagittal imaging on ly. IMPRESSION: 1. Limited examination as described above. 2. L4-S1 fusion with no definite canal, nor foraminal stenosis at the fused levels. 3. Disc and facet disease, as well as ligament flavum hypertrophy and epidural lipomatosis, causing s evere canal stenosis above the fused levels, at L3-L4. Moderate subarticular foraminal stenosis is pr esent at L3-L4. Reviewed by: Lea Grijalva MD on 04/29/2020 9:27 AM PDT Approved by: Lea Grijalva MD on 04/29/2020 9:27 AM PDT Station ID: [id number]
== END 2020-04-29 06:36 | disposition home or self-care (01) ==
LOC: DI 06:35
PROVIDERS: ATTEND Student in an Organized Health Care Education/Training Program
DX: M43.16 Spondylolisthesis, lumbar region (principal); M47.816 Spondylosis without myelopathy or radiculopathy, lumbar region; M51.36 Other intervertebral disc degeneration, lumbar region; E88.2 Lipomatosis, not elsewhere classified; M48.061 Spinal stenosis, lumbar region without neurogenic claudication; R59.0 Localized enlarged lymph nodes; D72.829 Elevated white blood cell count, unspecified; Z98.1 Arthrodesis status
CPT/HCPCS: 36415; 72148; 76536; 85025

== ENCOUNTER 2020-04-29 06:42 | Outpatient (CLI) | payer MEDICAID ==
[2020-04-29 07:17] LABS: BASOPHILS % (AUTO) 0.6 %; EOSINOPHILS # (AUTO) 0.3 10^3/uL (0.0-0.7); EOSINOPHILS % (AUTO) 4.9 %; LYMPHOCYTES # (AUTO) 2.1 10^3/uL (1.5-3.5); LYMPHOCYTES % (AUTO) 31.1 %; MEAN CORPUSCULAR HEMOGLOBIN 29.7 pg (27.0-31.0); MEAN CORPUSCULAR HGB CONC 32.9 g/dL (32.0-36.0); MEAN CORPUSCULAR VOLUME 90.3 fL (81.0-99.0); MEAN PLATELET VOLUME 8.6 fL (7.9-10.8); MONOCYTES # (AUTO) 0.5 10^3/uL (0.0-1.0); MONOCYTES % (AUTO) 7.9 %; NEUTROPHILS # (AUTO) 3.7 10^3/uL (1.5-6.6); NEUTROPHILS % (AUTO) 55.2 %; PLT - PLATELET COUNT 276 10^3/uL (130-450); RED BLOOD COUNT 4.72 10^6/uL (4.20-5.40); RED CELL DISTRIBUTION WIDTH 13.6 % (12.0-15.0); WHITE BLOOD COUNT 6.8 x10^3/uL (4.8-10.8)
== END 2020-04-29 06:43 | disposition home or self-care (01) ==
LOC: LAB 06:42
PROVIDERS: ATTEND Family Medicine
DX: D72.829 Elevated white blood cell count, unspecified (principal)
CPT/HCPCS: 36415; 85025

== ENCOUNTER 2020-05-30 09:14 | Emergency (ER) | payer MEDICAID ==
--- NOTE | 2020-05-30 09:41 | ED Physician Documentation ---
PD HPI LOWER EXT INJURY - Stated complaint Stated Complaint: BODY MUSCLE PX - Chief complaint Chief Complaint: General - History obtained from History obtained from: Patient - History of Present Illness PD HPI LOW EXT INJURY LOCATION: Both Type of injury: Other (Pt states that she has been having lower extremity muscle "spasms and weakness" that has been getting worse and worse over the past couple weeks. pt states difficulty and pain with ambulation. no injury to muscles. pt has chronic back problems, denies any issues with bowel or bladder control). No: Fall, Twist, Blunt / blow Where injury occurred: Home Timing - onset: How many weeks ago (2-3) Timing - duration: Weeks (2-3) Timing - details: Gradual onset, Still present Improved by: No: Rest (she has noted pain in legs with walking, right more than left. No edema. Better if rests. But also with pain while trying to sleep at night, and gettting awoken from sleep due to it. She feels that she is "going to go crazy if I don't get a night sleep soon".), Meds (OTC meds at home. Did use some tizanidine 2 mg at night, from prior Rx for back pain. Did not help much.) Worsened by: No: Palpating Associated symptoms: Discolored (says feet seem pale and cool at times.). No: Weakness, Numbness, Swelling Similar symptoms before: Has not had sx before Recently seen: Not recently seen Review of Systems Constitutional: reports: Myalgias (both legs/thighs, more to the right.). denies: Fever, Chills, Fatigue Nose: denies: Rhinorrhea / runny nose, Congestion Throat: denies: Sore throat Cardiac: denies: Chest pain / pressure, Pedal edema Respiratory: denies: Dyspnea, Cough Skin: denies: Rash, Lesions Musculoskeletal: reports: Back pain (some to lower back, with history of prior back pain and back surgeries/busion of lumbar area.). 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 : None HEENT: None Psych: Depression, Anxiety Musculoskeletal: Chronic back pain Derm: None - Past Surgical History Past Surgical History: Yes General: Appendectomy, Other Ortho: Spine surgery /PROPERTY AND CASUALTY INSURANCE AGENT: 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 - Present Medications Home Medications: Ambulatory Orders Medication Instructions Recorded Confirmed Naproxen 375 mg PO BID #20 tablet 11/21/19 Oxycodone HCl/Acetaminophen 1 each PO Q4H PRN #25 tablet 11/21/19 [Oxycodon-Acetaminophen 7.5-325] Tizanidine HCl 4 mg PO TID PRN #25 capsule 11/21/19 Oxycodone HCl/Acetaminophen 1 - 2 each PO Q6H PRN #14 tablet 12/26/19 [Percocet 5-325 mg Tablet] Eszopiclone [Lunesta] 2 mg PO 05/30/20 LORazepam [Ativan] 05/30/20 Naproxen 500 mg PO BID #20 tablet 05/30/20 Oxycodone HCl/Acetaminophen 1 each PO Q4H PRN #20 tablet 05/30/20 [Percocet 7.5-325 mg Tablet] Promethazine [Phenergan] 05/30/20 Tizanidine HCl 4 mg PO TID PRN #25 capsule 05/30/20 - Allergies Allergies/Adverse Reactions: Allergies Allergy/AdvReac Type Severity Reaction Status Date / Time amoxicillin trihydrate * Allergy anaphalaxis Verified 05/30/20 09:51 [From Augmentin] cephalexin monohydrate * Allergy anaphalaxis Verified 05/30/20 09:51 [From Keflex] doxycycline Allergy Unknown Verified 05/30/20 09:51 hydrocodone bitartrate * Allergy itchy Verified 05/30/20 09:51 [From Vicodin] metoclopramide HCl * Allergy Anxiety Verified 05/30/20 09:51 [From Reglan] Penicillins Allergy anaphalaxis Verified 05/30/20 09:51 potassium clavulanate * Allergy anaphalaxis Verified 05/30/20 09:51 [From Augmentin] prednisone Allergy psychotic Verified 05/30/20 09:51 prochlorperazine edisylate * Allergy anxious Verified 05/30/20 09:51 [From Compazine] prochlorperazine maleate * Allergy anxious Verified 05/30/20 09:51 [From Compazine] propoxyphene napsylate * Allergy Unknown Verified 07/17/20 09:51 [From Darvocet-N] codeine AdvReac Nausea Verified 05/30/20 09:51 gabapentin [From Neurontin] AdvReac Unknown Verified 05/30/20 09:51 topiramate [From Topamax] AdvReac Unknown Verified 05/30/20 09:51 steroids Allergy Unknown Uncoded 05/30/20 09:51 - Social History Does the pt smoke?: No Smoking Status: Never smoker Does the pt drink ETOH?: Yes Does the pt have substance abuse?: No - Immunizations Immunizations are current?: Yes - POLST Patient has POLST: No PD ED PE NORMAL - Vitals Vital signs reviewed: Yes - General General: Alert and oriented X 3, Well developed/nourished, Other (seems uncomfortable ) - Cardiac Cardiac: RRR, No murmur - Respiratory Respiratory: Clear bilaterally - Abdomen Abdomen: Non tender - Back Back: No CVA TTP, No spinal TTP - Derm Derm: Normal color, Warm and dry, No rash - Neuro Neuro: Alert and oriented X 3, No motor deficit, No sensory deficit, Normal speech, Other (normal knee reflexes) Results - Vitals Vitals: Vital Signs - 24 hr 05/30/20 05/30/20 05/30/20 09:21 09:26 11:42 Temperature 36.6 C 37 C Heart Rate 77 80 75 Respiratory 16 18 16 Rate Blood Pressure 153/81 H 167/83 H 142/89 H O2 Saturation 100 100 96 05/30/20 12:57 Temperature 37.4 C Heart Rate 66 Respiratory 18 Rate Blood Pressure 128/90 H O2 Saturation 98 Oxygen O2 Source Room air - Labs Labs: Laboratory Tests 05/30/20 05/30/20 05/30/20 10:30 10:41 10:41 WBC 8.9 RBC 4.62 Hgb 13.8 Hct 42.2 MCV 91.3 MCH 29.9 MCHC 32.7 RDW 13.1 Plt Count 291 MPV 8.6 Neut # (Auto) 7.2 H Lymph # (Auto) 1.1 L [place] # (Auto) 0.4 Eos # (Auto) 0.1 Baso # (Auto) 0.0 Absolute Nucleated RBC 0.00 Nucleated RBC % 0.0 ESR Sodium 139 Potassium 4.2 Chloride 102 Carbon Dioxide 29 Anion Gap 8.0 BUN 22 H Creatinine 1.1 H Estimated GFR (MDRD) 52 L Glucose 108 H Calcium 9.2 Magnesium 2.1 Total Bilirubin 0.7 AST 17 ALT 17 Alkaline Phosphatase 74 Total Creatine Kinase 220 Total Protein 8.1 Albumin 4.6 Globulin 3.5 Albumin/Globulin Ratio 1.3 Lipase 23 Urine Color YELLOW Urine Clarity CLEAR Urine pH 7.5 Ur Specific [place] 1.015 Urine Protein NEGATIVE Urine Glucose (UA) NEGATIVE Urine Ketones NEGATIVE Urine Occult Blood NEGATIVE Urine Nitrite NEGATIVE Urine Bilirubin NEGATIVE Urine Urobilinogen 0.2 (NORMAL) Ur Leukocyte Esterase NEGATIVE Ur Microscopic Review NOT INDICATED Urine Culture Comments NOT INDICATED 05/30/20 10:41 WBC RBC Hgb Hct MCV MCH MCHC RDW Plt Count MPV Neut # (Auto) Lymph # (Auto) [place] # (Auto) Eos # (Auto) Baso # (Auto) Absolute Nucleated RBC Nucleated RBC % ESR 24 Sodium Potassium Chloride Carbon Dioxide Anion Gap BUN Creatinine Estimated GFR (MDRD) Glucose Calcium Magnesium Total Bilirubin AST ALT Alkaline Phosphatase Total Creatine Kinase Total Protein Albumin Globulin Albumin/Globulin Ratio Lipase Urine Color Urine Clarity Urine pH Ur Specific [place] Urine Protein Urine Glucose (UA) Urine Ketones Urine Occult Blood Urine Nitrite Urine Bilirubin Urine Urobilinogen Ur Leukocyte Esterase Ur Microscopic Review Urine Culture Comments - Rads (name of study) duplex arteries legs Radiology: Prelim report reviewed (normal flow both extremities. ), See rad report PD MEDICAL DECISION MAKING - ED course Complexity details: reviewed results (no acute labs: normal duplex, CK, chemistry, and ESR. ), considered differential (consider sciatic pain of legs. No weakness. ALso consider myositis, arterial insufficiency, inflammatory processes. ), d/w patient Departure - Departure Disposition: 01 Home, Self Care Clinical Impression: Radiculitis Leg pain Qualifiers: Laterality: bilateral Qualified Code(s): M79.604 - Pain in right leg Condition: Stable Record reviewed to determine appropriate education?: Yes Instructions: ED Sciatica Follow-Up: LYDIA DIOP MD [Primary Care Provider] - Prescriptions: Naproxen 500 mg PO BID #20 tablet Oxycodone HCl/Acetaminophen [Percocet 7.5-325 mg Tablet] 1 each PO Q4H PRN #20 tablet PRN Reason: Pain Tizanidine HCl 4 mg PO TID PRN #25 capsule PRN Reason: Spasms Comments: Stay well-hydrated. Your blood tests and electrolytes as well as the ultrasound of your arterial flow is good. I presume that pain is referred nerve pain from your back. Use the anti- inflammatory naproxen twice daily with food. To that it continues to tizanidine 3-4 times a day at 4 mg dosing. Add Tylenol or Percocet as needed for pain. Follow-up with your primary care regarding further evaluation and treatment. Discharge Date/Time: 05/30/20 13:00
[2020-05-30] MEDS ORDERED: ONDANSETRON 4 MG/2 ML VIAL IVP STA (10:10)
[2020-05-30] MEDS ORDERED: HYDROmorphone 1 MG/ML CARPUJECT IVP STA ×2 (10:10→12:34)
[2020-05-30] MEDS ORDERED: KETOROLAC 15 MG/ML VIAL IVP STA (10:14)
[2020-05-30 10:49] LABS: BASOPHILS % (AUTO) 0.3 %; EOSINOPHILS # (AUTO) 0.1 10^3/uL (0.0-0.7); EOSINOPHILS % (AUTO) 1.6 %; HGB - HEMOGLOBIN 13.8 g/dL (12.0-16.0); LYMPHOCYTES # (AUTO) 1.1 10^3/uL (1.5-3.5); LYMPHOCYTES % (AUTO) 12.9 %; MEAN CORPUSCULAR HEMOGLOBIN 29.9 pg (27.0-31.0); MEAN CORPUSCULAR HGB CONC 32.7 g/dL (32.0-36.0); MEAN CORPUSCULAR VOLUME 91.3 fL (81.0-99.0); MEAN PLATELET VOLUME 8.6 fL (7.9-10.8); MONOCYTES # (AUTO) 0.4 10^3/uL (0.0-1.0); MONOCYTES % (AUTO) 3.9 %; NEUTROPHILS # (AUTO) 7.2 10^3/uL (1.5-6.6); NEUTROPHILS % (AUTO) 80.8 %; PLT - PLATELET COUNT 291 10^3/uL (130-450); RED BLOOD COUNT 4.62 10^6/uL (4.20-5.40); RED CELL DISTRIBUTION WIDTH 13.1 % (12.0-15.0); WHITE BLOOD COUNT 8.9 x10^3/uL (4.8-10.8)
[2020-05-30 11:03] LABS: BILIRUBIN,URINE NEGATIVE (NEGATIVE); GLUCOSE, URINE (UA) NEGATIVE (NEGATIVE); KETONES,URINE (UA) NEGATIVE (NEGATIVE); LEUKOCYTE ESTERASE, URINE NEGATIVE (NEGATIVE); NITRITE,URINE NEGATIVE (NEGATIVE); OCCULT BLOOD,URINE NEGATIVE (NEGATIVE); PH,URINE 7.5 PH (5.0-7.5); PROTEIN,URINE NEGATIVE (NEGATIVE); UROBILINOGEN,URINE 0.2 (NORMAL) E.U./dL (NORMAL)
[2020-05-30 11:07] LABS: ALBUMIN 4.6 g/dL (3.2-5.5); ALBUMIN/GLOBULIN RATIO 1.3 (1.0-2.2); BILIRUBIN,TOTAL 0.7 mg/dL (0.2-1.0); CALCIUM 9.2 mg/dL (8.5-10.3); CREATININE 1.1 mg/dL (0.4-1.0); MAGNESIUM 2.1 mg/dL (1.7-2.8); TOTAL PROTEIN 8.1 g/dL (6.7-8.2)
[2020-05-30 11:07] LABS: CLARITY,URINE CLEAR (CLEAR)
--- NOTE | 2020-05-30 12:39 | Ultrasound Report ---
PROCEDURE: Duplex Lwr Ext Arterial Bilat INDICATIONS: leg pains with walking and at night TECHNIQUE: Color and pulse Doppler interrogation was performed of both lower extremity arterial systems, with im age documentation. COMPARISON: None FINDINGS: Right lower extremity: Common femoral artery: 117 cm/sec, with triphasic flow. Deep femoral artery: 89 cm/sec, with triphasic flow. Proximal superficial femoral artery: 105 cm/sec, with triphasic flow. Mid superficial femoral artery: 106 cm/sec, with triphasic flow. Distal superficial femoral artery: 84 cm/sec, with triphasic flow. Popliteal artery: 54 cm/sec, with triphasic flow. Posterior tibial artery: 84 cm/sec, with triphasic flow. Anterior tibial artery/dorsalis pedis: 48/28 cm/sec, with triphasic/triphasic flow. Scales-scale imaging description: Unremarkable Left lower extremity: Common femoral artery: 121 cm/sec, with triphasic flow. Deep femoral artery: 74 cm/sec, with triphasic flow. Proximal superficial femoral artery: 123 cm/sec, with triphasic flow. Mid superficial femoral artery: 119 cm/sec, with triphasic flow. Distal superficial femoral artery: 117 cm/sec, with triphasic flow. Popliteal artery: 78 cm/sec, with triphasic flow. Posterior tibial artery: 55 cm/sec, with biphasic flow. Anterior tibial artery/dorsalis pedis: 63/48 cm/sec, with triphasic/biphasic flow. Scales-scale imaging description: Unremarkable IMPRESSION: No areas of hemodynamically significant stenosis, vascular occlusion or aneurysmal dilation is identi fied. Reviewed by: Corrie Stuart MD on 05/30/2020 12:37 PM PDT Approved by: Corrie Stuart MD on 05/30/2020 12:37 PM PDT Station ID: [id number]
[2020-05-30 12:58] VITALS: BP 128/90
== END 2020-05-30 13:00 | disposition home or self-care (01) ==
LOC: ED 09:14
DX: M54.10 Radiculopathy, site unspecified (principal); M79.604 Pain in right leg; M79.605 Pain in left leg
CPT/HCPCS: 36415; 80053; 81003; 82550; 83690; 83735; 85025; 85651; 93925; 96374; 96376; 99284; J1170; 81001; 87086

== ENCOUNTER 2020-07-03 08:17 | Observation (INO) | payer MEDICAID ==
[2020-07-03 09:23] LABS: BASOPHILS # (AUTO) 0.1 10^3/uL (0.0-0.1); BASOPHILS % (AUTO) 0.9 %; EOSINOPHILS # (AUTO) 0.3 10^3/uL (0.0-0.7); EOSINOPHILS % (AUTO) 4.8 %; HGB - HEMOGLOBIN 13.7 g/dL (12.0-16.0); LYMPHOCYTES # (AUTO) 1.6 10^3/uL (1.5-3.5); LYMPHOCYTES % (AUTO) 29.1 %; MEAN CORPUSCULAR HEMOGLOBIN 29.9 pg (27.0-31.0); MEAN CORPUSCULAR HGB CONC 33.3 g/dL (32.0-36.0); MEAN PLATELET VOLUME 8.3 fL (7.9-10.8); MONOCYTES # (AUTO) 0.5 10^3/uL (0.0-1.0); MONOCYTES % (AUTO) 9.2 %; NEUTROPHILS # (AUTO) 3.1 10^3/uL (1.5-6.6); NEUTROPHILS % (AUTO) 55.6 %; PLT - PLATELET COUNT 272 10^3/uL (130-450); RED BLOOD COUNT 4.58 10^6/uL (4.20-5.40); RED CELL DISTRIBUTION WIDTH 13.1 % (12.0-15.0); WHITE BLOOD COUNT 5.6 x10^3/uL (4.8-10.8)
--- NOTE | 2020-07-03 09:29 | XRAY Report ---
PROCEDURE: Chest 1 View X-Ray INDICATIONS: Chest pain TECHNIQUE: One view of the chest was acquired. COMPARISON: 2 view chest 04/28/2017 reviewed. FINDINGS: Surgical changes and devices: None. Lungs and pleura: No pleural effusions or pneumothorax. Lungs are abnormal with a mild degree of pu lmonary venous congestion and possible slight pulmonary edema considering body habitus.. Mediastinum: Mediastinal contours appear normal. Heart size is normal. Bones and chest wall: No suspicious bony lesions. Overlying soft tissues appear unremarkable. IMPRESSION: Pulmonary venous congestion pattern, possible slight pulmonary edema pattern. No cardiomegaly at this time. Reviewed by: Justus Sheffield MD on 07/03/2020 9:28 AM PDT Approved by: Justus Sheffield MD on 07/03/2020 9:28 AM PDT Station ID: [id number]
[2020-07-03 09:38] LABS: ALBUMIN 3.8 g/dL (3.2-5.5); ALBUMIN/GLOBULIN RATIO 1.1 (1.0-2.2); BILIRUBIN,TOTAL 0.3 mg/dL (0.2-1.0); CALCIUM 8.8 mg/dL (8.5-10.3); CREATININE 1.1 mg/dL (0.4-1.0); TOTAL PROTEIN 7.3 g/dL (6.7-8.2)
--- NOTE | 2020-07-03 09:40 | ED Physician Documentation ---
History of Present Illness - Stated complaint Stated Complaint: HBP/BACK PX/THOMPSON - Chief complaint Chief Complaint: Cardiac - History obtained from History obtained from: Patient - History of Present Illness Timing: How many weeks ago (2) - Additonal information Additional information: 55-year-old female with chronic back pain is preparing to get surgery done on her back and she has had issues with excessive pain. She has had elevation in her blood pressure and she has noted that when she gets blood pressure she will have this pain in the left upper quadrant of her abdomen and it she notes when her blood pressure is improved this will improve and she is noted that this pain has come on when she is working as well. 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 She is found now that this pain is coming on over the past 2 weeks with walking. Her pain is now resolved and her blood pressure is improved. She states that this morning before coming into the emergency department she took oxycodone propranolol and something for nausea. She did not get immediate improvement with this and came to the emergency department shortly after arrival to the emergency department she began to feel improved. She does have a family history of early coronary disease with a grandfather dying in his 60s and having heart attack in his 30s. She is reporting having hot flashes and when she gets these hot flashes she will get this pain in her chest as well. She feels that the hot flashes she is having are hormonally related. She relates that she has had a hysterectomy previously. Review of Systems Constitutional: reports: Fatigue, Sweats. denies: Fever, Chills, Myalgias Eyes: denies: Decreased vision Ears: denies: Ear pain Nose: denies: Rhinorrhea / runny nose, Congestion Throat: denies: Sore throat Cardiac: reports: Chest pain / pressure. denies: Palpitations, Pedal edema, Calf pain Respiratory: reports: Dyspnea. denies: Cough GI: denies: Abdominal Pain, Nausea, Vomiting : denies: Dysuria, Frequency Skin: denies: Rash Musculoskeletal: reports: Back pain, Extremity pain. 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 HEENT: None Psych: Depression, Anxiety Musculoskeletal: Chronic back pain Derm: None - Past Surgical History Past Surgical History: Yes General: Appendectomy, Other Ortho: Spine surgery /WOOD GRINDER: 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 - Present Medications Home Medications: Ambulatory Orders Medication Instructions Recorded Confirmed Naproxen 375 mg PO BID #20 tablet 11/21/19 Oxycodone HCl/Acetaminophen 1 each PO Q4H PRN #25 tablet 11/21/19 [Oxycodon-Acetaminophen 7.5-325] Tizanidine HCl 4 mg PO TID PRN #25 capsule 11/21/19 Oxycodone HCl/Acetaminophen 1 - 2 each PO Q6H PRN #14 tablet 12/26/19 [Percocet 5-325 mg Tablet] Eszopiclone [Lunesta] 2 mg PO 05/30/20 LORazepam [Ativan] 05/30/20 Naproxen 500 mg PO BID #20 tablet 05/30/20 Oxycodone HCl/Acetaminophen 1 each PO Q4H PRN #20 tablet 05/30/20 [Percocet 7.5-325 mg Tablet] Promethazine [Phenergan] 05/30/20 Tizanidine HCl 4 mg PO TID PRN #25 capsule 05/30/20 - Allergies Allergies/Adverse Reactions: Allergies Allergy/AdvReac Type Severity Reaction Status Date / Time amoxicillin trihydrate * Allergy anaphalaxis Verified 07/03/20 08:38 [From Augmentin] cephalexin monohydrate * Allergy anaphalaxis Verified 07/03/20 08:38 [From Keflex] doxycycline Allergy Unknown Verified 07/03/20 08:38 Penicillins Allergy anaphalaxis Verified 07/03/20 08:38 potassium clavulanate * Allergy anaphalaxis Verified 07/03/20 08:38 [From Augmentin] propoxyphene napsylate * Allergy "feels Verified 07/03/20 14:06 [From Darvocet-N] unbalanced" tetanus and diphtheria Allergy Edema Verified 07/03/20 10:56 toxoids codeine AdvReac Nausea Verified 07/03/20 08:38 dexamethasone AdvReac psychotic Verified 07/03/20 14:06 gabapentin [From Neurontin] AdvReac forgets Verified 07/03/20 14:06 everything, dizziness hydrocodone bitartrate * AdvReac agitated Verified 08/20/20 14:06 [From Vicodin] metoclopramide HCl * AdvReac Anxiety Verified 07/03/20 14:06 [From Reglan] prednisone AdvReac psychotic Verified 07/03/20 14:06 prochlorperazine edisylate * AdvReac anxious Verified 07/03/20 14:06 [From Compazine] prochlorperazine maleate * AdvReac anxious Verified 07/03/20 14:06 [From Compazine] topiramate [From Topamax] AdvReac Unknown Verified 07/03/20 08:38 - Social History Does the pt smoke?: No Smoking Status: Never smoker Does the pt drink ETOH?: Yes Does the pt have substance abuse?: No - Immunizations Immunizations are current?: Yes - POLST Patient has POLST: No PD ED PE NORMAL - Vitals Vital signs reviewed: Yes (hypertensive ) - General General: Alert and oriented X 3, Well developed/nourished, Other (appears mildly anxious ) - HEENT HEENT: Atraumatic, PERRL, EOMI - Neck Neck: Supple, no meningeal sign, No bony TTP - Cardiac Cardiac: RRR, Other (2/6 holosystolic murmer @LSB) - Respiratory Respiratory: No respiratory distress, Clear bilaterally - Abdomen Abdomen: Normal bowel sounds, Soft, Non tender, Non distended, No organomegaly - Back Back: No CVA TTP, No spinal TTP - Derm Derm: Normal color, Warm and dry, No rash - Extremities Extremities: No deformity, No edema, No calf tenderness / cord - Neuro Neuro: Alert and oriented X 3, manager architecture 2-12 intact, No motor deficit, No sensory deficit, Normal speech Eye Opening: Spontaneous Motor: Obeys Commands Verbal: Oriented GCS Score: 15 - Psych Psych: Normal mood, Normal affect Results - Vitals Vitals: Vital Signs - 24 hr 07/03/20 07/03/20 07/03/20 08:25 08:38 09:00 Temperature 36.7 C Heart Rate 73 70 72 Respiratory 20 16 17 Rate Blood Pressure 177/89 H 148/87 H 127/83 H O2 Saturation 99 99 100 07/03/20 07/03/20 07/03/20 10:56 11:47 12:13 Temperature 37.2 C Heart Rate 68 74 72 Respiratory 17 15 15 Rate Blood Pressure 172/84 H 118/80 102/74 O2 Saturation 100 100 100 Oxygen O2 Source Room air - EKG (time done) 0829 Rate: Rate (enter#) (70) Rhythm: NSR Compare to prior EKG: Unchanged from prior EKG (SPT 04-28-2017 no changes) Computer interpretation: Agree with computer - Labs Labs: Laboratory Tests 07/03/20 07/03/20 07/03/20 09:20 09:20 09:20 WBC 5.6 RBC 4.58 Hgb 13.7 Hct 41.2 MCV 90.0 MCH 29.9 MCHC 33.3 RDW 13.1 Plt Count 272 MPV 8.3 Neut # (Auto) 3.1 Lymph # (Auto) 1.6 [place] # (Auto) 0.5 Eos # (Auto) 0.3 Baso # (Auto) 0.1 Absolute Nucleated RBC 0.00 Nucleated RBC % 0.0 Sodium 137 Potassium 4.3 Chloride 103 Carbon Dioxide 26 Anion Gap 8.0 BUN 20 Creatinine 1.1 H Estimated GFR (MDRD) 52 L Glucose 112 H Calcium 8.8 Total Bilirubin 0.3 AST 17 ALT 18 Alkaline Phosphatase 83 Troponin I High Sens 5.6 B-Natriuretic Peptide Total Protein 7.3 Albumin 3.8 Globulin 3.5 Albumin/Globulin Ratio 1.1 Lipase 26 07/03/20 07/03/20 09:20 11:16 WBC RBC Hgb Hct MCV MCH MCHC RDW Plt Count MPV Neut # (Auto) Lymph # (Auto) [place] # (Auto) Eos # (Auto) Baso # (Auto) Absolute Nucleated RBC Nucleated RBC % Sodium Potassium Chloride Carbon Dioxide Anion Gap BUN Creatinine Estimated GFR (MDRD) Glucose Calcium Total Bilirubin AST ALT Alkaline Phosphatase Troponin I High Sens 6.4 B-Natriuretic Peptide 51 Total Protein Albumin Globulin Albumin/Globulin Ratio Lipase - Rads (name of study) chest Radiology: Prelim report reviewed (Impression: Pulmonary venous congestion pattern, possibly slight pulmonary edema pattern. No cardiomegaly at this time.) PD MEDICAL DECISION MAKING - ED course Complexity details: reviewed old records, reviewed results, re-evaluated patient, considered differential, d/w patient ED course: 55-year-old female with a history of back pain and hypertension is developing symptoms of chest pressure with exertion and with elevated blood pressure and with hot flashes. She has a family history of early coronary disease and I have asked her hospitalist to consider admission for stress testing. Dr. Walton has graciously agreed to care for the patient in the hospital. Departure - Departure Disposition: ED Place in Observation Clinical Impression: Crescendo angina Discharge Date/Time: 07/03/20 14:09
[2020-07-03] MEDS ORDERED: SODIUM CHLORIDE 0.9% 1,000 ML IV STA (09:58)
[2020-07-03] MEDS ORDERED: LORazepam 2 MG/ML VIAL IVP STA (10:43)
[2020-07-03] MEDS ORDERED: oxyCODONE 5 MG TABLET PO PRN (12:28)
[2020-07-03] MEDS ORDERED: SODIUM CHLORIDE FLUSH 0.9% 10 ML SYRINGE IVP PRN (12:28)
[2020-07-03] MEDS ORDERED: ONDANSETRON ODT 4 MG TABLET TL PRN (12:28)
[2020-07-03] MEDS ORDERED: ONDANSETRON 4 MG/2 ML VIAL IVP PRN (12:28)
[2020-07-03] MEDS ORDERED: ASPIRIN CHEW 81 MG TABLET PO STA (12:32)
[2020-07-03] MEDS ORDERED: ATORVASTATIN 40 MG TABLET PO STA (12:32)
[2020-07-03] MEDS ORDERED: oxyCODONE 5 MG TABLET PO STA (12:37)
[2020-07-03] MEDS ORDERED: GI COCKTAIL 120 ML BOTTLE PO PRN (12:46)
--- NOTE | 2020-07-03 12:46 | HISTORY & PHYSICAL EXAMINATION ---
Chief Complaint - Chief Complaint Chief Complaint: chest pain History of Present Illness - Admitted From Admitted From:: ER - History Obtained From Records Reviewed: [facility] History obtained from: Pt - History of Present Illness HPI Comment/Other: This is a 55-year-old female with a PMH significant for chronic back pain,Asthma, migraines, GERD, depression and anxiety Who presents the ER complaining of left chest pain. Pt reports that she was seen yesterday at her PCP's offices. She Was placed on new BP medication but was unable to fill yet. She Says that she is having left side chest pain and she has been unable to sleep and just feels like something is wrong with her. Patient reported her left anteriorly Chest pain is more like pull and pressure not sharp pain. In today morning she did feel her chest pain radiate to her left shoulder. pt report she is preparing to get surgery done on her back and she has had issues with excessive pain on her back. She states that this morning before coming into the emergency department she took oxycodone, but She did not get improvement on her pain and chest pain, then came to the emergency department. she report She has a significant family history of coronary artery disease, Her grandfather was at his 60s because of heart issue, and he had heart attack in his 30s. Her father had congestive heart failure and is living at [facility] 84 yrs old now. Her sister from congestive heart failure at age 42. Discussed detail goal with the patient, patient stated he want CPR but he do not want intubate. History - Past Medical History Cardiovascular: reports: None Respiratory: reports: Asthma, Pneumonia Neuro: reports: Migraines Endocrine/Autoimmune: reports: None GI: reports: GERD, Other BRANCH LOGISTICS SUPERVISOR: reports: None : reports: None HEENT: reports: None Psych: reports: Depression, Anxiety Musculoskeletal: reports: Chronic back pain Derm: reports: None MRSA Hx?: No - Past Surgical History General: reports: Appendectomy, Other Ortho: reports: Spine surgery /BRANCH LOGISTICS SUPERVISOR: reports: 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 - Family & Social History Family History: Father: Alive and Well, Sister: CAD Family History Comment/Other: She has a significant family history of coronary artery disease, Her grandfather was at his 60s because of heart issue, and he had heart attack in his 30s. Her father had congestive heart failure and is living at [facility] 84 yrs old now. Her sister from congestive heart failure at age 42. She did not know much about her mother.She has no children. Social History Notes: Patient reported she never smoked cigarettes but she still smoke marijuana. She has no alcohol and drug problem. She is living at [place], [place] with her boyfriend. - POLST Patient has POLST: No Meds/Allgy - Home Medications Home Medications: Ambulatory Orders Medication Instructions Recorded Confirmed Naproxen 375 mg PO BID #20 tablet 11/21/19 Oxycodone HCl/Acetaminophen 1 each PO Q4H PRN #25 tablet 11/21/19 [Oxycodon-Acetaminophen 7.5-325] Tizanidine HCl 4 mg PO TID PRN #25 capsule 11/21/19 Oxycodone HCl/Acetaminophen 1 - 2 each PO Q6H PRN #14 tablet 12/26/19 [Percocet 5-325 mg Tablet] Eszopiclone [Lunesta] 2 mg PO 05/30/20 LORazepam [Ativan] 05/30/20 Naproxen 500 mg PO BID #20 tablet 05/30/20 Oxycodone HCl/Acetaminophen 1 each PO Q4H PRN #20 tablet 05/30/20 [Percocet 7.5-325 mg Tablet] Promethazine [Phenergan] 05/30/20 Tizanidine HCl 4 mg PO TID PRN #25 capsule 05/30/20 - Allergies Allergies/Adverse Reactions: Allergies Allergy/AdvReac Type Severity Reaction Status Date / Time amoxicillin trihydrate * Allergy anaphalaxis Verified 07/03/20 08:38 [From Augmentin] cephalexin monohydrate * Allergy anaphalaxis Verified 07/03/20 08:38 [From Keflex] doxycycline Allergy Unknown Verified 07/03/20 08:38 Penicillins Allergy anaphalaxis Verified 07/03/20 08:38 potassium clavulanate * Allergy anaphalaxis Verified 07/03/20 08:38 [From Augmentin] propoxyphene napsylate * Allergy "feels Verified 07/03/20 14:06 [From Darvocet-N] unbalanced" tetanus and diphtheria Allergy Edema Verified 07/03/20 10:56 toxoids codeine AdvReac Nausea Verified 07/03/20 08:38 dexamethasone AdvReac psychotic Verified 07/03/20 14:06 gabapentin [From Neurontin] AdvReac forgets Verified 07/03/20 14:06 everything, dizziness hydrocodone bitartrate * AdvReac agitated Verified 07/03/20 14:06 [From Vicodin] metoclopramide HCl * AdvReac Anxiety Verified 07/03/20 14:06 [From Reglan] prednisone AdvReac psychotic Verified 07/03/20 14:06 prochlorperazine edisylate * AdvReac anxious Verified 07/03/20 14:06 [From Compazine] prochlorperazine maleate * AdvReac anxious Verified 07/03/20 14:06 [From Compazine] topiramate [From Topamax] AdvReac Unknown Verified 07/03/20 08:38 Review of Systems - Constitutional Constitutional: denies: Fatigue, Fever, Chills, Malaise, Weakness, Poor appetite, Night sweats - Eyes Eyes: denies: Pain, Blurred vision, Spots in vision, Field loss, Vision loss, Dipolpia - Ears, Nose & Throat Ears, Nose & Throat: denies: Ear pain, Nasal pain, Nasal discharge, Nosebleeds, Sore throat, Mouth lesions, Dental decay - Cardiovascular Cariovascular: reports: Chest pain. denies: Irregular heart rate, Palpitations, Edema, Lightheadedness, Syncope, Exertional dyspnea, Decr. exercise tolerance - Respiratory Respiratory: denies: Cough, Snoring, Hemoptysis, Orthopnea, SOB at rest, SOB with exertion - Gastrointestinal Gastrointestinal: denies: Abdominal pain, Constipation, Rectal bleeding, Black stools, Bloody stools, Nausea, Vomiting, Bloating - Genitourinary Genitourinary: denies: Dysuria, Hematuria, Incontinence, Flank pain - Musculoskeletal Musculoskeletal: denies: Muscle pain, Muscle aches, Stiffness, Limited range of motion, Muscle weakness - Integumentary Integumentary: denies: Rash, Dryness, Acne - Neurological Neurological: denies: General weakness, Focal weakness, Headache, Dizziness, Numbness, Memory problems, Pre-existing deficit, Abnormal gait, Seizures, Incoordination, Slurred speech - Psychiatric Psychiatric: denies: Suicidal, Delusions, Hallucinations, Homicidal - Endocrine Endocrine: denies: Polydypsia, Polyphagia - Hematologic/Lymphatic Hematologic/Lymphatic: denies: Anemia, Blood clots, Lymphadenopathy Exam - Vital Signs Vital Signs: Vital Signs x48h Temp Pulse Resp BP Pulse Ox 07/03/20 12:13 72 15 102/74 100 07/03/20 11:47 74 15 118/80 100 07/03/20 10:56 37.2 C 68 17 172/84 H 100 07/03/20 09:00 72 17 127/83 H 100 07/03/20 08:38 70 16 148/87 H 99 07/03/20 08:25 36.7 C 73 20 177/89 H 99 - Physical Exam General Appearance: positive: No acute distress, Alert. negative: Lethargic Eyes Bilateral: positive: Normal inspection, PERRL, No lid inflammation ENT: positive: ENT inspection nml, No signs of dehydration. negative: Purulent nasal drainage Neck: positive: Nml inspection, Thyroid nml, Trachea midline. negative: Thyromegaly, Stiff neck, Tracheal deviation Respiratory: positive: Chest non-tender, No respiratory distress, Breath sounds nml. negative: Wheezes, Rales, Rhonchi Cardiovascular: positive: Regular rate & rhythm, No murmur. negative: Tachycardia, Bradycardia, Systolic murmur, Diastolic murmur Peripheral Pulses: positive: 2+ Abdomen: positive: Non-tender, No organomegaly, Nml bowel sounds, No distention. negative: Tenderness, Guarding, Rebound Back: positive: Nml inspection. negative: CVA tenderness (R), CVA tenderness (L) Skin: positive: Color nml, No rash, Warm, Dry. negative: Cyanosis, Diaphoresis, Pallor Extremities: positive: Non-tender, Full ROM, Nml appearance. negative: Calf tenderness, Joint swelling Neurologic/Psychiatric: positive: Oriented x3, Motor nml, Sensation nml, Mood/affect nml. negative: Weakness, Sensory loss, Facial droop, Slurred/abnml speech, Depressed mood/affect Conclusion/Plan - Problem List (1) Chest pain Conclusion/Plan: Patient's troponin 3 times are negative, EKG show sinus rhythm without ST elevation or variation. Patient report she had a strong family history of congestive heart failure. order the patient aspirin 325, And Lipitor. We will continue to have professor of latin american studies patient, patient will have stress test on this afternoon. We will follow-up closely with stress test. We order the echo and will follow-up (2) Heart murmur Conclusion/Plan: Patient had a both systolic and diastolic heart murmur in the physical exam. Patient report she knows she had heart murmur 5 years ago. She does not have data integration analyst. We will hold echo, will follow up. (3) Anxiety Conclusion/Plan: she report she had lots of anxiety, she took marijuana for that. We will order Ativan as needed (4) HTN (hypertension) Conclusion/Plan: She had slightly elevated blood pressure, We wait for pharmacy confirm what kind of blood pressure medicine she had, also add hydralazine as needed, vital sign monitor (5) Chronic back pain Conclusion/Plan: Patient reported she had a chronic back pain, she try to look for surgery options. oxycodone as needed (6) CKD (chronic kidney disease) stage 2, GFR 60-89 ml/min Conclusion/Plan: Patient had CKD stage II, Now her creatinine is 1.1. We will keep patient hydration, laboratory coordinator, avoid nephrologic toxic agents - Lab Results Fish Bones: 07/03/20 09:20 07/03/20 09:20 Core Measures - Anticipated LOS I expect patient to be DC'd or transferred within 96 hours.: Yes - DVT/VTE - Prophylaxis VTE/DVT Device ordered at admit?: Yes VTE/DVT Prophylaxis med ordered at admit?: Yes
[2020-07-03] MEDS ORDERED: ALBUTEROL NEB 2.5 MG/3 ML INH PRN (14:04)
[2020-07-03] MEDS ORDERED: ASPIRIN CHEW 81 MG TABLET PO SCH (15:45)
[2020-07-03] MEDS: PANTOPRAZOLE 40 MG TABLET PO SCH (16:19)
[2020-07-03] MEDS: SODIUM CHLORIDE FLUSH 0.9% 10 ML SYRINGE IVP SCH (16:19)
--- NOTE | 2020-07-03 16:19 | CARDIAC PROCEDURE NOTE ---
Stress Test Report Service Date: 07/03/20 Service Time: 16:00 Ordering Provider: Shelly Walton MD Indication for Test: substernal left chest pain radiating to left neck with exertion Significant Medical History: 55-year-old female with a PMH significant for chronic back pain,Asthma, migraines, GERD, depression and anxiety Who presents the ER complaining of left chest pain. Pt reports that she was seen yesterday at her PCP's offices. She Was placed on new BP medication but was unable to fill yet. She Says that she is having left side chest pain and she has been unable to sleep and just feels like something is wrong with her. pt report she is preparing to get surgery done on her back and she has had issues with excessive pain on her back. She states that this morning before coming into the emergency department she took oxycodone, but She did not get improvement on her pain and chest pain, then came to the emergency department. she report She has a significant family history of coronary artery disease, Her grandfather was at his 60s because of heart issue, and he had heart attack in his 30s. pt hope to have full code for her code status Cardiac Risk Factors: Family history is remote. She does not have high blood pressure, diabetes, hyperlipidemia, and she is not a smoker. Type of Stress Test: Pharmacologic Stress Test with MPI Pharmacologic Agent: Lexiscan Procedure: Pharmacologic stress testing was performed with Lexiscan. No exercise performed. Heart rate at baseline was 66 bpm. Maximum heart rate achieved was 90 bpm which is 54% of maximum predicted heart rate. Resting blood pressure was 148/75. Blood pressure increased to 156/89 at maximum stress. Continue to increase in the resting phase at 162/61. This is a normal hypertensive response. She developed nausea, left shoulder pain, and left neck pain during the rest phase. Resting EKG was with normal sinus rhythm, normal axis, and normal QRS intervals. There were no ST-T wave changes. During stress there were no clinically significant ST changes. After Lexiscan infusion, myocardial perfusion imaging was performed. Under separate dictated report by radiologist Rosalind Noel MD, " left ventricular function gated images demonstrated normal left ventricular wall thickening. No segmental wall abnormality. No transient ischemic dilation. The left ventricle resting end-diastolic volume is normal. Left ventricle stress ejection fraction is 73%. Myocardial perfusion imaging showed moderate to large, moderately severe reversible perfusion defect in the distal anterior wall and anterior lateral wall, consistent with myocardial ischemia." Summary: 55-year-old patient with minimal risk for coronary artery disease and presents with chest pain with exertion now has a markedly positive stress test imaging. We will start making preparation for possible transfer to outside facility for higher level of care.
[2020-07-03] MEDS ORDERED: hydrALAZINE INJ 20 MG/ML VIAL IVP PRN (16:50)
[2020-07-03] MEDS ORDERED: REGADENOSON 0.4 MG/5 ML SYRINGE IVP ONE (16:56)
[2020-07-03] MEDS ORDERED: TC-99M/TETROFOSMIN 1.38 MG/30 ML VIAL IVP ONE (16:57)
[2020-07-03] MEDS: LORazepam 0.5 MG TABLET PO PRN (17:41)
[2020-07-03 18:04] LABS: MUDS CUTOFF CONCENTRATIONS CUTOFF CONC BELOW:
[2020-07-03 18:31] LABS: AMPHETAMINE SCREEN,URINE NEGATIVE (NEGATIVE); BENZODIAZEPINES SCREEN, URINE POSITIVE (NEGATIVE); COCAINE SCREEN URINE NEGATIVE (NEGATIVE); METHADONE SCREEN, URINE NEGATIVE (NEGATIVE); METHAMPHETAMINES SCREEN, URINE NEGATIVE (NEGATIVE); OPIATE SCREEN, URINE NEGATIVE (NEGATIVE); PROPOXYPHENE SCREEN, URINE NEGATIVE (NEGATIVE); TRICYCLIC ANTIDEPRESSANT,URINE NEGATIVE (NEGATIVE)
[2020-07-03 18:32] LABS: OXYCODONE SCREEN, URINE POSITIVE (NEGATIVE)
--- NOTE | 2020-07-03 18:59 | Nuclear Medicine Report ---
PROCEDURE: Rest and exercise myocardial perfusion SPECT with gated imaging and ejection fraction INDICATIONS: Chest pain w exertion RADIOPHARMACEUTICAL: 10.9 mCi Tc-99m Myoview IV at rest and 32.5 mCi Tc-99m Myoview IV at peak exerc ise. [id number]-[id number] was performed. TECHNIQUE: Radiopharmaceutical was injected at peak stress test, and also at rest. SPECT images wer e obtained. SPECT myocardial perfusion images were displayed in short axis, horizontal long axis, an d vertical long axis views. Gated images were reviewed using Auto[employer] software. COMPARISON: None available. FINDINGS: Raw data: There is good myocardial labeling by radiotracer. No significant motion artifacts. Lung- to-heart ratio is 0.26 (normal is less than 0.38 for tetrafosmin tracer). Left ventricle function: Gated images demonstrate normal left ventricle wall thickening. No segment al wall motion abnormality. No transient ischemic dilation; TID is 1.00 (normal less than 1.3). The left ventricle resting end-diastolic volume is normal. Left ventricle stress ejection fraction is 7 3%; normal values are above 45%. Myocardial perfusion: There is a [id number], moderately severe reversible perfusion defect in the distal anterior wall and anterior lateral wall, consistent with myocardial ischemia. IMPRESSION: Abnormal myocardial perfusion images. 1. A msncopgx-eq-crreo sized, moderately severe, reversible defect in the distal anterior wall and an terolateral wall consistent with myocardial ischemia. 2. A small component of fixed defect in the anterolateral wall may be caused by attenuation artifact. 3. Normal left ventricular volume and systolic function. The result was discussed with Dr. Walton. PQRS ATTESTATIONS: Measure 322 - Is this imaging test primarily performed on a low-risk surgery patient for preoperative evaluation within 30 days preceding their low-risk non-cardiac surgery? Low-risk surgery is defined as cardiac or myocardial infarction less than 1%, including (but not limited to) endoscopic pr ocedures, superficial procedures, cataract surgery, and excisional breast surgery: Answer: No Measure 323 - Is this imaging test performed primarily for the monitoring of an asymptomatic patient who had percutaneous coronary intervention on the visit date or within 2 years of the visit date? An swer: No Measure 324 - Is this imaging test performed primarily for the initial detection and risk assessment on an asymptomatic, low coronary heart disease patient? Low CHD risk definition = clinicians should consider the maximum number of available patient factors used to estimate risk based on [place] (A TP III criteria), typically age, gender, diabetes, smoking status, and use of blood pressure medicati on, and integrate age appropriate estimates for missing elements, such as LDL or standard blood press ure. Answer: No Reviewed by: Rosalind Noel MD on 07/03/2020 5:57 PM AKNICKI Approved by: Rosalind Noel MD on 07/03/2020 5:57 PM AKDT Station ID: [id number]
[2020-07-03] MEDS: METOPROLOL TARTRATE 25 MG TABLET PO SCH (20:05)
[2020-07-03] MEDS: ACETAMINOPHEN 325 MG TABLET PO PRN (20:05)
[2020-07-03] MEDS ORDERED: tiZANidine 4 MG TABLET PO PRN (20:17)
[2020-07-03] MEDS ORDERED: diazePAM INJ 5 MG/ML SYRINGE IVP ONE (20:33)
--- NOTE | 2020-07-03 20:54 | PROVIDER PROGRESS NOTE ---
Associate Professor Of Criminal Justice Note - Associate Professor Of Criminal Justice Note Associate Professor Of Criminal Justice Note: I spoke with Dr. Martinez of Cardiology this evening to discuss the patient stress test results. He agrees that the patient does need an urgent angiogram. He recommended that we call cardiology once again in the morning to set up an appointment for the patient for early next week. He would like her to have an appointment on Tuesday or Tuesday of next week so she can have an angiogram as soon as possible. He states if there is no available appointment for next week then she will likely need transfer so she can have an angiogram performed sooner. He recommended continuing with aspirin 81 mg daily, statin, beta- german, and nitrates. He recommended titrating to a blood pressure with systolic in the 120s and heart rate in the 50s to 60s.
[2020-07-03] MEDS: oxyCODONE 5 MG TABLET PO PRN (20:55)
[2020-07-04] MEDS: SODIUM CHLORIDE FLUSH 0.9% 10 ML SYRINGE IVP SCH ×2 (00:33→08:37)
[2020-07-04] MEDS: oxyCODONE 5 MG TABLET PO PRN ×3 (00:49→09:10)
[2020-07-04] MEDS: ACETAMINOPHEN 325 MG TABLET PO PRN ×3 (00:50→09:10)
[2020-07-04] MEDS: LORazepam 0.5 MG TABLET PO PRN (05:42)
[2020-07-04 05:43] LABS: BASOPHILS % (AUTO) 0.5 %; EOSINOPHILS # (AUTO) 0.3 10^3/uL (0.0-0.7); EOSINOPHILS % (AUTO) 3.9 %; HGB - HEMOGLOBIN 13.2 g/dL (12.0-16.0); LYMPHOCYTES # (AUTO) 2.2 10^3/uL (1.5-3.5); LYMPHOCYTES % (AUTO) 34.1 %; MEAN CORPUSCULAR HEMOGLOBIN 28.8 pg (27.0-31.0); MEAN CORPUSCULAR HGB CONC 31.8 g/dL (32.0-36.0); MEAN CORPUSCULAR VOLUME 90.6 fL (81.0-99.0); MEAN PLATELET VOLUME 8.5 fL (7.9-10.8); MONOCYTES # (AUTO) 0.6 10^3/uL (0.0-1.0); MONOCYTES % (AUTO) 8.7 %; NEUTROPHILS # (AUTO) 3.4 10^3/uL (1.5-6.6); NEUTROPHILS % (AUTO) 52.5 %; PLT - PLATELET COUNT 277 10^3/uL (130-450); RED BLOOD COUNT 4.58 10^6/uL (4.20-5.40); RED CELL DISTRIBUTION WIDTH 13.2 % (12.0-15.0); WHITE BLOOD COUNT 6.4 x10^3/uL (4.8-10.8)
[2020-07-04 05:53] LABS: CALCIUM 8.9 mg/dL (8.5-10.3); MAGNESIUM 1.8 mg/dL (1.7-2.8)
[2020-07-04] MEDS: PANTOPRAZOLE 40 MG TABLET PO SCH (06:21)
[2020-07-04] MEDS: METOPROLOL TARTRATE 25 MG TABLET PO SCH (08:34)
[2020-07-04] MEDS ORDERED: ENOXAPARIN 40 MG/0.4 ML SYRINGE SUBQ SCH (09:00)
[2020-07-04] MEDS ORDERED: ASPIRIN CHEW 81 MG TABLET PO SCH ×3 (09:00)
[2020-07-04] MEDS ORDERED: ISOSORBIDE MONONITRATE ER 30 MG TABLET PO SCH (09:00)
[2020-07-04 10:38] VITALS: BP 121/71
--- NOTE | 2020-07-04 10:47 | Discharge Plan ---
Discharge Plan Problem Reviewed?: Yes Disposition: Home, Self Care Condition: Stable Prescriptions: Isosorbide Mononitrate ER [Imdur] 30 mg PO DAILY #30 tablet Atorvastatin [Lipitor] 40 mg PO QPM #30 tablet Metoprolol Tartrate [Lopressor] 25 mg PO BID #60 tablet Diet: Cardiac Activity Restrictions: Additional Comments (no work, hiking, lifting>5 lbs) Shower Restrictions: No Driving Restrictions: No Health Concerns: You came to the emergency room because you were having uncomfortable chest discomfort with exertion. It would go away when you stopped doing any activity. You are also having neck pain and shoulder pain at times. In the emergency room your EKG was completely normal and your blood test were normal. You are not having a heart attack. However, we brought you into the hospital to make sure that you are not going to have a heart attack. Your stress test was initially negative on the EKG portion. However on the nuclear medicine imaging portion you have a large portion of the left side of your heart, front wall, that appears to have artery blockage. Plan of Treatment: 1. The treatment for someone who has heart disease is an aspirin daily, a cholesterol pill daily, a medicine called a beta-german daily, and a nitrate. As such your new pills until you see cardiology is aspirin 81 mg a day, atorvastatin 40 mg a day, metoprolol 25 mg twice a day, and Imdur. You must take these medicines on a daily basis until you are seen by cardiology. 2. We spoke to the envelope adjuster at [facility] who was on-call for [facility]. Dr. Martinez was electrician control equipment. He stated that you did not need to be transferred emergently but wanted to see you on Tuesday or Tuesday of next week. As such, you have an appointment with Cassandra Rodriguez MD. [facility]. July 08 at 8:20 AM. [id number] [place] [facility], [place], [place]. Their phone number is [phone]. 3. We would like you to take it easy until you see the envelope adjuster. As such no strenuous activity. We would prefer that you not work. No hiking, fishing, boating, lifting greater than 5 pounds. You can do normal activities such as cooking dinner, sitting in your backyard, driving, but nothing that requires you to exert yourself. 4. If you do develop chest pain that does not go away after 5 minutes and goes to your arm or neck for more than 5 minutes, you need call and ambulance. At that time we may have to transfer you urgently to [facility] for care. The envelope adjuster does not feel that you need to be transferred emergently today and feels that as long as you are on the correct medicines that we put you on, you should be okay until Tuesday or Tuesday. 5. No smoking, or drinking alcohol Care Goals: To not have a heart attack Assessment: Patient understands care goals and will follow through No Smoking: If you smoke, Please STOP! Call for help. Follow-up with: LYDIA DIOP MD [Primary Care Provider] - CASSANDRA RODRIGUEZ MD [Physician No Access] -
--- NOTE | 2020-07-04 11:19 | DISCHARGE SUMMARY ---
Discharge Summary Admit Date: 07/03/20 Discharge Date: 07/04/20 Discharging Provider: Myles Rainey Primary Care Provider: Genie Martinez Condition at Discharge: Stable Discharge Disposition: 01 Home, Self Care Discharge Facility Name: home - DIAGNOSES Discharge Diagnoses with Status of Each Condition: (1) Chest pain Patient states she has no more chest pain now. she feel better. Patient troponin three time test were negative, EKG shows normal sinus rhythm. but stress test reveals Moderate to large size, reversible defects in the distal anterior wall and anterior lateral wall consistent with myocardial ischemia. We called apparel patternmaker in [facility], apparel patternmaker recommendation early next week follow-up in the office and the plan to do angiogram for patient, we did make that appointment on next Tuesday for patient, patient was notified, patient was given detailed instruction to follow-up appointment, patient was prescribed aspirin, statin, beta-german, nitro. And pt is prescribed ativan for her anxiety. Patient was also given instruction for As such no strenuous activity. Patient states she understands she will follow-up with all those instruction and follow-up with next appointment on next Tuesday. (2) Heart murmur it Seems echo does not change of management plan now, patient has next Tuesday to see her apparel patternmaker, discussed with the patient, she agree to follow her apparel patternmaker for the study. (3) Anxiety Patient is prescribed ativan PRN, follow-up with her PCP (4) HTN (hypertension) stable (5) Chronic back pain stable (6) CKD (chronic kidney disease) stage 2, GFR 60-89 ml/min stable - HPI History of Present Illness: This is a 55-year-old female with a PMH significant for chronic back pain,Asthma, migraines, GERD, depression and anxiety Who presents the ER complaining of left chest pain. Pt reports that she was seen yesterday at her PCP's offices. She Was placed on new BP medication but was unable to fill yet. She Says that she is having left side chest pain and she has been unable to sleep and just feels like something is wrong with her. Patient reported her left anteriorly Chest pain is more like pull and pressure not sharp pain. In today morning she did feel her chest pain radiate to her left shoulder. pt report she is preparing to get surgery done on her back and she has had issues with excessive pain on her back. She states that this morning before coming into the emergency department she took oxycodone, but She did not get improvement on her pain and chest pain, then came to the emergency department. she report She has a significant family history of coronary artery disease, Her grandfather was at his 60s because of heart issue, and he had heart attack in his 30s. Her father had congestive heart failure and is living at [facility] 84 yrs old now. Her sister from congestive heart failure at age 42. Discussed detail goal with the patient, patient stated he want CPR but he do not want intubate. - HOSPITAL COURSE Hospital Course: Patient was admitted for chest pain, patient had a stress test which show patient had Moderate to large size, reversible defects in the distal anterior wall and anterior lateral wall consistent with myocardial ischemia. we call apparel patternmaker in [facility], apparel patternmaker recommendation follow-up early next week in the office, we did make appointment for patient on next Tuesday to follow-up with apparel patternmaker. pt was informed these information, she state she will followup with the appointment. Patient's 3 times troponin test were negative for the ID and EKG is normal sinus rhythm. Patient was treated with aspirin, statin, beta-german, nitro. pt feel no chest pain and much better.Patient was given a detailed instruction for discharge planning, please review the discharge planning. - ALLERGIES Allergies/Adverse Reactions: Allergies Allergy/AdvReac Type Severity Reaction Status Date / Time amoxicillin trihydrate * Allergy anaphalaxis Verified 07/03/20 08:38 [From Augmentin] cephalexin monohydrate * Allergy anaphalaxis Verified 07/03/20 08:38 [From Keflex] doxycycline Allergy Unknown Verified 07/03/20 08:38 Penicillins Allergy anaphalaxis Verified 07/03/20 08:38 potassium clavulanate * Allergy anaphalaxis Verified 07/03/20 08:38 [From Augmentin] propoxyphene napsylate * Allergy "feels Verified 07/03/20 14:06 [From Darvocet-N] unbalanced" tetanus and diphtheria Allergy Edema Verified 07/03/20 10:56 toxoids codeine AdvReac Nausea Verified 07/03/20 08:38 dexamethasone AdvReac psychotic Verified 07/03/20 14:06 gabapentin [From Neurontin] AdvReac forgets Verified 07/03/20 14:06 everything, dizziness hydrocodone bitartrate * AdvReac agitated Verified 07/03/20 14:06 [From Vicodin] metoclopramide HCl * AdvReac Anxiety Verified 07/03/20 14:06 [From Reglan] prednisone AdvReac psychotic Verified 07/03/20 14:06 prochlorperazine edisylate * AdvReac anxious Verified 07/03/20 14:06 [From Compazine] prochlorperazine maleate * AdvReac anxious Verified 07/03/20 14:06 [From Compazine] topiramate [From Topamax] AdvReac Unknown Verified 07/03/20 08:38 - MEDICATIONS Home Medications: Ambulatory Orders Medication Instructions Recorded Confirmed Naproxen 375 mg PO BID #20 tablet 11/21/19 Oxycodone HCl/Acetaminophen 1 each PO Q4H PRN #25 tablet 11/21/19 [Oxycodon-Acetaminophen 7.5-325] Tizanidine HCl 4 mg PO TID PRN #25 capsule 11/21/19 Oxycodone HCl/Acetaminophen 1 - 2 each PO Q6H PRN #14 tablet 12/26/19 [Percocet 5-325 mg Tablet] Eszopiclone [Lunesta] 2 mg PO 05/30/20 LORazepam [Ativan] 05/30/20 Naproxen 500 mg PO BID #20 tablet 05/30/20 Oxycodone HCl/Acetaminophen 1 each PO Q4H PRN #20 tablet 05/30/20 [Percocet 7.5-325 mg Tablet] Promethazine [Phenergan] 05/30/20 Tizanidine HCl 4 mg PO TID PRN #25 capsule 05/30/20 Aspirin Chewable [St Faisal 81 mg PO DAILY tablet 07/04/20 Aspirin] Atorvastatin [Lipitor] 40 mg PO QPM #30 tablet 07/04/20 Isosorbide Mononitrate ER [Imdur] 30 mg PO DAILY #30 tablet 07/04/20 LORazepam [Ativan] 0.5 mg PO Q8H PRN #15 tablet 07/04/20 Metoprolol Tartrate [Lopressor] 25 mg PO BID #60 tablet 07/04/20 - PHYSICAL EXAM AT DISCHARGE General Appearance: positive: No acute distress, Alert. negative: Lethargic Eyes Bilateral: positive: Normal inspection, PERRL, No lid inflammation ENT: positive: ENT inspection nml, Pharynx nml, No signs of dehydration. negative: Purulent nasal drainage Neck: positive: Nml inspection, Thyroid nml, Trachea midline. negative: Thyromegaly, Stiff neck, Tracheal deviation Respiratory: positive: Chest non-tender, No respiratory distress. negative: Wheezes, Rales, Rhonchi Cardiovascular: positive: Regular rate & rhythm, Systolic murmur, Diastolic murmur. negative: No murmur, Tachycardia, Bradycardia Peripheral Pulses: positive: 2+ Abdomen: positive: Non-tender, No organomegaly, Nml bowel sounds, No distention. negative: Tenderness, Guarding, Rebound Back: positive: Nml inspection. negative: CVA tenderness (R), CVA tenderness (L) Skin: positive: Color nml, No rash, Warm, Dry. negative: Cyanosis, Diaphoresis, Pallor Extremities: positive: Non-tender, Full ROM, Nml appearance. negative: Calf tenderness, Yuan's sign/cords Neurologic/Psychiatric: positive: Oriented x3, Motor nml, Sensation nml, Mood/affect nml. negative: Weakness, Sensory loss, Facial droop, Slurred/abnml speech, Depressed mood/affect - LABS Result Diagrams: 07/04/20 05:10 07/04/20 05:10 - FOLLOW UP Follow Up: 1. The treatment for someone who has heart disease is an aspirin daily, a c holesterol pill daily, a medicine called a beta-german daily, and a nitrate. As such your new pills until you see cardiology is aspirin 81 mg a day, atorvastatin 40 mg a day, metoprolol 25 mg twice a day, and Imdur. You must take these medicines on a daily basis until you are seen by cardiology. 2. We spoke to the apparel patternmaker at [facility] who was on-call for [facility]. Dr. Martinez was strike planning applications. He stated that you did not need to be transferred emergently but wanted to see you on Tuesday or Tuesday of next week. As such, you have an appointment with Chapis Rodriguez MD. [facility]. [place] [address] at 8:20 AM. [address], [place], [place]. Their phone number is [phone]. 3. We would like you to take it easy until you see the apparel patternmaker. As such no strenuous activity. We would prefer that you not work. No hiking, fishing, boating, lifting greater than 5 pounds. You can do normal activities such as cooking dinner, sitting in your backyard, driving, but nothing that requires you to exert yourself. 4. If you do develop chest pain that does not go away after 5 minutes and goes to your arm or neck for more than 5 minutes, you need call and ambulance. At that time we may have to transfer you urgently to [facility] for care. The apparel patternmaker does not feel that you need to be transferred emergently today and feels that as long as you are on the correct medicines that we put you on, you should be okay until Tuesday or Tuesday. 5. No smoking, or drinking alcohol - TIME SPENT Time Spent in Discharge (Minutes): 30
[2020-07-04] MEDS ORDERED: ATORVASTATIN 40 MG TABLET PO SCH (21:00)
== END 2020-07-04 12:25 | disposition home or self-care (01) ==
LOC: ED 08:17 → MS2 12:28
PROVIDERS: ADMIT Specialist; ATTEND Specialist
DX: R07.89 Other chest pain (principal); R94.39 Abnormal result of other cardiovascular function study; R01.1 Cardiac murmur, unspecified; F41.9 Anxiety disorder, unspecified; I12.9 Hypertensive chronic kidney disease with stage 1 through stage 4 chronic kidney disease, or unspecified chronic kidney disease; N18.2 Chronic kidney disease, stage 2 (mild); M54.9 Dorsalgia, unspecified; G89.29 Other chronic pain; K21.9 Gastro-esophageal reflux disease without esophagitis; J45.909 Unspecified asthma, uncomplicated; Z82.49 Family history of ischemic heart disease and other diseases of the circulatory system
CPT/HCPCS: 36415; 71045; 78452; 80048; 80053; 80306; 83690; 83735; 83880; 84484; 85025; 93005; 93017; 96361; 96374; 96375; 99284; 99285; A9270; A9500; A9502; G0378; J2060; Q0162

== ENCOUNTER 2020-12-24 13:41 | Outpatient (CLI) | payer MEDICAID | END 2020-12-24 13:42 | disposition critical access hospital (66) | LOC: EMS 13:41 | PROVIDERS: ATTEND Emergency Medicine | DX: R10.9 Unspecified abdominal pain (principal); R11.10 Vomiting, unspecified | CPT/HCPCS: A0425; A0427 ==

== ENCOUNTER 2020-12-24 14:16 | Emergency (ER) | payer MEDICAID ==
[2020-12-24] MEDS ORDERED: ONDANSETRON 4 MG/2 ML VIAL IVP STA (14:28)
[2020-12-24] MEDS ORDERED: SODIUM CHLORIDE 0.9% 1,000 ML IV STA (14:28)
[2020-12-24] MEDS ORDERED: diazePAM INJ 5 MG/ML SYRINGE IVP STA ×2 (14:36→17:19)
[2020-12-24] MEDS ORDERED: HYDROmorphone 0.5 MG/0.5 ML SYRINGE IVP STA (14:36)
[2020-12-24 14:55] LABS: BASOPHILS # (AUTO) 0.1 10^3/uL (0.0-0.1); BASOPHILS % (AUTO) 0.5 %; EOSINOPHILS # (AUTO) 0.1 10^3/uL (0.0-0.7); EOSINOPHILS % (AUTO) 0.5 %; HGB - HEMOGLOBIN 14.9 g/dL (12.0-16.0); LYMPHOCYTES # (AUTO) 1.2 10^3/uL (1.5-3.5); LYMPHOCYTES % (AUTO) 12.8 %; MEAN CORPUSCULAR HGB CONC 32.8 g/dL (32.0-36.0); MEAN CORPUSCULAR VOLUME 88.5 fL (81.0-99.0); MEAN PLATELET VOLUME 8.7 fL (7.9-10.8); MONOCYTES # (AUTO) 0.3 10^3/uL (0.0-1.0); MONOCYTES % (AUTO) 3.4 %; NEUTROPHILS # (AUTO) 7.6 10^3/uL (1.5-6.6); NEUTROPHILS % (AUTO) 82.3 %; PLT - PLATELET COUNT 314 10^3/uL (130-450); RED BLOOD COUNT 5.13 10^6/uL (4.20-5.40); WHITE BLOOD COUNT 9.3 x10^3/uL (4.8-10.8)
--- NOTE | 2020-12-24 15:02 | ED Physician Documentation ---
PD HPI ABD PAIN - Stated complaint Stated Complaint: VOMITTING - Chief complaint Chief Complaint: Abd Pain - History obtained from History obtained from: Patient - Additional information Additional information: Patient comes emergency department chief complaint of nausea vomiting and anxiety. Patient states that she has a history of colitis and gets intermittent bouts of vomiting. She states that she is not running fevers. She has had some intermittent diarrhea which is not unusual for her. No blood in her stools or vomit. No respiratory symptoms. No other complaints at this time. Symptoms started today. Review of Systems Ten Systems: 10 systems reviewed and negative Constitutional: reports: Reviewed and negative Eyes: reports: Reviewed and negative Ears: reports: Reviewed and negative Nose: reports: Reviewed and negative Throat: reports: Reviewed and negative Cardiac: reports: Reviewed and negative Respiratory: reports: Reviewed and negative GI: reports: Reviewed and negative : reports: Reviewed and negative Skin: reports: Reviewed and negative Musculoskeletal: reports: Reviewed and negative Neurologic: reports: Reviewed and negative Psychiatric: reports: Reviewed and negative Endocrine: reports: Reviewed and negative Immunocompromised: reports: Reviewed and negative PD PAST MEDICAL HISTORY - Past Medical History Past Medical History: Yes Cardiovascular: None Respiratory: Asthma, Pneumonia Neuro: Migraines Endocrine/Autoimmune: None GI: GERD, 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 TRAVEL COUNSELOR: None : None HEENT: None Psych: Depression, Anxiety Musculoskeletal: Chronic back pain Derm: None - Past Surgical History Past Surgical History: Yes General: Appendectomy, Other Ortho: Spine surgery /AUTO TRAVEL COUNSELOR: 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 - Present Medications Home Medications: Ambulatory Orders Medication Instructions Recorded Confirmed Naproxen 375 mg PO BID #20 tablet 11/21/19 Oxycodone HCl/Acetaminophen 1 each PO Q4H PRN #25 tablet 11/21/19 [Oxycodon-Acetaminophen 7.5-325] Tizanidine HCl 4 mg PO TID PRN #25 capsule 11/21/19 Oxycodone HCl/Acetaminophen 1 - 2 each PO Q6H PRN #14 tablet 12/26/19 [Percocet 5-325 mg Tablet] Eszopiclone [Lunesta] 2 mg PO QPM 05/30/20 LORazepam [Ativan] 05/30/20 Naproxen 500 mg PO BID #20 tablet 05/30/20 Oxycodone HCl/Acetaminophen 1 each PO Q4H PRN #20 tablet 05/30/20 [Percocet 7.5-325 mg Tablet] Promethazine [Phenergan] 25 mg PO Q4H 05/30/20 Tizanidine HCl 4 mg PO TID PRN #25 capsule 05/30/20 Aspirin Chewable [St Faisal 81 mg PO DAILY tablet 07/04/20 Aspirin] Atorvastatin [Lipitor] 40 mg PO QPM #30 tablet 07/04/20 Isosorbide Mononitrate ER [Imdur] 30 mg PO DAILY #30 tablet 07/04/20 LORazepam [Ativan] 0.5 mg PO Q8H PRN #15 tablet 07/04/20 Metoprolol Tartrate [Lopressor] 25 mg PO BID #60 tablet 07/04/20 Ondansetron Odt [Zofran] 4 mg TL Q6H PRN #10 tab 12/24/20 - Allergies Allergies/Adverse Reactions: Allergies Allergy/AdvReac Type Severity Reaction Status Date / Time amoxicillin trihydrate * Allergy anaphalaxis Verified 12/24/20 14:29 [From Augmentin] cephalexin monohydrate * Allergy anaphalaxis Verified 12/24/20 14:29 [From Keflex] doxycycline Allergy Unknown Verified 12/24/20 14:29 Penicillins Allergy anaphalaxis Verified 12/24/20 14:29 potassium clavulanate * Allergy anaphalaxis Verified 12/24/20 14:29 [From Augmentin] propoxyphene napsylate * Allergy "feels Verified 12/24/20 14:29 [From Darvocet-N] unbalanced" tetanus and diphtheria Allergy Edema Verified 12/24/20 14:29 toxoids codeine AdvReac Nausea Verified 12/24/20 14:29 dexamethasone AdvReac psychotic Verified 12/24/20 14:29 gabapentin [From Neurontin] AdvReac forgets Verified 12/24/20 14:29 everything, dizziness hydrocodone bitartrate * AdvReac agitated Verified 12/24/20 14:29 [From Vicodin] metoclopramide HCl * AdvReac Anxiety Verified 12/24/20 14:29 [From Reglan] prednisone AdvReac psychotic Verified 12/24/20 14:29 prochlorperazine edisylate * AdvReac anxious Verified 12/24/20 14:29 [From Compazine] prochlorperazine maleate * AdvReac anxious Verified 12/24/20 14:29 [From Compazine] topiramate [From Topamax] AdvReac Unknown Verified 12/24/20 14:29 - Social History Does the pt smoke?: No Smoking Status: Never smoker Does the pt drink ETOH?: Yes Does the pt have substance abuse?: No - Immunizations Immunizations are current?: Yes Immunizations: TDAP >10years/unknown, No immun - POLST Patient has POLST: No PD ED PE NORMAL - Vitals Vital signs reviewed: Yes - General General: Alert and oriented X 3, Well developed/nourished, Other (Pt appears uncomfortable, otherwise NAD) - HEENT HEENT: Atraumatic, PERRL, EOMI, Moist mucous membranes - Neck Neck: Supple, no meningeal sign - Cardiac Cardiac: RRR, No murmur, Strong equal pulses - Respiratory Respiratory: No respiratory distress, Clear bilaterally - Abdomen Abdomen: Normal bowel sounds, Soft, Non distended, Other (moderate lower abd tenderness, no rebound/guarding) - Derm Derm: Warm and dry - Extremities Extremities: No deformity - Neuro Neuro: Alert and oriented X 3 - Psych Psych: Normal mood, Normal affect Results - Vitals Vitals: Vital Signs - 24 hr 12/24/20 12/24/20 12/24/20 14:26 15:59 18:22 Temperature 36.3 C L Heart Rate 60 66 72 Respiratory 20 13 20 Rate Blood Pressure 243/100 H 226/104 H 224/119 H O2 Saturation 100 98 100 Oxygen O2 Source Room air - Labs Labs: Laboratory Tests 12/24/20 12/24/20 14:48 14:48 WBC 9.3 RBC 5.13 Hgb 14.9 Hct 45.4 MCV 88.5 MCH 29.0 MCHC 32.8 RDW 13.0 Plt Count 314 MPV 8.7 Neut # (Auto) 7.6 H Lymph # (Auto) 1.2 L Toole # (Auto) 0.3 Eos # (Auto) 0.1 Baso # (Auto) 0.1 Absolute Nucleated RBC 0.00 Nucleated RBC % 0.0 Sodium 137 Potassium 4.0 Chloride 101 Carbon Dioxide 26 Anion Gap 10.0 BUN 21 H Creatinine 1.0 Estimated GFR (MDRD) 58 L Glucose 132 H Calcium 9.3 Total Bilirubin 0.6 AST 22 ALT 21 Alkaline Phosphatase 94 Total Protein 8.5 H Albumin 4.2 Globulin 4.3 H Albumin/Globulin Ratio 1.0 Lipase 17 L - Rads (name of study) CT abd/pelvis Radiology: Final report received, EMP read indepedently, See rad report (mild colitis) PD MEDICAL DECISION MAKING - ED course Complexity details: reviewed old records, reviewed results, re-evaluated patient, considered differential, d/w patient ED course: Pt was worked up with labs, which were unremarkable. CT showed mild colitis. Pt was treated with IV fluids, Zofran, Phenergan and Benadryl. She asked repeatedly for Valium throughout her stay, and was given 2 doses. Pt still reported feeling very nauseated, though she was only occasionally having dry heaves. I discussed with the pt that we have found nothing emergent, and since she cannot take Compazine, the only other option for nausea is Haldol. Pt was willing to try this, and was actually feeling much better after 5 mg IV. Pt was stable for d/c. We have discussed the usual indications for return. Departure - Departure Disposition: 01 Home, Self Care Clinical Impression: Gastroenteritis, Colitis Condition: Stable Instructions: ED Gastroenteritis Non Infec, ED Gastroenteritis Viral Prescriptions: Ondansetron Odt [Zofran] 4 mg TL Q6H PRN #10 tab PRN Reason: Nausea / Vomiting Comments: Look good. Your white blood cell count is normal. Your CT scan shows mild colitis but otherwise, is unremarkable. It is not clear if your symptoms are related to your chronic colitis and gastrointestinal issues, or if you have c ontracted one of the many viruses that go around and cause symptoms such as you are having now. Either way, symptoms usually blow over on their own in a matter of days, and usually, the symptoms are noticeably better 24 to 48 hours after onset. You may take the oral dissolving Zofran and the Phenergan suppositories at home to help with your nausea. You may continue to take ice chips and small amounts, intermittently, as long as you can tolerate them. However, it may help your nausea to hold off on the ice chips for a bit longer, as we have rehydrated you with IV fluids here in the emergency department. This may help your nausea to calm down a little bit and be more manageable overnight. Discharge Date/Time: 12/24/20 18:30
[2020-12-24 15:08] LABS: ALBUMIN 4.2 g/dL (3.2-5.5); BILIRUBIN,TOTAL 0.6 mg/dL (0.2-1.0); CALCIUM 9.3 mg/dL (8.5-10.3); TOTAL PROTEIN 8.5 g/dL (6.7-8.2)
[2020-12-24] MEDS ORDERED: IOVERSOL 320 100 ML VIAL IVP ONE ×2 (15:44→16:29)
[2020-12-24] MEDS ORDERED: PROMETHAZINE INJ 25 MG in SODIUM CHLORIDE 0.9% 50 ML IV STA (15:56)
[2020-12-24] MEDS ORDERED: diphenhydrAMINE INJ 50 MG/ML VIAL IVP STA (15:56)
--- NOTE | 2020-12-24 16:08 | CT Report ---
PROCEDURE: Abdomen/Pelvis W INDICATIONS: abd pain, vomiting CONTRAST: IV CONTRAST: Optiray 320 ml: 100 PO CONTRAST: *NO PO CONTRAST TECHNIQUE: After the administration of intravenous contrast, 5 mm thick sections acquired from the diaphragms to the symphysis. 5 mm thick coronal and sagittal reformats were acquired. For radiation dose reducti on, the following was used: automated exposure control, adjustment of mA and/or kV according to rodolfo ent size. COMPARISON: CT abdomen/pelvis 12/26/2019 FINDINGS: Image quality: Excellent. ABDOMEN: Lung bases: Lung bases are clear. Heart size is normal. Solid organs: Liver and spleen are normal in size and enhancement. Gallbladder appears normal. Keagan iary system is non dilated. Pancreas enhances normally. No adrenal nodules. Kidneys demonstrate no rmal size and enhancement, without hydronephrosis. Peritoneum and bowel: Mild thickening involving the transverse, descending, and sigmoid colon may be related to underdistention versus a nonspecific colitis. There are no signs of bowel obstruction. No free fluid or air. Nodes and vessels: No retroperitoneal or mesenteric adenopathy by size criteria. Aorta and inferior vena cava are normal in size. Mild atherosclerotic calcifications are seen in the aorta. Miscellaneous: No ventral hernias. PELVIS: Genitourinary: Bladder wall thickness is normal. Status post cystectomy. No adnexal mass is seen. Miscellaneous: No inguinal hernias or adenopathy. Bones: No suspicious bony lesions. No vertebral body compression fractures. Postsurgical changes a re seen in the lumbar spine extending from the L4-S1 levels. There is grade 1 anterolisthesis of L3 o n L4. IMPRESSION: Mild bowel wall thickening involving the transverse, descending, and sigmoid colon may be related to underdistention versus a mild colitis. Reviewed by: Young Jacinto MD on 12/24/2020 4:07 PM PST Approved by: Young Jacinto MD on 12/24/2020 4:07 PM PST Station ID: [id number]
[2020-12-24] MEDS ORDERED: HALOPERIDOL 5 MG/ML VIAL IVP ONE (17:46)
[2020-12-24 18:23] VITALS: BP 224/119
== END 2020-12-24 18:30 | disposition home or self-care (01) ==
LOC: EDUNIT# → ED 14:16
DX: K52.9 Noninfective gastroenteritis and colitis, unspecified (principal); F41.9 Anxiety disorder, unspecified; Z79.82 Long term (current) use of aspirin
CPT/HCPCS: 36415; 74177; 80053; 83690; 85025; 96361; 96365; 96375; 96376; 99284; J1170; J1200; J7040; Q9967

== ENCOUNTER 2020-12-27 10:51 | Outpatient (CLI) | payer MEDICAID | END 2020-12-27 10:52 | disposition critical access hospital (66) | LOC: EMS 10:51 | PROVIDERS: ATTEND Emergency Medicine | DX: R10.11 Right upper quadrant pain (principal); R11.2 Nausea with vomiting, unspecified | CPT/HCPCS: A0425; A0427 ==

== ENCOUNTER 2020-12-27 11:47 | Emergency (ER) | payer MEDICAID ==
[2020-12-27] MEDS ORDERED: ONDANSETRON 4 MG/2 ML VIAL IVP STA (12:08)
[2020-12-27] MEDS ORDERED: LORazepam 2 MG/ML VIAL IVP STA (12:30)
[2020-12-27] MEDS ORDERED: HALOPERIDOL 5 MG/ML VIAL IVP ONE (12:30)
[2020-12-27] MEDS ORDERED: SODIUM CHLORIDE 0.9% 1,000 ML IV STA ×2 (12:31→14:13)
[2020-12-27 12:35] LABS: BILIRUBIN,URINE NEGATIVE (NEGATIVE); GLUCOSE, URINE (UA) NEGATIVE (NEGATIVE); KETONES,URINE (UA) NEGATIVE (NEGATIVE); LEUKOCYTE ESTERASE, URINE NEGATIVE (NEGATIVE); NITRITE,URINE NEGATIVE (NEGATIVE); OCCULT BLOOD,URINE TRACE-INTA (NEGATIVE); PROTEIN,URINE NEGATIVE (NEGATIVE); UROBILINOGEN,URINE 0.2 (NORMAL) E.U./dL (NORMAL)
[2020-12-27 12:38] LABS: CLARITY,URINE CLEAR (CLEAR)
--- NOTE | 2020-12-27 12:38 | ED Physician Documentation ---
History of Present Illness - Stated complaint Stated Complaint: ABD PX - Chief complaint Chief Complaint: Abd Pain - Additonal information Additional information: 55-year-old female presents to the emergency department for evaluation of worse praful nausea vomiting, and anxiety. Seen for similar 3 days ago. At that time she underwent CT scanning of the abdomen that showed a possible colitis in the transverse and descending colon. Patient is very anxious. Worried about her blood pressure. Reports that her primary doctor recently initiated her on amlodipine but due to vomiting she has not kept it down Patient does endorse daily cannabis use. She reports that her pain management doctor suggest she continue to use cannabis for chronic pain syndromes. Review of Systems Constitutional: denies: Fever, Chills, Myalgias Eyes: reports: Reviewed and negative Ears: reports: Reviewed and negative Nose: reports: Reviewed and negative Throat: reports: Reviewed and negative Cardiac: reports: Reviewed and negative Respiratory: reports: Reviewed and negative GI: reports: Abdominal Pain, Nausea, Vomiting, Diarrhea. 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 : None HEENT: None Psych: Depression, Anxiety Musculoskeletal: Chronic back pain Derm: None - Past Surgical History Past Surgical History: Yes General: Appendectomy, Other Ortho: Spine surgery /SENIOR DEVELOPER: 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 - Present Medications Home Medications: Ambulatory Orders Medication Instructions Recorded Confirmed Promethazine [Phenergan] 25 mg PO Q4H 05/30/20 12/27/20 Tizanidine HCl 4 mg PO TID PRN #25 capsule 05/30/20 12/27/20 Aspirin Chewable [St Faisal 81 mg PO DAILY tablet 07/04/20 12/27/20 Aspirin] Isosorbide Mononitrate ER [Imdur] 30 mg PO DAILY #30 tablet 07/04/20 12/27/20 Metoprolol Tartrate [Lopressor] 25 mg PO BID #60 tablet 07/04/20 12/27/20 Ondansetron Odt [Zofran] 4 mg TL Q6H PRN #10 tab 12/24/20 12/27/20 DULoxetine [Cymbalta] 20 mg PO DAILY 12/27/20 12/27/20 Ondansetron Odt [Zofran] 4 mg TL Q6H PRN #10 tab 12/27/20 Oxycodone HCl/Acetaminophen 1 each PO QID PRN 12/27/20 12/27/20 [Percocet 7.5-325 mg Tablet] Pregabalin [Lyrica] 100 mg PO BID 12/27/20 12/27/20 amLODIPine [Norvasc] 5 mg PO DAILY 12/27/20 12/27/20 traZODone [Desyrel] 50 - 100 mg PO HS PRN 12/27/20 12/27/20 - Allergies Allergies/Adverse Reactions: Allergies Allergy/AdvReac Type Severity Reaction Status Date / Time amoxicillin trihydrate * Allergy anaphalaxis Verified 12/27/20 12:02 [From Augmentin] cephalexin monohydrate * Allergy anaphalaxis Verified 12/27/20 12:02 [From Keflex] doxycycline Allergy Unknown Verified 12/27/20 12:02 Penicillins Allergy anaphalaxis Verified 12/27/20 12:02 potassium clavulanate * Allergy anaphalaxis Verified 12/27/20 12:02 [From Augmentin] propoxyphene napsylate * Allergy "feels Verified 12/27/20 12:02 [From Darvocet-N] unbalanced" tetanus and diphtheria Allergy Edema Verified 12/27/20 12:02 toxoids codeine AdvReac Nausea Verified 12/27/20 12:02 dexamethasone AdvReac psychotic Verified 12/27/20 12:02 gabapentin [From Neurontin] AdvReac forgets Verified 12/27/20 12:02 everything, dizziness hydrocodone bitartrate * AdvReac agitated Verified 12/27/20 12:02 [From Vicodin] metoclopramide HCl * AdvReac Anxiety Verified 12/27/20 12:02 [From Reglan] prednisone AdvReac psychotic Verified 12/27/20 12:02 prochlorperazine edisylate * AdvReac anxious Verified 12/27/20 12:02 [From Compazine] prochlorperazine maleate * AdvReac anxious Verified 12/27/20 12:02 [From Compazine] topiramate [From Topamax] AdvReac Unknown Verified 12/27/20 12:02 - Social History Does the pt smoke?: No Smoking Status: Never smoker Does the pt drink ETOH?: No Does the pt have substance abuse?: Yes Substance Use and Type: Marijuana - Immunizations Immunizations are current?: Yes Immunizations: TDAP >10years/unknown, No immun - POLST Patient has POLST: No PD ED PE EXPANDED - General General: Alert, Anxious - Cardiac Cardiac: Regular Rate, Regular Rhythm, Radial strong equal, Pedal strong equal, Cap refill < 2 sec - Respiratory Respiratory: Clear to ausultation sapna. No: Distress, Labored - Abdomen Abdomen: Normal Bowel sounds, Tender to palpation, Epigastric (Mild epigastric tenderness without guarding or rebound. Negative Zayas's) - Derm Derm: Normal color, Warm and dry. No: Rash - Extremities Extremities: Normal. No: Deformity, Tenderness - Neuro Neuro: Alert and Oriented X 3, CNII-XII intact - GCS Eye Opening: Spontaneous Motor: Obeys Commands Verbal: Oriented Total: 15 - Psych Psych: Anxious Results - Vitals Vitals: Vital Signs - 24 hr 12/27/20 12/27/20 12/27/20 11:58 12:16 13:43 Temperature 36.7 C 37.6 C 37.4 C Heart Rate 63 64 70 Respiratory 20 22 18 Rate Blood Pressure 234/104 H 253/91 H 156/86 H O2 Saturation 96 99 100 Oxygen O2 Source Room air - Labs Labs: Laboratory Tests 12/27/20 12/27/20 12/27/20 11:55 12:53 12:53 WBC 12.7 H RBC 5.56 H Hgb 16.0 Hct 49.5 H MCV 89.0 MCH 28.8 MCHC 32.3 RDW 12.9 Plt Count 352 MPV 8.7 Neut # (Auto) 11.4 H Lymph # (Auto) 0.9 L Benson # (Auto) 0.2 Eos # (Auto) 0.0 Baso # (Auto) 0.1 Absolute Nucleated RBC 0.00 Nucleated RBC % 0.0 Sodium 137 Potassium 3.6 Chloride 98 L Carbon Dioxide 27 Anion Gap 12.0 BUN 21 H Creatinine 1.2 H Estimated GFR (MDRD) 47 L Glucose 125 H Calcium 9.6 Total Bilirubin 0.6 AST 21 ALT 18 Alkaline Phosphatase 103 Total Protein 9.4 H Albumin 4.8 Globulin 4.6 H Albumin/Globulin Ratio 1.0 Lipase < 10 L Urine Color YELLOW Urine Clarity CLEAR Urine pH 6.0 Ur Specific [place] 1.020 Urine Protein NEGATIVE Urine Glucose (UA) NEGATIVE Urine Ketones NEGATIVE Urine Occult Blood TRACE-INTA Urine Nitrite NEGATIVE Urine Bilirubin NEGATIVE Urine Urobilinogen 0.2 (NORMAL) Ur Leukocyte Esterase NEGATIVE Ur Microscopic Review NOT INDICATED Urine Culture Comments NOT INDICATED - Rads (name of study) Abd US Radiology: Other (Per systems technologist this is a very limited study due to body habitus but no obvious findings such as gallbladder wall thickening pericholecystic fluid.) PD MEDICAL DECISION MAKING - ED course Complexity details: reviewed old records, reviewed results, re-evaluated patient, considered differential, d/w patient ED course: 55-year-old female return to the emergency department for uncontrolled vomiting, epigastric pain and anxiety. Seen for similar 3 days ago with an unremarkable laboratory However the CT scan did suggest a mild enteritis. She was prescribed Zofran on discharge but did not fill the prescription. Patient does endorse that she is a daily cannabis user for chronic pain control. Today in the emergency department we do appreciate a mild leukocytosis but given the absence of fever or findings of urinary tract infection I feel this is likely a stress marginalization. She did have a mild rise in her creatinine to 1.2. She was given 1 L of IV fluids here in the emergency department. Her symptoms of vomiting anxiety and abdominal pain nearly fully resolved after a small dose of Haldol, Zofran as well as Dilaudid. Given the return of epigastric pain and abdominal ultrasound was completed to certainly rule out biliary colic though there were no findings on CT scan 3 days ago. The abdominal ultrasound was a limited study quality however no findings such as pericholecystic fluid or gallbladder wall thickening. When patient presented the emergency department she was also very hypertensive with a blood pressure in the 230s. Her blood pressure improved to the 150 range following improvement in her vomiting and anxiety. At this time she appears clinically well and will be discharged home. I have encouraged her to fill the prescription for the Zofran to help reduce vomiting which in turn should reduce abdominal pain. Once she is able to stop vomiting she should be able to take the amlodipine which her previous doctor had prescribed for concerns of high blood pressure. In addition to this we discussed that cannabis use may be contributing to more chronic vomiting cycle and I encouraged her to abstain from use moving forward. Emergent return precautions were discussed and include fevers, uncontrolled vom iting, chest pain or shortness of breath. Also encouraged very close follow-up with primary care provider. Departure - Departure Disposition: 01 Home, Self Care Clinical Impression: Anxiety Vomiting Qualifiers: Vomiting type: unspecified Vomiting Intractability: non-intractable Nausea presence: with nausea Qualified Code(s): R11.2 - Nausea with vomiting, unspecified Hypertension Qualifiers: Hypertension type: essential hypertension Qualified Code(s): I10 - Essential (primary) hypertension Condition: Stable Record reviewed to determine appropriate education?: Yes Follow-Up: LYDIA DIOP MD [Primary Care Provider] - Prescriptions: Ondansetron Odt [Zofran] 4 mg TL Q6H PRN #10 tab PRN Reason: Nausea / Vomiting Comments: You were seen in the emergency department today for uncontrolled vomiting, anxiety and high blood pressure. The ultrasound of shahana gallbladder did not show any stones or worrisome findings, though as we discussed this was a limited study. As discussed the CT scan 3 days ago suggest a mild enteritis or inflammation in your intestines. This could be due to a virus. Please fill the prescription for the Zofran. This should help you stop vomiting thus improving her abdominal pain. It is also important to consider whether habitual pot use is contributing to your more frequent vomiting syndromes. This is a condition called hyperemesis cannabis. I do recommend that you abstain from pot use moving forward to see if it improves your symptoms. Please begin taking the amlodipine prescribed by Dr. Diop for your elevated blood pressure. If at any point you develop fevers, have uncontrolled abdominal pain, uncontrolled vomiting, develop chest pain or shortness of breath please return immediately to the emergency department.
[2020-12-27 13:06] LABS: BASOPHILS # (AUTO) 0.1 10^3/uL (0.0-0.1); BASOPHILS % (AUTO) 0.4 %; EOSINOPHILS % (AUTO) 0.1 %; LYMPHOCYTES # (AUTO) 0.9 10^3/uL (1.5-3.5); LYMPHOCYTES % (AUTO) 7.2 %; MEAN CORPUSCULAR HEMOGLOBIN 28.8 pg (27.0-31.0); MEAN CORPUSCULAR HGB CONC 32.3 g/dL (32.0-36.0); MEAN PLATELET VOLUME 8.7 fL (7.9-10.8); MONOCYTES # (AUTO) 0.2 10^3/uL (0.0-1.0); MONOCYTES % (AUTO) 1.7 %; NEUTROPHILS # (AUTO) 11.4 10^3/uL (1.5-6.6); PLT - PLATELET COUNT 352 10^3/uL (130-450); RED BLOOD COUNT 5.56 10^6/uL (4.20-5.40); RED CELL DISTRIBUTION WIDTH 12.9 % (12.0-15.0); WHITE BLOOD COUNT 12.7 x10^3/uL (4.8-10.8)
[2020-12-27] MEDS ORDERED: HYDROmorphone 1 MG/ML CARPUJECT IVP STA ×2 (13:14→13:43)
[2020-12-27 13:24] LABS: ALBUMIN 4.8 g/dL (3.2-5.5); ALKALINE PHOSPHATASE 103 IU/L (42-121); ALT ALANINE AMINOTRANSFERASE 18 IU/L (10-60); AST ASPARTATE AMINOTRANSFERASE 21 IU/L (10-42); BILIRUBIN,TOTAL 0.6 mg/dL (0.2-1.0); BUN - BLOOD UREA NITROGEN 21 mg/dL (6-20); CALCIUM 9.6 mg/dL (8.5-10.3); CARBON DIOXIDE - CO2 27 mmol/L (21-32); CHLORIDE 98 mmol/L (101-111); CREATININE 1.2 mg/dL (0.4-1.0); GLUCOSE 125 mg/dL (70-100); TOTAL PROTEIN 9.4 g/dL (6.7-8.2)
[2020-12-27 13:40] LABS: LIPASE < 10 U/L (22-51)
[2020-12-27 15:21] VITALS: BP 163/71
--- NOTE | 2020-12-27 15:22 | Ultrasound Report ---
PROCEDURE: Abdomen Limited INDICATIONS: upper abdomianl pain, vomiting; r/o GB TECHNIQUE: Real-time scanning was performed of the abdominal and retroperitoneal organs, with image documentatio n. COMPARISON: CT abdomen/pelvis 12/24/2020 FINDINGS: Liver: Liver is normal in size and homogeneous in echotexture. Gallbladder: The gallbladder appears normal without gallstones or gallbladder wall thickening. There is no pericholecystic fluid. Sonographic Zayas sign is negative. Biliary ducts: Intrahepatic bile ducts are non-dilated. Extrahepatic bile duct caliber measures 3 m m. Normal is 6-7 mm or less in diameter, or 10 mm or less post-cholecystectomy. Pancreas: Visualized portions of the pancreas are sonographically normal. Right kidney: Normal in size and echotexture. Right kidney measures 10.9 cm long. No hydronephrosis or nephrolithiasis. No solid masses. IVC: Intrahepatic inferior vena cava is patent. Miscellaneous: No free right upper quadrant fluid. IMPRESSION: No acute abnormality is identified in the right upper quadrant. Reviewed by: Young Jacinto MD on 12/27/2020 3:20 PM PST Approved by: Young Jacinto MD on 12/27/2020 3:20 PM PST Station ID: [id number]
== END 2020-12-27 15:35 | disposition home or self-care (01) ==
LOC: EDUNIT# → ED 11:47
DX: R11.2 Nausea with vomiting, unspecified (principal); R10.13 Epigastric pain; I10 Essential (primary) hypertension; F41.9 Anxiety disorder, unspecified; F12.90 Cannabis use, unspecified, uncomplicated; Z79.82 Long term (current) use of aspirin
CPT/HCPCS: 36415; 76705; 80053; 81003; 83690; 85025; 96361; 96374; 96375; 96376; 99284; J1170; J2060; 81001; 87086

== ENCOUNTER 2020-12-28 10:01 | Outpatient (CLI) | payer MEDICAID | END 2020-12-28 10:02 | disposition critical access hospital (66) | LOC: EMS 10:01 | PROVIDERS: ATTEND Emergency Medicine | DX: R07.9 Chest pain, unspecified (principal); R10.9 Unspecified abdominal pain; M54.9 Dorsalgia, unspecified | CPT/HCPCS: A0425; A0427; A0999 ==

== ENCOUNTER 2020-12-28 10:47 | Emergency (ER) | payer MEDICAID ==
--- NOTE | 2020-12-28 11:11 | ED Physician Documentation ---
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 : None HEENT: None Psych: Depression, Anxiety Musculoskeletal: Chronic back pain Derm: None - Past Surgical History Past Surgical History: Yes General: Appendectomy, Other Ortho: Spine surgery /TRANSFORMATION COACH: 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 - Present Medications Home Medications: Ambulatory Orders Medication Instructions Recorded Confirmed Promethazine [Phenergan] 25 mg PO Q4H 05/30/20 12/27/20 Tizanidine HCl 4 mg PO TID PRN #25 capsule 05/30/20 12/27/20 Aspirin Chewable [St Faisal 81 mg PO DAILY tablet 07/04/20 12/27/20 Aspirin] Isosorbide Mononitrate ER [Imdur] 30 mg PO DAILY #30 tablet 07/04/20 12/27/20 Metoprolol Tartrate [Lopressor] 25 mg PO BID #60 tablet 07/04/20 12/27/20 Ondansetron Odt [Zofran] 4 mg TL Q6H PRN #10 tab 12/24/20 12/27/20 DULoxetine [Cymbalta] 20 mg PO DAILY 12/27/20 12/27/20 Ondansetron Odt [Zofran] 4 mg TL Q6H PRN #10 tab 12/27/20 Oxycodone HCl/Acetaminophen 1 each PO QID PRN 12/27/20 12/27/20 [Percocet 7.5-325 mg Tablet] Pregabalin [Lyrica] 100 mg PO BID 12/27/20 12/27/20 amLODIPine [Norvasc] 5 mg PO DAILY 12/27/20 12/27/20 traZODone [Desyrel] 50 - 100 mg PO HS PRN 12/27/20 12/27/20 - Allergies Allergies/Adverse Reactions: Allergies Allergy/AdvReac Type Severity Reaction Status Date / Time amoxicillin trihydrate * Allergy anaphalaxis Verified 12/28/20 10:54 [From Augmentin] cephalexin monohydrate * Allergy anaphalaxis Verified 12/28/20 10:54 [From Keflex] doxycycline Allergy Unknown Verified 12/28/20 10:54 Penicillins Allergy anaphalaxis Verified 12/28/20 10:54 potassium clavulanate * Allergy anaphalaxis Verified 12/28/20 10:54 [From Augmentin] propoxyphene napsylate * Allergy "feels Verified 12/28/20 10:54 [From Darvocet-N] unbalanced" tetanus and diphtheria Allergy Edema Verified 12/28/20 10:54 toxoids codeine AdvReac Nausea Verified 12/28/20 10:54 dexamethasone AdvReac psychotic Verified 12/28/20 10:54 gabapentin [From Neurontin] AdvReac forgets Verified 12/28/20 10:54 everything, dizziness hydrocodone bitartrate * AdvReac agitated Verified 12/28/20 10:54 [From Vicodin] metoclopramide HCl * AdvReac Anxiety Verified 12/28/20 10:54 [From Reglan] prednisone AdvReac psychotic Verified 12/28/20 10:54 prochlorperazine edisylate * AdvReac anxious Verified 12/28/20 10:54 [From Compazine] prochlorperazine maleate * AdvReac anxious Verified 12/28/20 10:54 [From Compazine] topiramate [From Topamax] AdvReac Unknown Verified 12/28/20 10:54 - Social History Does the pt smoke?: No Smoking Status: Never smoker Does the pt drink ETOH?: No Does the pt have substance abuse?: Yes - Immunizations Immunizations are current?: Yes Immunizations: TDAP >10years/unknown, No immun - POLST Patient has POLST: No Results - Vitals Vitals: Vital Signs - 24 hr 12/28/20 10:54 Temperature 37.3 C Heart Rate 75 Respiratory 98 H Rate Blood Pressure 200/102 H O2 Saturation 98 Oxygen O2 Source Room air
[2020-12-28] MEDS ORDERED: ONDANSETRON ODT 4 MG TABLET TL STA ×2 (11:25→13:13)
[2020-12-28] MEDS ORDERED: HYDROmorphone 1 MG/ML CARPUJECT IM STA (11:33)
--- NOTE | 2020-12-28 11:36 | ED Physician Documentation ---
History of Present Illness - Stated complaint Stated Complaint: ABD PX - Chief complaint Chief Complaint: Abd Pain - Additonal information Additional information: 55-year-old female return to the emergency department for evaluation of uncontr olled vomiting. She was seen by myself yesterday for similar. She was also seen about 4 days ago for similar findings. Over the last 4 days she has had labs drawn multiple times without any acute significant abnormalities. She has had a CT scan completed which suggests an enteritis. An abdominal ultrasound yesterday showed no concerns for acute cholecystitis. Patient did indicate to us yesterday that she was a daily cannabis user. Part of her differential did include cannabis hyperemesis. Patient denies any cannabis use since discharge yesterday afternoon. Due to the snow event patient has not been able to fill her Zofran. After IV fluids antiemetic and pain medications in the emergency department yesterday she felt much improved and went home however this morning she began vomiting. She did take some promethazine this morning but it did not work. Therefore she has been unable to keep her pain medications, and blood pressure medications down therefore she returns to the emergency department. She does have a longstanding history of anxiety, pain as well as hypertension. Patient did see her primary care provider last week and has a pending referral for gastroenterology. Since discharge yesterday no fevers, no diarrhea, no dysuria. Patient has some generalized nonfocal tenderness in the upper abdomen without guarding or rebound. She expresses to this provider that she is frustrated and upset. Review of Systems Constitutional: denies: Fever, Chills Eyes: reports: Reviewed and negative Ears: reports: Reviewed and negative Nose: reports: Reviewed and negative Throat: reports: Reviewed and negative Cardiac: reports: Reviewed and negative Respiratory: reports: Reviewed and negative GI: reports: Abdominal Pain, Nausea, Vomiting. 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 : None HEENT: None Psych: Depression, Anxiety Musculoskeletal: Chronic back pain Derm: None - Past Surgical History Past Surgical History: Yes General: Appendectomy, Other Ortho: Spine surgery /[employer]ENT: 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 - Present Medications Home Medications: Ambulatory Orders Medication Instructions Recorded Confirmed Promethazine [Phenergan] 25 mg PO Q4H 05/30/20 12/27/20 Tizanidine HCl 4 mg PO TID PRN #25 capsule 05/30/20 12/27/20 Aspirin Chewable [[place]aisal 81 mg PO DAILY tablet 07/04/20 12/27/20 Aspirin] Isosorbide Mononitrate ER [Imdur] 30 mg PO DAILY #30 tablet 07/04/20 12/27/20 Metoprolol Tartrate [Lopressor] 25 mg PO BID #60 tablet 07/04/20 12/27/20 Ondansetron Odt [Zofran] 4 mg TL Q6H PRN #10 tab 12/24/20 12/27/20 DULoxetine [Cymbalta] 20 mg PO DAILY 12/27/20 12/27/20 Ondansetron Odt [Zofran] 4 mg TL Q6H PRN #10 tab 12/27/20 Oxycodone HCl/Acetaminophen 1 each PO QID PRN 12/27/20 12/27/20 [Percocet 7.5-325 mg Tablet] Pregabalin [Lyrica] 100 mg PO BID 12/27/20 12/27/20 amLODIPine [Norvasc] 5 mg PO DAILY 12/27/20 12/27/20 traZODone [Desyrel] 50 - 100 mg PO HS PRN 12/27/20 12/27/20 Pantoprazole Sodium [Protonix] 40 mg PO DAILY #30 12/28/20 - Allergies Allergies/Adverse Reactions: Allergies Allergy/AdvReac Type Severity Reaction Status Date / Time amoxicillin trihydrate * Allergy anaphalaxis Verified 12/28/20 10:54 [From Augmentin] cephalexin monohydrate * Allergy anaphalaxis Verified 12/28/20 10:54 [From Keflex] doxycycline Allergy Unknown Verified 12/28/20 10:54 Penicillins Allergy anaphalaxis Verified 12/28/20 10:54 potassium clavulanate * Allergy anaphalaxis Verified 12/28/20 10:54 [From Augmentin] propoxyphene napsylate * Allergy "feels Verified 12/28/20 10:54 [From Darvocet-N] unbalanced" tetanus and diphtheria Allergy Edema Verified 12/28/20 10:54 toxoids codeine AdvReac Nausea Verified 12/28/20 10:54 dexamethasone AdvReac psychotic Verified 12/28/20 10:54 gabapentin [From Neurontin] AdvReac forgets Verified 12/28/20 10:54 everything, dizziness hydrocodone bitartrate * AdvReac agitated Verified 12/28/20 10:54 [From Vicodin] metoclopramide HCl * AdvReac Anxiety Verified 12/28/20 10:54 [From Reglan] prednisone AdvReac psychotic Verified 12/28/20 10:54 prochlorperazine edisylate * AdvReac anxious Verified 12/28/20 10:54 [From Compazine] prochlorperazine maleate * AdvReac anxious Verified 12/28/20 10:54 [From Compazine] topiramate [From Topamax] AdvReac Unknown Verified 12/28/20 10:54 - Social History Does the pt smoke?: No Smoking Status: Never smoker Does the pt drink ETOH?: No Does the pt have substance abuse?: Yes - Immunizations Immunizations are current?: Yes Immunizations: TDAP >10years/unknown, No immun - POLST Patient has POLST: No PD ED PE EXPANDED - General General: Alert, No acute distress, Well developed/nourished - Cardiac Cardiac: Regular Rate, Regular Rhythm, Radial strong equal, Pedal strong equal, Cap refill < 2 sec - Respiratory Respiratory: Clear to ausultation sapna. No: Distress, Labored - Abdomen Abdomen: Normal Bowel sounds, Tender to palpation (Upper epigastric tenderness to palpation without guarding or rebound.) - Derm Derm: Normal color, Warm and dry. No: Rash, Petecchiae, Purpura - Extremities Extremities: Normal. No: Deformity, Tenderness - Neuro Neuro: Alert and Oriented X 3, CNII-XII intact - GCS Eye Opening: Spontaneous Motor: Obeys Commands Verbal: Oriented Total: 15 Results - Vitals Vitals: Vital Signs - 24 hr 12/28/20 12/28/20 10:54 11:57 Temperature 37.3 C Heart Rate 75 69 Respiratory 98 H 18 Rate Blood Pressure 200/102 H 142/94 H O2 Saturation 98 99 Oxygen O2 Source Room air - Labs Labs: Laboratory Tests 12/28/20 12/28/20 11:38 11:38 WBC 10.9 H RBC 4.96 Hgb 14.5 Hct 44.3 MCV 89.3 MCH 29.2 MCHC 32.7 RDW 13.2 Plt Count 310 MPV 8.5 Neut # (Auto) 8.9 H Lymph # (Auto) 1.4 L [place] # (Auto) 0.5 Eos # (Auto) 0.1 Baso # (Auto) 0.0 Absolute Nucleated RBC 0.00 Nucleated RBC % 0.0 Sodium 139 Potassium 3.7 Chloride 99 L Carbon Dioxide 27 Anion Gap 13.0 BUN 15 Creatinine 1.1 H Estimated GFR (MDRD) 52 L Glucose 127 H Calcium 9.5 Total Bilirubin 0.8 AST 20 ALT 19 Alkaline Phosphatase 92 Total Protein 7.8 Albumin 4.0 Globulin 3.8 Albumin/Globulin Ratio 1.1 Lipase 18 L PD MEDICAL DECISION MAKING - ED course Complexity details: reviewed results, re-evaluated patient, considered differential, d/w patient ED course: 55-year-old female return to the emergency department for evaluation of persistent nausea. This is her third ED visit in the last [address] of the abdomen has suggested a mild enteritis. Abdominal ultrasound yesterday without any acute findings. Screening CBC and electrolytes have also been unremarkable. During her previous 2 ED visits she was noted to be very anxious, hypertensive however her nausea symptoms markedly improved following Zofran. She was seen yesterday and left with a prescription for Zofran but due to our local snow event did not fill it. There is also concern in the history that she may have hyperemesis cannabis that she was a daily cannabis user. She has been seen by her primary physician for persistent nausea and does have a pending referral to GI. On today's exam she reported that she did not begin vomiting until this a.m. Initial presentation reveals a fairly well-appearing woman who is mildly anxious noted to be hypertensive. She declined IV but did request IM pain medication. I did give her 4 mg of Zofran ODT as well as 1 mg of Dilaudid IM. She had marked resolution of symptoms. She is now tolerating clear liquids. I also prescribed Protonix which I think may help with gastric upset as she has been vomiting for the last 4 to 5 days. 1315: Patient has been in our emergency department for just about 2-1/2 hours. After 1 dose of oral Zofran she has been able to tolerate sipping water, eating applesauce and sipping on a Sprite soda. She does endorse some mild epigastric pain and I suspect that this may be a gastritis given multiple days of vomiting. I will dispense her with Zofran prepack here in the emergency department and encouraged her to fill the other prescription when able. We will also write a prescription for Protonix. We discussed that she needs to continue follow-up with gastroenterology for her chronic nausea symptoms. She may benefit from EGD or gastric emptying studies. Given reassuring labs, lack of fever, and imaging recently no further imaging or evaluation warranted at this time as her symptoms have improved. Emergent return precautions were discussed. Departure - Departure Disposition: 01 Home, Self Care Clinical Impression: Vomiting Qualifiers: Vomiting type: unspecified Vomiting Intractability: non-intractable Nausea presence: with nausea Qualified Code(s): R11.2 - Nausea with vomiting, unspecified Condition: Stable Record reviewed to determine appropriate education?: Yes Instructions: Diet Clear Liquid Dc, ED Diet Vomiting Wwo Diarrhea Ch Follow-Up: LYDIA DIOP MD [Primary Care Provider] - Prescriptions: Pantoprazole Sodium [Protonix] 40 mg PO DAILY #30 Comments: Laurie as we discussed it is important that you continue to follow-up with gastroenterology. You may benefit from an EGD or a gastric emptying study as an outpatient. Zofran seems to control your nausea well. It is important to fill the prescriptions that have been written for you when you are able. We are giving you a prepack of Zofran to go home with. I have also written a prescription for Protonix. This is an acid safety and security manager that may also help with the pain and nausea that you are experiencing. Over the next few days please take the Zofran 2-3 times a day as needed. Slowly increase your oral intake by drinking water, broth Pedialyte or Gatorade. You may begin eating simple foods such as bananas, rice applesauce or toast. If at any point your symptoms worsen, you develop fevers have uncontrolled vomiting despite the Zofran, black or bloody stools please return immediately to the ER
[2020-12-28] MEDS ORDERED: SODIUM CHLORIDE 0.9% 1,000 ML IV STA (11:38)
[2020-12-28 11:44] LABS: BASOPHILS % (AUTO) 0.4 %; EOSINOPHILS # (AUTO) 0.1 10^3/uL (0.0-0.7); EOSINOPHILS % (AUTO) 0.5 %; HGB - HEMOGLOBIN 14.5 g/dL (12.0-16.0); LYMPHOCYTES # (AUTO) 1.4 10^3/uL (1.5-3.5); LYMPHOCYTES % (AUTO) 12.7 %; MEAN CORPUSCULAR HEMOGLOBIN 29.2 pg (27.0-31.0); MEAN CORPUSCULAR HGB CONC 32.7 g/dL (32.0-36.0); MEAN CORPUSCULAR VOLUME 89.3 fL (81.0-99.0); MEAN PLATELET VOLUME 8.5 fL (7.9-10.8); MONOCYTES # (AUTO) 0.5 10^3/uL (0.0-1.0); MONOCYTES % (AUTO) 4.9 %; NEUTROPHILS # (AUTO) 8.9 10^3/uL (1.5-6.6); PLT - PLATELET COUNT 310 10^3/uL (130-450); RED BLOOD COUNT 4.96 10^6/uL (4.20-5.40); RED CELL DISTRIBUTION WIDTH 13.2 % (12.0-15.0); WHITE BLOOD COUNT 10.9 x10^3/uL (4.8-10.8)
[2020-12-28] MEDS ORDERED: PANTOPRAZOLE 40 MG TABLET PO STA (11:50)
[2020-12-28 11:57] LABS: ALBUMIN/GLOBULIN RATIO 1.1 (1.0-2.2); BILIRUBIN,TOTAL 0.8 mg/dL (0.2-1.0); CALCIUM 9.5 mg/dL (8.5-10.3); CREATININE 1.1 mg/dL (0.4-1.0); TOTAL PROTEIN 7.8 g/dL (6.7-8.2)
[2020-12-28] MEDS ORDERED: ONDANSETRON ODT 4 MG Prepack 2 TL PRN (13:18)
[2020-12-28 13:20] VITALS: BP 168/104
== END 2020-12-28 13:29 | disposition home or self-care (01) ==
LOC: EDUNIT# → ED 10:47
DX: R11.2 Nausea with vomiting, unspecified (principal); R10.13 Epigastric pain; F41.9 Anxiety disorder, unspecified; I10 Essential (primary) hypertension; Z79.82 Long term (current) use of aspirin
CPT/HCPCS: 36415; 80053; 83690; 85025; 96372; 99283; 99284; A9270; J1170; Q0162

== ENCOUNTER 2020-12-29 19:24 | Outpatient (CLI) | payer MEDICAID | END 2020-12-29 19:25 | disposition critical access hospital (66) | LOC: EMS 19:24 | PROVIDERS: ATTEND Emergency Medicine | DX: R10.9 Unspecified abdominal pain (principal); R11.10 Vomiting, unspecified; R19.7 Diarrhea, unspecified | CPT/HCPCS: A0425; A0427; A0999 ==

== ENCOUNTER 2021-03-29 09:41 | Outpatient (CLI) | payer MEDICAID | END 2021-03-29 09:42 | disposition critical access hospital (66) | LOC: EMS 09:41 | DX: R10.11 Right upper quadrant pain (principal); R11.10 Vomiting, unspecified | CPT/HCPCS: A0425; A0427; A0999 ==

== ENCOUNTER 2021-03-29 10:15 | Emergency (ER) | payer MEDICAID ==
--- NOTE | 2021-03-29 10:16 | ED Physician Documentation ---
PD HPI ABD PAIN - Stated complaint Stated Complaint: ABD PX - History obtained from History obtained from: Patient, EMS - History of Present Illness Timing - onset: Yesterday Timing - duration: Days (1) Timing - details: Abrupt onset, Still present Quality: Cramping, Aching, Pain Location: Epigastric, Periumbilical Radiation: Lower back. No: Chest, Improved by: No: Vomiting Worsened by: Eating Associated symptoms: Nausea, Vomiting, Loss of appetite. No: Fever, Diarrhea, Constipation, Dysuria Similar symptoms before: Diagnosis (possible cyclic vomiting. Seen few months ago in ER several times with CT showing segment of colitis. Was hospitalized after few visits. Did okay the interval time.) Review of Systems Constitutional: reports: Myalgias, Fatigue. 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 : None HEENT: None Psych: Depression, Anxiety Musculoskeletal: Chronic back pain Derm: None - Past Surgical History Past Surgical History: Yes General: Appendectomy, Other Ortho: Spine surgery /[employer] MANAGER: 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 - Present Medications Home Medications: Ambulatory Orders Medication Instructions Recorded Confirmed Promethazine [Phenergan] 25 mg PO BID PRN 05/30/20 03/29/21 Tizanidine HCl 4 mg PO TID PRN #25 capsule 05/30/20 03/29/21 Aspirin Chewable [St Faisal 81 mg PO DAILY tablet 07/04/20 03/29/21 Aspirin] Isosorbide Mononitrate ER [Imdur] 30 mg PO DAILY #30 tablet 07/04/20 03/29/21 Metoprolol Tartrate [Lopressor] 25 mg PO BID #60 tablet 07/04/20 03/29/21 DULoxetine [Cymbalta] 20 mg PO DAILY 12/27/20 03/29/21 Ondansetron Odt [Zofran Odt] 4 mg TL Q6H PRN #10 tab 12/27/20 03/29/21 Oxycodone HCl/Acetaminophen 1 each PO QID PRN 12/27/20 03/29/21 [Percocet 7.5-325 mg Tablet] Pregabalin [Lyrica] 100 mg PO BID 12/27/20 03/29/21 amLODIPine [Norvasc] 5 mg PO DAILY 12/27/20 03/29/21 traZODone [Desyrel] 50 - 100 mg PO HS PRN 12/27/20 03/29/21 Pantoprazole Sodium [Protonix] 40 mg PO DAILY #30 12/28/20 03/29/21 Dicyclomine [Bentyl] 20 mg PO QID 12/30/20 03/29/21 Ondansetron Odt [Zofran] 4 mg TL Q6H PRN #20 tablet 03/29/21 - Allergies Allergies/Adverse Reactions: Allergies Allergy/AdvReac Type Severity Reaction Status Date / Time amoxicillin trihydrate * Allergy anaphalaxis Verified 03/29/21 10:22 [From Augmentin] cephalexin monohydrate * Allergy anaphalaxis Verified 03/29/21 10:22 [From Keflex] doxycycline Allergy Unknown Verified 03/29/21 10:22 Penicillins Allergy anaphalaxis Verified 03/29/21 10:22 potassium clavulanate * Allergy anaphalaxis Verified 03/29/21 10:22 [From Augmentin] propoxyphene napsylate * Allergy "feels Verified 03/29/21 10:22 [From Darvocet-N] unbalanced" tetanus and diphtheria Allergy Edema Verified 03/29/21 10:22 toxoids codeine AdvReac Nausea Verified 03/29/21 10:22 dexamethasone AdvReac psychotic Verified 03/29/21 10:22 gabapentin [From Neurontin] AdvReac forgets Verified 03/29/21 10:22 everything, dizziness hydrocodone bitartrate * AdvReac agitated Verified 03/29/21 10:22 [From Vicodin] metoclopramide HCl * AdvReac Anxiety Verified 03/29/21 10:22 [From Reglan] prednisone AdvReac psychotic Verified 03/29/21 10:22 prochlorperazine edisylate * AdvReac anxious Verified 03/29/21 10:22 [From Compazine] prochlorperazine maleate * AdvReac anxious Verified 03/29/21 10:22 [From Compazine] topiramate [From Topamax] AdvReac Unknown Verified 03/29/21 10:22 - Social History Does the pt smoke?: No Smoking Status: Never smoker Does the pt drink ETOH?: No Does the pt have substance abuse?: Yes - Immunizations Immunizations are current?: Yes Immunizations: TDAP >10years/unknown, No immun - POLST Patient has POLST: No PD ED PE NORMAL - Vitals Vital signs reviewed: Yes - General General: Alert and oriented X 3, Well developed/nourished, Other (appears in pain upper abd. ) - Neck Neck: Supple, no meningeal sign, No adenopathy - Cardiac Cardiac: RRR, No murmur - Respiratory Respiratory: Clear bilaterally - Abdomen Abdomen: Normal bowel sounds, Soft, Non distended, No organomegaly, Other (tender epigastric/upper abd without guarding nor percussion tenderness. ) Results - Vitals Vitals: Vital Signs - 24 hr 03/29/21 03/29/21 03/29/21 10:23 12:27 13:38 Temperature 36.7 C 37.0 C Heart Rate 84 84 89 Respiratory 22 18 18 Rate Blood Pressure 162/108 H 182/95 H 177/100 H O2 Saturation 97 93 96 Oxygen O2 Source Room air - Labs Labs: Laboratory Tests 03/29/21 03/29/21 03/29/21 10:53 11:19 11:19 WBC 9.4 RBC 5.10 Hgb 15.1 Hct 45.9 MCV 90.0 MCH 29.6 MCHC 32.9 RDW 13.5 Plt Count 278 MPV 8.4 Neut # (Auto) 7.8 H Lymph # (Auto) 1.1 L [place] # (Auto) 0.4 Eos # (Auto) 0.0 Baso # (Auto) 0.0 Absolute Nucleated RBC 0.00 Nucleated RBC % 0.0 ESR Sodium 139 Potassium 3.6 Chloride 105 Carbon Dioxide 24 Anion Gap 10.0 BUN 16 Creatinine 1.0 Estimated GFR (MDRD) 58 L Glucose 136 H Calcium 8.8 Magnesium 1.6 L Total Bilirubin 0.6 AST 17 ALT 18 Alkaline Phosphatase 79 Total Protein 8.0 Albumin 4.2 Globulin 3.8 Albumin/Globulin Ratio 1.1 Lipase 17 L Urine Color YELLOW Urine Clarity CLEAR Urine pH 5.5 Ur Specific [place] >=1.030 H Urine Protein NEGATIVE Urine Glucose (UA) NEGATIVE Urine Ketones NEGATIVE Urine Occult Blood NEGATIVE Urine Nitrite NEGATIVE Urine Bilirubin NEGATIVE Urine Urobilinogen 0.2 (NORMAL) Ur Leukocyte Esterase NEGATIVE Ur Microscopic Review NOT INDICATED Urine Culture Comments NOT INDICATED Urine Opiates Screen POSITIVE H Ur Oxycodone Screen NEGATIVE Urine Methadone Screen NEGATIVE Ur Propoxyphene Screen NEGATIVE Ur Barbiturates Screen NEGATIVE Ur Tricyclics Screen NEGATIVE Ur Phencyclidine Scrn NEGATIVE Ur Amphetamine Screen NEGATIVE U Methamphetamines Scrn NEGATIVE U Benzodiazepines Scrn POSITIVE H Urine Cocaine Screen NEGATIVE U Cannabinoids Screen POSITIVE H 03/29/21 11:19 WBC RBC Hgb Hct MCV MCH MCHC RDW Plt Count MPV Neut # (Auto) Lymph # (Auto) [place] # (Auto) Eos # (Auto) Baso # (Auto) Absolute Nucleated RBC Nucleated RBC % ESR 18 Sodium Potassium Chloride Carbon Dioxide Anion Gap BUN Creatinine Estimated GFR (MDRD) Glucose Calcium Magnesium Total Bilirubin AST ALT Alkaline Phosphatase Total Protein Albumin Globulin Albumin/Globulin Ratio Lipase Urine Color Urine Clarity Urine pH Ur Specific [place] Urine Protein Urine Glucose (UA) Urine Ketones Urine Occult Blood Urine Nitrite Urine Bilirubin Urine Urobilinogen Ur Leukocyte Esterase Ur Microscopic Review Urine Culture Comments Urine Opiates Screen Ur Oxycodone Screen Urine Methadone Screen Ur Propoxyphene Screen Ur Barbiturates Screen Ur Tricyclics Screen Ur Phencyclidine Scrn Ur Amphetamine Screen U Methamphetamines Scrn U Benzodiazepines Scrn Urine Cocaine Screen U Cannabinoids Screen PD MEDICAL DECISION MAKING - ED course Complexity details: reviewed results, considered differential (considerably imrpoved with IV fluids and meds. Given Inapsine for nausea, which helped. She takes pain meds regularly and had not had them due to vomiting, so some element withdrawal likely now too. Given pain meds. ), d/w patient Departure - Departure Disposition: Home, Self Care Clinical Impression: Dehydration Abdominal pain Qualifiers: Abdominal location: upper abdomen, unspecified Qualified Code(s): R10.10 - Upper abdominal pain, unspecified Nausea and vomiting Qualifiers: Vomiting type: unspecified Vomiting Intractability: intractable Qualified Code(s): R11.2 - Nausea with vomiting, unspecified Condition: Stable Record reviewed to determine appropriate education?: Yes Follow-Up: LYDIA DIOP MD [Primary Care Provider] - Prescriptions: Ondansetron Odt [Zofran] 4 mg TL Q6H PRN #20 tablet PRN Reason: Nausea / Vomiting Comments: Continue usual medicines. Frequent fluids and bland food today. Add ondansetron if needed for nausea as a dissolving tablet if your promethazine is not staying down. Alternatively use your promethazine suppositories as well. Recheck if worsen symptoms again. Discharge Date/Time: 03/29/21 14:15
[2021-03-29] MEDS ORDERED: SODIUM CHLORIDE 0.9% 1,000 ML IV STA (10:38)
[2021-03-29] MEDS ORDERED: HYDROmorphone 1 MG/ML CARPUJECT IVP STA ×2 (10:38→12:11)
[2021-03-29] MEDS ORDERED: KETOROLAC 15 MG/ML VIAL IVP STA (10:38)
[2021-03-29] MEDS ORDERED: DROPERIDOL 5 MG/2 ML VIAL IVP STA (10:40)
[2021-03-29] MEDS ORDERED: FAMOTIDINE 20 MG/2 ML VIAL IVP STA (10:41)
[2021-03-29 11:25] LABS: MUDS CUTOFF CONCENTRATIONS CUTOFF CONC BELOW:
[2021-03-29 11:27] LABS: BILIRUBIN,URINE NEGATIVE (NEGATIVE); GLUCOSE, URINE (UA) NEGATIVE (NEGATIVE); KETONES,URINE (UA) NEGATIVE (NEGATIVE); LEUKOCYTE ESTERASE, URINE NEGATIVE (NEGATIVE); NITRITE,URINE NEGATIVE (NEGATIVE); OCCULT BLOOD,URINE NEGATIVE (NEGATIVE); PH,URINE 5.5 PH (5.0-7.5); PROTEIN,URINE NEGATIVE (NEGATIVE); UROBILINOGEN,URINE 0.2 (NORMAL) E.U./dL (NORMAL)
[2021-03-29 11:28] LABS: CLARITY,URINE CLEAR (CLEAR)
[2021-03-29 11:30] LABS: BASOPHILS % (AUTO) 0.4 %; EOSINOPHILS % (AUTO) 0.4 %; HCT - HEMATOCRIT 45.9 % (37.0-47.0); HGB - HEMOGLOBIN 15.1 g/dL (12.0-16.0); LYMPHOCYTES # (AUTO) 1.1 10^3/uL (1.5-3.5); LYMPHOCYTES % (AUTO) 11.9 %; MEAN CORPUSCULAR HEMOGLOBIN 29.6 pg (27.0-31.0); MEAN CORPUSCULAR HGB CONC 32.9 g/dL (32.0-36.0); MEAN PLATELET VOLUME 8.4 fL (7.9-10.8); MONOCYTES # (AUTO) 0.4 10^3/uL (0.0-1.0); MONOCYTES % (AUTO) 3.9 %; NEUTROPHILS # (AUTO) 7.8 10^3/uL (1.5-6.6); NEUTROPHILS % (AUTO) 82.8 %; PLT - PLATELET COUNT 278 10^3/uL (130-450); RED CELL DISTRIBUTION WIDTH 13.5 % (12.0-15.0); WHITE BLOOD COUNT 9.4 x10^3/uL (4.8-10.8)
[2021-03-29 11:37] LABS: AMPHETAMINE SCREEN,URINE NEGATIVE (NEGATIVE); BARBITURATE SCREEN,UR NEGATIVE (NEGATIVE); BENZODIAZEPINES SCREEN, URINE POSITIVE (NEGATIVE); COCAINE SCREEN URINE NEGATIVE (NEGATIVE); METHADONE SCREEN, URINE NEGATIVE (NEGATIVE); METHAMPHETAMINES SCREEN, URINE NEGATIVE (NEGATIVE); OPIATE SCREEN, URINE POSITIVE (NEGATIVE); OXYCODONE SCREEN, URINE NEGATIVE (NEGATIVE); PROPOXYPHENE SCREEN, URINE NEGATIVE (NEGATIVE); THC CANNABINOID SCREEN, URINE POSITIVE (NEGATIVE); TRICYCLIC ANTIDEPRESSANT,URINE NEGATIVE (NEGATIVE)
[2021-03-29 11:41] LABS: ALBUMIN 4.2 g/dL (3.2-5.5); ALBUMIN/GLOBULIN RATIO 1.1 (1.0-2.2); BILIRUBIN,TOTAL 0.6 mg/dL (0.2-1.0); CALCIUM 8.8 mg/dL (8.5-10.3); MAGNESIUM 1.6 mg/dL (1.7-2.8); POTASSIUM 3.6 mmol/L (3.5-5.0)
[2021-03-29] MEDS ORDERED: ONDANSETRON 4 MG/2 ML VIAL IVP STA (13:29)
[2021-03-29 13:39] VITALS: BP 177/100
== END 2021-03-29 14:15 | disposition home or self-care (01) ==
LOC: EDUNIT# → ED 10:15
DX: E86.0 Dehydration (principal); R11.2 Nausea with vomiting, unspecified; R10.13 Epigastric pain; R10.33 Periumbilical pain; I10 Essential (primary) hypertension; Z79.82 Long term (current) use of aspirin
CPT/HCPCS: 36415; 80053; 80306; 81003; 83690; 83735; 85025; 85651; 96361; 96374; 96375; 96376; 99284; 99285; J1170; 81001; 87086

== ENCOUNTER 2021-03-30 08:30 | Observation (INO) | payer MEDICAID ==
[2021-03-30] MEDS ORDERED: ONDANSETRON 4 MG/2 ML VIAL IVP STA (08:43)
[2021-03-30] MEDS ORDERED: FAMOTIDINE 20 MG/2 ML VIAL IVP STA (08:43)
[2021-03-30] MEDS ORDERED: MORPHINE 10 MG/ML VIAL IVP STA (08:43)
[2021-03-30] MEDS ORDERED: SODIUM CHLORIDE 0.9% 1,000 ML IV STA (08:43)
[2021-03-30 08:52] LABS: BASOPHILS % (AUTO) 0.3 %; EOSINOPHILS # (AUTO) 0.1 10^3/uL (0.0-0.7); EOSINOPHILS % (AUTO) 0.8 %; HCT - HEMATOCRIT 47.5 % (37.0-47.0); HGB - HEMOGLOBIN 15.6 g/dL (12.0-16.0); LYMPHOCYTES # (AUTO) 1.5 10^3/uL (1.5-3.5); LYMPHOCYTES % (AUTO) 12.6 %; MEAN CORPUSCULAR HGB CONC 32.8 g/dL (32.0-36.0); MEAN CORPUSCULAR VOLUME 88.3 fL (81.0-99.0); MEAN PLATELET VOLUME 8.1 fL (7.9-10.8); MONOCYTES # (AUTO) 0.5 10^3/uL (0.0-1.0); MONOCYTES % (AUTO) 4.2 %; NEUTROPHILS # (AUTO) 9.7 10^3/uL (1.5-6.6); NEUTROPHILS % (AUTO) 81.4 %; PLT - PLATELET COUNT 291 10^3/uL (130-450); RED BLOOD COUNT 5.38 10^6/uL (4.20-5.40); RED CELL DISTRIBUTION WIDTH 13.7 % (12.0-15.0); WHITE BLOOD COUNT 11.9 x10^3/uL (4.8-10.8)
[2021-03-30 09:05] LABS: ALBUMIN 4.6 g/dL (3.2-5.5); ALBUMIN/GLOBULIN RATIO 1.1 (1.0-2.2); BILIRUBIN,TOTAL 0.7 mg/dL (0.2-1.0); CALCIUM 9.5 mg/dL (8.5-10.3); CREATININE 1.1 mg/dL (0.4-1.0); POTASSIUM 3.5 mmol/L (3.5-5.0); TOTAL PROTEIN 8.8 g/dL (6.7-8.2)
[2021-03-30] MEDS ORDERED: HYDROmorphone 2 MG TABLET PO STA (09:19)
[2021-03-30] MEDS ORDERED: DROPERIDOL 5 MG/2 ML VIAL IM STA (09:20)
[2021-03-30] MEDS ORDERED: LIDOCAINE VISCOUS 2% 15 ML UDC MM STA (09:36)
[2021-03-30] MEDS ORDERED: diphenhydrAMINE ELIXIR 25 MG/10 ML UDC PO STA (09:37)
[2021-03-30] MEDS ORDERED: MAG HYDROX/AL HYDROX/SIMETH 30 ML UDC PO STA (09:37)
[2021-03-30] MEDS ORDERED: amLODIPine 5 MG TABLET PO STA ×2 (10:17→13:38)
[2021-03-30] MEDS ORDERED: ISOSORBIDE MONONITRATE ER 30 MG TABLET PO STA (10:17)
[2021-03-30] MEDS ORDERED: METOCLOPRAMIDE 10 MG TABLET PO STA (10:59)
[2021-03-30] MEDS ORDERED: METOPROLOL 5 MG/5 ML VIAL IVP STA (10:59)
--- NOTE | 2021-03-30 11:42 | ED Physician Documentation ---
History of Present Illness - Stated complaint Stated Complaint: VOMITING - Chief complaint Chief Complaint: Abd Pain - History obtained from History obtained from: Patient - Additonal information Additional information: 55-year-old woman with past medical history of heart murmur, high blood pressure, possible cyclic vomiting syndrome, presents with nausea and vomiting over the past 4 days in addition to intermittent left-sided mild chest pain shooting down the arm. Patient denies lightheadedness, diarrhea. She does have chronic bilateral lower back pain that is unchanged. Endorses epigastric a bdominal discomfort that is mild.Stress test 1 year ago was normal. Unsure of her last echocardiogram. She does not know what her heart murmur is. Primary doctor is Genie Lopez in [place]. She is seeing gastroenterology at [facility] and is in process of scheduling a HIDA scan. Her gallbladder scans in the past been negative. 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: 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 : None HEENT: None Psych: Depression, Anxiety Musculoskeletal: Chronic back pain Derm: None - Past Surgical History Past Surgical History: Yes General: Appendectomy, Other Ortho: Spine surgery /BIOPHYSICS SCIENTIST: 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 - Present Medications Home Medications: Ambulatory Orders Medication Instructions Recorded Confirmed Promethazine [Phenergan] 25 mg PO BID PRN 05/30/20 03/30/21 Tizanidine HCl 4 mg PO TID PRN #25 capsule 05/30/20 03/30/21 Aspirin Chewable [St Faisal 81 mg PO DAILY tablet 07/04/20 03/30/21 Aspirin] Isosorbide Mononitrate ER [Imdur] 30 mg PO DAILY #30 tablet 07/04/20 03/30/21 Metoprolol Tartrate [Lopressor] 25 mg PO BID #60 tablet 07/04/20 03/30/21 DULoxetine [Cymbalta] 20 mg PO DAILY 12/27/20 03/30/21 Oxycodone HCl/Acetaminophen 1 each PO QID PRN 12/27/20 03/30/21 [Percocet 7.5-325 mg Tablet] amLODIPine [Norvasc] 5 mg PO DAILY 12/27/20 03/30/21 traZODone [Desyrel] 50 - 100 mg PO HS PRN 12/27/20 03/30/21 Dicyclomine [Bentyl] 20 mg PO QID PRN 12/30/20 03/30/21 Ondansetron Odt [Zofran] 4 mg TL Q6H PRN #20 tablet 03/29/21 03/30/21 - Allergies Allergies/Adverse Reactions: Allergies Allergy/AdvReac Type Severity Reaction Status Date / Time amoxicillin trihydrate * Allergy anaphalaxis Verified 03/30/21 08:33 [From Augmentin] cephalexin monohydrate * Allergy anaphalaxis Verified 03/30/21 08:33 [From Keflex] doxycycline Allergy Unknown Verified 03/30/21 08:33 Penicillins Allergy anaphalaxis Verified 03/30/21 08:33 potassium clavulanate * Allergy anaphalaxis Verified 03/30/21 08:33 [From Augmentin] propoxyphene napsylate * Allergy "feels Verified 03/30/21 08:33 [From Darvocet-N] unbalanced" tetanus and diphtheria Allergy Edema Verified 03/30/21 08:33 toxoids codeine AdvReac Nausea Verified 03/30/21 08:33 dexamethasone AdvReac psychotic Verified 03/30/21 08:33 gabapentin [From Neurontin] AdvReac forgets Verified 03/30/21 08:33 everything, dizziness hydrocodone bitartrate * AdvReac agitated Verified 03/30/21 08:33 [From Vicodin] metoclopramide HCl * AdvReac Anxiety Verified 03/30/21 08:33 [From Reglan] prednisone AdvReac psychotic Verified 03/30/21 08:33 prochlorperazine edisylate * AdvReac anxious Verified 03/30/21 08:33 [From Compazine] prochlorperazine maleate * AdvReac anxious Verified 03/30/21 08:33 [From Compazine] topiramate [From Topamax] AdvReac Unknown Verified 03/30/21 08:33 - Social History Does the pt smoke?: No Smoking Status: Never smoker Does the pt drink ETOH?: No Does the pt have substance abuse?: Yes Substance Use and Type: Marijuana - Immunizations Immunizations are current?: Yes Immunizations: TDAP >10years/unknown, No immun - POLST Patient has POLST: No PD ED PE NORMAL - Vitals Vital signs reviewed: Yes - General General: Alert and oriented X 3, No acute distress, Well developed/nourished - HEENT HEENT: Atraumatic, PERRL, EOMI - Neck Neck: Supple, no meningeal sign - Cardiac Cardiac: RRR - Respiratory Respiratory: No respiratory distress, Clear bilaterally - Abdomen Abdomen: Non tender, Non distended, Other (Discomfort to epigastric palpation) - Female Female : Deferred - Rectal Rectal: Deferred - Back Back: No CVA TTP - Derm Derm: Normal color - Extremities Extremities: No deformity - Neuro Neuro: Alert and oriented X 3 - Psych Psych: Normal mood, Normal affect Results - Vitals Vitals: Vital Signs - 24 hr 03/30/21 03/30/21 03/30/21 08:33 09:04 09:24 Temperature 36.9 C Heart Rate 79 75 73 Respiratory 20 22 18 Rate Blood Pressure 134/104 H 201/100 H 199/95 H O2 Saturation 100 100 98 03/30/21 03/30/21 03/30/21 10:27 11:04 11:16 Temperature Heart Rate 83 79 71 Respiratory 16 16 16 Rate Blood Pressure 198/98 H 217/97 H 211/100 H O2 Saturation 98 98 97 03/30/21 03/30/21 03/30/21 11:18 11:22 11:31 Temperature Heart Rate 68 70 79 Respiratory 16 16 16 Rate Blood Pressure 203/107 H 197/92 H 200/131 H O2 Saturation 95 96 97 03/30/21 03/30/21 03/30/21 12:00 12:11 12:29 Temperature Heart Rate 77 72 73 Respiratory 16 16 16 Rate Blood Pressure 197/96 H 145/113 H 192/95 H O2 Saturation 97 97 98 03/30/21 13:00 Temperature Heart Rate 77 Respiratory 16 Rate Blood Pressure 188/93 H O2 Saturation 97 Oxygen O2 Source Room air - Labs Labs: Laboratory Tests 03/30/21 03/30/21 03/30/21 08:42 08:42 08:42 WBC 11.9 H RBC 5.38 Hgb 15.6 Hct 47.5 H MCV 88.3 MCH 29.0 MCHC 32.8 RDW 13.7 Plt Count 291 MPV 8.1 Neut # (Auto) 9.7 H Lymph # (Auto) 1.5 [place] # (Auto) 0.5 Eos # (Auto) 0.1 Baso # (Auto) 0.0 Absolute Nucleated RBC 0.00 Nucleated RBC % 0.0 Sodium 139 Potassium 3.5 Chloride 103 Carbon Dioxide 24 Anion Gap 12.0 BUN 13 Creatinine 1.1 H Estimated GFR (MDRD) 52 L Glucose 141 H Calcium 9.5 Total Bilirubin 0.7 AST 20 ALT 20 Alkaline Phosphatase 86 Troponin I High Sens 9.7 Total Protein 8.8 H Albumin 4.6 Globulin 4.2 Albumin/Globulin Ratio 1.1 Lipase 20 L Nasal Adenovirus (PCR) Nasal B. parapertussis DNA (PCR) Nasal Coronavir 229E PCR Nasal Coronavir HKU1 PCR Nasal Coronavir NL63 PCR Nasal Coronavir OC43 PCR Nasal Enterovir/Rhinovir PCR Nasal Influenza B PCR Nasal Influenza A PCR Nasal Parainfluen 1 PCR Nasal Parainfluen 2 PCR Nasal Parainfluen 3 PCR Nasal Parainfluen 4 PCR Nasal RSV (PCR) Nasal B.pertussis DNA PCR Nasal C.pneumoniae (PCR) Valeriy Human Metapneumo PCR Nasal M.pneumoniae (PCR) Nasal SARS-CoV-2 (PCR) 03/30/21 12:12 WBC RBC Hgb Hct MCV MCH MCHC RDW Plt Count MPV Neut # (Auto) Lymph # (Auto) [place] # (Auto) Eos # (Auto) Baso # (Auto) Absolute Nucleated RBC Nucleated RBC % Sodium Potassium Chloride Carbon Dioxide Anion Gap BUN Creatinine Estimated GFR (MDRD) Glucose Calcium Total Bilirubin AST ALT Alkaline Phosphatase Troponin I High Sens Total Protein Albumin Globulin Albumin/Globulin Ratio Lipase Nasal Adenovirus (PCR) NOT DETECTED Nasal B. parapertussis DNA (PCR) NOT DETECTED Nasal Coronavir 229E PCR NOT DETECTED Nasal Coronavir HKU1 PCR NOT DETECTED Nasal Coronavir NL63 PCR NOT DETECTED Nasal Coronavir OC43 PCR NOT DETECTED Nasal Enterovir/Rhinovir PCR NOT DETECTED Nasal Influenza B PCR NOT DETECTED Nasal Influenza A PCR NOT DETECTED Nasal Parainfluen 1 PCR NOT DETECTED Nasal Parainfluen 2 PCR NOT DETECTED Nasal Parainfluen 3 PCR NOT DETECTED Nasal Parainfluen 4 PCR NOT DETECTED Nasal RSV (PCR) NOT DETECTED Nasal B.pertussis DNA PCR NOT DETECTED Nasal C.pneumoniae (PCR) NOT DETECTED Valeriy Human Metapneumo PCR NOT DETECTED Nasal M.pneumoniae (PCR) NOT DETECTED Nasal SARS-CoV-2 (PCR) NOT DETECTED PD MEDICAL DECISION MAKING - ED course ED course: Considered differential, reevaluated patient and she is still nauseous after several rounds of symptomatic treatment. She is also persistently hypertensive after several rounds of blood pressure medication. Discussed with Dr. Enriquez for observation for hypertensive emergency given her persistent nausea and mild chest pain. Patient agreeable to observation. Departure - Departure Disposition: ED Place in Observation Clinical Impression: Hypertensive emergency, Nausea Discharge Date/Time: 03/30/21 13:40
[2021-03-30 13:12] LABS: B. PARAPERTUSSIS- RESP PCR PAN NOT DETECTED; B. PERTUSSIS- RESP PCR PANEL NOT DETECTED; C. PNEUMONIAE- RESP PCR PANEL NOT DETECTED; CORONAVIRUS 229E-RESP PCR NOT DETECTED; CORONAVIRUS HKU1-RESP PCR NOT DETECTED; CORONAVIRUS NL63-RESP PCR NOT DETECTED; CORONAVIRUS OC43-RESP PCR NOT DETECTED; HUMAN METAPNEUMOVIRUS NOT DETECTED; INFLUENZA A- RESP PCR PANEL NOT DETECTED; INFLUENZA B - RESP PCR PANEL NOT DETECTED; M. PNEUMONIAE- RESP PCR PANEL NOT DETECTED; PARAINFLUENZA VIRUS 1 NOT DETECTED; PARAINFLUENZA VIRUS 2 NOT DETECTED; PARAINFLUENZA VIRUS 3 NOT DETECTED; PARAINFLUENZA VIRUS 4 NOT DETECTED; RHINOVIRUS/ENTEROVIRUS NOT DETECTED; RSV- RESP PCR PANEL NOT DETECTED; SARS-CoV-2 -RESP PCR PANEL NOT DETECTED
--- NOTE | 2021-03-30 13:14 | HISTORY & PHYSICAL EXAMINATION ---
Chief Complaint - Chief Complaint Chief Complaint: Nausea and vomiting. History of Present Illness - Admitted From Admitted From:: Home - History Obtained From Records Reviewed: Yes History obtained from: Patient, ER Physician, EMR - History of Present Illness HPI Comment/Other: This is a 55-year-old female with a past medical history significant for hypertension, marijuana use, chronic back pain who presents today complaining of nausea and vomiting. She states her symptoms began on Tuesday she is unable to take her home blood pressure meds because of the vomiting. She was seen in the emergency department yesterday and given IV fluids and antiemetics with improvement in her symptoms. She was unable to pickle sorter the Zofran yesterday evening as her pharmacy was closed and now she has worsening nausea and vomiting again. She denies any heartburn but does complain of right upper quadrant abdominal pain which is about an 8 out of 10. She states that she was supposed to get a HIDA scan but due to work, this has been delayed. She reports no diarrhea or constipation. She does complain of occasional chest pain that is left-sided and occasionally radiates to the left side. She had a stress test here last year which was concerning for myocardial ischemia. She followed up with cardiology who repeated his stress test again and she was told that it was unremarkable and so she never had an angiogram. She reports no fevers or chills just feels unwell. Denies any recent sick contacts. No dysuria, urgency, frequency. She does smoke marijuana on a daily basis and has been doing so for quite a few years now. Her last use was yesterday evening. In the emergency department, she was found to be afebrile with a heart rate in the 70s. Her blood pressure was over 200 systolic with a diastolic greater than 100. She was given 5 mg of amlodipine, 30 mg of Imdur, and 5 mg of IV Lopressor with only minimal improvement in her blood pressure. She was also given multiple antiemetics with still persistent nausea and vomiting. An EKG revealed a sinus rhythm without evidence of ischemia. Her troponin was unremarkable. Given her elevated blood pressure and ongoing vomiting, medicine was consulted for admission. 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 Her father had a history of heart disease and heart failure. He from what she believes his lung cancer. She has one sister who from an overdose of her antihypertensives. Living arrangement: At home Living Situation: With spouse/s.o. Social History Notes: She lives at home with her fianc. She smokes marijuana on a daily basis with last use being yesterday. She denies cigarettes or alcohol use. - POLST Patient has POLST: No Meds/Allgy - Home Medications Home Medications: Ambulatory Orders Medication Instructions Recorded Confirmed Promethazine [Phenergan] 25 mg PO BID PRN 05/30/20 03/30/21 Tizanidine HCl 4 mg PO TID PRN #25 capsule 05/30/20 03/30/21 Aspirin Chewable [St Faisal 81 mg PO DAILY tablet 07/04/20 03/30/21 Aspirin] Isosorbide Mononitrate ER [Imdur] 30 mg PO DAILY #30 tablet 07/04/20 03/30/21 Metoprolol Tartrate [Lopressor] 25 mg PO BID #60 tablet 07/04/20 03/30/21 DULoxetine [Cymbalta] 20 mg PO DAILY 12/27/20 03/30/21 Oxycodone HCl/Acetaminophen 1 each PO QID PRN 12/27/20 03/30/21 [Percocet 7.5-325 mg Tablet] amLODIPine [Norvasc] 5 mg PO DAILY 12/27/20 03/30/21 traZODone [Desyrel] 50 - 100 mg PO HS PRN 12/27/20 03/30/21 Dicyclomine [Bentyl] 20 mg PO QID PRN 12/30/20 03/30/21 Ondansetron Odt [Zofran] 4 mg TL Q6H PRN #20 tablet 03/29/21 03/30/21 - Allergies Allergies/Adverse Reactions: Allergies Allergy/AdvReac Type Severity Reaction Status Date / Time amoxicillin trihydrate * Allergy anaphalaxis Verified 03/30/21 08:33 [From Augmentin] cephalexin monohydrate * Allergy anaphalaxis Verified 03/30/21 08:33 [From Keflex] doxycycline Allergy Unknown Verified 03/30/21 08:33 Penicillins Allergy anaphalaxis Verified 03/30/21 08:33 potassium clavulanate * Allergy anaphalaxis Verified 03/30/21 08:33 [From Augmentin] propoxyphene napsylate * Allergy "feels Verified 03/30/21 08:33 [From Darvocet-N] unbalanced" tetanus and diphtheria Allergy Edema Verified 03/30/21 08:33 toxoids codeine AdvReac Nausea Verified 03/30/21 08:33 dexamethasone AdvReac psychotic Verified 03/30/21 08:33 gabapentin [From Neurontin] AdvReac forgets Verified 03/30/21 08:33 everything, dizziness hydrocodone bitartrate * AdvReac agitated Verified 03/30/21 08:33 [From Vicodin] metoclopramide HCl * AdvReac Anxiety Verified 03/30/21 08:33 [From Reglan] prednisone AdvReac psychotic Verified 03/30/21 08:33 prochlorperazine edisylate * AdvReac anxious Verified 03/30/21 08:33 [From Compazine] prochlorperazine maleate * AdvReac anxious Verified 03/30/21 08:33 [From Compazine] topiramate [From Topamax] AdvReac Unknown Verified 03/30/21 08:33 Review of Systems - Constitutional Constitutional: reports: Fatigue, Malaise, Poor appetite. denies: Fever, Chills - Ears, Nose & Throat Ears, Nose & Throat: denies: Nasal discharge, Nasal congestion, Sore throat - Cardiovascular Cariovascular: reports: Chest pain. denies: Edema, Exertional dyspnea, Decr. exercise tolerance - Respiratory Respiratory: denies: Cough, SOB at rest, SOB with exertion - Gastrointestinal Gastrointestinal: reports: Abdominal pain, Nausea, Vomiting. denies: Constipation, Diarrhea, Change in bowel habits, Reflux/heartburn - Genitourinary Genitourinary: denies: Dysuria, Urgency, Hematuria - Musculoskeletal Musculoskeletal: reports: Back pain - Integumentary Integumentary: denies: Rash - Neurological Neurological: denies: General weakness, Focal weakness - Hematologic/Lymphatic Hematologic/Lymphatic: reports: Bruising. denies: Anemia - All Other Systems All Other Systems: denies: Reviewed and negative Prior Level of Functionality: She is independent with her ADL's. Exam - Vital Signs Reviewed Vital Signs: Yes Vital Signs: Vital Signs x48h Temp Pulse Resp BP Pulse Ox 03/30/21 12:29 73 16 192/95 H 98 03/30/21 12:11 72 16 145/113 H 97 03/30/21 12:00 77 16 197/96 H 97 03/30/21 11:31 79 16 200/131 H 97 03/30/21 11:22 70 16 197/92 H 96 03/30/21 11:18 68 16 203/107 H 95 03/30/21 11:16 71 16 211/100 H 97 03/30/21 11:04 79 16 217/97 H 98 03/30/21 10:27 83 16 198/98 H 98 03/30/21 09:24 73 18 199/95 H 98 03/30/21 09:04 75 22 201/100 H 100 03/30/21 08:33 36.9 C 79 20 134/104 H 100 - Physical Exam General Appearance: positive: Alert, Mild distress Eyes Bilateral: positive: Normal inspection, Conjunctivae nml ENT: positive: ENT inspection nml Neck: positive: Nml inspection Respiratory: positive: No respiratory distress. negative: Wheezes, Rales Cardiovascular: positive: Regular rate & rhythm, Systolic murmur. negative: Irregularly irregular, Tachycardia Abdomen: positive: Nml bowel sounds, No distention, Tenderness (Right upper jeni drant.). negative: Non-tender, Guarding, Rebound Skin: positive: Warm, Dry Extremities: positive: No pedal edema Neurologic/Psychiatric: positive: Motor nml. negative: Disoriented to person, Disoriented to place, Disoriented to time Conclusion/Plan - Problem List (1) Hypertensive urgency Conclusion/Plan: Her blood pressure is likely exacerbated by her nausea and vomiting and inability to take her home antihypertensives. There is no evidence of endorgan damage. Her renal function is at baseline. Her EKG is nonischemic with a normal troponin. We will give another 5 mg of p.o. amlodipine now and increase her home dose to 10 mg daily starting tomorrow. We will continue her home Imdur and metoprolol. We will look to reduce her mean arterial pressure about 25% over the next 24 hours. (2) Nausea and vomiting Conclusion/Plan: It is unclear if this is related to cannabinoid hyperemesis syndrome, gastroenteritis, or abdominal pathology. She is tender in the right upper quadrant. We will make her n.p.o. for right upper quadrant ultrasound. Zofran and Phenergan as needed. We discussed the importance of marijuana cessation. Although low suspicion for ACS at this time given her unremarkable EKG and normal troponin, we will trend her troponin. (3) Abdominal pain Conclusion/Plan: She does have right upper quadrant abdominal tenderness and was supposed to be getting a HIDA scan on outpatient basis. Will order right upper quadrant ultrasound today for further evaluation. If her pain persist and we will consider an inpatient HIDA scan. N.p.o. for time being. Pain control with morphine IV as needed. Qualifiers: Abdominal location: right upper quadrant Qualified Code(s): R10.11 - Right upper quadrant pain (4) Chest pain Conclusion/Plan: Low suspicion for ACS at this time. Although she did have a positive stress test here last year, she had a repeat one at [facility] which she reports was unremarkable and so her tester electronic scale did not pursue a catheterization. Her EKG is a sinus rhythm without evidence of ischemia and her troponin is unremarkable. We will trend her troponin and monitor on telemetry. Continue home aspirin and imdur. (5) Marijuana abuse Conclusion/Plan: Her marijuana use may be contributing to her cyclical vomiting. She was counseled on the importance of marijuana cessation given the concern for cannabinoid hyperemesis syndrome. (6) Chronic back pain Conclusion/Plan: Stable. Continue home Percocet and tizanidine - Lab Results Lab results reviewed: Yes Cesar Bones: 03/30/21 08:42 03/30/21 08:42 - Diagnostic Imaging Results Diagnostic Imaging Results: positive: Final report reviewed - EKG Results EKG Interpreted Independently: Yes EKG Comparison: Unchanged from prior EKG EKG Findings: EKG shows a sinus rhythm without evidence of ischemia. Her QTC is 460. Core Measures - Anticipated LOS I expect patient to be DC'd or transferred within 96 hours.: Yes - Issues Hospital Issues and Management Plan: 55-year-old female with history of hypertension, cyclical vomiting presents with nausea and vomiting found to have hypertensive urgency. Will place in observation for antiemetics and blood pressure control. - DVT/VTE - Prophylaxis VTE/DVT Device ordered at admit?: Yes VTE/DVT Prophylaxis med ordered at admit?: Yes
[2021-03-30] MEDS ORDERED: traZODone 50 MG TABLET PO PRN ×2 (13:37→18:43)
[2021-03-30] MEDS: ONDANSETRON 4 MG/2 ML VIAL IVP PRN ×2 (13:45→22:57)
[2021-03-30] MEDS: tiZANidine 4 MG TABLET PO PRN ×2 (13:52→20:18)
[2021-03-30] MEDS ORDERED: MORPHINE 2 MG/ML CARPUJECT IVP STA (14:14)
--- NOTE | 2021-03-30 14:39 | PHARMACY PROGRESS NOTE ---
- Best Possible Medication History Admit Date and Time: 03/30/21 2261 Processed by: Nursing Medication History completed: Yes Patient Interview: Completed Secondary Source(s): Pharmacy records, Insurance records As the person ultimately responsible for medication therapy, providers are able to order a medication from an existing home medication list in [facility] via the "Reconcile Routine" prior to Confirmation of that medication by support team member. Such practice is discouraged except when the physician, in their clinical judgment, deems that a medical need exists for a medication without regard to previous use.
[2021-03-30] MEDS: oxyCODONE 5 MG TABLET PO PRN ×2 (15:02→20:18)
[2021-03-30] MEDS: PROMETHAZINE INJ 25 MG in SODIUM CHLORIDE 0.9% 50 ML IV PRN (15:37)
[2021-03-30] MEDS: MORPHINE 2 MG/ML CARPUJECT IVP PRN ×4 (16:42→23:00)
[2021-03-30] MEDS: SODIUM CHLORIDE FLUSH 0.9% 10 ML SYRINGE IVP SCH (16:46)
[2021-03-30] MEDS: ACETAMINOPHEN 325 MG TABLET PO PRN ×2 (17:08→20:17)
[2021-03-30] MEDS ORDERED: LABETALOL 20 MG/4 ML SYRINGE IVP ONE (18:35)
[2021-03-30 18:39] LABS: MUDS CUTOFF CONCENTRATIONS CUTOFF CONC BELOW:
[2021-03-30] MEDS ORDERED: LORazepam 2 MG/ML VIAL IVP STA (18:43)
[2021-03-30 19:12] LABS: AMPHETAMINE SCREEN,URINE NEGATIVE (NEGATIVE); BARBITURATE SCREEN,UR NEGATIVE (NEGATIVE); BENZODIAZEPINES SCREEN, URINE POSITIVE (NEGATIVE); COCAINE SCREEN URINE NEGATIVE (NEGATIVE); METHADONE SCREEN, URINE NEGATIVE (NEGATIVE); METHAMPHETAMINES SCREEN, URINE NEGATIVE (NEGATIVE); OPIATE SCREEN, URINE POSITIVE (NEGATIVE); OXYCODONE SCREEN, URINE NEGATIVE (NEGATIVE); PROPOXYPHENE SCREEN, URINE NEGATIVE (NEGATIVE); THC CANNABINOID SCREEN, URINE POSITIVE (NEGATIVE); TRICYCLIC ANTIDEPRESSANT,URINE NEGATIVE (NEGATIVE)
--- NOTE | 2021-03-30 19:17 | Ultrasound Report ---
PROCEDURE: Abdomen Limited INDICATIONS: Right upper qudarant pain. Vomiting. TECHNIQUE: Real-time scanning was performed of the abdominal and retroperitoneal organs, with image documentatio n. Images are limited by patient body habitus and overlying bowel gas. COMPARISON: CT abdomen/pelvis 12/24/2020, ultrasound abdomen December 27, 2020 FINDINGS: Liver: Liver is normal in size and unchanged from the prior Gallbladder: The gallbladder appears normal without gallstones or gallbladder wall thickening. There is no pericholecystic fluid. Sonographic Zayas sign is negative. Biliary ducts: Intrahepatic bile ducts are non-dilated. Extrahepatic bile duct caliber measures 3.7 mm. Normal is 6-7 mm or less in diameter, or 10 mm or less post-cholecystectomy. Pancreas: Visualized portions of the pancreas are sonographically normal. Right kidney: Normal in size and echotexture. Right kidney measures 11.2 cm long. No hydronephrosis or nephrolithiasis. No solid masses. IVC: Intrahepatic inferior vena cava is patent. Miscellaneous: No free fluid in the right upper quadrant IMPRESSION: Unremarkable right upper quadrant ultrasound Reviewed by: Luis F Sepulveda MD on 03/30/2021 6:16 PM MAURI Approved by: Luis F Sepulveda MD on 03/30/2021 6:16 PM AKDT Station ID: [id number]
[2021-03-30] MEDS: METOPROLOL TARTRATE 25 MG TABLET PO SCH (20:18)
[2021-03-30] MEDS: GI COCKTAIL 120 ML BOTTLE PO PRN (21:07)
[2021-03-31] MEDS: PROMETHAZINE INJ 25 MG in SODIUM CHLORIDE 0.9% 50 ML IV PRN (00:46)
[2021-03-31] MEDS: SODIUM CHLORIDE FLUSH 0.9% 10 ML SYRINGE IVP SCH ×4 (00:47→23:47)
[2021-03-31] MEDS: MORPHINE 2 MG/ML CARPUJECT IVP PRN ×10 (01:35→23:47)
[2021-03-31] MEDS: SODIUM CHLORIDE FLUSH 0.9% 10 ML SYRINGE IVP PRN ×2 (01:36→04:48)
[2021-03-31] MEDS: tiZANidine 4 MG TABLET PO PRN ×3 (03:08→18:43)
[2021-03-31] MEDS: oxyCODONE 5 MG TABLET PO PRN ×3 (03:08→18:44)
[2021-03-31] MEDS: ACETAMINOPHEN 325 MG TABLET PO PRN ×2 (03:08→18:43)
[2021-03-31] MEDS: ONDANSETRON 4 MG/2 ML VIAL IVP PRN ×2 (04:48→10:37)
[2021-03-31 05:37] LABS: CALCIUM 9.4 mg/dL (8.5-10.3); CREATININE 1.1 mg/dL (0.4-1.0); MAGNESIUM 1.7 mg/dL (1.7-2.8); POTASSIUM 3.3 mmol/L (3.5-5.0)
[2021-03-31 05:39] LABS: BASOPHILS % (AUTO) 0.3 %; EOSINOPHILS % (AUTO) 0.1 %; HCT - HEMATOCRIT 42.2 % (37.0-47.0); HGB - HEMOGLOBIN 14.2 g/dL (12.0-16.0); LYMPHOCYTES # (AUTO) 1.4 10^3/uL (1.5-3.5); LYMPHOCYTES % (AUTO) 11.1 %; MEAN CORPUSCULAR HEMOGLOBIN 29.5 pg (27.0-31.0); MEAN CORPUSCULAR HGB CONC 33.6 g/dL (32.0-36.0); MEAN CORPUSCULAR VOLUME 87.7 fL (81.0-99.0); MEAN PLATELET VOLUME 8.6 fL (7.9-10.8); MONOCYTES # (AUTO) 0.8 10^3/uL (0.0-1.0); MONOCYTES % (AUTO) 5.9 %; NEUTROPHILS # (AUTO) 10.7 10^3/uL (1.5-6.6); NEUTROPHILS % (AUTO) 82.1 %; PLT - PLATELET COUNT 298 10^3/uL (130-450); RED BLOOD COUNT 4.81 10^6/uL (4.20-5.40); RED CELL DISTRIBUTION WIDTH 13.6 % (12.0-15.0)
[2021-03-31] MEDS ORDERED: PANTOPRAZOLE 40 MG TABLET PO SCH (07:00)
[2021-03-31] MEDS ORDERED: LABETALOL 20 MG/4 ML SYRINGE IVP ONE (07:16)
[2021-03-31] MEDS: PANTOPRAZOLE 40 MG VIAL IVP SCH (07:48)
[2021-03-31] MEDS: POTASSIUM CHLOR 10 MEQ/100 ML 10 MEQ/100 ML BAG IV SCH ×4 (08:09→13:49)
[2021-03-31] MEDS ORDERED: hydrALAZINE INJ 20 MG/ML VIAL IVP PRN (08:14)
[2021-03-31] MEDS: METOPROLOL TARTRATE 25 MG TABLET PO SCH ×2 (09:40→20:33)
[2021-03-31] MEDS: ISOSORBIDE MONONITRATE ER 30 MG TABLET PO SCH (09:40)
[2021-03-31] MEDS: ASPIRIN CHEW 81 MG TABLET PO SCH (09:40)
[2021-03-31] MEDS: DULoxetine 20 MG CAPSULE PO SCH (09:41)
[2021-03-31] MEDS: ENOXAPARIN 40 MG/0.4 ML SYRINGE SUBQ SCH (09:41)
[2021-03-31] MEDS: amLODIPine 5 MG TABLET PO SCH (09:41)
[2021-03-31] MEDS ORDERED: LORazepam 0.5 MG TABLET PO PRN (10:36)
--- NOTE | 2021-03-31 11:14 | PROVIDER PROGRESS NOTE ---
Subjective - Prog Note Date Prog Note Date: 03/31/21 - Subjective Pt reports feeling: No change Subjective: [pt Still reported she had nausea, vomiting and abdominal pain, she had no much sleep on last night. She reported she will never smoke marijuana again. Current Medications - Current Medications Current Medications: Active Medications Acetaminophen (Acetaminophen 325 Mg Tablet) 650 mg PO Q4HR PRN PRN Reason: Pain 1 to 4 Last Admin: 03/30/21 17:08 Dose: 650 mg Documented by: Acetaminophen (Acetaminophen 325 Mg Tablet) 325 mg PO QID PRN PRN Reason: PAIN Last Admin: 03/31/21 03:08 Dose: 325 mg Documented by: Amlodipine Besylate (Amlodipine 5 Mg Tablet) 10 mg PO DAILY [facility] Last Admin: 03/31/21 09:41 Dose: 10 mg Documented by: Aspirin (Aspirin Chew 81 Mg Tablet) 81 mg PO DAILY [facility] Last Admin: 03/31/21 09:40 Dose: 81 mg Documented by: Duloxetine HCl (Duloxetine 20 Mg Capsule) 20 mg PO DAILY [facility] Last Admin: 03/31/21 09:41 Dose: 20 mg Documented by: Enoxaparin Sodium (Enoxaparin 40 Mg/0.4 Ml Syringe) 40 mg SUBQ DAILY [facility] Last Admin: 03/31/21 09:41 Dose: 40 mg Documented by: Hydralazine HCl (Hydralazine Inj 20 Mg/Ml Vial) 10 mg IVP QID PRN PRN Reason: Hypertensive Emergency Promethazine HCl 25 mg/ Sodium (Chloride) 51 mls @ 100 mls/hr IV Q6H PRN PRN Reason: Nausea / Vomiting Last Infusion: 03/31/21 01:31 Dose: Infused Documented by: Potassium Chloride (Potassium Chloride) 10 meq in 100 mls @ 100 mls/hr IV Q1H [facility] Stop: 03/31/21 11:59 Last Admin: 03/31/21 09:31 Dose: 50 mls/hr Documented by: Isosorbide Mononitrate (Isosorbide Mononitrate Er 30 Mg Tablet) 30 mg PO DAILY [facility] Last Admin: 03/31/21 09:40 Dose: 30 mg Documented by: Lorazepam (Lorazepam 0.5 Mg Tablet) 0.5 mg PO Q6H PRN PRN Reason: Anxiety Metoprolol Tartrate (Metoprolol Tartrate 25 Mg Tablet) 25 mg PO BID [facility] Last Admin: 03/31/21 09:40 Dose: 25 mg Documented by: Morphine Sulfate (Morphine 2 Mg/Ml Carpuject) 2 mg IVP Q2HR PRN PRN Reason: PAIN Last Admin: 03/31/21 09:47 Dose: 2 mg Documented by: Multi-Ingredient Mouthwash/Gargle (Gi Cocktail 120 Ml Bottle) 30 ml PO Q4H PRN PRN Reason: Abdominal Pain Last Admin: 03/30/21 21:07 Dose: 30 ml Documented by: Ondansetron HCl (Ondansetron 4 Mg/2 Ml Vial) 4 mg IVP Q6HR PRN PRN Reason: Nausea / Vomiting Last Admin: 03/31/21 10:37 Dose: 4 mg Documented by: Oxycodone HCl (Oxycodone 5 Mg Tablet) 7.5 mg PO QID PRN PRN Reason: PAIN Last Admin: 03/31/21 03:08 Dose: 7.5 mg Documented by: Pantoprazole Sodium (Pantoprazole 40 Mg Vial) 40 mg IVP QDAC [facility] Last Admin: 03/31/21 07:48 Dose: 40 mg Documented by: Sodium Chloride (Sodium Chloride Flush 0.9% 10 Ml Syringe) 10 ml IVP PRN PRN PRN Reason: NEEDED PER PROVIDER ORDERS Last Admin: 03/31/21 04:48 Dose: 10 ml Documented by: Sodium Chloride (Sodium Chloride Flush 0.9% 10 Ml Syringe) 10 ml IVP 0100,0900,1700 [facility] Last Admin: 03/31/21 09:42 Dose: 10 ml Documented by: Tizanidine HCl (Tizanidine 4 Mg Tablet) 4 mg PO TID PRN PRN Reason: Spasms Last Admin: 03/31/21 03:08 Dose: 4 mg Documented by: Trazodone HCl (Trazodone 50 Mg Tablet) 100 mg PO HS PRN PRN Reason: Insomnia Last Admin: 03/30/21 22:57 Dose: 100 mg Documented by: Promethazine [Phenergan] 25 mg PO BID PRN 05/30/20 DULoxetine [Cymbalta] 20 mg PO DAILY 12/27/20 Oxycodone HCl/Acetaminophen [Percocet 7.5-325 mg Tablet] 1 each PO QID PRN 12/27/20 amLODIPine [Norvasc] 5 mg PO DAILY 12/27/20 traZODone [Desyrel] 50 - 100 mg PO HS PRN 12/27/20 Dicyclomine [Bentyl] 20 mg PO QID PRN 12/30/20 Objective - Vital Signs/Intake & Output Vital Signs: Vital Signs x48h Temp Pulse Resp BP Pulse Ox 03/31/21 10:57 37.5 C 76 12 187/88 H 99 03/31/21 10:08 37.4 C 03/31/21 09:39 75 210/97 H 03/31/21 08:35 37.6 C 71 17 195/98 H 98 03/31/21 08:20 37.6 C 78 17 166/87 H 99 03/31/21 08:05 77 16 190/90 H 97 03/31/21 08:00 75 17 177/94 H 98 03/31/21 07:55 85 17 182/103 H 98 03/31/21 07:50 37.8 C 86 17 205/101 H 98 03/31/21 05:00 37.5 C 92 20 201/98 H 99 Intake & Output: Intake & Output 03/28/21 03/29/21 03/30/21 03/31/21 23:59 23:59 23:59 23:59 Intake Total 1621 151 Output Total 1075 1940 Balance 546 -1789 - Objective General Appearance: positive: Alert, Mild distress. negative: Lethargic Eyes Bilateral: positive: Normal inspection, PERRL, No lid inflammation ENT: positive: ENT inspection nml, No signs of dehydration. negative: Purulent nasal drainage Neck: positive: Nml inspection, Trachea midline. negative: Thyromegaly, Tracheal deviation Respiratory: positive: Chest non-tender, No respiratory distress. negative: Wheezes, Rales, Rhonchi Cardiovascular: positive: Regular rate & rhythm, No murmur. negative: Tachycardia, Bradycardia, Systolic murmur, Diastolic murmur Peripheral Pulses: 2+ Radial (R), 2+ Radial (L) Abdomen: positive: Non-tender, Nml bowel sounds, No distention. negative: Tenderness Back: positive: Nml inspection Skin: positive: Color nml, Warm, Dry. negative: Cyanosis, Diaphoresis Extremities: positive: Non-tender, Full ROM, Nml appearance. negative: Calf tenderness Neurologic/Psychiatric: positive: Oriented x3, Motor nml, Sensation nml. negative: Weakness, Sensory loss, Facial droop, Slurred/abnml speech, Depressed mood/affect - Lab Results Fish Bones: 03/31/21 04:49 03/31/21 04:49 Other Labs: Lab Results x24hrs 03/31/21 03/31/21 03/30/21 Range/Units 04:49 04:49 19:54 WBC 13.0 H (4.8-10.8) x10^3/uL RBC 4.81 (4.20-5.40) 10^6/uL Hgb 14.2 (12.0-16.0) g/dL Hct 42.2 (37.0-47.0) % MCV 87.7 (81.0-99.0) fL MCH 29.5 (27.0-31.0) pg MCHC 33.6 (32.0-36.0) g/dL RDW 13.6 (12.0-15.0) % Plt Count 298 (130-450) 10^3/uL MPV 8.6 (7.9-10.8) fL Neut # (Auto) 10.7 H (1.5-6.6) 10^3/uL Lymph # (Auto) 1.4 L (1.5-3.5) 10^3/uL Shelby # (Auto) 0.8 (0.0-1.0) 10^3/uL Eos # (Auto) 0.0 (0.0-0.7) 10^3/uL Baso # (Auto) 0.0 (0.0-0.1) 10^3/uL Absolute Nucleated RBC 0.00 x10^3/uL Nucleated RBC % 0.0 /100WBC Sodium 138 (135-145) mmol/L Potassium 3.3 L (3.5-5.0) mmol/L Chloride 98 L (101-111) mmol/L Carbon Dioxide 28 (21-32) mmol/L Anion Gap 12.0 (6-13) BUN 14 (6-20) mg/dL Creatinine 1.1 H (0.4-1.0) mg/dL Estimated GFR (MDRD) 52 L (>89) Glucose 123 H (70-100) mg/dL Calcium 9.4 (8.5-10.3) mg/dL Magnesium 1.7 (1.7-2.8) mg/dL Troponin I High Sens 25.6 H* (2.3-14.8) ng/L Nasal Adenovirus (PCR) Nasal B. parapertussis DNA (PCR) Nasal Coronavir 229E PCR Nasal Coronavir HKU1 PCR Nasal Coronavir NL63 PCR Nasal Coronavir OC43 PCR Nasal Enterovir/Rhinovir PCR Nasal Influenza B PCR Nasal Influenza A PCR Nasal Parainfluen 1 PCR Nasal Parainfluen 2 PCR Nasal Parainfluen 3 PCR Nasal Parainfluen 4 PCR Nasal RSV (PCR) Nasal B.pertussis DNA PCR Nasal C.pneumoniae (PCR) Valeriy Human Metapneumo PCR Nasal M.pneumoniae (PCR) Nasal SARS-CoV-2 (PCR) Urine Opiates Screen (NEGATIVE) Ur Oxycodone Screen (NEGATIVE) Urine Methadone Screen (NEGATIVE) Ur Propoxyphene Screen (NEGATIVE) Ur Barbiturates Screen (NEGATIVE) Ur Tricyclics Screen (NEGATIVE) Ur Phencyclidine Scrn (NEGATIVE) Ur Amphetamine Screen (NEGATIVE) U Methamphetamines Scrn (NEGATIVE) U Benzodiazepines Scrn (NEGATIVE) Urine Cocaine Screen (NEGATIVE) U Cannabinoids Screen (NEGATIVE) 03/30/21 03/30/21 03/30/21 Range/Units 15:35 12:12 09:07 WBC (4.8-10.8) x10^3/uL RBC (4.20-5.40) 10^6/uL Hgb (12.0-16.0) g/dL Hct (37.0-47.0) % MCV (81.0-99.0) fL MCH (27.0-31.0) pg MCHC (32.0-36.0) g/dL RDW (12.0-15.0) % Plt Count (130-450) 10^3/uL MPV (7.9-10.8) fL Neut # (Auto) (1.5-6.6) 10^3/uL Lymph # (Auto) (1.5-3.5) 10^3/uL Shelby # (Auto) (0.0-1.0) 10^3/uL Eos # (Auto) (0.0-0.7) 10^3/uL Baso # (Auto) (0.0-0.1) 10^3/uL Absolute Nucleated RBC x10^3/uL Nucleated RBC % /100WBC Sodium (135-145) mmol/L Potassium (3.5-5.0) mmol/L Chloride (101-111) mmol/L Carbon Dioxide (21-32) mmol/L Anion Gap (6-13) BUN (6-20) mg/dL Creatinine (0.4-1.0) mg/dL Estimated GFR (MDRD) (>89) Glucose (70-100) mg/dL Calcium (8.5-10.3) mg/dL Magnesium (1.7-2.8) mg/dL Troponin I High Sens 20.6 H* (2.3-14.8) ng/L Nasal Adenovirus (PCR) NOT DETECTED Nasal B. parapertussis DNA (PCR) NOT DETECTED Nasal Coronavir 229E PCR NOT DETECTED Nasal Coronavir HKU1 PCR NOT DETECTED Nasal Coronavir NL63 PCR NOT DETECTED Nasal Coronavir OC43 PCR NOT DETECTED Nasal Enterovir/Rhinovir PCR NOT DETECTED Nasal Influenza B PCR NOT DETECTED Nasal Influenza A PCR NOT DETECTED Nasal Parainfluen 1 PCR NOT DETECTED Nasal Parainfluen 2 PCR NOT DETECTED Nasal Parainfluen 3 PCR NOT DETECTED Nasal Parainfluen 4 PCR NOT DETECTED Nasal RSV (PCR) NOT DETECTED Nasal B.pertussis DNA PCR NOT DETECTED Nasal C.pneumoniae (PCR) NOT DETECTED Valeriy Human Metapneumo PCR NOT DETECTED Nasal M.pneumoniae (PCR) NOT DETECTED Nasal SARS-CoV-2 (PCR) NOT DETECTED Urine Opiates Screen POSITIVE H (NEGATIVE) Ur Oxycodone Screen NEGATIVE (NEGATIVE) Urine Methadone Screen NEGATIVE (NEGATIVE) Ur Propoxyphene Screen NEGATIVE (NEGATIVE) Ur Barbiturates Screen NEGATIVE (NEGATIVE) Ur Tricyclics Screen NEGATIVE (NEGATIVE) Ur Phencyclidine Scrn NEGATIVE (NEGATIVE) Ur Amphetamine Screen NEGATIVE (NEGATIVE) U Methamphetamines Scrn NEGATIVE (NEGATIVE) U Benzodiazepines Scrn POSITIVE H (NEGATIVE) Urine Cocaine Screen NEGATIVE (NEGATIVE) U Cannabinoids Screen POSITIVE H (NEGATIVE) 03/30/21 Range/Units 08:42 WBC (4.8-10.8) x10^3/uL RBC (4.20-5.40) 10^6/uL Hgb (12.0-16.0) g/dL Hct (37.0-47.0) % MCV (81.0-99.0) fL MCH (27.0-31.0) pg MCHC (32.0-36.0) g/dL RDW (12.0-15.0) % Plt Count (130-450) 10^3/uL MPV (7.9-10.8) fL Neut # (Auto) (1.5-6.6) 10^3/uL Lymph # (Auto) (1.5-3.5) 10^3/uL Shelby # (Auto) (0.0-1.0) 10^3/uL Eos # (Auto) (0.0-0.7) 10^3/uL Baso # (Auto) (0.0-0.1) 10^3/uL Absolute Nucleated RBC x10^3/uL Nucleated RBC % /100WBC Sodium (135-145) mmol/L Potassium (3.5-5.0) mmol/L Chloride (101-111) mmol/L Carbon Dioxide (21-32) mmol/L Anion Gap (6-13) BUN (6-20) mg/dL Creatinine (0.4-1.0) mg/dL Estimated GFR (MDRD) (>89) Glucose (70-100) mg/dL Calcium (8.5-10.3) mg/dL Magnesium (1.7-2.8) mg/dL Troponin I High Sens 9.7 (2.3-14.8) ng/L Nasal Adenovirus (PCR) Nasal B. parapertussis DNA (PCR) Nasal Coronavir 229E PCR Nasal Coronavir HKU1 PCR Nasal Coronavir NL63 PCR Nasal Coronavir OC43 PCR Nasal Enterovir/Rhinovir PCR Nasal Influenza B PCR Nasal Influenza A PCR Nasal Parainfluen 1 PCR Nasal Parainfluen 2 PCR Nasal Parainfluen 3 PCR Nasal Parainfluen 4 PCR Nasal RSV (PCR) Nasal B.pertussis DNA PCR Nasal C.pneumoniae (PCR) Valeriy Human Metapneumo PCR Nasal M.pneumoniae (PCR) Nasal SARS-CoV-2 (PCR) Urine Opiates Screen (NEGATIVE) Ur Oxycodone Screen (NEGATIVE) Urine Methadone Screen (NEGATIVE) Ur Propoxyphene Screen (NEGATIVE) Ur Barbiturates Screen (NEGATIVE) Ur Tricyclics Screen (NEGATIVE) Ur Phencyclidine Scrn (NEGATIVE) Ur Amphetamine Screen (NEGATIVE) U Methamphetamines Scrn (NEGATIVE) U Benzodiazepines Scrn (NEGATIVE) Urine Cocaine Screen (NEGATIVE) U Cannabinoids Screen (NEGATIVE) ABX Reporting Has patient been on IV antibiotics over the past 48 hours?: No Sepsis Event Note (H) - Evaluation Current Stage of Sepsis: Ruled out Assessment/Plan - Problem List (1) Intractable nausea and vomiting Impression: 03/31, pt still complain of nausea, vomiting, abdominal pain. US of abdomen is unremarkable. pt report she smoke marijuana, but she state she will quit. We will continue bowel rest, intravenous IV fluids, Antiemesis as needed, abdominal pain control if needed. If patients do not improve symptoms we may consider to have image study. (2) Hypertensive urgency Conclusion/Plan: Her SBP is 187, There is no evidence of endorgan damage. Her blood pressure is likely exacerbated by her nausea and vomiting, and abdominal pain. Patient's amlodipine already increase his dosage to 10mg daily, Continue home blood pressure medicines Imdur and metoprolol add hydralazine as needed, closely Vital signs monitor (3) Abdominal pain Conclusion/Plan: US of right upper quadrant abdominal was unremarkable. If her pain persist and we will consider CT of abdomen and an inpatient HIDA scan. continue pain control. (4) Chest pain Conclusion/Plan: pt has no chest pain complaint now. pt had Low suspicion for ACS at this time. Her EKG is a sinus rhythm without evidence of ischemia and her troponin is very slight elevated but flat. We will monitor on telemetry. Continue home aspirin and imdur. (5) Marijuana abuse Conclusion/Plan: Her marijuana use may be contributing to her cyclical vomiting. She was counseled on the importance of marijuana cessation given the concern for cannabinoid hyperemesis syndrome. she state she will quit Marijuana. (6) Chronic back pain Conclusion/Plan: Stable. Continue pain control
[2021-03-31] MEDS: GI COCKTAIL 120 ML BOTTLE PO PRN (11:43)
[2021-03-31] MEDS ORDERED: LACTATED RINGERS 1,000 ML IV SCH (12:00)
[2021-03-31] MEDS: LACTATED RINGERS 1,000 ML IV SCH ×2 (12:00→23:47)
[2021-04-01] MEDS: oxyCODONE 5 MG TABLET PO PRN ×3 (00:33→12:26)
[2021-04-01] MEDS: ACETAMINOPHEN 325 MG TABLET PO PRN ×3 (00:34→12:25)
[2021-04-01] MEDS: MORPHINE 2 MG/ML CARPUJECT IVP PRN ×5 (01:59→13:07)
[2021-04-01 06:15] LABS: BASOPHILS % (AUTO) 0.3 %; EOSINOPHILS # (AUTO) 0.2 10^3/uL (0.0-0.7); EOSINOPHILS % (AUTO) 1.8 %; HGB - HEMOGLOBIN 13.5 g/dL (12.0-16.0); LYMPHOCYTES # (AUTO) 2.4 10^3/uL (1.5-3.5); LYMPHOCYTES % (AUTO) 22.9 %; MEAN CORPUSCULAR HEMOGLOBIN 29.5 pg (27.0-31.0); MEAN CORPUSCULAR HGB CONC 32.1 g/dL (32.0-36.0); MEAN CORPUSCULAR VOLUME 91.9 fL (81.0-99.0); MEAN PLATELET VOLUME 8.2 fL (7.9-10.8); MONOCYTES # (AUTO) 0.9 10^3/uL (0.0-1.0); MONOCYTES % (AUTO) 8.3 %; NEUTROPHILS # (AUTO) 6.9 10^3/uL (1.5-6.6); NEUTROPHILS % (AUTO) 66.4 %; PLT - PLATELET COUNT 252 10^3/uL (130-450); RED BLOOD COUNT 4.57 10^6/uL (4.20-5.40); WHITE BLOOD COUNT 10.4 x10^3/uL (4.8-10.8)
[2021-04-01] MEDS: ONDANSETRON 4 MG/2 ML VIAL IVP PRN (06:16)
[2021-04-01] MEDS: PANTOPRAZOLE 40 MG VIAL IVP SCH (06:16)
[2021-04-01] MEDS: SODIUM CHLORIDE FLUSH 0.9% 10 ML SYRINGE IVP SCH (06:16)
[2021-04-01 06:23] LABS: CREATININE 1.2 mg/dL (0.4-1.0); MAGNESIUM 1.8 mg/dL (1.7-2.8); POTASSIUM 3.9 mmol/L (3.5-5.0)
[2021-04-01] MEDS: tiZANidine 4 MG TABLET PO PRN (06:24)
[2021-04-01] MEDS: LACTATED RINGERS 1,000 ML IV SCH (08:31)
[2021-04-01] MEDS: METOPROLOL TARTRATE 25 MG TABLET PO SCH ×3 (08:32→10:12)
[2021-04-01] MEDS: ISOSORBIDE MONONITRATE ER 30 MG TABLET PO SCH ×3 (08:32→10:12)
[2021-04-01] MEDS: amLODIPine 5 MG TABLET PO SCH ×3 (08:32→10:12)
[2021-04-01] MEDS: ASPIRIN CHEW 81 MG TABLET PO SCH (08:33)
[2021-04-01] MEDS: ENOXAPARIN 40 MG/0.4 ML SYRINGE SUBQ SCH (08:33)
[2021-04-01] MEDS: DULoxetine 20 MG CAPSULE PO SCH (08:33)
[2021-04-01] MEDS ORDERED: amLODIPine 5 MG TABLET PO SCH (08:44)
[2021-04-01] MEDS ORDERED: SODIUM CHLORIDE 0.9% 1,000 ML IV SCH ×2 (09:00→09:19)
[2021-04-01] MEDS: SODIUM CHLORIDE FLUSH 0.9% 10 ML SYRINGE IVP PRN (11:06)
[2021-04-01 13:56] LABS: CALCIUM 8.6 mg/dL (8.5-10.3); CREATININE 1.3 mg/dL (0.4-1.0); POTASSIUM 3.9 mmol/L (3.5-5.0)
--- NOTE | 2021-04-01 14:37 | Discharge Plan ---
Discharge Plan Problem Reviewed?: Yes Disposition: Home, Self Care Condition: Stable Diet: Regular Activity Restrictions: Activity as Tolerated Shower Restrictions: No (fall precaution) Instruction Topics: Abuse Marijuana Health Concerns: you tolerate regular without nausea or vomiting. You may keep hydration at home, quit Marijuana as you state you want to do. You may followup with your PCP in one week to have blood work to check renal function. Plan of Treatment: as above Care Goals: stabilization and improvement/resolve of your medical conditions Assessment: Discussed the care plan with you, answered your questions, you understood. Additional Instructions or Follow Up instructions: You may followup with your PCP in one week, have blood work to check your renal function. Should your symptoms return or worsen, you may present ER or call 911 for help. No Smoking: If you smoke, Please STOP! Call for help. Follow-up with: LYDIA DIOP MD [Primary Care Provider] -
--- NOTE | 2021-04-01 14:50 | DISCHARGE SUMMARY ---
Discharge Summary Admit Date: 03/30/21 Discharge Date: 04/01/21 Discharging Provider: Myles Rainey Primary Care Provider: Genie Martinez Condition at Discharge: Stable Discharge Disposition: 01 Home, Self Care Discharge Facility Name: home - DIAGNOSES Discharge Diagnoses with Status of Each Condition: (1) Intractable nausea and vomiting resolved. pt tolerated regular diet without nausea, vomiting or abdominal pain. pt state she will stop smoking of Marijuana. (2) Hypertensive urgency resolved. resume home meds (3) Abdominal pain resolved. pt has no more abdominal pain. pt tolerated regular diet. US of abdomen is unremarkable (4) Chest pain resolved. pt has no more chest pain. pt's EKG does not indicate Ischemic change, very slight elevated troponin then flat, ECHO reveals normal arrange EF, no regional motion abnormality, normal right ventricle function. (5) Marijuana abuse Her marijuana use may be contributing to her cyclical vomiting. She was counseled on the importance of marijuana cessation given the concern for cannabinoid hyperemesis syndrome. she state she will quit Marijuana. (6) Chronic back pain Stable. resume home pain meds (7)dehydration pt show slight dehydration, her creatinine is in the baseline arrange. pt decline to have IVF in the hospital and state she will drink lots of fluid at home. pt may followup with her PCP to recheck her kidney function in one week, pt understood and agreed. - [facility] History of Present Illness: refer from Dr. Enriquez's HPI on 03/30/21 This is a 55-year-old female with a past medical history significant for hypertension, marijuana use, chronic back pain who presents today complaining of nausea and vomiting. She states her symptoms began on Tuesday she is unable to take her home blood pressure meds because of the vomiting. She was seen in the emergency department yesterday and given IV fluids and antiemetics with improvement in her symptoms. 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 She denies any heartburn but does complain of right upper quadrant ab dominal pain which is about an 8 out of 10. She states that she was supposed to get a HIDA scan but due to work, this has been delayed. She reports no diarrhea or constipation. She does complain of occasional chest pain that is left-sided and occasionally radiates to the left side. She had a stress test here last year which was concerning for myocardial ischemia. She followed up with cardiology who repeated his stress test again and she was told that it was unremarkable and so she never had an angiogram. She reports no fevers or chills just feels unwell. Denies any recent sick contacts. No dysuria, urgency, frequency. She does smoke marijuana on a daily basis and has been doing so for quite a few years now. Her last use was yesterday evening. In the emergency department, she was found to be afebrile with a heart rate in the 70s. Her blood pressure was over 200 systolic with a diastolic greater than 100. She was given 5 mg of amlodipine, 30 mg of Imdur, and 5 mg of IV Lopressor with only minimal improvement in her blood pressure. She was also given multiple antiemetics with still persistent nausea and vomiting. An EKG revealed a sinus rhythm without evidence of ischemia. Her troponin was unremarkable. Given her elevated blood pressure and ongoing vomiting, medicine was consulted for admission. - HOSPITAL COURSE Hospital Course: Needed for nausea, vomiting, abdominal pain. pt smoke Marijuana now and concern for cannabinoid hyperemesis syndrome. After the patient had bowel rest, IV fluids, Patient's symptoms was resolved. US of abdomen show unremarkable. Patient was discharged as hemodynamic condition. For detail hospital course, please review of d/c diagnosis as the above. - ALLERGIES Allergies/Adverse Reactions: Allergies Allergy/AdvReac Type Severity Reaction Status Date / Time amoxicillin trihydrate * Allergy anaphalaxis Verified 03/30/21 08:33 [From Augmentin] cephalexin monohydrate * Allergy anaphalaxis Verified 03/30/21 08:33 [From Keflex] doxycycline Allergy Unknown Verified 03/30/21 08:33 Penicillins Allergy anaphalaxis Verified 03/30/21 08:33 potassium clavulanate * Allergy anaphalaxis Verified 03/30/21 08:33 [From Augmentin] propoxyphene napsylate * Allergy "feels Verified 03/30/21 08:33 [From Darvocet-N] unbalanced" tetanus and diphtheria Allergy Edema Verified 03/30/21 08:33 toxoids codeine AdvReac Nausea Verified 03/30/21 08:33 dexamethasone AdvReac psychotic Verified 03/30/21 08:33 gabapentin [From Neurontin] AdvReac forgets Verified 03/30/21 08:33 everything, dizziness hydrocodone bitartrate * AdvReac agitated Verified 03/30/21 08:33 [From Vicodin] metoclopramide HCl * AdvReac Anxiety Verified 03/30/21 08:33 [From Reglan] prednisone AdvReac psychotic Verified 03/30/21 08:33 prochlorperazine edisylate * AdvReac anxious Verified 03/30/21 08:33 [From Compazine] prochlorperazine maleate * AdvReac anxious Verified 03/30/21 08:33 [From Compazine] topiramate [From Topamax] AdvReac Unknown Verified 03/30/21 08:33 - MEDICATIONS Home Medications: Ambulatory Orders Medication Instructions Recorded Confirmed Promethazine [Phenergan] 25 mg PO BID PRN 05/30/20 03/30/21 Tizanidine HCl 4 mg PO TID PRN #25 capsule 05/30/20 03/30/21 Aspirin Chewable [[facility] [place] 81 mg PO DAILY tablet 07/04/20 03/30/21 Aspirin] Isosorbide Mononitrate ER [Imdur] 30 mg PO DAILY #30 tablet 07/04/20 03/30/21 Metoprolol Tartrate [Lopressor] 25 mg PO BID #60 tablet 07/04/20 03/30/21 DULoxetine [Cymbalta] 20 mg PO DAILY 12/27/20 03/30/21 Oxycodone HCl/Acetaminophen 1 each PO QID PRN 12/27/20 03/30/21 [Percocet 7.5-325 mg Tablet] amLODIPine [Norvasc] 5 mg PO DAILY 12/27/20 03/30/21 traZODone [Desyrel] 50 - 100 mg PO HS PRN 12/27/20 03/30/21 Dicyclomine [Bentyl] 20 mg PO QID PRN 12/30/20 03/30/21 Ondansetron Odt [Zofran Odt] 4 mg TL Q6H PRN #20 tablet 03/29/21 03/30/21 - PHYSICAL EXAM AT DISCHARGE General Appearance: positive: No acute distress, Alert. negative: Lethargic Eyes Bilateral: positive: Normal inspection, PERRL, No lid inflammation ENT: positive: ENT inspection nml. negative: Purulent nasal drainage Neck: positive: Nml inspection, Trachea midline. negative: Thyromegaly, Tracheal deviation Respiratory: positive: Chest non-tender, No respiratory distress. negative: Wheezes, Rales, Rhonchi Cardiovascular: positive: Regular rate & rhythm, No murmur. negative: Tachycardia, Bradycardia, Systolic murmur, Diastolic murmur Peripheral Pulses: positive: 2+ Abdomen: positive: Non-tender, Nml bowel sounds, No distention. negative: Tenderness Extremities: positive: Non-tender, Full ROM, Nml appearance. negative: Calf tenderness Neurologic/Psychiatric: positive: Oriented x3, Motor nml, Sensation nml, Mood/affect nml. negative: Weakness, Sensory loss, Facial droop, Slurred/abnml speech, Depressed mood/affect - LABS Result Diagrams: 04/01/21 06:10 04/01/21 13:42 - SEPSIS Current Stage of Sepsis: Ruled out - FOLLOW UP Follow Up: you tolerate regular without nausea or vomiting. You may keep hydration at home, quit Marijuana as you state you want to do. You may followup with your PCP in one week to have blood work to check renal function. You may followup with your PCP in one week, have blood work to check your renal function. Should your symptoms return or worsen, you may present ER or call 911 for help. - TIME SPENT Time Spent in Discharge (Minutes): 30
[2021-04-01 16:35] VITALS: BP 154/74
== END 2021-04-01 16:05 | disposition home or self-care (01) ==
LOC: ED 08:30 → MS2 13:07
PROVIDERS: ADMIT Internal Medicine; ATTEND Nurse Practitioner Gerontology
DX: I16.0 Hypertensive urgency (principal); R11.2 Nausea with vomiting, unspecified; F12.10 Cannabis abuse, uncomplicated; R07.9 Chest pain, unspecified; R10.811 Right upper quadrant abdominal tenderness; E86.0 Dehydration; G89.29 Other chronic pain; M54.9 Dorsalgia, unspecified; I10 Essential (primary) hypertension; F41.9 Anxiety disorder, unspecified; F32.9 Major depressive disorder, single episode, unspecified; E78.00 Pure hypercholesterolemia, unspecified; R01.1 Cardiac murmur, unspecified; N80.9 Endometriosis, unspecified; K21.9 Gastro-esophageal reflux disease without esophagitis; K52.9 Noninfective gastroenteritis and colitis, unspecified; Z20.822 Contact with and (suspected) exposure to COVID-19; Z79.82 Long term (current) use of aspirin; Z79.891 Long term (current) use of opiate analgesic; Z79.899 Other long term (current) drug therapy; Z87.01 Personal history of pneumonia (recurrent)
CPT/HCPCS: 0202U; 36415; 76705; 80048; 80053; 80306; 83690; 83735; 84484; 85025; 93005; 93306; 96365; 96366; 96367; 96372; 96375; 96376; 99285; A9270; G0378; J1650; J2060; J7040; J7120

== ENCOUNTER 2021-04-02 10:45 | Outpatient (CLI) | payer MEDICAID | END 2021-04-02 10:46 | disposition critical access hospital (66) | LOC: EMS 10:45 | DX: R10.9 Unspecified abdominal pain (principal); R11.2 Nausea with vomiting, unspecified | CPT/HCPCS: A0425; A0427 ==

== ENCOUNTER 2021-04-02 11:24 | Emergency (ER) | payer MEDICAID ==
[2021-04-02] MEDS ORDERED: ONDANSETRON 4 MG/2 ML VIAL IVP STA (12:04)
[2021-04-02] MEDS ORDERED: HALOPERIDOL 5 MG/ML VIAL IVP ONE (12:04)
[2021-04-02] MEDS ORDERED: DROPERIDOL 5 MG/2 ML VIAL IVP STA (12:08)
--- NOTE | 2021-04-02 12:08 | ED Physician Documentation ---
History of Present Illness - Stated complaint Stated Complaint: ABD PX/NV - Chief complaint Chief Complaint: Abd Pain - Additonal information Additional information: 55-year-old female returns to the emergency department for evaluation of unc ontrolled anxiety and vomiting. She was recently admitted to this hospital with uncontrolled vomiting and anxiety that was thought to possibly be secondary to cannabis use. She was also admitted with hypertensive urgency. During the course of her hospitalization with antiemetics and blood pressure control her vital signs and abdominal pain had resolved. She was discharged from the hospital yesterday evening and woke up this morning having a panic attack and began vomiting and reporting belly pain. Patient is in the room right now stating that she can no longer continue to be this anxious or have this return of vomiting. She states that the only medications that have worked for anxiety in the past are benzodiazepines which she knows we are unable to prescribe. She is tearful, rocking back and forth. She denies any cannabis use since 03/28/21. she states that she only ever used cannabis to manage her chronic anxiety disorder. however once being told that it may be contributing to cyclic vomiting, she is committed to no further use. She reports to this provider that if she has to remain thsi anxoius she does not want to live and [place] Review of Systems Constitutional: denies: Fever, Chills Eyes: reports: Reviewed and negative Ears: reports: Reviewed and negative Nose: reports: Reviewed and negative Throat: reports: Reviewed and negative Cardiac: reports: Reviewed and negative GI: reports: Abdominal Pain, Nausea, Vomiting : reports: Reviewed and negative Skin: reports: Reviewed and negative Musculoskeletal: reports: Reviewed and negative Neurologic: reports: Reviewed and negative Psychiatric: reports: Anxiety Endocrine: reports: Reviewed and negative PD PAST MEDICAL HISTORY - Past Medical History Past Medical History: Yes Cardiovascular: Hypertension, High cholesterol, Murmur Respiratory: Asthma, Pneumonia Neuro: Migraines Endocrine/Autoimmune: None GI: GERD, Chronic diarrhea, Other 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: 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 : None HEENT: None Psych: Depression, Anxiety Musculoskeletal: Chronic back pain Derm: None - Past Surgical History Past Surgical History: Yes General: Appendectomy, Other Ortho: Spine surgery /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: 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 - Present Medications Home Medications: Ambulatory Orders Medication Instructions Recorded Confirmed Promethazine [Phenergan] 25 mg PO BID PRN 05/30/20 03/30/21 Tizanidine HCl 4 mg PO TID PRN #25 capsule 05/30/20 03/30/21 Aspirin Chewable [St Faisal 81 mg PO DAILY tablet 07/04/20 03/30/21 Aspirin] Metoprolol Tartrate [Lopressor] 25 mg PO BID #60 tablet 07/04/20 03/30/21 DULoxetine [Cymbalta] 20 mg PO DAILY 12/27/20 03/30/21 Oxycodone HCl/Acetaminophen 1 each PO QID PRN 12/27/20 03/30/21 [Percocet 7.5-325 mg Tablet] amLODIPine [Norvasc] 5 mg PO DAILY 12/27/20 03/30/21 traZODone [Desyrel] 50 - 100 mg PO HS PRN 12/27/20 03/30/21 Ondansetron Odt [Zofran Odt] 4 mg TL Q6H PRN #20 tablet 03/29/21 03/30/21 hydrOXYzine PAMOATE [Vistaril] 25 mg PO Q6H PRN #20 04/02/21 - Allergies Allergies/Adverse Reactions: Allergies Allergy/AdvReac Type Severity Reaction Status Date / Time amoxicillin trihydrate * Allergy anaphalaxis Verified 04/02/21 11:40 [From Augmentin] cephalexin monohydrate * Allergy anaphalaxis Verified 04/02/21 11:40 [From Keflex] doxycycline Allergy Unknown Verified 04/02/21 11:40 Penicillins Allergy anaphalaxis Verified 04/02/21 11:40 potassium clavulanate * Allergy anaphalaxis Verified 04/02/21 11:40 [From Augmentin] propoxyphene napsylate * Allergy "feels Verified 04/02/21 11:40 [From Darvocet-N] unbalanced" tetanus and diphtheria Allergy Edema Verified 04/02/21 11:40 toxoids codeine AdvReac Nausea Verified 04/02/21 11:40 dexamethasone AdvReac psychotic Verified 04/02/21 11:40 gabapentin [From Neurontin] AdvReac forgets Verified 04/02/21 11:40 everything, dizziness hydrocodone bitartrate * AdvReac agitated Verified 04/02/21 11:40 [From Vicodin] metoclopramide HCl * AdvReac Anxiety Verified 04/02/21 11:40 [From Reglan] prednisone AdvReac psychotic Verified 04/02/21 11:40 prochlorperazine edisylate * AdvReac anxious Verified 04/02/21 11:40 [From Compazine] prochlorperazine maleate * AdvReac anxious Verified 04/02/21 11:40 [From Compazine] topiramate [From Topamax] AdvReac Unknown Verified 04/02/21 11:40 - Social History Does the pt smoke?: No Smoking Status: Never smoker Does the pt drink ETOH?: No Does the pt have substance abuse?: Yes Substance Use and Type: Marijuana - Immunizations Immunizations are current?: Yes Immunizations: TDAP >10years/unknown, No immun - POLST Patient has POLST: No PD ED PE EXPANDED - General General: Alert, In distress - Cardiac Cardiac: Murmur Present, Radial strong equal, Pedal strong equal, Cap refill < 2 sec - Respiratory Respiratory: Clear to ausultation sapna. No: Distress, Labored - Abdomen Abdomen: Normal Bowel sounds. No: Tender to palpation - Derm Derm: Normal color, Warm and dry - Extremities Extremities: Normal, Deformity - Neuro Neuro: Alert and Oriented X 3, CNII-XII intact - GCS Eye Opening: Spontaneous Motor: Obeys Commands Verbal: Oriented Total: 15 - Psych Psych: Suicidal, Tearful, Anxious, Pressured speech. No: Homicidal Results - Vitals Vitals: Vital Signs - 24 hr 04/02/21 04/02/21 04/02/21 11:27 11:58 13:54 Temperature 36.8 C 36.2 C L Heart Rate 90 69 70 Respiratory 18 15 18 Rate Blood Pressure 218/99 H 218/90 H 201/118 H O2 Saturation 95 98 99 Oxygen O2 Source Room air - EKG (time done) 1211 Rate: Rate (enter#) (70) Rhythm: NSR [place]: Normal Intervals: Normal ME. No: Prolonged QT QRS: Normal Ischemia: Normal ST segments Compare to prior EKG: Unchanged from prior EKG Computer interpretation: Agree with computer - Labs Labs: Laboratory Tests 04/02/21 04/02/21 04/02/21 12:07 12:07 12:46 WBC 11.2 H RBC 5.08 Hgb 15.3 Hct 45.4 MCV 89.4 MCH 30.1 MCHC 33.7 RDW 13.1 Plt Count 261 MPV 8.3 Neut # (Auto) 9.5 H Lymph # (Auto) 1.1 L [place] # (Auto) 0.5 Eos # (Auto) 0.1 Baso # (Auto) 0.0 Absolute Nucleated RBC 0.00 Nucleated RBC % 0.0 Sodium Potassium Chloride Carbon Dioxide Anion Gap BUN Creatinine Estimated GFR (MDRD) Glucose Calcium Total Bilirubin AST ALT Alkaline Phosphatase Total Protein Albumin Globulin Albumin/Globulin Ratio Lipase Urine Color YELLOW Urine Clarity CLEAR Urine pH 7.0 Ur Specific [place] 1.020 Urine Protein NEGATIVE Urine Glucose (UA) NEGATIVE Urine Ketones NEGATIVE Urine Occult Blood NEGATIVE Urine Nitrite NEGATIVE Urine Bilirubin NEGATIVE Urine Urobilinogen 0.2 (NORMAL) Ur Leukocyte Esterase NEGATIVE Ur Microscopic Review NOT INDICATED Urine Culture Comments NOT INDICATED Urine Opiates Screen POSITIVE H Ur Oxycodone Screen NEGATIVE Urine Methadone Screen NEGATIVE Ur Propoxyphene Screen NEGATIVE Ur Barbiturates Screen NEGATIVE Ur Tricyclics Screen NEGATIVE Ur Phencyclidine Scrn NEGATIVE Ur Amphetamine Screen NEGATIVE U Methamphetamines Scrn NEGATIVE U Benzodiazepines Scrn POSITIVE H Urine Cocaine Screen NEGATIVE U Cannabinoids Screen POSITIVE H 04/02/21 12:46 WBC RBC Hgb Hct MCV MCH MCHC RDW Plt Count MPV Neut # (Auto) Lymph # (Auto) [place] # (Auto) Eos # (Auto) Baso # (Auto) Absolute Nucleated RBC Nucleated RBC % Sodium 137 Potassium 3.6 Chloride 100 L Carbon Dioxide 26 Anion Gap 11.0 BUN 17 Creatinine 1.0 Estimated GFR (MDRD) 58 L Glucose 129 H Calcium 9.0 Total Bilirubin 0.9 AST 21 ALT 19 Alkaline Phosphatase 87 Total Protein 8.4 H Albumin 4.6 Globulin 3.9 Albumin/Globulin Ratio 1.2 Lipase 18 L Urine Color Urine Clarity Urine pH Ur Specific [place] Urine Protein Urine Glucose (UA) Urine Ketones Urine Occult Blood Urine Nitrite Urine Bilirubin Urine Urobilinogen Ur Leukocyte Esterase Ur Microscopic Review Urine Culture Comments Urine Opiates Screen Ur Oxycodone Screen Urine Methadone Screen Ur Propoxyphene Screen Ur Barbiturates Screen Ur Tricyclics Screen Ur Phencyclidine Scrn Ur Amphetamine Screen U Methamphetamines Scrn U Benzodiazepines Scrn Urine Cocaine Screen U Cannabinoids Screen PD MEDICAL DECISION MAKING - ED course Complexity details: reviewed results ED course: 55-year-old female return to the emergency department at undergoing an acute panic attack. This follows a recent hospitalization for hypertensive urgency uncontrolled nausea vomiting in the setting of anxiety as well as cannabis use. She was discharged from the hospital yesterday. On presentation patient is quite fixated on her anxiety and reports that if she is not able to get it under control [place]. Patient is noted to be moderately hypertensive on presentation however this blood pressure is not unusual for her ER visits and hospitalizations. She has not taken her amlodipine or metoprolol this morning. Following administration of these medications her blood pressure is improved. She has no chest pain and EKG is unchanged Given the acute anxiety which she feels can only be alleviated with Ativan I did give her 2.5 mg of droperidol. Following this administration her anxiety and symptoms appeared much better. She has no further nausea and vomiting and is tolerating sips of clear liquids. However she is requesting voluntary psychiatric hospitalization for long-term management of the anxiety and without this she continues to threaten that she will self-harm. I am asking social work to evaluate her for voluntary placement. 1525: After approximately 4 hours in the emergency department patient is now free of anxiety. She has been speaking with social work but no longer desires to be placed in a psychiatric facility for control of her anxiety. Patient denies at this time thoughts of self-harm and easily contracts for safety. I discussed with the patient that I felt likely her vomiting was secondary to worsening anxiety and her anxiety with secondary to no longer receiving benzodiazepines or using cannabis. We will write a prescription for as needed hydroxyzine. Patient feels that this may be helpful. She will follow up with her primary care doctor as well as recommendations for counseling. She is continue to take her previously prescribed medications for her blood pressure. Emergent return precautions were discussed. Departure - Departure Disposition: Home, Self Care Clinical Impression: Panic attacks Condition: Stable Record reviewed to determine appropriate education?: Yes Follow-Up: LYDIA DIOP MD [Primary Care Provider] - Prescriptions: hydrOXYzine PAMOATE [Vistaril] 25 mg PO Q6H PRN #20 PRN Reason: Anxiety Comments: Carly please continue to follow-up with counseling as recommended by social work. In the long-term your anxiety can be best managed both with oral medication as well as therapy. To help manage acute stress and panic attacks I have prescribed hydroxyzine. This can be taken 2-3 times a day as needed. Be careful using this it may make you sleepy and unsafe to drive. Please continue to take all your other prescribed medications for your high blood pressure. If any point you have thoughts of self-harm or harm to others or feel that you are panic attacks are worsening please return immediately to the emergency d epartment for a second look.
[2021-04-02 12:19] LABS: MUDS CUTOFF CONCENTRATIONS CUTOFF CONC BELOW:
[2021-04-02 12:21] LABS: BILIRUBIN,URINE NEGATIVE (NEGATIVE); GLUCOSE, URINE (UA) NEGATIVE (NEGATIVE); KETONES,URINE (UA) NEGATIVE (NEGATIVE); LEUKOCYTE ESTERASE, URINE NEGATIVE (NEGATIVE); NITRITE,URINE NEGATIVE (NEGATIVE); OCCULT BLOOD,URINE NEGATIVE (NEGATIVE); PROTEIN,URINE NEGATIVE (NEGATIVE); UROBILINOGEN,URINE 0.2 (NORMAL) E.U./dL (NORMAL)
[2021-04-02 12:23] LABS: CLARITY,URINE CLEAR (CLEAR)
[2021-04-02] MEDS ORDERED: amLODIPine 5 MG TABLET PO STA (12:25)
[2021-04-02] MEDS ORDERED: METOPROLOL TARTRATE 50 MG TABLET PO STA (12:26)
[2021-04-02 12:31] LABS: AMPHETAMINE SCREEN,URINE NEGATIVE (NEGATIVE); BARBITURATE SCREEN,UR NEGATIVE (NEGATIVE); BENZODIAZEPINES SCREEN, URINE POSITIVE (NEGATIVE); COCAINE SCREEN URINE NEGATIVE (NEGATIVE); METHADONE SCREEN, URINE NEGATIVE (NEGATIVE); METHAMPHETAMINES SCREEN, URINE NEGATIVE (NEGATIVE); OPIATE SCREEN, URINE POSITIVE (NEGATIVE); OXYCODONE SCREEN, URINE NEGATIVE (NEGATIVE); PROPOXYPHENE SCREEN, URINE NEGATIVE (NEGATIVE); THC CANNABINOID SCREEN, URINE POSITIVE (NEGATIVE); TRICYCLIC ANTIDEPRESSANT,URINE NEGATIVE (NEGATIVE)
[2021-04-02 12:50] LABS: BASOPHILS % (AUTO) 0.4 %; EOSINOPHILS # (AUTO) 0.1 10^3/uL (0.0-0.7); EOSINOPHILS % (AUTO) 0.4 %; HCT - HEMATOCRIT 45.4 % (37.0-47.0); HGB - HEMOGLOBIN 15.3 g/dL (12.0-16.0); LYMPHOCYTES # (AUTO) 1.1 10^3/uL (1.5-3.5); LYMPHOCYTES % (AUTO) 9.6 %; MEAN CORPUSCULAR HEMOGLOBIN 30.1 pg (27.0-31.0); MEAN CORPUSCULAR HGB CONC 33.7 g/dL (32.0-36.0); MEAN CORPUSCULAR VOLUME 89.4 fL (81.0-99.0); MEAN PLATELET VOLUME 8.3 fL (7.9-10.8); MONOCYTES # (AUTO) 0.5 10^3/uL (0.0-1.0); NEUTROPHILS # (AUTO) 9.5 10^3/uL (1.5-6.6); NEUTROPHILS % (AUTO) 85.2 %; PLT - PLATELET COUNT 261 10^3/uL (130-450); RED BLOOD COUNT 5.08 10^6/uL (4.20-5.40); RED CELL DISTRIBUTION WIDTH 13.1 % (12.0-15.0); WHITE BLOOD COUNT 11.2 x10^3/uL (4.8-10.8)
[2021-04-02 13:03] LABS: ALBUMIN 4.6 g/dL (3.2-5.5); ALBUMIN/GLOBULIN RATIO 1.2 (1.0-2.2); BILIRUBIN,TOTAL 0.9 mg/dL (0.2-1.0); POTASSIUM 3.6 mmol/L (3.5-5.0); TOTAL PROTEIN 8.4 g/dL (6.7-8.2)
[2021-04-02 13:54] VITALS: BP 201/118
== END 2021-04-02 15:34 | disposition home or self-care (01) ==
LOC: EDUNIT# → ED 11:24
DX: F41.0 Panic disorder [episodic paroxysmal anxiety] (principal); I10 Essential (primary) hypertension
CPT/HCPCS: 36415; 80053; 80306; 81003; 83690; 85025; 93005; 96374; 96375; 99283; 99284; A9270; 81001; 87086

== ENCOUNTER 2021-04-03 04:41 | Outpatient (CLI) | payer MEDICAID | END 2021-04-03 04:42 | disposition critical access hospital (66) | LOC: EMS 04:41 | DX: R10.9 Unspecified abdominal pain (principal); R11.2 Nausea with vomiting, unspecified; R51.9 Headache, unspecified | CPT/HCPCS: A0425; A0427; A0999 ==

== ENCOUNTER 2021-04-03 05:15 | Emergency (ER) | payer MEDICAID ==
[2021-04-03] MEDS ORDERED: SODIUM CHLORIDE 0.9% 1,000 ML IV STA (05:41)
[2021-04-03 05:59] LABS: BASOPHILS % (AUTO) 0.2 %; EOSINOPHILS # (AUTO) 0.1 10^3/uL (0.0-0.7); EOSINOPHILS % (AUTO) 0.4 %; HCT - HEMATOCRIT 47.4 % (37.0-47.0); HGB - HEMOGLOBIN 16.1 g/dL (12.0-16.0); LYMPHOCYTES # (AUTO) 1.7 10^3/uL (1.5-3.5); LYMPHOCYTES % (AUTO) 12.9 %; MEAN CORPUSCULAR HEMOGLOBIN 29.8 pg (27.0-31.0); MEAN CORPUSCULAR VOLUME 87.6 fL (81.0-99.0); MEAN PLATELET VOLUME 8.2 fL (7.9-10.8); MONOCYTES # (AUTO) 0.7 10^3/uL (0.0-1.0); MONOCYTES % (AUTO) 5.2 %; NEUTROPHILS # (AUTO) 10.7 10^3/uL (1.5-6.6); NEUTROPHILS % (AUTO) 80.8 %; PLT - PLATELET COUNT 316 10^3/uL (130-450); RED BLOOD COUNT 5.41 10^6/uL (4.20-5.40); RED CELL DISTRIBUTION WIDTH 13.1 % (12.0-15.0); WHITE BLOOD COUNT 13.2 x10^3/uL (4.8-10.8)
[2021-04-03 06:12] LABS: ALBUMIN 4.8 g/dL (3.2-5.5); ALBUMIN/GLOBULIN RATIO 1.2 (1.0-2.2); BILIRUBIN,TOTAL 1.3 mg/dL (0.2-1.0); CALCIUM 9.6 mg/dL (8.5-10.3); CREATININE 1.1 mg/dL (0.4-1.0); POTASSIUM 3.3 mmol/L (3.5-5.0); TOTAL PROTEIN 8.9 g/dL (6.7-8.2)
[2021-04-03] MEDS ORDERED: HYDROmorphone 2 MG TABLET PO STA ×2 (06:16→07:38)
[2021-04-03] MEDS ORDERED: risperiDONE 0.25 MG TABLET PO STA (06:17)
[2021-04-03] MEDS ORDERED: LIDOCAINE VISCOUS 2% 15 ML UDC MM STA (06:17)
[2021-04-03] MEDS ORDERED: diphenhydrAMINE ELIXIR 25 MG/10 ML UDC PO STA (06:18)
[2021-04-03] MEDS ORDERED: MAG HYDROX/AL HYDROX/SIMETH 30 ML UDC PO STA (06:18)
[2021-04-03] MEDS ORDERED: IOVERSOL 320 100 ML VIAL IVP ONE ×2 (06:28→07:06)
[2021-04-03] MEDS ORDERED: ONDANSETRON 4 MG/2 ML VIAL IVP STA (06:34)
--- NOTE | 2021-04-03 06:36 | ED Physician Documentation ---
History of Present Illness - Stated complaint Stated Complaint: THOMPSON, N/V - Chief complaint Chief Complaint: Neuro - History obtained from History obtained from: Patient - Additonal information Additional information: 55-year-old woman with pmh anxiety, mild prior episode of colitis, frequent emergency room visits over the past week for nausea, vomiting and diffuse abdominal pain, recently admitted for this and for elevated blood pressure, presents with persistent nausea and vomiting since being seen yesterday in the emergency department she states that she also had a sudden onset headache, around 9 PM last night that is "the worst headache of my life", initially 7/10 worsening to 9/10 at present, BL frontal radiating to back of head, constant, aching, without relieving features. also with severe anxiety. pt had psychiatric eval yesterday after saying she wanted to kill herself by jumping off a bridge, then recanting. She currently denies SI/HI/AVH. symptoms are otherwise unchanged but persistent. 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: 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 : None HEENT: None Psych: Depression, Anxiety Musculoskeletal: Chronic back pain Derm: None - Past Surgical History Past Surgical History: Yes General: Appendectomy, Other Ortho: Spine surgery /STAFF OCCUPATIONAL THERAPIST: 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 - Present Medications Home Medications: Ambulatory Orders Medication Instructions Recorded Confirmed Promethazine [Phenergan] 25 mg PO BID PRN 05/30/20 04/03/21 Tizanidine HCl 4 mg PO TID PRN #25 capsule 05/30/20 04/03/21 Aspirin Chewable [St Faisal 81 mg PO DAILY tablet 07/04/20 04/03/21 Aspirin] Metoprolol Tartrate [Lopressor] 25 mg PO BID #60 tablet 07/04/20 04/03/21 DULoxetine [Cymbalta] 20 mg PO DAILY 12/27/20 04/03/21 Oxycodone HCl/Acetaminophen 1 each PO QID PRN 12/27/20 04/03/21 [Percocet 7.5-325 mg Tablet] amLODIPine [Norvasc] 5 mg PO DAILY 12/27/20 04/03/21 traZODone [Desyrel] 50 - 100 mg PO HS PRN 12/27/20 04/03/21 Ondansetron Odt [Zofran Odt] 4 mg TL Q6H PRN #20 tablet 03/29/21 04/03/21 hydrOXYzine PAMOATE [Vistaril] 25 mg PO Q6H PRN #20 04/02/21 04/03/21 - Allergies Allergies/Adverse Reactions: Allergies Allergy/AdvReac Type Severity Reaction Status Date / Time amoxicillin trihydrate * Allergy anaphalaxis Verified 04/03/21 05:16 [From Augmentin] cephalexin monohydrate * Allergy anaphalaxis Verified 04/03/21 05:16 [From Keflex] doxycycline Allergy Unknown Verified 04/03/21 05:16 Penicillins Allergy anaphalaxis Verified 04/03/21 05:16 potassium clavulanate * Allergy anaphalaxis Verified 04/03/21 05:16 [From Augmentin] propoxyphene napsylate * Allergy "feels Verified 04/03/21 05:16 [From Darvocet-N] unbalanced" tetanus and diphtheria Allergy Edema Verified 04/03/21 05:16 toxoids codeine AdvReac Nausea Verified 04/03/21 05:16 dexamethasone AdvReac psychotic Verified 04/03/21 05:16 gabapentin [From Neurontin] AdvReac forgets Verified 04/03/21 05:16 everything, dizziness hydrocodone bitartrate * AdvReac agitated Verified 04/03/21 05:16 [From Vicodin] metoclopramide HCl * AdvReac Anxiety Verified 04/03/21 05:16 [From Reglan] prednisone AdvReac psychotic Verified 04/03/21 05:16 prochlorperazine edisylate * AdvReac anxious Verified 04/03/21 05:16 [From Compazine] prochlorperazine maleate * AdvReac anxious Verified 04/03/21 05:16 [From Compazine] topiramate [From Topamax] AdvReac Unknown Verified 04/03/21 05:16 - Social History Does the pt smoke?: No Smoking Status: Never smoker Does the pt drink ETOH?: No Does the pt have substance abuse?: Yes - Immunizations Immunizations are current?: Yes Immunizations: TDAP >10years/unknown, No immun - POLST Patient has POLST: No Results - Vitals Vitals: Vital Signs - 24 hr 04/03/21 04/03/21 04/03/21 05:17 05:22 06:15 Temperature 37.3 C 37.3 C 37.3 C Heart Rate 77 77 79 Respiratory 16 16 17 Rate Blood Pressure 154/98 H 154/98 H 183/136 H O2 Saturation 98 98 99 04/03/21 04/03/21 07:14 08:06 Temperature Heart Rate 70 68 Respiratory 18 16 Rate Blood Pressure 188/90 H 185/120 H O2 Saturation 100 98 Oxygen O2 Source Room air - Labs Labs: Laboratory Tests 04/03/21 04/03/21 05:55 05:55 WBC 13.2 H RBC 5.41 H Hgb 16.1 H Hct 47.4 H MCV 87.6 MCH 29.8 MCHC 34.0 RDW 13.1 Plt Count 316 MPV 8.2 Neut # (Auto) 10.7 H Lymph # (Auto) 1.7 [place] # (Auto) 0.7 Eos # (Auto) 0.1 Baso # (Auto) 0.0 Absolute Nucleated RBC 0.00 Nucleated RBC % 0.0 Sodium 134 L Potassium 3.3 L Chloride 95 L Carbon Dioxide 25 Anion Gap 14.0 H BUN 15 Creatinine 1.1 H Estimated GFR (MDRD) 52 L Glucose 138 H Calcium 9.6 Total Bilirubin 1.3 H AST 20 ALT 21 Alkaline Phosphatase 91 Total Protein 8.9 H Albumin 4.8 Globulin 4.1 Albumin/Globulin Ratio 1.2 Lipase 22 PD MEDICAL DECISION MAKING - ED course ED course: Patient just returned from [place] and states her headache is somewhat improved. she is requesting more pain medication. I discussed with her that we are able to control her symptoms while here but that she will need to f/u with psychiatry/pain management for narcotic/benzo scripts and she voices understanding. d/w patient re: negative CT head and abd. patient tolerating po, THOMPSON improved. agreeable to f/u with her pmd outpatient. She states her significant other will pick her up today. contracts to marijuana abstinence. return precautions given. Departure - Departure Disposition: 01 Home, Self Care Clinical Impression: Nausea, Headache, Abdominal pain Condition: Stable Instructions: ED Abdominal Pain Unkn Cause, ED Headache Tension Comments: You were seen in the emergency department for abdominal pain, nausea and headache. Please do not imbibe marijuana. It may be causing your symptoms. It will take at least a month for it to get out of your system. Please return to the emergency department if you have any new or worsening symptoms, thoughts of self harm, or other concerns. Follow-up with your primary doctor for referral to psychiatry and pain management. Discharge Date/Time: 04/03/21 08:06
[2021-04-03] MEDS ORDERED: LACTATED RINGERS 500 ML IV STA (07:19)
--- NOTE | 2021-04-03 08:08 | CT Report ---
PROCEDURE: HEAD WO INDICATIONS: "worst headache of my life" TECHNIQUE: Noncontrast 4.5 mm thick angled axial sections acquired from the foramen magnum to the vertex. For r adiation dose reduction, the following was used: automated exposure control, adjustment of mA and/or kV according to patient size. COMPARISON: None FINDINGS: Image quality: Excellent. CSF spaces: Basal cisterns are patent. No extra-axial fluid collections. The ventricles are symmet tomeka in size and shape. Brain: No intracranial bleeds or masses. There is cerebral volume loss for age, with resultant vent ricular and sulcal prominence. There are periventricular and deep white matter chronic small vessel ischemic changes. There is intracranial internal carotid artery and vertebral artery atherosclerosis . Skull and face: Calvarium and visualized facial bones appear intact, without suspicious lesions. Sinuses: Visualized sinuses and mastoids are clear. IMPRESSION: No acute intracranial disease process. Reviewed by: Kajal Katz MD, PhD on 04/03/2021 8:07 AM PDT Approved by: Kajal Katz MD, PhD on 04/03/2021 8:07 AM PDT Station ID: [id number]
[2021-04-03 08:09] VITALS: BP 185/120
--- NOTE | 2021-04-03 09:01 | CT Report ---
PROCEDURE: Abdomen/Pelvis W INDICATIONS: abdominal pain, n/v X 1 week CONTRAST: IV CONTRAST: Optiray 320 ml: 100 PO CONTRAST: *NO PO CONTRAST TECHNIQUE: After the administration of IV contrast, 5 mm thick sections acquired from the diaphragms to the symp hysis. 5 mm thick coronal and sagittal reformats were acquired. For radiation dose reduction, the f ollowing was used: automated exposure control, adjustment of mA and/or kV according to patient size. COMPARISON: Ultrasound of abdomen dated 03/30/[address] of abdomen and pelvis dated 12/29/2020. FINDINGS: Image quality: Excellent. ABDOMEN: Lung bases: 3 mm nodule is noted in lateral aspect of right middle lobe series 5 image 5 unchanged fr om prior studies and likely represent benign process. Bibasilar atelectasis is seen. Heart size is no rmal. Moderate atherosclerotic calcifications are seen. Solid organs: Liver and spleen are normal in size and enhancement. Gallbladder is within normal funes its. Biliary system is non dilated. Pancreas enhances normally. No adrenal nodules. Kidneys demons trate normal size and enhancement, without hydronephrosis. Peritoneum and bowel: Bowel loops demonstrate normal wall thickness and caliber. No free fluid or a ir. Nodes and vessels: No retroperitoneal or mesenteric adenopathy by size criteria. Aorta and inferior vena cava are normal in size. Mild amount of atherosclerotic calcifications are noted in abdominal a randal. Miscellaneous: No ventral hernias. PELVIS: Genitourinary: Bladder wall thickness is normal. Miscellaneous: No inguinal hernias or adenopathy. Bones: No suspicious bony lesions. No vertebral body compression fractures. Postsurgical changes ar e again seen at L4 through S1 levels unchanged from prior study. Grade 1 anterolisthesis of L3 on L4 is also noted. IMPRESSION: 1. No acute inflammatory process is seen within abdomen or pelvis. No finding to explain patient's sy mptoms. 2. Other findings as above, not significantly changed from prior study. Agree with preliminary reading. Reviewed by: Pratik Willams MD on 04/03/2021 8:59 AM PDT Approved by: Pratik Willams MD on 04/03/2021 8:59 AM PDT Station ID: [id number]
== END 2021-04-03 08:06 | disposition home or self-care (01) ==
LOC: ED 05:15
DX: R51.9 Headache, unspecified (principal); R11.2 Nausea with vomiting, unspecified; R10.84 Generalized abdominal pain; I10 Essential (primary) hypertension; F41.9 Anxiety disorder, unspecified
CPT/HCPCS: 36415; 70450; 74177; 80053; 83690; 85025; 96361; 96374; 99281; 99284; A9270; J7120; Q9967

== ENCOUNTER 2021-05-04 10:05 | Outpatient (CLI) | payer MEDICAID ==
[2021-05-04 15:40] LABS: THYROID STIMULATING HORMONE 2.22 uIU/mL (0.34-5.60)
[2021-05-07 14:52] LABS: THYROID PEROXIDASE ANTIBODIES 1 IU/mL (<9)
== END 2021-05-04 10:06 | disposition home or self-care (01) ==
LOC: LAB.S 10:05
PROVIDERS: ATTEND Internal Medicine
DX: R59.1 Generalized enlarged lymph nodes (principal); E06.9 Thyroiditis, unspecified
CPT/HCPCS: 36415; 81599; 83615; 84443; 86376; 86800

== ENCOUNTER 2021-06-11 14:33 | Outpatient (CLI) | payer MEDICAID ==
--- NOTE | 2021-06-11 17:12 | Ultrasound Report ---
PROCEDURE: Head or Neck Soft Tissue INDICATIONS: THYROIDITIS, LYMPHADENOPATHY TECHNIQUE: Real time scanning was performed of the neck region of interest, with image documentation . COMPARISON: None. FINDINGS: Normal appearance of the thyroid bilaterally measuring 3.5 x 1.4 x 1.7 cm on the right and 3.8 x 1.4 x 1.1 cm on the left. In the region of interest on the right, there is a morphologically normal-appearing subcentimeter lym ph node present. No other masses or fluid collections seen. IMPRESSION: 1. Normal appearance of thyroid. 2. Palpable abnormality corresponding to a morphologically normal-appearing lymph node. Reviewed by: LAURA Chappell on 06/11/2021 5:11 PM PDT Approved by: Justus Sheffield MD on 06/11/2021 5:11 PM PDT Station ID: [id number]
== END 2021-06-11 14:34 | disposition home or self-care (01) ==
LOC: DI 14:33
PROVIDERS: ATTEND Internal Medicine
DX: E06.9 Thyroiditis, unspecified (principal)

== ENCOUNTER 2021-10-20 10:04 | Emergency (ER) | payer MEDICAID ==
--- NOTE | 2021-10-20 10:16 | ED Physician Documentation ---
PD HPI ABD PAIN - Stated complaint Stated Complaint: ABD PX - Chief complaint Chief Complaint: Abd Pain - History obtained from History obtained from: Patient - History of Present Illness Timing - onset: How many days ago (6) Timing - duration: Days (6) Timing - details: Gradual onset, Still present (worse the past day, with persistent pain, increased with eating and movement. Some worse with deep breathing.) Quality: Cramping, Aching, Pain Location: RUQ, Epigastric Radiation: Right flank Improved by: No: Laying still, Meds Worsened by: Eating, Moving, Breathing, Palpation Associated symptoms: Nausea, Vomiting, Loss of appetite. No: Fever, Diarrhea, Dysuria, Chest pain Similar symptoms before: Has not had sx before Recently seen: Clinic (went to walk in clinic and referred to ER.) Review of Systems Constitutional: denies: Fever, Chills Nose: denies: Rhinorrhea / runny nose, Congestion Throat: denies: Sore throat Cardiac: denies: Chest pain / pressure, Palpitations Respiratory: denies: Dyspnea, Cough GI: reports: Abdominal Pain, Nausea. denies: Vomiting, Diarrhea, Bloody / black stool : denies: Dysuria, Frequency Skin: denies: Rash PD PAST MEDICAL HISTORY - Past Medical History Cardiovascular: Hypertension, High cholesterol, Murmur Respiratory: Asthma, Pneumonia Neuro: Migraines Endocrine/Autoimmune: None GI: GERD, Chronic diarrhea, Other SOLE TRIMMER: 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 : None HEENT: None Psych: Depression, Anxiety Musculoskeletal: Chronic back pain Derm: None - Past Surgical History Past Surgical History: Yes General: Appendectomy, Other Ortho: Spine surgery /SOLE TRIMMER: 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 - Present Medications Home Medications: Ambulatory Orders Medication Instructions Recorded Confirmed Tizanidine HCl 4 mg PO TID PRN #25 capsule 05/30/20 10/20/21 Metoprolol Tartrate [Lopressor] 25 mg PO BID #60 tablet 07/04/20 10/20/21 DULoxetine [Cymbalta] 20 mg PO DAILY 12/27/20 10/20/21 traZODone [Desyrel] 50 - 100 mg PO HS PRN 12/27/20 10/20/21 Ondansetron Odt [Zofran Odt] 4 mg TL Q6H PRN #20 tablet 03/29/21 10/20/21 Docusate Sodium 100Mg Capsule 100 mg PO DAILY #15 cap 10/20/21 [Colace 100Mg Capsule] Famotidine [Pepcid] 20 mg PO BID #20 tablet 10/20/21 Isosorbide Mononitrate ER [Imdur] 30 mg PO DAILY 10/20/21 10/20/21 Ondansetron Odt [Zofran] 4 mg TL Q6H PRN #10 tablet 10/20/21 oxyCODONE [Roxicodone] 5 mg PO Q6H PRN #14 tablet 10/20/21 - Allergies Allergies/Adverse Reactions: Allergies Allergy/AdvReac Type Severity Reaction Status Date / Time amoxicillin trihydrate * Allergy anaphalaxis Verified 04/03/21 05:16 [From Augmentin] cephalexin monohydrate * Allergy anaphalaxis Verified 04/03/21 05:16 [From Keflex] doxycycline Allergy Unknown Verified 04/03/21 05:16 Penicillins Allergy anaphalaxis Verified 04/03/21 05:16 potassium clavulanate * Allergy anaphalaxis Verified 10/20/21 10:12 [From Augmentin] propoxyphene napsylate * Allergy "feels Verified 10/20/21 10:12 [From Darvocet-N] unbalanced" tetanus and diphtheria Allergy Edema Verified 10/20/21 10:12 toxoids codeine AdvReac Nausea Verified 10/20/21 10:12 dexamethasone AdvReac psychotic Verified 10/20/21 10:12 gabapentin [From Neurontin] AdvReac forgets Verified 10/20/21 10:12 everything, dizziness hydrocodone bitartrate * AdvReac agitated Verified 10/20/21 10:12 [From Vicodin] metoclopramide HCl * AdvReac Anxiety Verified 10/20/21 10:12 [From Reglan] prednisone AdvReac psychotic Verified 10/20/21 10:12 prochlorperazine edisylate * AdvReac anxious Verified 10/20/21 10:12 [From Compazine] prochlorperazine maleate * AdvReac anxious Verified 10/20/21 10:12 [From Compazine] topiramate [From Topamax] AdvReac Unknown Verified 10/20/21 10:12 - Living Situation Living Arrangement: reports: At home - Social History Does the pt smoke?: No Smoking Status: Never smoker Does the pt drink ETOH?: No Does the pt have substance abuse?: Yes Substance Use and Type: Marijuana - Immunizations Immunizations are current?: Yes Immunizations: TDAP >10years/unknown, No immun - POLST Patient has POLST: No PD ED PE NORMAL - Vitals Vital signs reviewed: Yes - General General: Alert and oriented X 3, Well developed/nourished, Other (appears in considerable pain right upper abd. ) - HEENT HEENT: Moist mucous membranes, Pharynx benign - Neck Neck: Supple, no meningeal sign, No adenopathy - Cardiac Cardiac: RRR, No murmur - Respiratory Respiratory: Clear bilaterally - Abdomen Abdomen: Normal bowel sounds, Soft, Non distended, No organomegaly, Other (tender RUQ with local guarding and rebound. No percussion tenderness. Not having referred tender from rest of abd. No rash nor sores nor tender to light touch. ) - Female Female : Deferred - Rectal Rectal: Deferred - Back Back: No CVA TTP, No spinal TTP - Derm Derm: Normal color, Warm and dry, No rash - Extremities Extremities: Normal ROM s pain, No edema, No calf tenderness / cord - Neuro Neuro: Alert and oriented X 3, No motor deficit, Normal speech Results - Vitals Vitals: Vital Signs - 24 hr 10/20/21 10/20/21 10/20/21 10:08 10:30 12:49 Temperature 36.6 C 36.8 C 36.6 C Heart Rate 68 66 60 Respiratory 17 18 16 Rate Blood Pressure 142/78 H 147/89 H 132/75 H O2 Saturation 98 96 99 Oxygen O2 Source Room air - Labs Labs: Laboratory Tests 10/20/21 10/20/21 10/20/21 10:25 10:25 12:00 WBC 9.2 RBC 4.95 Hgb 14.6 Hct 45.6 MCV 92.1 MCH 29.5 MCHC 32.0 RDW 13.3 Plt Count 281 MPV 8.3 Neut # (Auto) 6.7 H Lymph # (Auto) 1.6 [place] # (Auto) 0.6 Eos # (Auto) 0.2 Baso # (Auto) 0.0 Absolute Nucleated RBC 0.00 Nucleated RBC % 0.0 Sodium 136 Potassium 4.4 Chloride 96 L Carbon Dioxide 29 Anion Gap 11.0 BUN 20 Creatinine 1.1 H Estimated GFR (MDRD) 52 L Glucose 110 H Calcium 9.1 Total Bilirubin 0.9 AST 18 ALT 17 Alkaline Phosphatase 98 Total Protein 8.0 Albumin 3.9 Globulin 4.1 Albumin/Globulin Ratio 1.0 Lipase 18 L Urine Color YELLOW Urine Clarity HAZY Urine pH 5.5 Ur Specific [place] >=1.030 H Urine Protein NEGATIVE Urine Glucose (UA) NEGATIVE Urine Ketones NEGATIVE Urine Occult Blood TRACE-LYSE Urine Nitrite NEGATIVE Urine Bilirubin NEGATIVE Urine Urobilinogen 0.2 (NORMAL) Ur Leukocyte Esterase TRACE H Urine RBC 0-5 Urine WBC 4-5 Ur Epithelial Cells RARE Transitional Ur Squamous Epith Cells FEW Squamous Urine Bacteria Few Ur Microscopic Review INDICATED Urine Culture Comments INDICATED - Rads (name of study) upper abd U/S Radiology: Prelim report reviewed (normal), See rad report abd CT Radiology: Prelim report reviewed (normal gallbladder and pancreas. No acute process in abd. moderate stool load. ), See rad report PD MEDICAL DECISION MAKING - ED course Complexity details: reviewed results (no obvious acute process on U/S then on CT. consider muscular though character of pain not quite. Consider ulcer/gastritis. Consider biliary colic though pain has been consistent for days and would expect some U/S changes I would think. ), re-evaluated patient (pain improved with meds, but still moderate. Repeat dose given. ), considered differential (sounds likely biliary though consider pancreatic. Less sounding gastritis. Also consider diverticular of transverse colon. Can start with labs and U/S. Consider CT if too normal. ), d/w patient Departure - Departure Disposition: 01 Home, Self Care Clinical Impression: Abdominal pain Qualifiers: Abdominal location: right upper quadrant Qualified Code(s): R10.11 - Right upper quadrant pain Condition: Stable Record reviewed to determine appropriate education?: Yes Instructions: ED Abdominal Pain Female Non-Specific Abdominal Pain Prescriptions: Docusate Sodium 100Mg Capsule [Colace 100Mg Capsule] 100 mg PO DAILY #15 cap Famotidine [Pepcid] 20 mg PO BID #20 tablet oxyCODONE [Roxicodone] 5 mg PO Q6H PRN #14 tablet PRN Reason: Pain Ondansetron Odt [Zofran] 4 mg TL Q6H PRN #10 tablet PRN Reason: Nausea / Vomiting Comments: Your blood tests and CT scan and ultrasound are normal without any obvious cause for the pain. Considerations could be muscular. Also consideration would be gastritis or ulcer given the location of the pain in the upper abdomen. No signs of gallbladder inflammation or swelling or stones. You can get gallbladder spasms episodically without any stones but is less common in the consistency of your pain would suggest against just intermittent spasm. We could treat it as irritated stomach/duodenum with acid reducing medicine and nausea medicine. Avoid NSAIDs, alcohol, caffeine and spicy foods. Famotidine twice daily for the next 10 days to reduce that stomach acids. Continue your other usual medicines. Add ondansetron if needed for nausea. Use Tylenol 4 times a day for pain over the next several days to a week. Add oxycodone if needed for worse pain. Docusate stool softener daily for the next several days to week as well. Recheck if not improving well over the next several days and return if worse. I transmitted your prescriptions to [facility] in [place]. I am prescribing a short course of narcotic pain medication for you. These are potentially dangerous and addictive medications that should be used carefully. These medications may constipate you. Take an [id number]-jglpufx stool softener such as docusate twice daily with plenty of water while taking these medica tions. If you go 24 hours without a bowel movement, take [id number] MiraLAX, per package instructions. Do not drink or drive while taking these medications. If you received narcotic or sedating medications while in the emergency department do not drive for 24 hours. Store this medication in a safe, secure place and out of reach of children. It is a violation of federal law to give or sell this medication to another person or to use in a manner other than prescribed. The ED will not refill narcotic prescriptions, including prescriptions lost or stolen. You can dispose of unwanted medications at the [facility]'s office or at several pharmacies such as [facility]. Discharge Date/Time: 10/20/21 13:17
[2021-10-20 10:32] LABS: BASOPHILS % (AUTO) 0.4 %; EOSINOPHILS # (AUTO) 0.2 10^3/uL (0.0-0.7); EOSINOPHILS % (AUTO) 1.8 %; HCT - HEMATOCRIT 45.6 % (37.0-47.0); HGB - HEMOGLOBIN 14.6 g/dL (12.0-16.0); LYMPHOCYTES # (AUTO) 1.6 10^3/uL (1.5-3.5); LYMPHOCYTES % (AUTO) 17.5 %; MEAN CORPUSCULAR HEMOGLOBIN 29.5 pg (27.0-31.0); MEAN CORPUSCULAR VOLUME 92.1 fL (81.0-99.0); MEAN PLATELET VOLUME 8.3 fL (7.9-10.8); MONOCYTES # (AUTO) 0.6 10^3/uL (0.0-1.0); MONOCYTES % (AUTO) 6.8 %; NEUTROPHILS # (AUTO) 6.7 10^3/uL (1.5-6.6); NEUTROPHILS % (AUTO) 73.2 %; PLT - PLATELET COUNT 281 10^3/uL (130-450); RED BLOOD COUNT 4.95 10^6/uL (4.20-5.40); RED CELL DISTRIBUTION WIDTH 13.3 % (12.0-15.0); WHITE BLOOD COUNT 9.2 x10^3/uL (4.8-10.8)
[2021-10-20] MEDS ORDERED: SODIUM CHLORIDE 0.9% 1,000 ML IV STA (10:38)
[2021-10-20] MEDS ORDERED: HYDROmorphone 1 MG/ML CARPUJECT IVP STA ×2 (10:38→11:56)
[2021-10-20] MEDS ORDERED: ONDANSETRON 4 MG/2 ML VIAL IVP STA (10:38)
[2021-10-20] MEDS ORDERED: KETOROLAC 30 MG/ML VIAL IVP STA (10:38)
[2021-10-20 10:45] LABS: ALBUMIN 3.9 g/dL (3.2-5.5); BILIRUBIN,TOTAL 0.9 mg/dL (0.2-1.0); CALCIUM 9.1 mg/dL (8.5-10.3); CREATININE 1.1 mg/dL (0.4-1.0); POTASSIUM 4.4 mmol/L (3.5-5.0)
[2021-10-20] MEDS ORDERED: MAG HYDROX/AL HYDROX/SIMETH 30 ML UDC PO STA (11:56)
[2021-10-20] MEDS ORDERED: LIDOCAINE VISCOUS 2% 15 ML UDC MM STA (11:56)
[2021-10-20 12:11] LABS: GLUCOSE, URINE (UA) NEGATIVE (NEGATIVE); KETONES,URINE (UA) NEGATIVE (NEGATIVE); LEUKOCYTE ESTERASE, URINE TRACE (NEGATIVE); NITRITE,URINE NEGATIVE (NEGATIVE); OCCULT BLOOD,URINE TRACE-LYSE (NEGATIVE); PH,URINE 5.5 PH (5.0-7.5); PROTEIN,URINE NEGATIVE (NEGATIVE); UROBILINOGEN,URINE 0.2 (NORMAL) E.U./dL (NORMAL)
[2021-10-20] MEDS ORDERED: IOPAMIDOL-300 100 ML VIAL ONE (12:18)
--- NOTE | 2021-10-20 12:19 | Ultrasound Report ---
PROCEDURE: Abdomen Limited INDICATIONS: increasing RUQ pain for 3-4 days TECHNIQUE: Real-time focused scanning was performed of the abdomen, with image documentation. COMPARISON: CT abdomen and pelvis 04/03/2021 FINDINGS: Increased hepatic parenchymal echogenicity indicative of diffuse hepatic steatosis. Normal hepatic pa renchymal echotexture. No focal hepatic mass. No intrahepatic or extrahepatic biliary ductal dilatation. The gallbladder is normally distended without wall thickening or pericholecystic fluid. No shadowing gallstones or sludge. Visualized portions of the pancreas are normal. The right kidney is unremarkable. IMPRESSION: Diffuse hepatic steatosis. Otherwise unremarkable right upper quadrant abdominal ultrasound. Reviewed by: Rj Doshi MD on 10/20/2021 12:18 PM PST Approved by: Rj Doshi MD on 10/20/2021 12:18 PM PST Station ID: [id number]
[2021-10-20 12:28] LABS: CLARITY,URINE HAZY (CLEAR)
[2021-10-20 12:30] LABS: BILIRUBIN,URINE NEGATIVE (NEGATIVE); ICTOTEST,URINE NEGATIVE; RBC,URINE 0-5 /HPF (0-5)
[2021-10-20 12:31] LABS: BACTERIA,URINE Few /HPF (None Seen); EPITHELIAL CELLS,UR RARE Transitional /HPF (<= Few); SQUAMOUS EPITHELIAL CELL,UR FEW Squamous (<= Few)
--- NOTE | 2021-10-20 12:38 | CT Report ---
PROCEDURE: Abdomen/Pelvis W INDICATIONS: RUQ abd pain for few days CONTRAST: IV CONTRAST: Optiray 320 ml: 100 PO CONTRAST: *NO PO CONTRAST TECHNIQUE: After the administration of IV contrast, 5 mm thick sections acquired from the diaphragms to the symp hysis. 5 mm thick coronal and sagittal reformats were acquired. For radiation dose reduction, the f ollowing was used: automated exposure control, adjustment of mA and/or kV according to patient size. COMPARISON: 12/29/2020, 04/03/2021. FINDINGS: Image quality: Excellent. ABDOMEN: Lung bases: Lung bases are clear. On series 4 image 1, there is a right middle lobe subpleural nodul e seen laterally, but measures 3 mm. Heart size is normal. There is moderate coronary artery calcific ation A small hiatal hernia is incidentally noted. Solid organs: Diffuse fatty liver infiltration can be seen. No focal liver abnormality is seen. The spleen demonstrates normal size and no focal lesions. Gallbladder wall does not appear thickened. No pericholecystic fluid is seen. No gallbladder wall hyperemia is seen. Biliary system is non dilat ed. Pancreas enhances normally. No adrenal nodules. Kidneys demonstrate normal size and enhancemen t, without hydronephrosis. Peritoneum and bowel: Bowel loops demonstrate normal wall thickness and caliber. No free fluid or a ir. There is a moderate amount of stool seen within the colon. Nodes and vessels: No retroperitoneal or mesenteric adenopathy by size criteria. Aorta and inferior vena cava are normal in size. Atherosclerotic calcification is seen. Miscellaneous: No ventral hernias. PELVIS: Genitourinary: Bladder wall thickness is normal. This patient is status post hysterectomy. No adnex al masses can be seen. Miscellaneous: No inguinal hernias or adenopathy. Bones: No suspicious bony lesions. No vertebral body compression fractures. Lumbosacral fixation h ardware is seen. No anel complication can be seen. Minimal S-shaped sclerotic curvature is seen. IMPRESSION: No significant gallbladder abnormality or right upper quadrant abnormality can be seen by CT. If there is strong clinical concern for gallbladder pathology, please consider a dedicated ultrasound for further evaluation. There is a moderate amount of stool seen within the colon. Please correlate with clinical constipatio n. 3 mm right middle lobe subpleural nodule seen laterally. This is most likely related to a benign subp leural lymph node. 4 a focus of this size, no specific imaging follow-up is recommended, although att ention should be paid to this nodule on any future follow-up study. Incidental note is made of: Moderate coronary artery calcification Fatty liver infiltration 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 Lumbosacral fixation hardware Reviewed by: Dayton Fortune MD on 10/20/2021 11:37 AM [place] Approved by: Dayton Fortune MD on 10/20/2021 11:37 AM [facility] Station ID: [id number]
[2021-10-20 12:50] VITALS: BP 132/75
[2021-10-20] MEDS ORDERED: IOPAMIDOL-300 100 ML VIAL IVP ONE (12:54)
== END 2021-10-20 13:17 | disposition home or self-care (01) ==
LOC: ED 10:04
DX: R10.11 Right upper quadrant pain (principal); K21.9 Gastro-esophageal reflux disease without esophagitis; J45.909 Unspecified asthma, uncomplicated; F32.9 Major depressive disorder, single episode, unspecified; F41.9 Anxiety disorder, unspecified; Z79.899 Other long term (current) drug therapy
CPT/HCPCS: 36415; 74177; 76705; 80053; 81001; 83690; 85025; 87086; 96361; 96374; 96375; 96376; 99284; A9270; J1170; Q9967; 81003

== ENCOUNTER 2022-03-03 08:00 | Outpatient (CLI) | payer MEDICAID ==
[2022-03-03 14:33] LABS: BASOPHILS % (AUTO) 0.5 %; EOSINOPHILS # (AUTO) 0.2 10^3/uL (0.0-0.7); EOSINOPHILS % (AUTO) 3.5 %; HCT - HEMATOCRIT 45.1 % (37.0-47.0); HGB - HEMOGLOBIN 14.5 g/dL (12.0-16.0); LYMPHOCYTES # (AUTO) 1.6 10^3/uL (1.5-3.5); LYMPHOCYTES % (AUTO) 25.5 %; MEAN CORPUSCULAR HEMOGLOBIN 29.3 pg (27.0-31.0); MEAN CORPUSCULAR HGB CONC 32.2 g/dL (32.0-36.0); MEAN CORPUSCULAR VOLUME 91.1 fL (81.0-99.0); MEAN PLATELET VOLUME 8.9 fL (7.9-10.8); MONOCYTES # (AUTO) 0.5 10^3/uL (0.0-1.0); MONOCYTES % (AUTO) 7.1 %; NEUTROPHILS % (AUTO) 63.1 %; PLT - PLATELET COUNT 304 10^3/uL (130-450); RED BLOOD COUNT 4.95 10^6/uL (4.20-5.40); RED CELL DISTRIBUTION WIDTH 13.9 % (12.0-15.0); WHITE BLOOD COUNT 6.4 x10^3/uL (4.8-10.8)
[2022-03-03 14:43] LABS: ALBUMIN 3.8 g/dL (3.2-5.5); BILIRUBIN,TOTAL 0.5 mg/dL (0.2-1.0); CALCIUM 8.8 mg/dL (8.5-10.3); CREATININE 1.2 mg/dL (0.4-1.0); POTASSIUM 4.3 mmol/L (3.5-5.0); TOTAL PROTEIN 7.6 g/dL (6.7-8.2)
== END 2022-03-03 23:59 | disposition home or self-care (01) ==
LOC: LAB.S 08:00
PROVIDERS: ATTEND Physician Assistant Medical
DX: I10 Essential (primary) hypertension (principal)
CPT/HCPCS: 36415; 80053; 85025

== ENCOUNTER 2022-12-24 12:24 | Outpatient (CLI) | payer MEDICAID ==
--- NOTE | 2022-12-28 14:23 | OPERATIVE REPORT ---
Operative Report - General Procedure Date: 12/25/22 Planned Procedure: LEFT subclavian triple-lumen placement Pre-Op Diagnosis: Needs central venous access Procedure Performed: Attempted left subclavian triple-lumen placement (failed) Post Op Diagnosis: Same - Procedure Note Primary Surgeon: Sathish Shepherd MD Anesthesia Technique: Local (5 mL of 1% lidocaine) Estimated Blood Loss (mL): 2 Complications: None. - Other Other Information/Narrative: After verbal and written informed consent was obtained detailing the procedure, the alternatives the operation including no procedure, risks of infection, bleeding requiring transfusion with its risks, pneumothorax requiring tube thoracostomy, and , a "time in" then confirmed that the patient was identified with 3 identifiers (name, date, and medical record number), and the patient was placed in Trendelenburg position. After prepping and draping the patient in a sterile manner and after anesthetizing the left subclavian area with 1% lidocaine, multiple passes were required to place the finder needle was inserted into the left subclavian vein and with good blood return the syringe was removed and a wire placed. However the wire would not pass down towards her heart despite maneuvering the patient's face towards me or placing her into steeper Trendelenburg. Numerous other attempts to place the needle into the subclavian vein were unsuccessful. After numerous attempts were made I decided to stop. I think that the placement of this was made much more difficult by the patient's dehydration (despite placing her in Trendelenburg I could not get the veins to dilate appropriately). A ster ile dressing was applied. The patient tolerated the procedure well and a chest x-ray was then obtained that showed no pneumothorax. I then called Jose A Garza CRNA who was able to place one in her neck with ultrasound guidance, and with some difficulty again due to her dehydration. CPT 73172 (failed)
== END 2022-12-24 23:59 | disposition critical access hospital (66) ==
LOC: EMS 12:24
DX: R10.13 Epigastric pain (principal); R10.11 Right upper quadrant pain; R10.12 Left upper quadrant pain
CPT/HCPCS: A0425; A0427; A0999

== ENCOUNTER 2022-12-24 12:58 | Inpatient (IN) | payer MEDICAID ==
--- OUTSIDE RECORDS SUMMARY | 2022-12-24 13:10 | EXTERNAL MEDICAL SUMMARY RPT | Continuity of Care Document ---
:1965 Author Organization [facility] Address [address] [place] [address] Phone Care Team Providers Name Role Phone Unavailable Unavailable Unavailable Jose Barrios Md Unavailable Unavailable Allergies No information. Encounters No information. Functional Status No information. Immunizations No information. Medications date description facility 2022-09-28 00:00 trazodone [facility] 2022-09-28 00:00 tizanidine [facility] 2022-09-28 00:00 pantoprazole [facility] [place] [facility] 2022-09-28 00:00 metoprolol tartrate Walk[facility] [place] 2022-09-28 00:00 tizanidine [facility] 2022-09-28 00:00 pantoprazole [facility] 2022-09-28 00:00 trazodone [facility] 2022-09-28 00:00 duloxetine [facility] 2022-09-28 00:00 tizanidine [facility] 2022-09-28 00:00 metoprolol tartrate [facility] 2022-09-28 00:00 trazodone [facility] 2022-09-28 00:00 duloxetine [facility] 2022-09-28 00:00 duloxetine [facility] 2022-09-28 00:00 duloxetine [facility] 2022-09-28 00:00 duloxetine [facility] [place] [facility] 2022-09-28 00:00 pantoprazole [facility] [place] 2022-09-28 00:00 pantoprazole [facility] 2022-09-28 00:00 duloxetine [facility] 2022-09-28 00:00 tizanidine [facility] [place] 2022-09-28 00:00 metoprolol tartrate [facility] 2022-09-28 00:00 trazodone [facility] [place] 2022-09-28 00:00 metoprolol tartrate [facility] 2022-09-28 00:00 duloxetine [facility] [place] 2022-09-28 00:00 duloxetine [facility] [place] Problems date description facility 2022-09-28 00:00 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 (clinical) [facility]In [facility] 2022-09-28 00:00 Asthma [facility] 2022-09-28 00:00 Family history of alcoholism Walk[facility]In [facility] 2022-09-28 00:00 Other and unspecified [facility] 2022-09-28 00:00 Chronic low back pain [facility] 2022-09-28 00:00 Viral upper respiratory tract [facility] infection [facility] 2022-09-28 00:00 Unspecified essential hypertension [facility] 2022-09-28 00:00 Acute upper respiratory infections [facility] of unspecified site [facility] 2022-09-28 00:00 Asthma, unspecified [facility] 2022-09-28 00:00 Hyperlipidemia [facility] 2022-09-28 00:00 Essential hypertension [facility] 2022-09-28 00:00 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, site unspecified [facility] 2022-09-28 00:00 Lumbago [facility] 2022-09-28 00:00 Hyperlipidemia, unspecified [facility] 2022-09-28 00:00 Essential (primary) hypertension [facility] 2022-09-28 00:00 Acute upper respiratory infection, [facility] 2022-09-28 00:00 Unspecified asthma, uncomplicated [facility] 2022-09-28 00:00 Low back pain [facility] 2022-09-28 00:00 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, unspecified [facility] 2022-09-28 00:00 Alcoholism in family [facility] 2022-09-28 00:00 Family history of alcohol abuse and [facility] 2022-09-29 00:00 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 (clinical) [facility] 2022-09-29 00:00 Asthma [facility] 2022-09-29 00:00 Family history of alcoholism [facility] 2022-09-29 00:00 Other and unspecified [facility] 2022-09-29 00:00 Chronic low back pain [facility] 2022-09-29 00:00 Asthma, unspecified [facility] 2022-09-29 00:00 Hyperlipidemia [facility] 2022-09-29 00:00 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, site unspecified [facility] 2022-09-29 00:00 Lumbago [facility] 2022-09-29 00:00 Hyperlipidemia, unspecified [facility] 2022-09-29 00:00 Unspecified asthma, uncomplicated [facility] 2022-09-29 00:00 Low back pain [facility] 2022-09-29 00:00 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, unspecified [facility] 2022-09-29 00:00 Alcoholism in family [facility] 2022-09-29 00:00 Family history of alcohol abuse and [facility] Procedures date description facility 2022-09-28 00:00 Visit Code Hold [facility] Results/Labs No information. Social History No information. Vital Signs date measurement value units 2022-09-28 00:00 BMI 38.56 kg/m2 2022-09-28 00:00 BP_diastolic 105 mmHg 2022-09-28 00:00 BP_systolic 183 mmHg 2022-09-28 00:00 heart_rate 73 /min 2022-09-28 00:00 height_metric 171.45 cm 2022-09-28 00:00 height_standard 67.5 in 2022-09-28 00:00 respiration_rate 16 /min 2022-09-28 00:00 temperature_metric 36.44 C 2022-09-28 00:00 temperature_standard 97.6 F 2022-09-28 00:00 weight_metric 112.94 kg 2022-09-28 00:00 weight_standard 249 lb
[2022-12-24] MEDS ORDERED: LIDOCAINE VISCOUS 2% 15 ML ORAL SYRINGE MM STA (13:32)
[2022-12-24] MEDS ORDERED: SUCRALFATE 1 GM/10 ML UDC PO STA (13:32)
[2022-12-24] MEDS ORDERED: MAG HYDROX/AL HYDROX/SIMETH 30 ML UDC PO STA (13:32)
[2022-12-24] MEDS ORDERED: SODIUM CHLORIDE 0.9% 1,000 ML IV STA (13:33)
[2022-12-24] MEDS ORDERED: ONDANSETRON 4 MG/2 ML VIAL IVP STA (13:33)
[2022-12-24] MEDS ORDERED: HYDROmorphone 1 MG/ML CARPUJECT IVP STA ×3 (13:33→18:36)
[2022-12-24 13:51] LABS: BASOPHILS # (AUTO) 0.1 10^3/uL (0.0-0.1); BASOPHILS % (AUTO) 0.4 %; EOSINOPHILS # (AUTO) 0.1 10^3/uL (0.0-0.7); EOSINOPHILS % (AUTO) 0.5 %; HCT - HEMATOCRIT 47.7 % (37.0-47.0); HGB - HEMOGLOBIN 15.3 g/dL (12.0-16.0); LYMPHOCYTES # (AUTO) 1.7 10^3/uL (1.5-3.5); LYMPHOCYTES % (AUTO) 13.2 %; MEAN CORPUSCULAR HEMOGLOBIN 28.5 pg (27.0-31.0); MEAN CORPUSCULAR HGB CONC 32.1 g/dL (32.0-36.0); MEAN CORPUSCULAR VOLUME 88.8 fL (81.0-99.0); MEAN PLATELET VOLUME 8.5 fL (7.9-10.8); MONOCYTES # (AUTO) 0.6 10^3/uL (0.0-1.0); NEUTROPHILS # (AUTO) 10.2 10^3/uL (1.5-6.6); NEUTROPHILS % (AUTO) 80.3 %; PLT - PLATELET COUNT 308 10^3/uL (130-450); RED BLOOD COUNT 5.37 10^6/uL (4.20-5.40); RED CELL DISTRIBUTION WIDTH 12.9 % (12.0-15.0); WHITE BLOOD COUNT 12.7 x10^3/uL (4.8-10.8)
[2022-12-24 13:57] LABS: MUDS CUTOFF CONCENTRATIONS CUTOFF CONC BELOW:
[2022-12-24 14:01] LABS: BILIRUBIN,URINE NEGATIVE (NEGATIVE); GLUCOSE, URINE (UA) NEGATIVE (NEGATIVE); KETONES,URINE (UA) NEGATIVE (NEGATIVE); LEUKOCYTE ESTERASE, URINE NEGATIVE (NEGATIVE); NITRITE,URINE NEGATIVE (NEGATIVE); OCCULT BLOOD,URINE NEGATIVE (NEGATIVE); PROTEIN,URINE 30 mg/dL (NEGATIVE); UROBILINOGEN,URINE 0.2 (NORMAL) E.U./dL (NORMAL)
[2022-12-24 14:03] LABS: CLARITY,URINE CLEAR (CLEAR)
[2022-12-24 14:07] LABS: BACTERIA,URINE Rare /HPF (None Seen); RBC,URINE None Seen /HPF (0-5); SQUAMOUS EPITHELIAL CELL,UR RARE Squamous (<= Few); WBC,URINE 0-3 /HPF (0-5)
[2022-12-24 14:07] LABS: ALBUMIN 4.2 g/dL (3.2-5.5); BILIRUBIN,TOTAL 0.6 mg/dL (0.2-1.0); CALCIUM 9.8 mg/dL (8.5-10.3); POTASSIUM 3.9 mmol/L (3.5-5.0); TOTAL PROTEIN 8.4 g/dL (6.7-8.2)
[2022-12-24] MEDS ORDERED: LORazepam 2 MG/ML VIAL IVP STA ×2 (14:09→18:27)
[2022-12-24 14:10] LABS: COCAINE SCREEN URINE NEGATIVE (NEGATIVE); METHAMPHETAMINES SCREEN, URINE NEGATIVE (NEGATIVE); THC CANNABINOID SCREEN, URINE POSITIVE (NEGATIVE)
[2022-12-24 14:11] LABS: AMPHETAMINE SCREEN,URINE NEGATIVE (NEGATIVE); BARBITURATE SCREEN,UR NEGATIVE (NEGATIVE); BENZODIAZEPINES SCREEN, URINE NEGATIVE (NEGATIVE); METHADONE SCREEN, URINE NEGATIVE (NEGATIVE); OPIATE SCREEN, URINE POSITIVE (NEGATIVE); OXYCODONE SCREEN, URINE NEGATIVE (NEGATIVE); PROPOXYPHENE SCREEN, URINE NEGATIVE (NEGATIVE); TRICYCLIC ANTIDEPRESSANT,URINE NEGATIVE (NEGATIVE)
--- NOTE | 2022-12-24 14:33 | ED Physician Documentation ---
PD HPI ABD PAIN - Stated complaint Stated Complaint: ABD PX - Chief complaint Chief Complaint: Abd Pain - History obtained from History obtained from: Patient - History of Present Illness Timing - onset: How many days ago (4) Timing - duration: Days (4) Timing - details: Gradual onset, Still present Quality: Cramping, Sharp, Pain Location: RUQ Radiation: Right flank Improved by: Laying still Worsened by: Eating, Position, Palpation Associated symptoms: Nausea Similar symptoms before: No diagnosis Recently seen: Not recently seen - Additional information Additional information: 57 y/o female with history of cyclical vomiting, hypertensive urgency and epigastric abdominal pain presents today with 4 days of pain and nausea. Seen in the urgent care and sent to the ED via ambulance. She has had prior experience with similar symptoms over the years and has been diagnosed with cannabis hyperemesis as well. She continues to use some cannabis Gummies. She of course feels that this is not related. On review of the patient's past medical history she has had cyclical vomiting abdominal pain and hypertension repeatedly and she has had an episode in March 2021 where she required 4 emergency department visits and admission to the hospital. She eventually resolved her symptoms. Review of Systems Constitutional: denies: Fever Eyes: denies: Decreased vision Ears: denies: Ear pain Nose: denies: Rhinorrhea / runny nose, Congestion Throat: denies: Sore throat Cardiac: denies: Chest pain / pressure, Palpitations Respiratory: denies: Dyspnea, Cough GI: reports: Abdominal Pain, Nausea, Vomiting : denies: Dysuria, Frequency Skin: denies: Rash Musculoskeletal: reports: Back pain. 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: 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 : None HEENT: None Psych: Depression, Anxiety Musculoskeletal: Chronic back pain Derm: None - Past Surgical History Past Surgical History: Yes General: Appendectomy, Other Ortho: Spine surgery /RAIL SIGNAL MECHANIC: 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 - Present Medications Home Medications: Ambulatory Orders Medication Instructions Recorded Confirmed RX: Tizanidine HCl 4 mg PO TID PRN #25 capsule 05/30/20 10/20/21 RX: Metoprolol Tartrate [Lopressor] 25 mg PO BID #60 tablet 07/04/20 10/20/21 RX: DULoxetine [Cymbalta] 20 mg PO DAILY 12/27/20 10/20/21 RX: traZODone [Desyrel] 50 - 100 mg PO HS PRN 12/27/20 10/20/21 RX: Ondansetron Odt [Zofran Odt] 4 mg TL Q6H PRN #20 tablet 03/29/21 10/20/21 Isosorbide Mononitrate ER [Imdur] 30 mg PO DAILY 10/20/21 10/20/21 Ondansetron Odt [Zofran] 4 mg TL Q6H PRN #10 tablet 10/20/21 RX: Docusate Sodium 100Mg Capsule 100 mg PO DAILY #15 cap 10/20/21 [Colace 100Mg Capsule] RX: Famotidine [Pepcid] 20 mg PO BID #20 tablet 10/20/21 RX: oxyCODONE [Roxicodone] 5 mg PO Q6H PRN #14 tablet 10/20/21 - Allergies Allergies/Adverse Reactions: Allergies Allergy/AdvReac Type Severity Reaction Status Date / Time amoxicillin trihydrate * Allergy anaphalaxis Verified 04/03/21 05:16 [From Augmentin] cephalexin monohydrate * Allergy anaphalaxis Verified 04/03/21 05:16 [From Keflex] doxycycline Allergy Unknown Verified 04/03/21 05:16 Penicillins Allergy anaphalaxis Verified 04/03/21 05:16 potassium clavulanate * Allergy anaphalaxis Verified 10/20/21 10:12 [From Augmentin] propoxyphene napsylate * Allergy "feels Verified 10/20/21 10:12 [From Darvocet-N] unbalanced" tetanus and diphtheria Allergy Edema Verified 10/20/21 10:12 toxoids codeine AdvReac Nausea Verified 10/20/21 10:12 dexamethasone AdvReac psychotic Verified 10/20/21 10:12 gabapentin [From Neurontin] AdvReac forgets Verified 10/20/21 10:12 everything, dizziness hydrocodone bitartrate * AdvReac agitated Verified 10/20/21 10:12 [From Vicodin] metoclopramide HCl * AdvReac Anxiety Verified 10/20/21 10:12 [From Reglan] prednisone AdvReac psychotic Verified 10/20/21 10:12 prochlorperazine edisylate * AdvReac anxious Verified 10/20/21 10:12 [From Compazine] prochlorperazine maleate * AdvReac anxious Verified 10/20/21 10:12 [From Compazine] topiramate [From Topamax] AdvReac Unknown Verified 10/20/21 10:12 - Social History Does the pt smoke?: No Smoking Status: Never smoker Does the pt drink ETOH?: No Does the pt have substance abuse?: Yes - Immunizations Immunizations are current?: Yes Immunizations: TDAP >10years/unknown, No immun - POLST Patient has POLST: No PD ED PE NORMAL - Vitals Vital signs reviewed: Yes (hypertensive marked systolic ) - General General: Alert and oriented X 3, Well developed/nourished, Other (whinning in pain with each breath appears anxious ) - HEENT HEENT: Atraumatic, PERRL, EOMI - Neck Neck: Supple, no meningeal sign, No bony TTP - Cardiac Cardiac: RRR, No murmur - Respiratory Respiratory: No respiratory distress, Clear bilaterally - Abdomen Abdomen: Normal bowel sounds, Soft, Non distended, No organomegaly, Other (tenderness to the upper quadrants bilaterally worse on the right ) - Back Back: No CVA TTP, No spinal TTP - Derm Derm: Normal color, Warm and dry, No rash - Extremities Extremities: No deformity, No edema - Neuro Neuro: Alert and oriented X 3, non linear editor 2-12 intact, No motor deficit, No sensory deficit, Normal speech Eye Opening: Spontaneous Motor: Obeys Commands Verbal: Oriented GCS Score: 15 - Psych Psych: Other (mood is defeated and affect is labile. ) Results - Vitals Vitals: Vital Signs - 24 hr 12/24/22 12/24/22 12/24/22 13:15 14:38 14:46 Temperature 35.4 C L Heart Rate 56 L 63 Respiratory 18 20 Rate Blood Pressure 263/98 H 190/100 H 230/94 H O2 Saturation 99 99 12/24/22 16:00 Temperature 35.9 C L Heart Rate 72 Respiratory 21 Rate Blood Pressure 236/111 H O2 Saturation 96 Oxygen O2 Source Room air - EKG (time done) 1426 Rate: Rate (enter#) (57) QRS: LVH Ischemia: Normal ST segments Compare to prior EKG: Unchanged from prior EKG (SPT 04-02-2021 no significant change. ) Computer interpretation: Agree with computer - Labs Labs: Laboratory Tests 12/24/22 12/24/22 12/24/22 13:00 13:40 13:40 WBC 12.7 H RBC 5.37 Hgb 15.3 Hct 47.7 H MCV 88.8 MCH 28.5 MCHC 32.1 RDW 12.9 Plt Count 308 MPV 8.5 Neut # (Auto) 10.2 H Lymph # (Auto) 1.7 [place] # (Auto) 0.6 Eos # (Auto) 0.1 Baso # (Auto) 0.1 Absolute Nucleated RBC 0.00 Nucleated RBC % 0.0 Sodium 138 Potassium 3.9 Chloride 99 L Carbon Dioxide 25 Anion Gap 14.0 H BUN 17 Creatinine 1.0 Estimated GFR (MDRD) 57 L Glucose 141 H Calcium 9.8 Total Bilirubin 0.6 AST 21 ALT 20 Alkaline Phosphatase 89 Troponin I High Sens Total Protein 8.4 H Albumin 4.2 Globulin 4.2 Albumin/Globulin Ratio 1.0 Lipase 23 Urine Color YELLOW Urine Clarity CLEAR Urine pH 8.0 H Ur Specific [place] 1.020 Urine Protein 30 H Urine Glucose (UA) NEGATIVE Urine Ketones NEGATIVE Urine Occult Blood NEGATIVE Urine Nitrite NEGATIVE Urine Bilirubin NEGATIVE Urine Urobilinogen 0.2 (NORMAL) Ur Leukocyte Esterase NEGATIVE Urine RBC None Seen Urine WBC 0-3 Ur Squamous Epith Cells RARE Squamous Urine Bacteria Rare Ur Microscopic Review INDICATED Urine Culture Comments NOT INDICATED Urine Opiates Screen POSITIVE H Ur Oxycodone Screen NEGATIVE Urine Methadone Screen NEGATIVE Ur Propoxyphene Screen NEGATIVE Ur Barbiturates Screen NEGATIVE Ur Tricyclics Screen NEGATIVE Ur Phencyclidine Scrn NEGATIVE Ur Amphetamine Screen NEGATIVE U Methamphetamines Scrn NEGATIVE U Benzodiazepines Scrn NEGATIVE Urine Cocaine Screen NEGATIVE U Cannabinoids Screen POSITIVE H 12/24/22 12/24/22 13:40 15:43 WBC RBC Hgb Hct MCV MCH MCHC RDW Plt Count MPV Neut # (Auto) Lymph # (Auto) [place] # (Auto) Eos # (Auto) Baso # (Auto) Absolute Nucleated RBC Nucleated RBC % Sodium Potassium Chloride Carbon Dioxide Anion Gap BUN Creatinine Estimated GFR (MDRD) Glucose Calcium Total Bilirubin AST ALT Alkaline Phosphatase Troponin I High Sens 15.0 H* 31.3 H* Total Protein Albumin Globulin Albumin/Globulin Ratio Lipase Urine Color Urine Clarity Urine pH Ur Specific [place] Urine Protein Urine Glucose (UA) Urine Ketones Urine Occult Blood Urine Nitrite Urine Bilirubin Urine Urobilinogen Ur Leukocyte Esterase Urine RBC Urine WBC Ur Squamous Epith Cells Urine Bacteria Ur Microscopic Review Urine Culture Comments Urine Opiates Screen Ur Oxycodone Screen Urine Methadone Screen Ur Propoxyphene Screen Ur Barbiturates Screen Ur Tricyclics Screen Ur Phencyclidine Scrn Ur Amphetamine Screen U Methamphetamines Scrn U Benzodiazepines Scrn Urine Cocaine Screen U Cannabinoids Screen Procedures - Bedside sono Bedside sono by EMP: With use of POCUS gallbladder is examined it is sonographically tender it appears enlarged but the gallbladder wall thickness appears normal and there is no pericholecystic fluid no obvious stones in the gallbladder and no obvious ductal dilation PD Medical Decision Making - ED course Complexity details: reviewed old records, reviewed results, re-evaluated patient, considered differential, d/w patient Reviewed Lab Results: We ordered the complete blood count and noted the white blood cell count to be elevated at 12.7 the hemoglobin hematocrit platelets were normal. We reviewed the patient's electrolytes which were essentially normal and kidney and liver function which were also normal, and demonstrated no evidence of hepatic obstruction. We tested the patient's highly sensitive troponin at 15 and found it was minimally elevated consistent with her hypertensive urgency. A urine was obtained showing a normal urine specific gravity and no evidence of infection. Toxicology was positive for opiates and cannabis. We gave the patient opiates. We did not give the patient cannabis. Drug Therapy Requiring Monitoring for Toxicity: We administered intravenous opiates and antiemetics and we required further sedation with intravenous Ativan. The patient was monitored during the administration of these medicines. ED course: 57-year-old Carly Conde presented to the emergency department in pain this morning vomiting and hypertensive. She was treated in the ambulance in route to the hospital with intravenous morphine and she continued to have pain on arrival to the emergency department. She had a tender abdomen especially in the right upper quadrant and a thought of potential gallbladder disease was entertained. We did POCUS and saw an enlarged gallbladder without obvious stone. A formal ultrasound was obtained with similar results. The patient on arrival to the emergency department had significant reflux and heartburn and was administered a GI cocktail consisting of lidocaine, Mylanta and Carafate. Despite all of her treatments patient continued to have elevated blood pressure abdominal pain and nausea and was administered Inapsine. This helped but did not resolve symptoms. She gives additional history after she is feeling some better and indicates she has had diarrhea for the past month. 3 loose stools per day no blood. She ran out of pantoprozol one week ago and has been experiencing excessive heart burn. She continues to use cannabis and gets relief from the shower. When I confront her about her thoughts about cannabis hyperemesis she feels this is unlikely. When I rephrase the question and asked her if she just did not want to be cannabis hyperemesis she confirmed that was likely. I reviewed charts from patient's experience in March 2021 and she had 4 ED visits and an admission. During that time she had improvement with inapsine and was able to go home only to come back the next day with similar symptoms. Today she has similar presentation and has improved with inapsine. She does not feel well enough to go home and I am recommending admission to observation for further IV fluids, anti- emetic and pain control as well as control of markedly elevated systolic blood pressure. I discussed case with our hospitalist Dr. Daniels and she is agreeing to put the patient into the hospital for further care. We did initiate blood pressure control in the Emergency Department with doses of metoprolol intravenously. Departure - Departure Disposition: 66 [facility] DC/Xfer Clinical Impression: Hypertensive urgency, Cyclical vomiting with nausea Abdominal pain Qualifiers: Abdominal location: right upper quadrant Qualified Code(s): R10.11 - Right upper quadrant pain Condition: Stable
[2022-12-24] MEDS ORDERED: DROPERIDOL 5 MG/2 ML VIAL IVP STA (14:38)
--- NOTE | 2022-12-24 15:08 | Ultrasound Report ---
PROCEDURE: Abdomen Limited INDICATIONS: RUQ pain TECHNIQUE: Real-time focused scanning was performed of the abdomen, with image documentation. COMPARISON: 10/20/2021 CT FINDINGS: Liver measures 17 cm. Increased echogenicity. Suspected sparing around the gallbladder fos sa. Gallbladder is within normal limits. No pathologic biliary ductal dilation. CBD measures 5 mm. Pancreatic head is unremarkable. Right kidney measures 12 cm, within normal limits. IMPRESSION: Unremarkable sonographic appearance of the gallbladder. Echogenic liver, nonspecific, most commonly seen with steatosis Reviewed by: Heladio Florez MD on 12/24/2022 3:07 PM PST Approved by: Heladio Florez MD on 12/24/2022 3:07 PM PST Station ID: [id number]
[2022-12-24] MEDS ORDERED: PANTOPRAZOLE 40 MG VIAL IVP STA (15:35)
[2022-12-24] MEDS ORDERED: METOPROLOL 5 MG/5 ML VIAL IVP STA (16:23)
[2022-12-24] MEDS ORDERED: cloNIDine 0.1 MG PATCH TOP SCH (17:00)
--- NOTE | 2022-12-24 17:09 | PHARMACY PROGRESS NOTE ---
- Best Possible Medication History Admit Date and Time: Processed by: Pharmacy Medication History completed: Yes Patient Interview: Pt unable to participate Secondary Source(s): Physician records, Pharmacy records, Insurance records As the person ultimately responsible for medication therapy, providers are able to order a medication from an existing home medication list in [facility] via the "Reconcile Routine" prior to Confirmation of that medication by director of operations support. Such practice is discouraged except when the physician, in their clinical judgment, deems that a medical need exists for a medication without regard to previous use.
[2022-12-24 17:15] LABS: B. PARAPERTUSSIS- RESP PCR PAN NOT DETECTED; B. PERTUSSIS- RESP PCR PANEL NOT DETECTED; C. PNEUMONIAE- RESP PCR PANEL NOT DETECTED; CORONAVIRUS 229E-RESP PCR NOT DETECTED; CORONAVIRUS HKU1-RESP PCR NOT DETECTED; CORONAVIRUS NL63-RESP PCR NOT DETECTED; CORONAVIRUS OC43-RESP PCR NOT DETECTED; HUMAN METAPNEUMOVIRUS NOT DETECTED; INFLUENZA A- RESP PCR PANEL NOT DETECTED; INFLUENZA B - RESP PCR PANEL NOT DETECTED; M. PNEUMONIAE- RESP PCR PANEL NOT DETECTED; PARAINFLUENZA VIRUS 1 NOT DETECTED; PARAINFLUENZA VIRUS 2 NOT DETECTED; PARAINFLUENZA VIRUS 3 NOT DETECTED; PARAINFLUENZA VIRUS 4 NOT DETECTED; RHINOVIRUS/ENTEROVIRUS NOT DETECTED; RSV- RESP PCR PANEL NOT DETECTED; SARS-CoV-2 -RESP PCR PANEL NOT DETECTED
[2022-12-24] MEDS ORDERED: hydrALAZINE INJ 20 MG/ML VIAL IVP ONE (17:28)
--- NOTE | 2022-12-24 17:39 | HISTORY & PHYSICAL EXAMINATION ---
Chief Complaint - Chief Complaint Chief Complaint: N/V/D, sent by ambulance from clinic History of Present Illness - Admitted From Admitted From:: ED - History Obtained From Records Reviewed: [facility] records History obtained from: ED provider and the patient - History of Present Illness HPI Comment/Other: This is a 57-year-old white female with a history of hypertension, chronic marijuana abuse with suspected cyclical nausea and vomiting related to marijuana. She had admission here 2 years ago for nausea vomiting diarrhea that was from colitis. She had admission here 3 years ago for chest pain, stress test was abnormal and she was referred for an angiogram but the seam stayer repeated the stress test and it was apparently normal and she never underwent the coronary angiogram. There was also a plan to get a [employer], she did m eet one, but never followed through on EGD or colonoscopy because her father . Patient went to a clinic provider today complaining of 1 month of mucousy diarrhea, without pain or blood, and 4 days of nausea and vomiting and she could not keep down her usual medications. She is on several blood pressure medications. Upon arrival to our EF, she was found to have a BP of 265 systolic. She was given Lopressor 5 mg IV. For her emesis, Haldol was considered, but that gave her a side effect in the past, so she was treated with Zofran iv which had no effect, then she was given Droperidol which did give her temporary relief of the nausea. She also received Dilaudid for the abdominal pain. She underwent a POCUS ultrasound that showed a dilated gallbladder but no dilation of ducts or stones or wall thickening. A diagnostic imaging ultrasound was therefore done and confirmed this finding. No CT abdomen was done since we have no CT scanner available today. No MRI was ordered. The ER provider, Dr. Garcia, then contacted me on the Hospitalist team, and we discussed her case including her management going forward, to treat her nausea and vomiting possibly caused by cyclical vomiting related to marijuana, to evaluate and manage diarrhea, and her persistent hypertension which remained poorly controlled, the last blood pressure was 225 systolic. When I met the patient, she had just received Zofran and was not nauseated but complained of abdominal pain and was reminding her nurse that she needed trazodone for sleep. When asked details about the history she described that her diarrhea was on and off for a month but she never found the time to go see somebody about it. She had no hematemesisi or hematochezia. 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 Her father had a history of heart disease and heart failure. He from what she believes his lung cancer. She has one sister who from an overdose of her antihypertensives. Living arrangement: At home Living Situation: With spouse/s.o. Social History Notes: She lives at home with her fianc. She smokes marijuana on a daily basis with last use being several days ago. She denies cigarettes or alcohol use. She does not work. 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 - Substance History Abuse: Recurrent use of substance despite neg consequences: Cannabis - POLST Patient has POLST: No Meds/Allgy - Home Medications Home Medications: Ambulatory Orders Medication Instructions Recorded Confirmed Metoprolol Tartrate [Lopressor] 25 mg PO BID #60 tablet 07/04/20 12/24/22 DULoxetine [Cymbalta] 40 mg PO DAILY 12/27/20 12/24/22 traZODone [Desyrel] 50 - 100 mg PO HS PRN 12/27/20 12/24/22 Albuterol Sulf [Ventolin Hfa 1 - 2 puffs INH Q4HR PRN 12/24/22 12/24/22 Inhaler] Pantoprazole [Protonix] 40 mg PO 12/24/22 Tizanidine HCl 4 - 8 mg PO TID PRN 12/24/22 12/24/22 - Allergies Allergies/Adverse Reactions: Allergies Allergy/AdvReac Type Severity Reaction Status Date / Time amoxicillin trihydrate * Allergy anaphalaxis Verified 04/03/21 05:16 [From Augmentin] cephalexin monohydrate * Allergy anaphalaxis Verified 04/03/21 05:16 [From Keflex] doxycycline Allergy Unknown Verified 04/03/21 05:16 Penicillins Allergy anaphalaxis Verified 04/03/21 05:16 potassium clavulanate * Allergy anaphalaxis Verified 10/20/21 10:12 [From Augmentin] propoxyphene napsylate * Allergy "feels Verified 10/20/21 10:12 [From Darvocet-N] unbalanced" tetanus and diphtheria Allergy Edema Verified 10/20/21 10:12 toxoids codeine AdvReac Nausea Verified 10/20/21 10:12 dexamethasone AdvReac psychotic Verified 10/20/21 10:12 gabapentin [From Neurontin] AdvReac forgets Verified 10/20/21 10:12 everything, dizziness hydrocodone bitartrate * AdvReac agitated Verified 10/20/21 10:12 [From Vicodin] metoclopramide HCl * AdvReac Anxiety Verified 10/20/21 10:12 [From Reglan] prednisone AdvReac psychotic Verified 10/20/21 10:12 prochlorperazine edisylate * AdvReac anxious Verified 10/20/21 10:12 [From Compazine] prochlorperazine maleate * AdvReac anxious Verified 10/20/21 10:12 [From Compazine] topiramate [From Topamax] AdvReac Unknown Verified 10/20/21 10:12 Review of Systems - Constitutional Constitutional: reports: Weakness - Gastrointestinal Gastrointestinal: reports: Abdominal pain, Diarrhea, Nausea, Vomiting - All Other Systems All Other Systems: reports: Reviewed and negative Exam - Vital Signs Vital Signs: Vital Signs x48h Temp Pulse Resp BP Pulse Ox 12/24/22 16:40 67 13 225/101 H 92 12/24/22 16:00 35.9 C L 72 21 236/111 H 96 12/24/22 14:46 63 20 230/94 H 99 12/24/22 14:38 190/100 H 12/24/22 13:15 35.4 C L 56 L 18 263/98 H 99 - Physical Exam General Appearance: positive: Alert, Mild distress, Other (Fidgety and appears anxious) Eyes Bilateral: positive: Normal inspection, No lid inflammation ENT: positive: Dry mucous membranes Neck: positive: Nml inspection, No JVD Respiratory: positive: No respiratory distress, Breath sounds nml Cardiovascular: positive: Regular rate & rhythm, No murmur Abdomen: positive: No distention (No tympany), Other (Diminished bowel sounds. No guarding or rebound. No tenderness to light palpation.) Skin: positive: Warm, Dry Extremities: positive: Non-tender, No pedal edema Neurologic/Psychiatric: positive: Oriented x3, Motor nml, Other (Fidgety and appears anxious) Conclusion/Plan - Problem List (1) Hypertensive urgency Conclusion/Plan: Her BP is elevated from her discomfort from her nausea and vomiting and abd pain. And her blood pressure is poorly controlled from not being able to ingest and keep down her usual blood pressure medications for several days. She does not describe chest pain or shortness of breath. Plan: Will place the patient in Observation status for further treatment of her high blood pressure and her vomiting, which could resolve in under 2 midnights. We will treat her HTN with parenteral measures including IV hydralazine now and q6h prn (parameters will be set), will start scheduled IV beta-blockers every 6 hours with hold parameters, and a topical clonidine patch. We will treat her underlying nausea and vomiting so that she may eventually return back to her usual oral BP meds. (2) Cyclical vomiting with nausea Conclusion/Plan: The ED provider suspects that the cause of this is her chronic marijuana use causing cyclical nausea and vomiting marijuana syndrome. She has however had colitis in the past with similar symptoms. Other than the RUQ ultrasound, no abdominal imaging has yet been done today (the CT scanner is not available today or for the next 48 hours). Plan: We will start IV fluids We will give IV antiemetics We will order n.p.o. except ice chips for diet, advance to clear liquids and then overall advance very slowly We will obtain abdomen MRI to evaluate for other causes of diarrhea, nausea and vomiting such as gastritis and/or colitis For abdominal pain, will give IV Ofermev and for severe pain, IV Dilaudid (3) Elevated troponin Conclusion/Plan: The patient has a normal resting EKG. However, because of her history of an abnormal stress test, in the ED her troponins were cycled x2 and were abnormal: first trop 15 and 2 hours later trop was 30. Plan: We will place the patient on telemetry We will continue to monitor her troponins We will treat her underlying poorly controlled hypertension which may be adding to this troponin elevation and causing demand ischemia (4) Abnormal gallbladder ultrasound Conclusion/Plan: The distension could be from no po intake, but GB wall thickening suggests inflammation. Plan: Give iv pain meds and iv antiemetics prn Will obtain imaging of the entire abdomen. We have no CT available today or for the next 2 days, therefore will order an abd MRI. Gen Surg consult if needed. - Lab Results Fish Bones: 12/25/22 04:57 12/25/22 04:57 - Diagnostic Imaging Results Diagnostic Imaging Results: positive: Final report reviewed
[2022-12-24] MEDS: DEXTROSE 5%-0.45% NACL 1,000 ML IV SCH (18:00)
[2022-12-24] MEDS: SODIUM CHLORIDE FLUSH 0.9% 10 ML SYRINGE IVP SCH (18:00)
[2022-12-24] MEDS: ACETAMINOPHEN 1,000 MG/100 ML 1,000 MG/100 ML BAG IV PRN (18:02)
[2022-12-24] MEDS ORDERED: traZODone 50 MG TABLET PO PRN (18:04)
[2022-12-24] MEDS: ONDANSETRON 4 MG/2 ML VIAL IVP PRN (18:05)
[2022-12-24] MEDS ORDERED: ALBUTEROL NEB 2.5 MG/3 ML INH PRN (18:12)
[2022-12-24] MEDS ORDERED: hydrALAZINE INJ 20 MG/ML VIAL IVP PRN (19:06)
--- NOTE | 2022-12-24 20:54 | MRI Report ---
PROCEDURE: ABDOMEN WO INDICATIONS: Diarrhea x 1mo, N/V x4 days TECHNIQUE: Coronal HASTE, axial 2D FLASH in- and [id number]; axial breath-hold T2 FSE. Oblique coronal and ax ial thin-slice HASTE, radial thick-slab HASTE centered on the extrahepatic bile ducts. Diffusion we ighted imaging and ADC also performed. COMPARISON: CT abdomen pelvis 10/20/2021, ultrasound 12/24/2022. FINDINGS: Image quality: There is motion artifact limiting evaluation. Lung bases: No basal pleural effusions. Heart size is normal. Biliary ducts and panreas: The gallbladder is distended with wall thickening and a small amount of pe richolecystic fluid. No discrete gallstones identified. There is no intra or extra hepatic biliary du ctal dilatation. No filling defects within the common bile duct to suggest choledocholithiasis. Pancr eatic duct is nondistended. No discrete pancreatic mass identified in the absence of intravenous cont rast. Solid organs: Noncontrast evaluation of the liver demonstrates no discrete mass. No adrenal nodules. Kidneys demonstrate no hydronephrosis. Nodes and vessels: No retroperitoneal or mesenteric adenopathy by size criteria. Aorta and inferior vena cava are normal in size. Bowel and peritoneum: Visualized bowel loops are normal in caliber. No free fluid. Bones and soft tissues: No ventral hernias. Bone marrow is normal in overall signal. IMPRESSION: 1. Distention of the gallbladder with mild wall thickening and pericholecystic fluid. No discrete gal lstones identified. The findings are suggestive of acalculus cholecystitis. 2. No biliary ductal dilatation or evidence of choledocholithiasis. 3. No evidence of bowel obstruction within the visualized abdomen. Reviewed by: Robert Sierra MD on 12/24/2022 8:53 PM PST Approved by: Robert Sierra MD on 12/24/2022 8:53 PM PST Station ID: [id number]
[2022-12-24] MEDS ORDERED: HYDROmorphone 2 MG/ML VIAL IVP ONE (21:00)
[2022-12-24] MEDS ORDERED: METOPROLOL 5 MG/5 ML VIAL IVP ONE (22:14)
[2022-12-24] MEDS: METOPROLOL 5 MG/5 ML VIAL IVP SCH (22:18)
[2022-12-25] MEDS: ONDANSETRON 4 MG/2 ML VIAL IVP PRN ×3 (00:29→13:42)
[2022-12-25] MEDS: SODIUM CHLORIDE FLUSH 0.9% 10 ML SYRINGE IVP SCH ×2 (01:00→11:09)
[2022-12-25] MEDS: ACETAMINOPHEN 1,000 MG/100 ML 1,000 MG/100 ML BAG IV PRN (02:51)
[2022-12-25] MEDS: NICARDIPINE HCL 25 MG in SODIUM CHLORIDE 0.9% 240 ML IV SCH ×6 (03:29→15:46)
[2022-12-25] MEDS ORDERED: LORazepam 2 MG/ML VIAL IVP ONE (04:00)
[2022-12-25 05:18] LABS: BASOPHILS % (AUTO) 0.3 %; EOSINOPHILS % (AUTO) 0.2 %; HCT - HEMATOCRIT 50.8 % (37.0-47.0); HGB - HEMOGLOBIN 16.7 g/dL (12.0-16.0); LYMPHOCYTES % (AUTO) 4.4 %; MEAN CORPUSCULAR HEMOGLOBIN 28.5 pg (27.0-31.0); MEAN CORPUSCULAR HGB CONC 32.9 g/dL (32.0-36.0); MEAN CORPUSCULAR VOLUME 86.8 fL (81.0-99.0); MEAN PLATELET VOLUME 8.6 fL (7.9-10.8); MONOCYTES % (AUTO) 5.6 %; NEUTROPHILS % (AUTO) 88.9 %; PLT - PLATELET COUNT 384 10^3/uL (130-450); RED BLOOD COUNT 5.85 10^6/uL (4.20-5.40); RED CELL DISTRIBUTION WIDTH 12.9 % (12.0-15.0); WHITE BLOOD COUNT 22.3 x10^3/uL (4.8-10.8)
[2022-12-25 05:31] LABS: ABNORMAL LYMPHS % (MANUAL) 0 %; BAND NEUTROPHILS % (MANUAL) 0 %
[2022-12-25 05:37] LABS: CALCIUM 9.6 mg/dL (8.5-10.3); CREATININE 1.2 mg/dL (0.4-1.0); MAGNESIUM 1.6 mg/dL (1.7-2.8); PHOSPHORUS 1.5 mg/dL (2.5-4.6); POTASSIUM 3.3 mmol/L (3.5-5.0)
[2022-12-25] MEDS: METOPROLOL 5 MG/5 ML VIAL IVP SCH (05:44)
[2022-12-25] MEDS ORDERED: NICARDIPINE HCL 25 MG/10 ML VIAL IV ONE (05:55)
[2022-12-25] MEDS ORDERED: HYDROmorphone 0.5 MG/0.5 ML SYRINGE IVP STA (06:33)
[2022-12-25 06:42] LABS: DIFFERENTIAL COMMENT MANUAL DIFFERENTIAL; LYMPHOCYTES # (MANUAL) 1.1 10^3/uL (1.5-3.5); LYMPHOCYTES % (MANUAL) 5 %; NEUTROPHILS # (MANUAL) 19.2 10^3/uL (1.5-6.6); PLATELET ESTIMATE, MANUAL NORMAL (130-450,000) (NORMAL); RBC MORPHOLOGY (MULTIPLE) NORMAL APPEARANCE (NORMAL)
[2022-12-25] MEDS ORDERED: DULoxetine 20 MG CAPSULE PO SCH (09:00)
[2022-12-25] MEDS ORDERED: hydrALAZINE INJ 20 MG/ML VIAL IVP SCH ×2 (10:00→11:23)
[2022-12-25] MEDS: SODIUM CHLORIDE FLUSH 0.9% 10 ML SYRINGE IVP PRN ×4 (10:02→13:43)
[2022-12-25] MEDS: HYDROmorphone 1 MG/ML CARPUJECT IVP PRN ×2 (10:15→14:32)
[2022-12-25] MEDS: LORazepam 2 MG/ML VIAL IVP PRN ×2 (10:17→15:45)
[2022-12-25] MEDS: DEXTROSE 5%-0.45% NACL 1,000 ML IV SCH (11:09)
[2022-12-25] MEDS ORDERED: hydrALAZINE INJ 20 MG/ML VIAL IVP ONE (11:23)
[2022-12-25] MEDS ORDERED: METOPROLOL 5 MG/5 ML VIAL IVP SCH (11:24)
[2022-12-25] MEDS ORDERED: ASPIRIN CHEW 81 MG TABLET PO STA (11:42)
[2022-12-25] MEDS ORDERED: levoFLOXacin 750 MG/150 ML 750 MG/150 ML BAG IV SCH (12:00)
[2022-12-25] MEDS ORDERED: PANTOPRAZOLE 40 MG VIAL IV SCH (12:00)
[2022-12-25] MEDS ORDERED: HEPARIN 25000UNITS/500ML (D5W) 25,000 UNIT/500 ML BAG IV SCH (12:00)
[2022-12-25] MEDS ORDERED: metroNIDAZOLE 500 MG/100 ML 500 MG/100 ML BAG IV SCH (12:00)
[2022-12-25] MEDS: HYDROmorphone 1 MG/ML CARPUJECT IVP ONE ×2 (12:15→13:35)
--- NOTE | 2022-12-25 13:00 | CONSULTATION NOTE ---
Referring Provider Name of Referring Provider:: Dr. Kalie Whelan Consult Date: 12/25/22 Chief Complaint - Chief Complaint Chief Complaint: Acalculous cholecystitis History of Present Illness - History Obtained From Records Reviewed: Yes History obtained from: Patient and chart Exam Limitations: None - History of Present Illness HPI Comment/Other: This is a 57-year-old white female with a history of hypertension, chronic marijuana use and history of multiple medical problems including endometriosis, colitis and possible chronic gallbladder problems who Dr. Whelan called me on consult to evaluate her gallbladder and consider cholecystectomy. In the time that the consult was called and I saw the patient (about an hour) the patient's troponins spiked and her EKG shows changes consistent with cardiac ischemia. with suspected cyclical nausea and vomiting related to marijuana. Importantly, stress test done to evaluate chest pain 3 years ago was abnormal and she was referred for an angiogram but the biomedical manager repeated the stress test and it was apparently normal and she never underwent the coronary angiogram. There was also a plan to get a Accountant Manager, she did meet one, but never followed through on EGD or colonoscopy because her father . Long story short, she has a multitude of GI complaints including mucousy diarrhea and nausea and vomiting with recent RUQ post-prandial pain but deneis melena, hematochezia or hematemesis. She has had discussions regarding the possibility of marijuana induced hyperemesis but "does not think this is the etiology." I explained that there is not set "dose" of marijuana and each person's response is different. CT scan is not available this weekend so MRI showed thickened gallbladder wall with pericholecystic fluid. Whille I was talking to the patient, Dr. Whelan asked if I could place a central line and I stated that I would try. Verbal and written consent was obtained for central line placement. 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 Her father had a history of heart disease and heart failure. He from what she believes his lung cancer. She has one sister who from an overdose of her antihypertensives. Living arrangement: At home Living Situation: With spouse/s.o. Social History Notes: She lives at home with her fianc. She smokes marijuana on a daily basis with last use being several days ago. She denies cigarettes or alcohol use. She does not work. 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 - Substance History Abuse: Recurrent use of substance despite neg consequences: Cannabis - POLST Patient has POLST: No Meds/Allgy - Home Medications Home Medications: Ambulatory Orders Medication Instructions Recorded Confirmed Metoprolol Tartrate [Lopressor] 25 mg PO BID #60 tablet 07/04/20 12/24/22 DULoxetine [Cymbalta] 40 mg PO DAILY 12/27/20 12/24/22 traZODone [Desyrel] 50 - 100 mg PO HS PRN 12/27/20 12/24/22 Albuterol Sulf [Ventolin Hfa 1 - 2 puffs INH Q4HR PRN 12/24/22 12/24/22 Inhaler] Pantoprazole [Protonix] 40 mg PO 12/24/22 Tizanidine HCl 4 - 8 mg PO TID PRN 12/24/22 12/24/22 - Allergies Allergies/Adverse Reactions: Allergies Allergy/AdvReac Type Severity Reaction Status Date / Time amoxicillin trihydrate * Allergy anaphalaxis Verified 04/03/21 05:16 [From Augmentin] cephalexin monohydrate * Allergy anaphalaxis Verified 04/03/21 05:16 [From Keflex] doxycycline Allergy Unknown Verified 04/03/21 05:16 Penicillins Allergy anaphalaxis Verified 04/03/21 05:16 potassium clavulanate * Allergy anaphalaxis Verified 10/20/21 10:12 [From Augmentin] propoxyphene napsylate * Allergy "feels Verified 10/20/21 10:12 [From Darvocet-N] unbalanced" tetanus and diphtheria Allergy Edema Verified 10/20/21 10:12 toxoids codeine AdvReac Nausea Verified 10/20/21 10:12 dexamethasone AdvReac psychotic Verified 10/20/21 10:12 gabapentin [From Neurontin] AdvReac forgets Verified 10/20/21 10:12 everything, dizziness hydrocodone bitartrate * AdvReac agitated Verified 10/20/21 10:12 [From Vicodin] metoclopramide HCl * AdvReac Anxiety Verified 10/20/21 10:12 [From Reglan] prednisone AdvReac psychotic Verified 10/20/21 10:12 prochlorperazine edisylate * AdvReac anxious Verified 10/20/21 10:12 [From Compazine] prochlorperazine maleate * AdvReac anxious Verified 10/20/21 10:12 [From Compazine] topiramate [From Topamax] AdvReac Unknown Verified 10/20/21 10:12 Review of Systems - Constitutional Constitutional: reports: Fatigue, Malaise, Weakness - Eyes Eyes: denies: Pain - Ears, Nose & Throat Ears, Nose & Throat: denies: Ear pain, Hearing loss - Cardiovascular Cariovascular: reports: Chest pain - Gastrointestinal Gastrointestinal: reports: Abdominal pain, Diarrhea, Change in bowel habits, Nausea, Vomiting, Reflux/heartburn, Bloating. denies: Black stools, Bloody stools, Juanito blood emesis - Genitourinary Genitourinary: denies: Dysuria - Musculoskeletal Musculoskeletal: reports: Muscle pain, Back pain, Muscle aches - Psychiatric Psychiatric: reports: Anxiety Exam - Vital Signs Reviewed Vital Signs: Yes Vital Signs: Vital Signs x48h Temp Pulse Resp BP BP Pulse Ox 12/25/22 12:40 151/79 H 12/25/22 12:39 151/79 H 12/25/22 12:04 102 H 16 153/73 H 98 12/25/22 11:58 37.2 C 12/25/22 11:45 115 H 164/48 H 12/25/22 11:34 120 H 158/74 H 12/25/22 11:06 105 H 22 143/75 H 97 12/25/22 10:15 118 H 143/80 H 12/25/22 10:00 120 H 21 126/96 H 97 12/25/22 09:52 113/95 H 12/25/22 09:45 115 H 113/95 H 12/25/22 09:30 116 H 151/91 H 12/25/22 09:15 110 H 145/70 H 12/25/22 09:00 114 H 26 H 135/81 H 96 12/25/22 08:45 114 H 124/74 12/25/22 08:30 121 H 103/64 12/25/22 08:15 112 H 20 150/70 H 97 12/25/22 08:00 36.1 C L 114 H 22 139/76 H 96 12/25/22 07:45 120 H 24 138/75 H 96 12/25/22 07:32 115 H 17 84/59 L 97 12/25/22 07:15 111 H 16 165/81 H 96 12/25/22 07:00 119 H 21 158/91 H 96 12/25/22 06:00 36.9 C 110 H 22 164/90 H 96 12/25/22 05:44 192/165 H 12/25/22 05:30 124 H 192/165 H 12/25/22 05:15 116 H 186/86 H 12/25/22 05:00 113 H 18 180/67 H 96 - Physical Exam General Appearance: positive: No acute distress (Nervous but coping well.), Alert Eyes Bilateral: positive: Conjunctivae nml ENT: positive: Pharynx nml, No signs of dehydration Neck: positive: Trachea midline Respiratory: positive: Chest non-tender, No respiratory distress Cardiovascular: positive: Regular rate & rhythm (Intermittently tachycardic.) Abdomen: positive: Nml bowel sounds Skin: positive: Color nml Extremities: positive: Nml appearance Neurologic/Psychiatric: positive: Oriented x3, Motor nml, Sensation nml, Mood/affect nml Conclusion/Plan - Lab Results Lab results reviewed: Yes Fish Bones: 12/25/22 04:57 12/25/22 04:57 - EKG Results EKG Interpreted Independently: No - Other Other Results/Comments: In light of ongoing cardiac ischemia, it is not [place] to remove the patient's gallbladder. Antibiotics (avoiding patient's multiple allergies) are indicated. The elevated WBC is at least partially due to dehydration as Hgb/Hct also elevated. Spoke about fat free diet as a way of minimizing gallbladder issues/pain. The patient's cardiac status is the front and center concern. Once the patient has been treated and cardiac issues have been stabilized (stents, surgery, medication) then a determination can be made regarding her gallbladder. If the gallbladder must be treated early then a cholecystostomy tube can be considered as a way to temporize. All of this was discussed with the patient (with the exception of the cholecystostomy tube) who is in agreement. She states that when she is done taking care of her heart she would like to see me regarding her gallbladder and consideration of endoscopy/colonoscopy. I gave her my card and asked that if she has any additional surgical questions to contact me. Multiple attempts at placing a LEFT subclavian triple lumen were unsuccessful (reported separately) and Jose A Garza CRNA was called. CXR was ordered to look for pneumothorax. CPT 16553
--- NOTE | 2022-12-25 13:07 | DISCHARGE SUMMARY ---
Discharge Summary Admit Date: 12/24/22 Discharge Date: 12/25/22 Discharging Provider: Dr Kalie Richard Primary Care Provider: Unknown Code Status: Attempt Resuscitation Condition at Discharge: Serious Discharge Disposition: 02 Transfer Acute Care Hosp - [facility] History of Present Illness: This is a 57-year-old white female with a history of hypertension, chronic marijuana abuse with suspected cyclical nausea and vomiting related to marijuana. She had admission here 2 years ago for nausea vomiting diarrhea that was from colitis. She had admission here 3 years ago for chest pain, stress test was abnormal and she was referred for an outpatient angiogram at [facility], but the Almond Huller repeated the stress test and it was apparently normal and she never underwent the coronary angiogram. There was also a plan to get a Senior Court Office Assistant, and she did meet one, but never followed through on EGD or colonoscopy because her father . Patient went to a clinic provider today complaining of 1 month of mucousy diarrhea, without pain or blood, and 4 days of abdominal pain, nausea and vomiting and she could not keep down her usual medications. She is on several blood pressure medications. Upon arrival to our ER, she was found to have a BP of 265 systolic. She was given Lopressor 5 mg IV. For her emesis, Haldol was considered, but that gave her a side effect in the past, so she was treated with Zofran iv which had no effect, then she was given Droperidol which did give her temporary relief of the nausea. She also received Dilaudid for the abdominal pain. She underwent a POCUS ultrasound that showed a dilated gallbladder but no dilation of ducts or stones or wall thickening. A diagnostic imaging ultrasound was therefore done and confirmed this finding. No CT abdomen was done since we have no CT scanner available that day (12/24/22). No MRI was ordered. The ER provider then contacted me on the Hospitalist team, and we discussed her case including her management going forward, to treat her nausea and vomiting possibly caused by cyclical vomiting related to marijuana, to evaluate and manage diarrhea, and her persistent hypertension which remained poorly controlled, the last blood pressure in the ER was 225 systolic. When I met the patient, she had just received Zofran and was not nauseated but complained of abdominal pain and was reminding her nurse that she needed Trazodone for sleep. When asked details about the history, she described that her diarrhea was on and off for a month but she never found the time to go see somebody about it. She had no hematemesisi or hematochezia. - HOSPITAL COURSE Hospital Course: (1) Malignant HTN Her BP was likely elevated from her abdominal pain, from her nausea and vomiting and from not being able to ingest and keep down her usual blood pressure medications for several days. She was placed in Observation initially for treatment of her high blood pressure and her vomiting, which had resolve in under 2 midnights in the past. She was treated with iv Lopressor, iv Hydralazine, Clonidine patch and iv Ativan plus iv pain meds and antiemetics were given. Despite this, her BP remained severely elevated at 230/113. She was admitted to Inpatient status, and she was transferred into the ICU overnight, a nd a Nicardipine drip was added. This brought her BP down to 140/80's. (2) Acute NSTEMI The patient had a normal resting EKG. However, because of her history of an abnormal stress test, in the ED her hs-troponins were cycled x2 and were abnormal: 15, and 2 hours later hs-trop was 30. These were felt to be elevated due to demand ischemia from the malignant HTN. She was placed on telemetry and further troponins ordered. These continued to climb: 121, 206, 318. An EKG was repeated and showed infero-lateral 3mm ST segment depressions. Patient was told she was having a heart attack and she then admitted that the previous day she was having left anterior chest pain, similar to the kind she had 3 years ago when she needed the stress testing, but had been afraid to tell anyone. The patient was then treated with 4 baby aspirin chewed, IV heparin drip started, IV beta-german dose increased and plan for the iv Nicardipine drip to be changed to IV nitroglycerin. I reached out to have her transferred to a higher level of care and she was kindly accepted by the [facility] at [facility] in [place] and was transferred there in stable condition by [facility] ambulance. (3) Acalculous cholecystitis The ED provider suspected that the cause of her cyclical nausea and vomiting was her chronic marijuana use. She has however had colitis in the past with similar symptoms. She received iv fluids, and prn iv narcotics and iv antiemetics. The GB distension seen on Ultrasound may have been from no po intake, but GB wall thickening suggested inflammation. We had no CT available, thus she had an MRI, to evaluate the entire abdomen. The MRI showed no evidence of colon pathology, but GB wall thickening was seen and pericholecystic fluid, consistent with acalculous cholecystitis. Her WBC at admission was 12, had increased the following day to 22. She was started on empiric iv antibiotics, using Levaquin and Flagyl (chosen due to her anaphylactic reaction history to PCN and Cephalosporins). A General Surgery consult was done, and transfer and management at a higher level of care facility was advised, given her acute AK, and eventual GB surgery advised. She did have RUQ pain but no guarding, and had no nausea and pain was better at the time of transfer. (4) Marijuana abuse As per Hx. Ativan prn was needed for anxiety and fidgeting. (5) Anxiety and Depression She was kept on her usual doses of Cymbalta and hs Trazadone - ALLERGIES Allergies/Adverse Reactions: Allergies Allergy/AdvReac Type Severity Reaction Status Date / Time amoxicillin trihydrate * Allergy anaphalaxis Verified 04/03/21 05:16 [From Augmentin] cephalexin monohydrate * Allergy anaphalaxis Verified 04/03/21 05:16 [From Keflex] doxycycline Allergy Unknown Verified 04/03/21 05:16 Penicillins Allergy anaphalaxis Verified 04/03/21 05:16 potassium clavulanate * Allergy anaphalaxis Verified 10/20/21 10:12 [From Augmentin] propoxyphene napsylate * Allergy "feels Verified 10/20/21 10:12 [From Darvocet-N] unbalanced" tetanus and diphtheria Allergy Edema Verified 10/20/21 10:12 toxoids codeine AdvReac Nausea Verified 10/20/21 10:12 dexamethasone AdvReac psychotic Verified 10/20/21 10:12 gabapentin [From Neurontin] AdvReac forgets Verified 10/20/21 10:12 everything, dizziness hydrocodone bitartrate * AdvReac agitated Verified 10/20/21 10:12 [From Vicodin] metoclopramide HCl * AdvReac Anxiety Verified 10/20/21 10:12 [From Reglan] prednisone AdvReac psychotic Verified 10/20/21 10:12 prochlorperazine edisylate * AdvReac anxious Verified 10/20/21 10:12 [From Compazine] prochlorperazine maleate * AdvReac anxious Verified 10/20/21 10:12 [From Compazine] topiramate [From Topamax] AdvReac Unknown Verified 10/20/21 10:12 - MEDICATIONS Home Medications: Ambulatory Orders Medication Instructions Recorded Confirmed Metoprolol Tartrate [Lopressor] 25 mg PO BID #60 tablet 07/04/20 12/24/22 DULoxetine [Cymbalta] 40 mg PO DAILY 12/27/20 12/24/22 traZODone [Desyrel] 50 - 100 mg PO HS PRN 12/27/20 12/24/22 Albuterol Sulf [Ventolin Hfa 1 - 2 puffs INH Q4HR PRN 12/24/22 12/24/22 Inhaler] Pantoprazole [Protonix] 40 mg PO 12/24/22 Tizanidine HCl 4 - 8 mg PO TID PRN 12/24/22 12/24/22 - PHYSICAL EXAM AT DISCHARGE General Appearance: positive: Mild distress (from RUQ pain), Other (Obese middle-aged white female) Eyes Bilateral: positive: Normal inspection, EOMI ENT: positive: Dry mucous membranes, Other (Upper dentures) Neck: positive: Nml inspection, No JVD Respiratory: positive: No respiratory distress, Breath sounds nml Cardiovascular: positive: Regular rate & rhythm, No murmur (Distant heart sounds due to obesity and large breasts) Abdomen: positive: Other (Obese versus mildly distended, diminished bowel sounds diffusely, mild RUQ tenderness, no guarding or rebound) Skin: positive: Warm, Dry Extremities: positive: Non-tender, No pedal edema Neurologic/Psychiatric: positive: Oriented x3, Motor nml, Other (Nonfocal, no tremor or agitation) - LABS Result Diagrams: 12/25/22 14:02 12/25/22 04:57 - DIAGNOSTIC IMAGING Diagnostic Imaging Results: Final report reviewed - SEPSIS Sepsis Criteria: WBC count greater than 12,000 or less than 4000 - FOLLOW UP Follow Up: This will be determined after her hospitalization at [facility]. - TIME SPENT Time Spent in Discharge (Minutes): 60
--- NOTE | 2022-12-25 13:07 | Discharge Plan ---
Discharge Plan Problem Reviewed?: Yes Disposition: 02 Transfer Acute Care Hosp Condition: Serious No Smoking: If you smoke, Please STOP! Call for help.
[2022-12-25] MEDS ORDERED: MIDAZOLAM 2 MG/2 ML VIAL IVP ONE (13:22)
[2022-12-25] MEDS ORDERED: HYDROmorphone 0.5 MG/0.5 ML SYRINGE IVP ONE (13:23)
[2022-12-25] MEDS ORDERED: MIDAZOLAM 2 MG/2 ML VIAL ONE (13:32)
[2022-12-25] MEDS ORDERED: DEXTROSE 5%-0.45% NACL 1,000 ML IV SCH (13:51)
[2022-12-25 14:11] LABS: HCT - HEMATOCRIT 43.4 % (37.0-47.0); HGB - HEMOGLOBIN 14.2 g/dL (12.0-16.0); MEAN CORPUSCULAR HEMOGLOBIN 28.7 pg (27.0-31.0); MEAN CORPUSCULAR HGB CONC 32.7 g/dL (32.0-36.0); MEAN CORPUSCULAR VOLUME 87.9 fL (81.0-99.0); MEAN PLATELET VOLUME 8.6 fL (7.9-10.8); RED BLOOD COUNT 4.94 10^6/uL (4.20-5.40); RED CELL DISTRIBUTION WIDTH 13.2 % (12.0-15.0); WHITE BLOOD COUNT 18.2 x10^3/uL (4.8-10.8)
--- NOTE | 2022-12-25 14:22 | XRAY Report ---
PROCEDURE: Chest 1 View X-Ray INDICATIONS: r/o pneumothorax s/p failed central line insertion TECHNIQUE: One view of the chest was acquired. COMPARISON: None. FINDINGS: Surgical changes and devices: None. Lungs and pleura: No pleural effusions or pneumothorax. Lungs are clear. Mediastinum: Mediastinal contours appear normal. Heart size is normal. Bones and chest wall: No suspicious bony lesions. Overlying soft tissues appear unremarkable. IMPRESSION: No acute cardiopulmonary abnormality. Reviewed by: Conor Herzog MD on 12/25/2022 2:21 PM PST Approved by: Conor Herzog MD on 12/25/2022 2:21 PM PST Station ID: [id number]
--- NOTE | 2022-12-25 14:29 | ANESTHESIA PROCEDURE NOTE ---
Anesth Central Line Template - Central Line Central Line Preparation: Consent Obtained, Time out completed, Ultrasound used, Sterile prep and drape Central line location: Right IJ Central line type: Triple lumen (at 17cm) Central line catheter tip site resides: Superior vena cava (SVC) Central line aftercare: Chlorhexidine disc placed, Secured, Placement confirmed, No pneumothorax, No complications, Pt tolerated well Other Info/Details: For patient comfort, 2mg versed and 1mg dilaudid was given by RN prior to start of the procedure. Full sterile gown, glove, drape utilized. Right IJ identified under US guidance and used to place 18G introducer needle. Wire advanced with ease. After dilation, a triple lumen central line was inserted and wire removed. All ports aspirate blood and flush with ease. Line sutured in place and placement verified in the SVC by chest xray. Patient tolerated well.
--- NOTE | 2022-12-25 14:55 | XRAY Report ---
PROCEDURE: Chest for Line Placement INDICATIONS: line placement TECHNIQUE: One view of the chest was acquired. COMPARISON: 12/25/2022, 07/03/2020 FINDINGS: Surgical changes and devices: A right-sided central line has been placed, with the tip overlying the superior aspect of the superior vena cava, 7 cm above the cavoatrial junction. Lungs and pleura: No pleural effusions or pneumothorax. Lungs are clear. Mediastinum: Mediastinal contours appear normal. Heart size is normal. Bones and chest wall: No suspicious bony lesions. Overlying soft tissues appear unremarkable. IMPRESSION: The tip of the right-sided central line can be seen overlying the superior aspect of the superior ilan a cava. Reviewed by: Dayton Fortune MD on 12/25/2022 1:53 PM [facility] Approved by: Dayton Fortune MD on 12/25/2022 1:53 PM [facility] Station ID: [id number]
[2022-12-25] MEDS ORDERED: MAGNESIUM SULFATE 2 GRAM 2 GM/50 ML BAG IV ONE (15:29)
[2022-12-25] MEDS ORDERED: NITROGLYCERIN 2% PASTE TOP ONE (15:39)
[2022-12-25] MEDS ORDERED: METOPROLOL 5 MG/5 ML VIAL IVP STA (15:44)
[2022-12-25] MEDS ORDERED: POTASSIUM CHLOR 20 MEQ/100 ML 20 MEQ/100 ML BAG IV SCH (16:00)
[2022-12-25 16:07] VITALS: BP 134/63
== END 2022-12-25 16:20 | disposition short-term general hospital (02) | DRG 281 ==
LOC: EDUNIT# → ED 12:58 → MS2 16:46 → OBSVTOIN 12-25 02:06 → ICU 12-25 03:41
PROVIDERS: ADMIT Internal Medicine; ATTEND Internal Medicine
PROC: 02HV33Z Insertion of Infusion Device into Superior Vena Cava, Percutaneous Approach (ICD-10-PCS; principal; 2022-12-25)
DX: I16.0 Hypertensive urgency (principal); I21.9 Acute myocardial infarction, unspecified; K81.0 Acute cholecystitis; F12.10 Cannabis abuse, uncomplicated; R19.7 Diarrhea, unspecified; K21.9 Gastro-esophageal reflux disease without esophagitis; I10 Essential (primary) hypertension; F41.9 Anxiety disorder, unspecified; F32.A Depression, unspecified; E86.0 Dehydration; E78.00 Pure hypercholesterolemia, unspecified; R11.15 Cyclical vomiting syndrome unrelated to migraine; R11.0 Nausea; Z20.822 Contact with and (suspected) exposure to COVID-19
CPT/HCPCS: 36415; 71045; 74181; 76705; 80048; 80053; 80306; 81001; 83690; 83735; 84100; 84484; 85025; 85027; 85730; 87150; 87633; 93005; 96365; 96366; 96375; 96376; 99284; 99285; A9270; J0131; J1170; J2060; 81003; 87086

== ENCOUNTER 2022-12-31 07:00 | Outpatient (CLI) | payer MEDICAID ==
--- NOTE | 2022-12-31 14:06 | XRAY Report ---
PROCEDURE: Chest 2 View X-Ray INDICATIONS: CHEST PAIN TECHNIQUE: 2 views of the chest were acquired. COMPARISON: Chest radiographs 12/25/2022 FINDINGS: Surgical changes and devices: None. Lungs and pleura: No pleural effusions or pneumothorax. Lungs are clear. Mediastinum: Mediastinal contours are normal. Heart size is normal. Bones and chest wall: No suspicious bony abnormalities. Soft tissues appear unremarkable. IMPRESSION: No acute cardiopulmonary abnormality. Reviewed by: Young Maldonado MD on 12/31/2022 2:05 PM PST Approved by: Young Maldonado MD on 12/31/2022 2:05 PM PST Station ID: [id number]
== END 2022-12-31 23:59 | disposition home or self-care (01) ==
LOC: DI.S 07:00
PROVIDERS: ATTEND Emergency Medicine
DX: R07.9 Chest pain, unspecified (principal)

== ENCOUNTER 2023-07-10 10:38 | Emergency (ER) | payer MEDICAID ==
[2023-07-10 11:15] LABS: BASOPHILS % (AUTO) 0.5 %; EOSINOPHILS # (AUTO) 0.1 10^3/uL (0.0-0.7); EOSINOPHILS % (AUTO) 1.4 %; HCT - HEMATOCRIT 42.2 % (37.0-47.0); HGB - HEMOGLOBIN 13.7 g/dL (12.0-16.0); LYMPHOCYTES # (AUTO) 1.3 10^3/uL (1.5-3.5); LYMPHOCYTES % (AUTO) 15.1 %; MEAN CORPUSCULAR HGB CONC 32.5 g/dL (32.0-36.0); MEAN CORPUSCULAR VOLUME 92.3 fL (81.0-99.0); MEAN PLATELET VOLUME 8.8 fL (7.9-10.8); MONOCYTES # (AUTO) 0.4 10^3/uL (0.0-1.0); MONOCYTES % (AUTO) 4.7 %; NEUTROPHILS # (AUTO) 6.7 10^3/uL (1.5-6.6); NEUTROPHILS % (AUTO) 78.1 %; PLT - PLATELET COUNT 284 10^3/uL (130-450); RED BLOOD COUNT 4.57 10^6/uL (4.20-5.40); WHITE BLOOD COUNT 8.6 x10^3/uL (4.8-10.8)
[2023-07-10 11:33] LABS: ALBUMIN 4.3 g/dL (3.2-5.5); ALBUMIN/GLOBULIN RATIO 1.3 (1.0-2.2); BILIRUBIN,TOTAL 0.3 mg/dL (0.2-1.0); CALCIUM 9.8 mg/dL (8.5-10.3); CREATININE 1.2 mg/dL (0.6-1.3); POTASSIUM 4.1 mmol/L (3.5-4.5); TOTAL PROTEIN 7.6 g/dL (6.4-8.9)
--- NOTE | 2023-07-10 12:52 | ED Physician Documentation ---
PD HPI ABD PAIN - Stated complaint Stated Complaint: N/V/D,GI - Chief complaint Chief Complaint: Abd Pain - History obtained from History obtained from: Patient - History of Present Illness Timing - onset: How many days ago (several) Timing - duration: Days (several) Timing - details: Gradual onset, Still present Quality: Cramping, Aching, Pain Location: Periumbilical, LLQ Radiation: Lower back Associated symptoms: Nausea, Diarrhea, Loss of appetite. No: Fever, Vomiting, Constipation, Dysuria Similar symptoms before: Diagnosis (has had similar a few times in the past, Dx as colitis. No colonoscopies done in the past. No prior complications.) Recently seen: Not recently seen Review of Systems Constitutional: denies: Fever, Chills, Myalgias Nose: denies: Rhinorrhea / runny nose, Congestion Throat: denies: Sore throat Respiratory: denies: Cough GI: reports: Abdominal Pain, Nausea, Diarrhea. 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 : None HEENT: None Psych: Depression, Anxiety Musculoskeletal: Chronic back pain Derm: None - Past Surgical History Past Surgical History: Yes General: Appendectomy, Other Ortho: Spine surgery /WATER POLLUTION CONTROL TECHNICIAN: 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 - Present Medications Home Medications: Ambulatory Orders Medication Instructions Recorded Confirmed Metoprolol Tartrate [Lopressor] 25 mg PO BID #60 tablet 07/04/20 12/24/22 DULoxetine [Cymbalta] 40 mg PO DAILY 12/27/20 12/24/22 traZODone [Desyrel] 50 - 100 mg PO HS PRN 12/27/20 12/24/22 Albuterol Sulf [Ventolin Hfa 1 - 2 puffs INH Q4HR PRN 12/24/22 12/24/22 Inhaler] Pantoprazole [Protonix] 40 mg PO 12/24/22 Tizanidine HCl 4 - 8 mg PO TID PRN 12/24/22 12/24/22 Ciprofloxacin HCl [Cipro] 500 mg PO BID #14 tablet 07/10/23 Dicyclomine [Bentyl] 10 mg PO QID PRN #20 cap 07/10/23 Meloxicam [Mobic] 7.5 mg PO BID 5 Days #10 tablet 07/10/23 metroNIDAZOLE [Flagyl] 500 mg PO BID 7 Days #14 tablet 07/10/23 oxyCODONE [Roxicodone] 5 mg PO Q6H PRN #18 tablet 07/10/23 oxyCODONE [Roxicodone] 5 mg PO Q6H PRN #18 tablet 07/10/23 - Allergies Allergies/Adverse Reactions: Allergies Allergy/AdvReac Type Severity Reaction Status Date / Time amoxicillin trihydrate * Allergy anaphalaxis Verified 04/03/21 05:16 [From Augmentin] cephalexin monohydrate * Allergy anaphalaxis Verified 04/03/21 05:16 [From Keflex] doxycycline Allergy Unknown Verified 04/03/21 05:16 Penicillins Allergy anaphalaxis Verified 04/03/21 05:16 potassium clavulanate * Allergy anaphalaxis Verified 10/20/21 10:12 [From Augmentin] propoxyphene napsylate * Allergy "feels Verified 10/20/21 10:12 [From Darvocet-N] unbalanced" tetanus and diphtheria Allergy Edema Verified 10/20/21 10:12 toxoids codeine AdvReac Nausea Verified 10/20/21 10:12 dexamethasone AdvReac psychotic Verified 10/20/21 10:12 gabapentin [From Neurontin] AdvReac forgets Verified 10/20/21 10:12 everything, dizziness hydrocodone bitartrate * AdvReac agitated Verified 10/20/21 10:12 [From Vicodin] metoclopramide HCl * AdvReac Anxiety Verified 10/20/21 10:12 [From Reglan] prednisone AdvReac psychotic Verified 10/20/21 10:12 prochlorperazine edisylate * AdvReac anxious Verified 10/20/21 10:12 [From Compazine] prochlorperazine maleate * AdvReac anxious Verified 10/20/21 10:12 [From Compazine] topiramate [From Topamax] AdvReac Unknown Verified 10/20/21 10:12 - Social History Does the pt smoke?: No Smoking Status: Never smoker Does the pt drink ETOH?: No Does the pt have substance abuse?: Yes - Immunizations Immunizations are current?: Yes Immunizations: TDAP >10years/unknown, No immun - POLST Patient has POLST: No PD ED PE NORMAL - Vitals Vital signs reviewed: Yes - General General: Alert and oriented X 3, Well developed/nourished, Other (appears in pain and holding lower abd. ) - Neck Neck: Supple, no meningeal sign, No adenopathy - Cardiac Cardiac: RRR, No murmur - Respiratory Respiratory: No respiratory distress, Clear bilaterally - Abdomen Abdomen: Soft, Non distended, Other (tender mid abd and left lower with some local guarding but no percussion nor rebound tenderness. ). No: Normal bowel sounds (diminished) Results - Vitals Vitals: Vital Signs - 24 hr 07/10/23 07/10/23 10:53 14:27 Temperature 36.9 C Heart Rate 58 L 74 Respiratory 15 15 Rate Blood Pressure 156/78 H 147/74 H O2 Saturation 100 95 Oxygen O2 Source Room air - Labs Labs: Laboratory Tests 07/10/23 07/10/23 07/10/23 11:10 11:10 13:00 WBC 8.6 RBC 4.57 Hgb 13.7 Hct 42.2 MCV 92.3 MCH 30.0 MCHC 32.5 RDW 12.0 Plt Count 284 MPV 8.8 Neut # (Auto) 6.7 H Lymph # (Auto) 1.3 L [place] # (Auto) 0.4 Eos # (Auto) 0.1 Baso # (Auto) 0.0 Absolute Nucleated RBC 0.00 Nucleated RBC % 0.0 Sodium 138 Potassium 4.1 Chloride 104 Carbon Dioxide 30 Anion Gap 4.0 L BUN 17 Creatinine 1.2 Estimated GFR (MDRD) 46 L Glucose 113 H Calcium 9.8 Total Bilirubin 0.3 AST 13 ALT 12 Alkaline Phosphatase 69 Total Protein 7.6 Albumin 4.3 Globulin 3.3 Albumin/Globulin Ratio 1.3 Lipase 16 Urine Color YELLOW Urine Clarity CLEAR Urine pH 6.0 Ur Specific [place] 1.020 Urine Protein NEGATIVE Urine Glucose (UA) NEGATIVE Urine Ketones NEGATIVE Urine Occult Blood NEGATIVE Urine Nitrite NEGATIVE Urine Bilirubin NEGATIVE Urine Urobilinogen 0.2 (NORMAL) Ur Leukocyte Esterase SMALL H Urine RBC 0-5 Urine WBC 6-10 H Ur Squamous Epith Cells RARE Squamous Urine Bacteria Few Ur Microscopic Review INDICATED Urine Culture Comments INDICATED PD Medical Decision Making - ED course Complexity details: reviewed results (WBC is normal. LFTs and lipase are normal. Her pain is lower mid to left abd and she states is similar to prior colitis episodes. ), re-evaluated patient (discussed med options and pt prefers trying IM rather than IV as difficult IV stick in the past. Given IM dilaudid, zofran and toradol. She stated much improved aftera bout 30 minutes. She feels improved enough and declines re-dosing. ), considered differential (she states symptoms c/w prior colitis episodes. Her exam does not suggest general peritoneal findings and so consider not needing imaging. ), d/w patient ED course: She has been treated for similar episodes in the past with antibiotics, pain meds, and nausea meds. Allergy to Amox so would not use Augmentin. She states Cipro and flagyl in the past. Hydrocodone makes her nauseated but does okay with oxycodone. Also steroids "make me crazy". Departure - Departure Disposition: 01 Home, Self Care Clinical Impression: Lower abdominal pain, Acute colitis Condition: Stable Record reviewed to determine appropriate education?: Yes Instructions: ED Colitis Ulcerative Follow-Up: Raj Mondragon MD [Primary Care Provider] - Prescriptions: Dicyclomine [Bentyl] 10 mg PO QID PRN #20 cap PRN Reason: Abdominal Pain Ciprofloxacin HCl [Cipro] 500 mg PO BID #14 tablet metroNIDAZOLE [Flagyl] 500 mg PO BID 7 Days #14 tablet Meloxicam [Mobic] 7.5 mg PO BID 5 Days #10 tablet oxyCODONE [Roxicodone] 5 mg PO Q6H PRN #18 tablet PRN Reason: Pain oxyCODONE [Roxicodone] 5 mg PO Q6H PRN #18 tablet PRN Reason: Pain Comments: This does sound reasonably an episode of colitis and he is a feels similar to other episodes. As such it common to treated as an episode of colitis without necessarily needing to get imaging such as CT scan. Stay well-hydrated. [place] diet initially. Use the Cipro and metronidazole antibiotics twice daily as directed. Ondansetron/Zofran as needed for nausea. You can add Tylenol every 4-6 hours if needed for pain and dicyclomine/Bentyl if needed for spasms. Add oxycodone every 4-6 hours if needed for pain. For the short-term you could also use a anti-inflammatory. I wrote for meloxicam 7.5 mg twice daily for the next 5 days. Be sure to take all the medications with food to help minimize stomach side effects. Recheck if not improving well over the next several days and resolving over 5 to 6 days. Return if worsening. I sent your prescriptions to the [facility] in [place]. I am prescribing a short course of narcotic pain medication for you. These are potentially dangerous and addictive medications that should be used carefully. These medications may constipate you. Take an [id number] stool softener such as docusate twice daily with plenty of water while taking these medications. If you go 24 hours without a bowel movement, take [id number] MiraLAX, per package instructions. Do not drink or drive while taking these medications. If you received narcotic or sedating medications while in the emergency department do not drive for 24 hours. Store this medication in a safe, secure place and out of reach of children. It is a violation of federal law to give or sell this medication to another person or to use in a manner other than prescribed. The ED will not refill narcotic prescriptions, including prescriptions lost or stolen. You can dispose of unwanted medications at the [facility]'s office or at several pharmacies such as [facility]. Forms: PCP List Discharge Date/Time: 07/10/23 14:28
[2023-07-10 13:10] LABS: BILIRUBIN,URINE NEGATIVE (NEGATIVE); CLARITY,URINE CLEAR (CLEAR); GLUCOSE, URINE (UA) NEGATIVE (NEGATIVE); KETONES,URINE (UA) NEGATIVE (NEGATIVE); LEUKOCYTE ESTERASE, URINE SMALL (NEGATIVE); NITRITE,URINE NEGATIVE (NEGATIVE); OCCULT BLOOD,URINE NEGATIVE (NEGATIVE); PROTEIN,URINE NEGATIVE (NEGATIVE); UROBILINOGEN,URINE 0.2 (NORMAL) E.U./dL (NORMAL)
[2023-07-10] MEDS ORDERED: HYDROmorphone 1 MG/ML CARPUJECT IM STA (13:14)
[2023-07-10] MEDS ORDERED: ONDANSETRON 4 MG/2 ML VIAL IM STA (13:14)
[2023-07-10] MEDS ORDERED: KETOROLAC 30 MG/ML VIAL IM STA (13:14)
[2023-07-10 13:26] LABS: BACTERIA,URINE Few /HPF (None Seen); RBC,URINE 0-5 /HPF (0-5); SQUAMOUS EPITHELIAL CELL,UR RARE Squamous (<= Few)
[2023-07-10 14:28] VITALS: BP 147/74; O2SAT 95
== END 2023-07-10 14:28 | disposition home or self-care (01) ==
LOC: ED 10:38
DX: K52.9 Noninfective gastroenteritis and colitis, unspecified (principal); I10 Essential (primary) hypertension
CPT/HCPCS: 36415; 80053; 81001; 83690; 85025; 87086; 96372; 99283; 99284; J1170; 81003

== ENCOUNTER 2023-11-30 08:11 | Outpatient (CLI) | payer MEDICAID | END 2023-11-30 23:59 | disposition critical access hospital (66) | LOC: EMS 08:11 | DX: R10.30 Lower abdominal pain, unspecified (principal); R10.2 Pelvic and perineal pain; K92.1 Melena; R03.1 Nonspecific low blood-pressure reading | CPT/HCPCS: A0425; A0427; A0999 ==

== ENCOUNTER 2023-11-30 08:40 | Emergency (ER) | payer MEDICAID ==
[2023-11-30] MEDS ORDERED: SODIUM CHLORIDE 0.9% 1,000 ML IV STA ×2 (09:44→16:01)
[2023-11-30 10:00] LABS: BASOPHILS # (AUTO) 0.1 10^3/uL (0.0-0.1); BASOPHILS % (AUTO) 0.7 %; EOSINOPHILS # (AUTO) 0.1 10^3/uL (0.0-0.7); EOSINOPHILS % (AUTO) 1.9 %; HCT - HEMATOCRIT 42.1 % (37.0-47.0); HGB - HEMOGLOBIN 13.1 g/dL (12.0-16.0); LYMPHOCYTES # (AUTO) 1.8 10^3/uL (1.5-3.5); LYMPHOCYTES % (AUTO) 25.1 %; MEAN CORPUSCULAR HEMOGLOBIN 29.3 pg (27.0-31.0); MEAN CORPUSCULAR HGB CONC 31.1 g/dL (32.0-36.0); MEAN CORPUSCULAR VOLUME 94.2 fL (81.0-99.0); MEAN PLATELET VOLUME 8.8 fL (7.9-10.8); MONOCYTES # (AUTO) 0.4 10^3/uL (0.0-1.0); MONOCYTES % (AUTO) 6.3 %; NEUTROPHILS # (AUTO) 4.6 10^3/uL (1.5-6.6); NEUTROPHILS % (AUTO) 65.7 %; PLT - PLATELET COUNT 290 10^3/uL (130-450); RED BLOOD COUNT 4.47 10^6/uL (4.20-5.40); RED CELL DISTRIBUTION WIDTH 13.4 % (12.0-15.0)
[2023-11-30 10:08] LABS: PT - PROTHROMBIN TIME 11.4 secs (9.9-12.6)
[2023-11-30] MEDS ORDERED: ATROPINE ABBOJECT 1 MG/10 ML SYRINGE IVP STA (10:09)
[2023-11-30 10:12] LABS: ALBUMIN 3.8 g/dL (3.2-5.5); ALBUMIN/GLOBULIN RATIO 1.4 (1.0-2.2); BILIRUBIN,TOTAL 0.4 mg/dL (0.2-1.0); CALCIUM 8.8 mg/dL (8.5-10.3); CREATININE 1.1 mg/dL (0.6-1.3); POTASSIUM 4.7 mmol/L (3.5-4.5); TOTAL PROTEIN 6.5 g/dL (6.4-8.9)
[2023-11-30] MEDS ORDERED: iohexoL-300 100 ML VIAL ONE (11:01)
[2023-11-30] MEDS ORDERED: HYDROmorphone 0.5 MG/0.5 ML SYRINGE IVP STA ×3 (11:41→18:12)
--- NOTE | 2023-11-30 12:35 | ED Physician Documentation ---
PD HPI GI BLEED - Stated complaint Stated Complaint: GIB - Chief complaint Chief Complaint: Abd Pain - History obtained from History obtained from: Patient - Additional information Additional information: Patient is a 58-year-old female presenting for evaluation of rectal bleeding starting this morning. Patient states that she often has abdominal pain and woke up with pain this morning primarily in the lower abdomen that feels like a sharp cramping. She had multiple loose stools which were normal colored which she states she regularly has. She then had several episodes of bright red bloody bowel movements.She did have a colonoscopy last week through [facility] and [facility] because of ongoing abdominal issues. There were a few polyps that were removed and they did have findings of internal hemorrhoids. She is on Plavix due to history of cardiac stent as well as aspirin. She denies fever, cough, chest pain, nausea or vomiting. Review of Systems Constitutional: denies: Fever Cardiac: denies: Chest pain / pressure Respiratory: denies: Dyspnea GI: reports: Abdominal Pain, Diarrhea, Bloody / black stool. 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 COURT CLERK: 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 - Present Medications Home Medications: Ambulatory Orders Medication Instructions Recorded Confirmed Metoprolol Tartrate [Lopressor] 25 mg PO BID #60 tablet 07/04/20 12/24/22 DULoxetine [Cymbalta] 40 mg PO DAILY 12/27/20 12/24/22 traZODone [Desyrel] 50 - 100 mg PO HS PRN 12/27/20 12/24/22 Albuterol Sulf [Ventolin Hfa 1 - 2 puffs INH Q4HR PRN 12/24/22 12/24/22 Inhaler] Pantoprazole [Protonix] 40 mg PO 12/24/22 Tizanidine HCl 4 - 8 mg PO TID PRN 12/24/22 12/24/22 Ciprofloxacin HCl [Cipro] 500 mg PO BID #14 tablet 07/10/23 Dicyclomine [Bentyl] 10 mg PO QID PRN #20 cap 07/10/23 Meloxicam [Mobic] 7.5 mg PO BID 5 Days #10 tablet 07/10/23 metroNIDAZOLE [Flagyl] 500 mg PO BID 7 Days #14 tablet 07/10/23 oxyCODONE [Roxicodone] 5 mg PO Q6H PRN #18 tablet 07/10/23 oxyCODONE [Roxicodone] 5 mg PO Q6H PRN #18 tablet 07/10/23 - Allergies Allergies/Adverse Reactions: Allergies Allergy/AdvReac Type Severity Reaction Status Date / Time amoxicillin trihydrate * Allergy anaphalaxis Verified 04/03/21 05:16 [From Augmentin] cephalexin monohydrate * Allergy anaphalaxis Verified 04/03/21 05:16 [From Keflex] doxycycline Allergy Unknown Verified 04/03/21 05:16 Penicillins Allergy anaphalaxis Verified 04/03/21 05:16 potassium clavulanate * Allergy anaphalaxis Verified 10/20/21 10:12 [From Augmentin] propoxyphene napsylate * Allergy "feels Verified 10/20/21 10:12 [From Darvocet-N] unbalanced" tetanus and diphtheria Allergy Edema Verified 10/20/21 10:12 toxoids codeine AdvReac Nausea Verified 10/20/21 10:12 dexamethasone AdvReac psychotic Verified 10/20/21 10:12 gabapentin [From Neurontin] AdvReac forgets Verified 10/20/21 10:12 everything, dizziness hydrocodone bitartrate * AdvReac agitated Verified 10/20/21 10:12 [From Vicodin] metoclopramide HCl * AdvReac Anxiety Verified 10/20/21 10:12 [From Reglan] prednisone AdvReac psychotic Verified 10/20/21 10:12 prochlorperazine edisylate * AdvReac anxious Verified 10/20/21 10:12 [From Compazine] prochlorperazine maleate * AdvReac anxious Verified 10/20/21 10:12 [From Compazine] topiramate [From Topamax] AdvReac Unknown Verified 10/20/21 10:12 - Social History Does the pt smoke?: No Smoking Status: Never smoker Does the pt drink ETOH?: No Does the pt have substance abuse?: Yes - Immunizations Immunizations are current?: Yes Immunizations: TDAP >10years/unknown, No immun - POLST Patient has POLST: No PD ED PE NORMAL - General General: Alert and oriented X 3, No acute distress, Well developed/nourished - HEENT HEENT: Atraumatic, Moist mucous membranes, Pharynx benign - Neck Neck: Supple, no meningeal sign - Cardiac Cardiac: RRR, Strong equal pulses - Respiratory Respiratory: No respiratory distress, Clear bilaterally - Abdomen Abdomen: Normal bowel sounds, Soft, Non distended, Other (Lower abdominal tenderness; No mass or hernia) - Derm Derm: Warm and dry - Neuro Neuro: Normal speech Results - Vitals Vitals: Vital Signs - 24 hr 11/30/23 11/30/23 11/30/23 09:27 09:59 10:15 Temperature 36.3 C L Heart Rate 64 36 L 99 Respiratory 18 30 H 22 Rate Blood Pressure 135/69 H 73/50 L 101/74 O2 Saturation 98 100 100 11/30/23 11/30/23 11/30/23 11:10 13:00 15:00 Temperature Heart Rate 81 56 L 121 H Respiratory 18 15 19 Rate Blood Pressure 121/69 126/64 143/71 H O2 Saturation 98 99 95 11/30/23 11/30/23 11/30/23 15:33 15:44 16:33 Temperature Heart Rate 121 H 49 L 50 L Respiratory 19 19 19 Rate Blood Pressure 77/58 L 96/65 124/87 H O2 Saturation 97 97 97 11/30/23 11/30/23 18:00 18:12 Temperature Heart Rate 99 60 Respiratory 19 15 Rate Blood Pressure 106/67 120/66 O2 Saturation 98 98 Oxygen O2 Source Room air - EKG (time done) 0936 EKG releavant findings:: EKG personally interpreted by author of this note. Relevant findings are: Rate 51, sinus bradycardia, no STEMI, no ST depressions, QTc 390 1002 EKG releavant findings:: EKG personally interpreted by author of this note. Relevant findings are: Rate 99, normal sinus rhythm, no STEMI - Labs Labs: Laboratory Tests 11/30/23 11/30/23 11/30/23 09:47 09:48 09:48 WBC 7.0 RBC 4.47 Hgb 13.1 Hct 42.1 MCV 94.2 MCH 29.3 MCHC 31.1 L RDW 13.4 Plt Count 290 MPV 8.8 Neut # (Auto) 4.6 Lymph # (Auto) 1.8 [place] # (Auto) 0.4 Eos # (Auto) 0.1 Baso # (Auto) 0.1 Absolute Nucleated RBC 0.00 Nucleated RBC % 0.0 PT INR Sodium Potassium Chloride Carbon Dioxide Anion Gap BUN Creatinine Estimated GFR (MDRD) Glucose Calcium Magnesium Total Bilirubin AST ALT Alkaline Phosphatase Troponin I High Sens Total Protein Albumin Globulin Albumin/Globulin Ratio Lipase Blood Type A POSITIVE Blood Type Recheck A POSITIVE Antibody Screen NEGATIVE 11/30/23 11/30/23 11/30/23 09:48 09:48 09:48 WBC RBC Hgb Hct MCV MCH MCHC RDW Plt Count MPV Neut # (Auto) Lymph # (Auto) [place] # (Auto) Eos # (Auto) Baso # (Auto) Absolute Nucleated RBC Nucleated RBC % PT 11.4 INR 1.0 Sodium 137 Potassium 4.7 H Chloride 107 Carbon Dioxide 26 Anion Gap 4.0 L BUN 23 H Creatinine 1.1 Estimated GFR (MDRD) 51 L Glucose 116 H Calcium 8.8 Magnesium 1.7 Total Bilirubin 0.4 AST 11 ALT 10 Alkaline Phosphatase 57 Troponin I High Sens Total Protein 6.5 Albumin 3.8 Globulin 2.7 Albumin/Globulin Ratio 1.4 Lipase 36 Blood Type Blood Type Recheck Antibody Screen 11/30/23 11/30/23 11/30/23 09:48 13:13 13:13 WBC RBC Hgb 10.7 L Hct 32.2 L MCV MCH MCHC RDW Plt Count MPV Neut # (Auto) Lymph # (Auto) [place] # (Auto) Eos # (Auto) Baso # (Auto) Absolute Nucleated RBC Nucleated RBC % PT INR Sodium Potassium Chloride Carbon Dioxide Anion Gap BUN Creatinine Estimated GFR (MDRD) Glucose Calcium Magnesium Total Bilirubin AST ALT Alkaline Phosphatase Troponin I High Sens 4.9 4.1 Total Protein Albumin Globulin Albumin/Globulin Ratio Lipase Blood Type Blood Type Recheck Antibody Screen 11/30/23 15:57 WBC RBC Hgb 10.0 L Hct 31.5 L MCV MCH MCHC RDW Plt Count MPV Neut # (Auto) Lymph # (Auto) [place] # (Auto) Eos # (Auto) Baso # (Auto) Absolute Nucleated RBC Nucleated RBC % PT INR Sodium Potassium Chloride Carbon Dioxide Anion Gap BUN Creatinine Estimated GFR (MDRD) Glucose Calcium Magnesium Total Bilirubin AST ALT Alkaline Phosphatase Troponin I High Sens Total Protein Albumin Globulin Albumin/Globulin Ratio Lipase Blood Type Blood Type Recheck Antibody Screen PD Medical Decision Making - ED course Complexity details: reviewed results, re-evaluated patient, d/w patient, d/w managing consultant ED course: Pt presenting with lower GI bleed. Multiple bloody BMs. Pt on plavix and aspirin. Initial VSS. Also reports lower abdominal pain which is somewhat chronic for her but worsened everytime she has a BM. Labs reviewed and initial hemoglobin stable. During ED eval, pt has episode of bradycardia (sinus gael from monitor rhythm strips) with HR in 30s and low BP. Given atropine and fluids with improvement. Troponin negative x2. D/W Cardiology who recommends holding her beta german but otherwise would not need acute intervention. CT Angio A/P ordered by contrast extravasated and images were without contrast. No acute findings but limited without contrast. Unfortunately, right after this the CT machine went down and was unable to be repaired the rest of the day. D/W Gen Surg a Pietro who felt pt needs higher level of care. D/W Gi at [facility] (pt had colonoscopy by their group last week with several polyps removed) who agrees to consult. Due to limitations of bed and pt having ongoing bloody BMs with at times hypotension, I requested ER to ER transfer. Pt received several doses of IV narcotics for ongoing reported pain with BMs. Also received IV fluids and zofran. Repeat H/H downtrending but not requiring emergent transfusion. No platelets available at [facility] given she is on antiplatelet agent (plavix). Considered PCC but also concerned about risk of thrombosis with reversal. As we had found an accepting hospital for transfer, held on PCC. 1241 - D/W Dr. Mayorga - Cardiology at [facility]. Does not feel that she needs emergent transfer for her episode of sinus bradycardia. Recommends holding her beta-german for now. 1408 - D/W Dr. Gutierrez (Gen Surg, [facility]) - Feels that patient needs to transfer to facility with more capabilities as we currently do not have CT scanner capabilities to see a source of bleeding. He also says a scope would be limited as he would not be able to see much if she is having active bleeding. Additionally we do not have much to help if she is on Plavix other than blood transfusions. Recommend speaking with her GI at [facility] and transfer there. 1529 - Per RN, patient has had another large bloody bowel movement. D/W Dr. Cotton (GI at [facility]) - Agrees pt should be trasnsferred and would consult if sent to [facility]. Per transfer center, no bed so I requested ER to ER transfer and pt was graciously accepted by Dr. Cam ([facility]) - Critical Care Time(min): 47 Time Includes: Direct patient care, Review records, Reassess patient, Document care, Coordinate care, Medical consult Departure - Departure Disposition: 02 Transfer Acute Care Hosp Clinical Impression: Lower GI bleed, Symptomatic sinus bradycardia, Antiplatelet or antithrombotic long-term use Condition: Fair Forms: PCP List Discharge Date/Time: 11/30/23 18:42
[2023-11-30 13:24] LABS: HCT - HEMATOCRIT 32.2 % (37.0-47.0); HGB - HEMOGLOBIN 10.7 g/dL (12.0-16.0)
[2023-11-30] MEDS ORDERED: iohexoL-300 100 ML VIAL IVP ONE (13:41)
[2023-11-30] MEDS ORDERED: HYDROmorphone 1 MG/ML CARPUJECT IVP STA (13:51)
--- NOTE | 2023-11-30 13:52 | CT Report ---
PROCEDURE: Abdomen/Pelvis WO INDICATIONS: lower abd pain/rectal bleeding TECHNIQUE: A CT scan of the abdomen and pelvis was performed without the use of intravenous contrast. Images we re recorded and evaluated at appropriate window settings. Reformats: coronal and sagittal. For radiat ion dose reduction, the following was used: automated exposure control, adjustment of mA and/or kV ac cording to patient size. COMPARISON: CT abdomen and pelvis with, 10/20/2021. FINDINGS: Image quality: Excellent. Lung bases and heart: Bases are clear. Small hiatal hernia. Liver: No contour-deforming mass. Gallbladder and biliary tree: No radiopaque gallstones. No biliary dilation. Spleen: No splenomegaly. Pancreas: No pancreatic ductal dilation. Adrenals: No adrenal nodule. Kidneys and ureters: No hydronephrosis. No renal cystic lesion which requires follow up. No solid mas s. Bowel and peritoneum: No bowel distension. No pathologic free fluid. Lymph nodes: No central or retroperitoneal adenopathy. Vessels: No infrarenal aortic aneurysm. PELVIS Reproductive organs: Unremarkable. Bladder: No wall thickness, accounting for underdistention. Pelvic lymph nodes: No pelvic adenopathy by size criteria. Bones: No aggressive osseous abnormality. Discectomy and posterior fusion at L4-L5 and L5-S1. Other: No significant ventral or inguinal hernia. IMPRESSION: 1. No acute abnormalities. The examination is limited in the absence of intravenous and oral contrast . A cause for lower abdominal pain and rectal bleeding is not identified. 2. Postsurgical changes in lumbar spine. Reviewed by: Rosalind Noel MD on 11/30/2023 1:51 PM PST Approved by: Rosalind Noel MD on 11/30/2023 1:51 PM PST Station ID: [id number]
[2023-11-30 16:01] LABS: HCT - HEMATOCRIT 31.5 % (37.0-47.0)
[2023-11-30] MEDS ORDERED: ONDANSETRON 4 MG/2 ML VIAL IVP STA (16:07)
[2023-11-30 18:10] VITALS: O2SAT 98
[2023-11-30 18:18] VITALS: BP 120/66
== END 2023-11-30 18:42 | disposition short-term general hospital (02) ==
LOC: EDUNIT# → ED 08:40
DX: K92.2 Gastrointestinal hemorrhage, unspecified (principal); R00.1 Bradycardia, unspecified; I10 Essential (primary) hypertension; Z79.01 Long term (current) use of anticoagulants; Z79.82 Long term (current) use of aspirin; Z95.818 Presence of other cardiac implants and grafts
CPT/HCPCS: 36415; 74176; 80053; 83690; 83735; 84484; 85014; 85018; 85025; 85610; 86850; 86900; 86901; 93005; 96374; 96375; 96376; 99285; 99291; J1170; Q9967

== ENCOUNTER 2024-04-25 08:11 | Emergency (ER) | payer MEDICAID ==
[2024-04-25 08:42] LABS: BASOPHILS % (AUTO) 0.4 %; EOSINOPHILS # (AUTO) 0.1 10^3/uL (0.0-0.7); EOSINOPHILS % (AUTO) 1.1 %; HCT - HEMATOCRIT 37.7 % (37.0-47.0); HGB - HEMOGLOBIN 11.8 g/dL (12.0-16.0); LYMPHOCYTES # (AUTO) 1.4 10^3/uL (1.5-3.5); LYMPHOCYTES % (AUTO) 13.5 %; MEAN CORPUSCULAR HEMOGLOBIN 26.5 pg (27.0-31.0); MEAN CORPUSCULAR HGB CONC 31.3 g/dL (32.0-36.0); MEAN CORPUSCULAR VOLUME 84.7 fL (81.0-99.0); MEAN PLATELET VOLUME 8.5 fL (7.9-10.8); MONOCYTES # (AUTO) 0.6 10^3/uL (0.0-1.0); MONOCYTES % (AUTO) 5.4 %; NEUTROPHILS # (AUTO) 8.2 10^3/uL (1.5-6.6); NEUTROPHILS % (AUTO) 79.2 %; PLT - PLATELET COUNT 274 10^3/uL (130-450); RED BLOOD COUNT 4.45 10^6/uL (4.20-5.40); WHITE BLOOD COUNT 10.4 x10^3/uL (4.8-10.8)
[2024-04-25 08:55] LABS: ALBUMIN 4.3 g/dL (3.2-5.5); ALBUMIN/GLOBULIN RATIO 1.3 (1.0-2.2); BILIRUBIN,TOTAL 0.4 mg/dL (0.2-1.0); CALCIUM 9.6 mg/dL (8.5-10.3); CREATININE 1.2 mg/dL (0.6-1.3); POTASSIUM 3.8 mmol/L (3.5-4.5); TOTAL PROTEIN 7.7 g/dL (6.4-8.9)
[2024-04-25] MEDS ORDERED: iohexoL-300 100 ML VIAL ONE (09:07)
[2024-04-25] MEDS: ONDANSETRON 4 MG/2 ML VIAL IVP STA (09:07)
[2024-04-25] MEDS: SODIUM CHLORIDE 0.9% 1,000 ML IV STA (09:08)
[2024-04-25] MEDS: HYDROmorphone 0.5 MG/0.5 ML SYRINGE IVP STA ×2 (09:08→10:25)
--- NOTE | 2024-04-25 09:25 | ED Physician Documentation ---
PD HPI ABD PAIN - Stated complaint Stated Complaint: ABD PX,NAUSEA - Chief complaint Chief Complaint: Abd Pain - History obtained from History obtained from: Patient, Other (Review of outpatient records) - Additional information Additional information: Patient is a 58-year-old female with history of coronary artery disease, recent stents placed 3 weeks ago at [facility] in [place], presenting for evaluation of nausea with lower abdominal pain that has been intermittent since last week. Patient is oxycodone chronically for chronic pain at home and has been using her pain medication which has helped. However has the pain was not going away she reported to the emergency department this morning. She was admitted to [facility] in [place] March 28 through for coronary artery disease with 2 stents placed to the proximal RCA. There were concerns for pericarditis postprocedure so she was started on colchicine. She is on aspirin and Plavix. Last hemoglobin on March 30 was 9.5. Review of Systems Constitutional: denies: Fever Cardiac: denies: Chest pain / pressure Respiratory: denies: Dyspnea GI: reports: Abdominal Pain, Nausea. 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 : None HEENT: None Psych: Depression, Anxiety Musculoskeletal: Chronic back pain Derm: None - Past Surgical History Past Surgical History: Yes General: Appendectomy, Other Ortho: Spine surgery /RIM TECHNICIAN: 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 Cardiovascular: Coronary stent - Present Medications Home Medications: Ambulatory Orders Medication Instructions Recorded Confirmed Metoprolol Tartrate [Lopressor] 25 mg PO BID #60 tablet 07/04/20 04/25/24 DULoxetine [Cymbalta] 40 mg PO DAILY 12/27/20 04/25/24 traZODone [Desyrel] 50 - 100 mg PO HS PRN 12/27/20 04/25/24 Albuterol Sulf [Ventolin Hfa 1 - 2 puffs INH Q4HR PRN 12/24/22 04/25/24 Inhaler] Pantoprazole [Protonix] 40 mg PO DAILY 12/24/22 04/25/24 Tizanidine HCl 4 - 8 mg PO TID PRN 12/24/22 04/25/24 oxyCODONE [Roxicodone] 5 mg PO Q6H PRN #18 tablet 07/10/23 04/25/24 Amlodipine Besylate [Norvasc] 10 mg PO DAILY 04/25/24 04/25/24 Clopidogrel [Plavix] 75 mg PO DAILY 04/25/24 04/25/24 cloNIDine 0.1 MG PATCH 0.1 mg TOP DAILY 04/25/24 04/25/24 [[id number]] - Allergies Allergies/Adverse Reactions: Allergies Allergy/AdvReac Type Severity Reaction Status Date / Time amoxicillin trihydrate * Allergy anaphalaxis Verified 04/25/24 08:19 [From Augmentin] cephalexin monohydrate * Allergy anaphalaxis Verified 04/25/24 08:19 [From Keflex] doxycycline Allergy Unknown Verified 04/25/24 08:19 Penicillins Allergy anaphalaxis Verified 04/25/24 08:19 potassium clavulanate * Allergy anaphalaxis Verified 04/25/24 08:19 [From Augmentin] propoxyphene napsylate * Allergy "feels Verified 04/25/24 08:19 [From Darvocet-N] unbalanced" tetanus and diphtheria Allergy Edema Verified 04/25/24 08:19 toxoids codeine AdvReac Nausea Verified 04/25/24 08:19 dexamethasone AdvReac psychotic Verified 04/25/24 08:19 gabapentin [From Neurontin] AdvReac forgets Verified 04/25/24 08:19 everything, dizziness hydrocodone bitartrate * AdvReac agitated Verified 04/25/24 08:19 [From Vicodin] metoclopramide HCl * AdvReac Anxiety Verified 04/25/24 08:19 [From Reglan] prednisone AdvReac psychotic Verified 04/25/24 08:19 prochlorperazine edisylate * AdvReac anxious Verified 04/25/24 08:19 [From Compazine] prochlorperazine maleate * AdvReac anxious Verified 04/25/24 08:19 [From Compazine] topiramate [From Topamax] AdvReac Unknown Verified 04/25/24 08:19 - Social History Does the pt smoke?: No Smoking Status: Never smoker Does the pt drink ETOH?: No Does the pt have substance abuse?: Yes - Immunizations Immunizations are current?: Yes Immunizations: TDAP >10years/unknown, No immun - POLST Patient has POLST: No PD ED PE NORMAL - General General: Alert and oriented X 3, No acute distress, Well developed/nourished - HEENT HEENT: Atraumatic - Neck Neck: Supple, no meningeal sign - Cardiac Cardiac: RRR, Strong equal pulses - Respiratory Respiratory: No respiratory distress, Clear bilaterally - Abdomen Abdomen: Normal bowel sounds, Soft, Non distended, Other (Lower abdominal tenderness) - Derm Derm: Warm and dry - Neuro Neuro: Normal speech Results - Vitals Vitals: Vital Signs - 24 hr 04/25/24 04/25/24 04/25/24 08:15 10:20 12:00 Temperature 36.6 C Heart Rate 80 69 71 Respiratory 20 15 17 Rate Blood Pressure 148/85 H 134/73 H 128/72 O2 Saturation 99 100 98 04/25/24 12:12 Temperature 36.5 C Heart Rate 71 Respiratory 17 Rate Blood Pressure 128/72 O2 Saturation 98 Oxygen O2 Source Room air - Labs Labs: Laboratory Tests 04/25/24 04/25/24 04/25/24 08:35 08:35 09:40 WBC 10.4 RBC 4.45 Hgb 11.8 L Hct 37.7 MCV 84.7 MCH 26.5 L MCHC 31.3 L RDW 16.0 H Plt Count 274 MPV 8.5 Neut # (Auto) 8.2 H Lymph # (Auto) 1.4 L [place] # (Auto) 0.6 Eos # (Auto) 0.1 Baso # (Auto) 0.0 Absolute Nucleated RBC 0.00 Nucleated RBC % 0.0 Sodium 139 Potassium 3.8 Chloride 105 Carbon Dioxide 27 Anion Gap 7.0 BUN 18 Creatinine 1.2 Estimated GFR (MDRD) 46 L Glucose 119 H Calcium 9.6 Total Bilirubin 0.4 AST 13 ALT 12 Alkaline Phosphatase 80 Total Protein 7.7 Albumin 4.3 Globulin 3.4 Albumin/Globulin Ratio 1.3 Lipase 11 Urine Color YELLOW Urine Clarity CLEAR Urine pH 6.0 Ur Specific [place] 1.025 Urine Protein NEGATIVE Urine Glucose (UA) NEGATIVE Urine Ketones NEGATIVE Urine Occult Blood NEGATIVE Urine Nitrite NEGATIVE Urine Bilirubin NEGATIVE Urine Urobilinogen 0.2 (NORMAL) Ur Leukocyte Esterase NEGATIVE Ur Microscopic Review NOT INDICATED Urine Culture Comments NOT INDICATED PD Medical Decision Making - ED course Complexity details: reviewed results, re-evaluated patient, d/w patient ED course: Patient is a 58-year-old female with a history of coronary artery disease with recent stents presenting for evaluation of lower abdominal pain with nausea. No upper abdominal pain or chest pain to suggest ACS. Abdominal exam is relatively benign with no rebound or guarding and no signs of peritonitis. CBC, chemistry, urinalysis were reviewed and without significant findings. CT scan of the abdomen and pelvis was obtained with no acute findings. Patient is doing better after IV Dilaudid, Zofran and fluids. She is chronically on opiates and has recently been referred to pain management. Patient understands importance of close outpatient follow-up with her primary care provider. She understands return precautions for worsening symptoms. Departure - Departure Disposition: 01 Home, Self Care Clinical Impression: Lower abdominal pain Condition: Stable Instructions: ED Abdominal Pain Female Non-Specific Abdominal Pain Follow-Up: Raj Mondragon MD [Physician No Access] - Comments: Your lab testing here is reassuring without any significant abnormalities and your CAT scan does not show any inflammation, infection or surgical process. I would recommend close follow-up with your primary care provider if your symptoms persist. Return to the ER if you develop worsening symptoms. Forms: PCP List Discharge Date/Time: 04/25/24 12:13
[2024-04-25 09:51] LABS: BILIRUBIN,URINE NEGATIVE (NEGATIVE); CLARITY,URINE CLEAR (CLEAR); GLUCOSE, URINE (UA) NEGATIVE (NEGATIVE); KETONES,URINE (UA) NEGATIVE (NEGATIVE); LEUKOCYTE ESTERASE, URINE NEGATIVE (NEGATIVE); NITRITE,URINE NEGATIVE (NEGATIVE); OCCULT BLOOD,URINE NEGATIVE (NEGATIVE); PROTEIN,URINE NEGATIVE (NEGATIVE); UROBILINOGEN,URINE 0.2 (NORMAL) E.U./dL (NORMAL)
[2024-04-25] MEDS: iohexoL-300 100 ML VIAL IVP ONE (11:08)
--- NOTE | 2024-04-25 11:43 | CT Report ---
PROCEDURE: Abdomen/Pelvis W INDICATIONS: lower abd pain CONTRAST: Omni 300 100ml TECHNIQUE: After the administration of intravenous contrast, a CT scan of the abdomen and pelvis was performed. Images were recorded and evaluated at appropriate window settings. Reformats: coronal and sagittal. F or radiation dose reduction, the following was used: automated exposure control, adjustment of mA and /or kV according to patient size. COMPARISON: CT abdomen and pelvis without contrast dated 11/30/2023. FINDINGS: Image quality: Diagnostic. Lower chest: Severe coronary artery calcifications. Otherwise unremarkable. Liver: No solid mass. Gallbladder: No radiopaque stones or wall thickening. Biliary tree: No intrahepatic or extrahepatic dilation, accounting for age. Spleen: No splenomegaly. Pancreas: No pancreatic ductal dilation. Adrenals: No adrenal nodule. Kidneys and ureters: No hydronephrosis. No renal cystic lesion which requires follow up. No solid mas s. Stomach, bowel and peritoneum: No gastric or small bowel dilation. No abnormal wall thickening. No pa thologic free fluid. Lymph nodes: No central or retroperitoneal adenopathy. Vessels: No infrarenal aortic aneurysm. Patent portal vein. PELVIS Reproductive organs: Uterus is surgically absent. Bladder: No abnormal wall thickening, accounting for underdistention. Pelvic lymph nodes: No pelvic adenopathy by size criteria. Bones: No aggressive osseous abnormality. Remote posterior decompression and posterior lateral fracisco an d pedicle screw fixation at L4-S1. Suspect left posterior lateral disc protrusion at L3-L4 with left- sided nerve root impingement. Severe facet arthropathy at L3-L4. Other: No significant ventral or inguinal hernia. IMPRESSION: 1. No acute abdominal process. No findings which explain lower abdominal pain. 2. Severe coronary artery calcifications. 3. Remote hysterectomy. 4. Remote posterior decompression and posterior lateral fusion at L4-S1. 5. Suspect left posterior lateral disc protrusion at L3-L4 Reviewed by: Jose Angel Malone MD on 04/25/2024 11:42 AM PDT Approved by: Jose Angel Malone MD on 04/25/2024 11:42 AM PDT Station ID: [id number]
[2024-04-25] MEDS: HYDROmorphone 1 MG/ML CARPUJECT IVP STA (11:48)
[2024-04-25 12:13] VITALS: BP 128/72; O2SAT 98
== END 2024-04-25 12:13 | disposition home or self-care (01) ==
LOC: ED 08:11
DX: R10.30 Lower abdominal pain, unspecified (principal); I25.10 Atherosclerotic heart disease of native coronary artery without angina pectoris; I10 Essential (primary) hypertension; E78.00 Pure hypercholesterolemia, unspecified; Z79.82 Long term (current) use of aspirin; Z79.02 Long term (current) use of antithrombotics/antiplatelets; Z79.899 Other long term (current) drug therapy
CPT/HCPCS: 36415; 74177; 80053; 81003; 83690; 85025; 96374; 96375; 96376; 99283; 99284; J1170; Q9967; 81001; 87086

== ENCOUNTER 2024-07-12 09:11 | Emergency (ER) | payer MEDICAID ==
[2024-07-12 09:22] VITALS: O2SAT 100
--- NOTE | 2024-07-12 09:37 | ED Physician Documentation ---
PD HPI BACK PAIN - Stated complaint Stated Complaint: BACK PX - Chief complaint Chief Complaint: Back Pain - History obtained from History obtained from: Patient - Additional information Additional information: She has a history of back injuries and back pain. Had a L3-S1 fusion several years ago. Last weekend she developed more pain than usual on the right side of the lumbar spine after cleaning out horse stalls and then a couple of days ago she was bending over and felt a pop in the back and now has some weakness in the right leg. Pain does not radiate to the right leg. There is no weakness, numbness, tingling, saddle anesthesia otherwise. No fevers. No IVDU. No incontinence. She has tried 5 mg oxycodone for it which was not effective. She chronically takes tizanidine. She does not tolerate steroids, gabapentin due to side effects. 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 : None HEENT: None Psych: Depression, Anxiety Musculoskeletal: Chronic back pain Derm: None - Past Surgical History Past Surgical History: Yes General: Appendectomy, Other Ortho: Spine surgery /CUTCH CLEANER: 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 Cardiovascular: Coronary stent - Present Medications Home Medications: Ambulatory Orders Medication Instructions Recorded Confirmed Metoprolol Tartrate [Lopressor] 25 mg PO BID #60 tablet 07/04/20 04/25/24 DULoxetine [Cymbalta] 40 mg PO DAILY 12/27/20 04/25/24 traZODone [Desyrel] 50 - 100 mg PO HS PRN 12/27/20 04/25/24 Albuterol Sulf [Ventolin Hfa 1 - 2 puffs INH Q4HR PRN 12/24/22 04/25/24 Inhaler] Pantoprazole [Protonix] 40 mg PO DAILY 12/24/22 04/25/24 Tizanidine HCl 4 - 8 mg PO TID PRN 12/24/22 04/25/24 oxyCODONE [Roxicodone] 5 mg PO Q6H PRN #18 tablet 07/10/23 04/25/24 Amlodipine Besylate [Norvasc] 10 mg PO DAILY 04/25/24 04/25/24 Clopidogrel [Plavix] 75 mg PO DAILY 04/25/24 04/25/24 cloNIDine 0.1 MG PATCH 0.1 mg TOP DAILY 04/25/24 04/25/24 [[id number]] Meloxicam [Mobic] 7.5 mg PO BID PRN #10 tablet 07/12/24 Oxycodone HCl 1 tab PO Q6H PRN #15 tablet 07/12/24 - Allergies Allergies/Adverse Reactions: Allergies Allergy/AdvReac Type Severity Reaction Status Date / Time amoxicillin trihydrate * Allergy anaphalaxis Verified 07/12/24 09:22 [From Augmentin] cephalexin monohydrate * Allergy anaphalaxis Verified 07/12/24 09:22 [From Keflex] doxycycline Allergy Unknown Verified 07/12/24 09:22 Penicillins Allergy anaphalaxis Verified 07/12/24 09:22 potassium clavulanate * Allergy anaphalaxis Verified 07/12/24 09:22 [From Augmentin] propoxyphene napsylate * Allergy "feels Verified 07/12/24 09:22 [From Darvocet-N] unbalanced" tetanus and diphtheria Allergy Edema Verified 07/12/24 09:22 toxoids codeine AdvReac Nausea Verified 07/12/24 09:22 dexamethasone AdvReac psychotic Verified 07/12/24 09:22 gabapentin [From Neurontin] AdvReac forgets Verified 07/12/24 09:22 everything, dizziness hydrocodone bitartrate * AdvReac agitated Verified 07/12/24 09:22 [From Vicodin] metoclopramide HCl * AdvReac Anxiety Verified 07/12/24 09:22 [From Reglan] prednisone AdvReac psychotic Verified 07/12/24 09:22 prochlorperazine edisylate * AdvReac anxious Verified 07/12/24 09:22 [From Compazine] prochlorperazine maleate * AdvReac anxious Verified 07/12/24 09:22 [From Compazine] topiramate [From Topamax] AdvReac Unknown Verified 07/12/24 09:22 - Social History Does the pt smoke?: No Smoking Status: Never smoker Does the pt drink ETOH?: No Does the pt have substance abuse?: Yes - Immunizations Immunizations are current?: Yes Immunizations: TDAP >10years/unknown, No immun - POLST Patient has POLST: No PD ED PE NORMAL - Vitals Vital signs reviewed: Yes - General General: Alert and oriented X 3, No acute distress - Extremities Extremities: Other (She has some chronic atrophy and a decreased left patellar reflex which she says is chronic. 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 The patient has no "red flags." Specifically denies IV drug use, fevers, incontinence, saddle anesthesia. Spinal epidural abscess was considered, given that the patient has no fever, is not diabetic, has no spinal tenderness, does not use IV drugs, and has no bilateral neurologic symptoms, the diagnosis of spinal epidural abscess is considered exceedingly unlikely. Pain management is somewhat difficult due to intolerances to gabapentin and steroids. She requested Toradol and Dilaudid here which was administered IM. She has a history of mild renal dysfunction and understands the need to try to limit NSAIDs to some extent. Departure - Departure Disposition: 01 Home, Self Care Clinical Impression: Low back pain Qualifiers: Chronicity: acute Back pain laterality: right Sciatica presence: with sciatica Sciatica laterality: sciatica of right side Qualified Code(s): M54.41 - Lumbago with sciatica, right side Condition: Good Record reviewed to determine appropriate education?: Yes Instructions: ED Sprain Strain Lumbar Prescriptions: Meloxicam [Mobic] 7.5 mg PO BID PRN #10 tablet PRN Reason: Pain Oxycodone HCl 1 tab PO Q6H PRN #15 tablet PRN Reason: pain Comments: I sent your prescriptions electronically to the [facility] in [place]. As discussed, follow-up with your primary care physician for consideration for referral to physical therapy, and consideration for MRI if symptoms do not resolve with conservative management alone. In addition to the prescribed medications you can take the CBD oil that you are planning to, lidocaine patches. , Also as discussed, given your history of mild renal dysfunction, please try to only use the meloxicam if you really need it and drink plenty of fluids. I am prescribing a short course of narcotic pain medication for you. These are potentially dangerous and addictive medications that should be used carefully. These medications may constipate you. Take an scum-vuv-[id number] stool softener (docusate) twice daily with plenty of water while taking these medications. If you go 24 hours without a bowel movement, take [id number] miralax, per package instructions. Do not drink or drive while taking these medications. If you received narcotic or sedating medications while in the emergency department, do not drive for 24 hours. Store this medication in a safe, secure place and out of reach of children. It is a violation of federal law to give or sell this medication to another person or to use in a manner other than prescribed. The ED will not refill narcotic prescriptions, including prescriptions lost or stolen. To dispose of unwanted medications: 1. [facility] provides a drop box for medication in pill form only (no liquids) 8:00 am to 4:30 p.m. Tuesday-Tuesday in the lobby of the [facility], [address] [place] [address]. Empty pills into ziplock bag before disposal. Call [phone] for information. 2.[employer] is a free service available to all [facility] residents. Go to [email or web address] Note that many narcotic pain relievers also contain Tylenol/acetaminophen. Please ensure that your total dose of acetaminophen from all sources does not exceed 3 g (3000 mg) per day.
[2024-07-12] MEDS: KETOROLAC 60 MG/2 ML VIAL IM STA (09:45)
[2024-07-12] MEDS: HYDROmorphone 1 MG/ML CARPUJECT IM STA (09:45)
[2024-07-12 10:12] VITALS: BP 145/79
== END 2024-07-12 10:05 | disposition home or self-care (01) ==
LOC: ED 09:11
DX: M54.41 Lumbago with sciatica, right side (principal)
CPT/HCPCS: 96372; 99283; J1170

== ENCOUNTER 2024-07-15 08:15 | Emergency (ER) | payer MEDICAID ==
--- NOTE | 2024-07-15 08:54 | ED Physician Documentation ---
PD HPI BACK PAIN - Stated complaint Stated Complaint: LOWER BACK PX - Chief complaint Chief Complaint: Back Pain - History obtained from History obtained from: Patient - History of Present Illness Pain level max: 9 Pain level now: 9 Location: Lower, Right Quality: Pain, Similar to prior episodes Associated symptoms: Weakness. No: Fever, Numbness, Incontinent of urine, Unable to urinate, Hematuria Improves with: Rest Worsened by: Movement Contributing factors: Other (started after cleaning a horse stall) Recently seen: Emergency Dept - Additional information Additional information: Patient is a 59-year-old female with chronic back pain that presents with an acute exacerbation for the past 3 days. She is on chronic oxycodone at home. Was seen here on July 12 and given Dilaudid and Toradol. Also prescribed additional oxycodone. She states that she is nearly out of the additional oxycodone and that the pain is continuing. She states she cannot take steroids due to adverse reactions in the past. She states she is not having any new numbness or tingling but her right leg does feel weak. No loss of bowel or bladder control. Does not use IV drugs. No fevers. No chills. 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 : None HEENT: None Psych: Depression, Anxiety Musculoskeletal: Chronic back pain Derm: None - Past Surgical History Past Surgical History: Yes General: Appendectomy, Other Ortho: Spine surgery /AIRPLANE CLEANER: 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 Cardiovascular: Coronary stent - Present Medications Home Medications: Ambulatory Orders Medication Instructions Recorded Confirmed Metoprolol Tartrate [Lopressor] 25 mg PO BID #60 tablet 07/04/20 04/25/24 DULoxetine [Cymbalta] 40 mg PO DAILY 12/27/20 04/25/24 traZODone [Desyrel] 50 - 100 mg PO HS PRN 12/27/20 04/25/24 Albuterol Sulf [Ventolin Hfa 1 - 2 puffs INH Q4HR PRN 12/24/22 04/25/24 Inhaler] Pantoprazole [Protonix] 40 mg PO DAILY 12/24/22 04/25/24 Tizanidine HCl 4 - 8 mg PO TID PRN 12/24/22 04/25/24 oxyCODONE [Roxicodone] 5 mg PO Q6H PRN #18 tablet 07/10/23 04/25/24 Amlodipine Besylate [Norvasc] 10 mg PO DAILY 04/25/24 04/25/24 Clopidogrel [Plavix] 75 mg PO DAILY 04/25/24 04/25/24 cloNIDine 0.1 MG PATCH 0.1 mg TOP DAILY 04/25/24 04/25/24 [[id number]] Meloxicam [Mobic] 7.5 mg PO BID PRN #10 tablet 07/12/24 Oxycodone HCl 1 tab PO Q6H PRN #15 tablet 07/12/24 Ketorolac [Toradol] 10 mg PO Q6H PRN #20 tablet 07/15/24 Oxycodone HCl 10 mg PO Q6H #20 tablet 07/15/24 - Allergies Allergies/Adverse Reactions: Allergies Allergy/AdvReac Type Severity Reaction Status Date / Time amoxicillin trihydrate * Allergy anaphalaxis Verified 07/12/24 09:22 [From Augmentin] cephalexin monohydrate * Allergy anaphalaxis Verified 07/12/24 09:22 [From Keflex] doxycycline Allergy Unknown Verified 07/12/24 09:22 Penicillins Allergy anaphalaxis Verified 07/12/24 09:22 potassium clavulanate * Allergy anaphalaxis Verified 07/15/24 08:25 [From Augmentin] propoxyphene napsylate * Allergy "feels Verified 07/15/24 08:25 [From Darvocet-N] unbalanced" tetanus and diphtheria Allergy Edema Verified 07/15/24 08:25 toxoids codeine AdvReac Nausea Verified 07/15/24 08:25 dexamethasone AdvReac psychotic Verified 07/15/24 08:25 gabapentin [From Neurontin] AdvReac forgets Verified 07/15/24 08:25 everything, dizziness hydrocodone bitartrate * AdvReac agitated Verified 07/15/24 08:25 [From Vicodin] metoclopramide HCl * AdvReac Anxiety Verified 07/15/24 08:25 [From Reglan] prednisone AdvReac psychotic Verified 07/15/24 08:25 prochlorperazine edisylate * AdvReac anxious Verified 07/15/24 08:25 [From Compazine] prochlorperazine maleate * AdvReac anxious Verified 07/15/24 08:25 [From Compazine] topiramate [From Topamax] AdvReac Unknown Verified 07/15/24 08:25 - Social History Does the pt smoke?: No Smoking Status: Never smoker Does the pt drink ETOH?: No Does the pt have substance abuse?: Yes - Immunizations Immunizations are current?: Yes Immunizations: TDAP >10years/unknown, No immun - POLST Patient has POLST: No PD ED PE NORMAL - Vitals Vital signs reviewed: Yes - General General: Alert and oriented X 3, No acute distress - HEENT HEENT: Moist mucous membranes - Neck Neck: Supple, no meningeal sign - Cardiac Cardiac: RRR - Respiratory Respiratory: No respiratory distress, Clear bilaterally - Abdomen Abdomen: Soft, Non tender, Non distended - Back Back: No spinal TTP (No midline tenderness to palpation or percussion. No step- off or deformity.) - Derm Derm: Warm and dry - Extremities Extremities: No edema, No calf tenderness / cord - Neuro Neuro: Alert and oriented X 3, No motor deficit, No sensory deficit, Other (Normal bilateral lower extremity patellar and ankle jerk reflexes. Normal great toe extension bilaterally. no saddle anesthesia) - Psych Psych: Normal mood, Normal affect Results - Vitals Vitals: Vital Signs - 24 hr 07/15/24 07/15/24 08:25 10:27 Temperature 36.6 C Heart Rate 63 66 Respiratory 17 15 Rate Blood Pressure 171/89 H 168/87 H O2 Saturation 99 98 Oxygen O2 Source Room air - Rads (name of study) Lumbar spine x-ray Relevant Findings:: Final report received, See rad report PD Medical Decision Making - ED course Complexity details: reviewed results, re-evaluated patient, considered differential (No cauda equina, no spinal epidural abscess, no fracture, no aortic dissection or evidence of aneursym rupture), d/w patient ED course: 59-year-old female with acute on chronic back pain. No evidence of cauda equina, epidural abscess. No focal neurological deficits. X-ray does not show any loosening of her hardware. She cannot take steroids. She is usually on oxycodone at home but has now run out because she had to increase her use of the oxycodone secondary to her back pain. She received IM Toradol and Dilaudid here. Pain improved. She states that Toradol generally works well for her, we will trial an oral Toradol for home. We will also prescribe her enough oxycodone to get through the weekend and speak to her doctor on Tuesday after the holiday. Patient is ambulating well. Patient counseled regarding signs and symptoms for which I believe and urgent re-evaluation would be necessary. Patient with good understanding of and agreement to plan and is comfortable going home at this time This document was made in part using voice recognition software. While efforts are made to proofread this document, sound alike and grammatical errors may occur. Departure - Departure Disposition: Home, Self Care Clinical Impression: Back pain Qualifiers: Back pain location: low back pain Chronicity: acute Back pain laterality: right Sciatica presence: with sciatica Sciatica laterality: sciatica of right side Qualified Code(s): M54.41 - Lumbago with sciatica, right side Condition: Good Instructions: ED Neck Back Pain General, ED Sciatica Follow-Up: your,doctor in 3 days [Other] Prescriptions: Oxycodone HCl 10 mg PO Q6H #20 tablet Ketorolac [Toradol] 10 mg PO Q6H PRN #20 tablet PRN Reason: back pain Comments: Your prescription was sent to [facility] in [place]. Please use the medications as prescribed. Please follow-up with your doctor for further care. Your x-ray does not show any loosening of hardware or any other acute abnormalities. I am prescribing a short course of narcotic pain medication for you. These are potentially dangerous and addictive medications that should be used carefully. These medications may constipate you. Take an zsxx-ymw-dwldfhc stool softener (docusate) twice daily with plenty of water while taking these medications. If you go 24 hours without a bowel movement, take lths-enp-prowelv miralax, per package instructions. Do not drink or drive while taking these medications. If you received narcotic or sedating medications while in the emergency department, do not drive for 24 hours. Store this medication in a safe, secure place and out of reach of children. It is a violation of federal law to give or sell this medication to another person or to use in a manner other than prescribed. The ED will not refill narcotic prescriptions, including prescriptions lost or stolen. To dispose of unwanted medications: 1. [facility] at [address] in [place] has a medication drop box. They accept prescription medications (in pill form) Tuesday through Tuesday 9:00 a.m. to 5:00 p.m. 2. The [facility] accepts prescription medications (in pill form only) for disposal year round. Call for more information. 3. Contact the [facility] for the next [employer] sponsored prescription drug collection event. , [phone], or [phone]; Discharge Date/Time: 07/15/24 10:27
[2024-07-15] MEDS: HYDROmorphone 1 MG/ML CARPUJECT IM STA (09:07)
[2024-07-15] MEDS: KETOROLAC 60 MG/2 ML VIAL IM STA (09:07)
--- NOTE | 2024-07-15 09:28 | XRAY Report ---
PROCEDURE: Lumbar Spine 2-3V INDICATIONS: low back pain, h/o fusion TECHNIQUE: 3 views of the lumbar spine were acquired. COMPARISON: CT abdomen and pelvis on April 25, 2024. FINDINGS: Surgical change: Posterior fusion hardware with bilateral transpedicular screws from L4 to S1 is inta ct with no perihardware lucency to suggest hardware loosening. Interbody disc spacers at L4-5 and L5- S1. Bones: 5 gye-zrd-ivxaxab vertebrae are present. Slight dextroconvex curvature of the lumbar spine wi th apex at L3. Grade 1 anterolisthesis of L3 on L4 of approximately 4 mm, stable. Alignment is stable compared to prior CT dated April 25, 2024. Mild multilevel disc height loss. No vertebral body compre ssion fractures. No suspicious bony lesions. Soft tissues: Above average colonic stool burden. No suspicious soft tissue calcifications. IMPRESSION: 1.Posterior fusion hardware from L4 to S1 is intact without complication. Stable alignment. 2.Mild multilevel degenerative changes of the spine. 3.Above-average colonic stool burden which may correlate with constipation. Reviewed by: Opal Nair MD on 07/15/2024 8:27 AM MAURI Approved by: Opal Nair MD on 07/15/2024 8:27 AM MAURI Station ID: [id number]
[2024-07-15 10:37] VITALS: BP 168/87; O2SAT 98
== END 2024-07-15 10:27 | disposition home or self-care (01) ==
LOC: ED 08:15
DX: M54.41 Lumbago with sciatica, right side (principal)
CPT/HCPCS: 72100; 96372; 99283; J1170

== ENCOUNTER 2024-07-17 17:23 | Outpatient (CLI) | payer MEDICAID | END 2024-07-17 23:59 | disposition critical access hospital (66) | LOC: EMS 17:23 | DX: R10.32 Left lower quadrant pain (principal); R10.814 Left lower quadrant abdominal tenderness; R10.813 Right lower quadrant abdominal tenderness; R11.2 Nausea with vomiting, unspecified; R19.7 Diarrhea, unspecified | CPT/HCPCS: A0425; A0427; A0999 ==

== ENCOUNTER 2024-07-17 17:50 | Emergency (ER) | payer MEDICAID ==
--- NOTE | 2024-07-17 18:11 | ED Physician Documentation ---
History of Present Illness - Stated complaint Stated Complaint: ABD PX/N/V/D - History obtained from History obtained from: Patient - Additonal information Additional information: The patient comes to the emergency department with chief complaint of abdominal pain nausea, and diarrhea that started this morning. She does note that she ate some food yesterday that she is concerned may not have been good and by yesterday evening states that she felt a bit unsettled but was not specifically having abdominal pain, nausea, or any changes in her bowel movements. The patient states she awoke this morning to find that she was having some low abdominal pain. She states she felt unsettled throughout the morning and somewhat nauseated, but decided to eat [employer] for lunch. She states that is when the symptoms really got bad. She has had some chills and sometimes felt hot but has not measured a fever. She denies any urinary symptoms. She has none of her reproductive organs, as they have all been removed surgically. She has had multiple exploratory laparoscopies to evaluate for endometriosis and polycystic ovarian syndrome. She is also status post appendectomy remotely. She denies any urinary symptoms. She has a distant history of a kidney stone. No history of diverticulitis. No chronic intestinal disorders. She states that just prior to coming she had a very large output of diarrhea stool. She states it did not really make her feel much better. She has also had some nausea and vomiting throughout the day. 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 : None HEENT: None Psych: Depression, Anxiety Musculoskeletal: Chronic back pain Derm: None - Past Surgical History Past Surgical History: Yes General: Appendectomy, Other Ortho: Spine surgery /COMMUNITY ENGAGEMENT SPECIALIST: 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 Cardiovascular: Coronary stent - Present Medications Home Medications: Ambulatory Orders Medication Instructions Recorded Confirmed Metoprolol Tartrate [Lopressor] 25 mg PO BID #60 tablet 07/04/20 04/25/24 DULoxetine [Cymbalta] 40 mg PO DAILY 12/27/20 04/25/24 traZODone [Desyrel] 50 - 100 mg PO HS PRN 12/27/20 04/25/24 Albuterol Sulf [Ventolin Hfa 1 - 2 puffs INH Q4HR PRN 12/24/22 04/25/24 Inhaler] Pantoprazole [Protonix] 40 mg PO DAILY 12/24/22 04/25/24 Tizanidine HCl 4 - 8 mg PO TID PRN 12/24/22 04/25/24 oxyCODONE [Roxicodone] 5 mg PO Q6H PRN #18 tablet 07/10/23 04/25/24 Amlodipine Besylate [Norvasc] 10 mg PO DAILY 04/25/24 04/25/24 Clopidogrel [Plavix] 75 mg PO DAILY 04/25/24 04/25/24 cloNIDine 0.1 MG PATCH 0.1 mg TOP DAILY 04/25/24 04/25/24 [[id number]] Meloxicam [Mobic] 7.5 mg PO BID PRN #10 tablet 07/12/24 Oxycodone HCl 1 tab PO Q6H PRN #15 tablet 07/12/24 Ketorolac [Toradol] 10 mg PO Q6H PRN #20 tablet 07/15/24 Oxycodone HCl 10 mg PO Q6H #20 tablet 07/15/24 Ciprofloxacin HCl 1 tablet PO BID 7 Days #14 tablet 07/17/24 Ondansetron Odt [Zofran Odt] 4 mg TL Q6H PRN #14 tablet 07/17/24 - Allergies Allergies/Adverse Reactions: Allergies Allergy/AdvReac Type Severity Reaction Status Date / Time amoxicillin trihydrate * Allergy anaphalaxis Verified 07/17/24 18:51 [From Augmentin] cephalexin monohydrate * Allergy anaphalaxis Verified 07/17/24 18:51 [From Keflex] doxycycline Allergy Unknown Verified 07/17/24 18:51 Penicillins Allergy anaphalaxis Verified 07/17/24 18:51 potassium clavulanate * Allergy anaphalaxis Verified 07/17/24 18:51 [From Augmentin] propoxyphene napsylate * Allergy "feels Verified 07/17/24 18:51 [From Darvocet-N] unbalanced" tetanus and diphtheria Allergy Edema Verified 07/17/24 18:51 toxoids codeine AdvReac Nausea Verified 07/17/24 18:51 dexamethasone AdvReac psychotic Verified 07/17/24 18:51 gabapentin [From Neurontin] AdvReac forgets Verified 07/17/24 18:51 everything, dizziness hydrocodone bitartrate * AdvReac agitated Verified 07/17/24 18:51 [From Vicodin] metoclopramide HCl * AdvReac Anxiety Verified 07/17/24 18:51 [From Reglan] prednisone AdvReac psychotic Verified 07/17/24 18:51 prochlorperazine edisylate * AdvReac anxious Verified 07/17/24 18:51 [From Compazine] prochlorperazine maleate * AdvReac anxious Verified 07/17/24 18:51 [From Compazine] topiramate [From Topamax] AdvReac Unknown Verified 07/17/24 18:51 - Social History Does the pt smoke?: No Smoking Status: Never smoker Does the pt drink ETOH?: No Does the pt have substance abuse?: Yes - Immunizations Immunizations are current?: Yes Immunizations: TDAP >10years/unknown, No immun - POLST Patient has POLST: No PD ED PE NORMAL - Vitals Vital signs reviewed: Yes - General General: Alert and oriented X 3, Well developed/nourished, Other (The patient appears visibly uncomfortable, moaning and occasionally rubbing her low abdomen and hunching over an emesis bag.) - HEENT HEENT: Atraumatic, EOMI, Moist mucous membranes - Neck Neck: Supple, no meningeal sign - Cardiac Cardiac: RRR, No murmur - Respiratory Respiratory: No respiratory distress, Clear bilaterally - Abdomen Abdomen: Soft, Non tender, Non distended - Derm Derm: Normal color, Warm and dry, No rash - Extremities Extremities: No deformity, No edema - Neuro Neuro: Other (Alert and grossly intact.) - Psych Psych: Normal mood, Normal affect Results - Vitals Vitals: Oxygen O2 Source Room air - Labs Labs: Laboratory Tests 07/17/24 07/17/24 07/17/24 18:22 18:22 18:30 WBC 21.0 H RBC 4.69 Hgb 12.6 Hct 38.8 MCV 82.7 MCH 26.9 L MCHC 32.5 RDW 15.2 H Plt Count 354 MPV 8.5 Neut # (Auto) 18.0 H Lymph # (Auto) 1.6 [place] # (Auto) 1.1 H Eos # (Auto) 0.1 Baso # (Auto) 0.1 Absolute Nucleated RBC 0.00 Band Neuts % (Manual) Not Reportable Abnorm Lymph % (Manual) Not Reportable Nucleated RBC % 0.0 Neutrophils # (Manual) Not Reportable Lymphocytes # (Manual) Not Reportable Monocytes # (Manual) Not Reportable Eosinophils # (Manual) Not Reportable Basophils # (Manual) Not Reportable Differential Comment MANUAL=AUTO DIFF Platelet Estimate NORMAL (130-450,000) Platelet Morphology NORMAL APPEARANCE RBC Morph Micro Appear NORMAL APPEARANCE Sodium 138 Potassium 3.9 Chloride 102 Carbon Dioxide 25 Anion Gap 11.0 BUN 30 H Creatinine 1.5 H Estimated GFR (MDRD) 36 L Glucose 145 H Calcium 9.8 Total Bilirubin 0.4 AST 16 ALT 14 Alkaline Phosphatase 81 Total Protein 7.8 Albumin 4.4 Globulin 3.4 Albumin/Globulin Ratio 1.3 Lipase < 10 L Urine Color DARK YELLOW Urine Clarity SL. CLOUDY Urine pH 5.5 Ur Specific [place] 1.025 Urine Protein NEGATIVE Urine Glucose (UA) NEGATIVE Urine Ketones NEGATIVE Urine Occult Blood MODERATE H Urine Nitrite NEGATIVE Urine Bilirubin NEGATIVE Urine Urobilinogen 0.2 (NORMAL) Ur Leukocyte Esterase TRACE H Urine RBC 0-5 Urine WBC 0-3 Ur Squamous Epith Cells MOD Squamous H Urine Crystals 3-5 Uric Acid Amorphous Sediment Few Urine Bacteria Moderate H Ur Microscopic Review INDICATED Urine Culture Comments NOT INDICATED PD Medical Decision Making - ED course Complexity details: reviewed old records, reviewed results, re-evaluated patient, considered differential, d/w patient ED course: The patient appeared fairly uncomfortable and was worked up with labs including ER abdominal panel and CBC. Urinalysis was also obtained. She was treated symptomatically with IV fluids, Phenergan, and Dilaudid. The patient would benefit from a CT scan of the abdomen and pelvis and this has been ordered. It is still pending at change of shift and the patient was signed out to Dr. Vides, pending CT results and final disposition. Departure - Departure Disposition: 01 Home, Self Care Clinical Impression: Colitis Condition: Good Instructions: ED Vomiting Diarrhea Nonspecific Ad Prescriptions: Ciprofloxacin HCl 1 tablet PO BID 7 Days #14 tablet Ondansetron Odt [Zofran Odt] 4 mg TL Q6H PRN #14 tablet PRN Reason: Nausea / Vomiting Comments: Prescriptions for ciprofloxacin (antibiotic) and Ondansetron (anti-nausea medication) to the [facility] in [place]. Contact your primary care provider in the morning when the office is next open to arrange for the next available appointment for follow-up/reevaluation. The ciprofloxacin is being prescribed because, as we discussed, there were findings on the CT scan consistent with mild colitis. You have indicated that you typically improve with an antibiotics (specifically ciprofloxacin) when you have had colitis in the past. Forms: PCP List Discharge Date/Time: 07/17/24 23:40
[2024-07-17] MEDS ORDERED: PROMETHAZINE 25 MG/1 ML VIAL ONE (18:19)
[2024-07-17 18:27] LABS: BASOPHILS # (AUTO) 0.1 10^3/uL (0.0-0.1); BASOPHILS % (AUTO) 0.3 %; EOSINOPHILS # (AUTO) 0.1 10^3/uL (0.0-0.7); EOSINOPHILS % (AUTO) 0.6 %; HCT - HEMATOCRIT 38.8 % (37.0-47.0); HGB - HEMOGLOBIN 12.6 g/dL (12.0-16.0); LYMPHOCYTES # (AUTO) 1.6 10^3/uL (1.5-3.5); LYMPHOCYTES % (AUTO) 7.7 %; MEAN CORPUSCULAR HEMOGLOBIN 26.9 pg (27.0-31.0); MEAN CORPUSCULAR HGB CONC 32.5 g/dL (32.0-36.0); MEAN CORPUSCULAR VOLUME 82.7 fL (81.0-99.0); MEAN PLATELET VOLUME 8.5 fL (7.9-10.8); MONOCYTES # (AUTO) 1.1 10^3/uL (0.0-1.0); MONOCYTES % (AUTO) 5.2 %; NEUTROPHILS % (AUTO) 85.7 %; PLT - PLATELET COUNT 354 10^3/uL (130-450); RED BLOOD COUNT 4.69 10^6/uL (4.20-5.40); RED CELL DISTRIBUTION WIDTH 15.2 % (12.0-15.0)
[2024-07-17] MEDS: PROMETHAZINE INJ 25 MG in SODIUM CHLORIDE 0.9% 50 ML IV STA (18:28)
[2024-07-17] MEDS: HYDROmorphone 1 MG/ML CARPUJECT IVP STA ×3 (18:28→22:16)
[2024-07-17] MEDS: SODIUM CHLORIDE 0.9% 1,000 ML IV STA (18:31)
[2024-07-17 18:43] LABS: ALBUMIN 4.4 g/dL (3.2-5.5); ALBUMIN/GLOBULIN RATIO 1.3 (1.0-2.2); ALKALINE PHOSPHATASE 81 IU/L (42-121); ALT ALANINE AMINOTRANSFERASE 14 IU/L (10-60); AST ASPARTATE AMINOTRANSFERASE 16 IU/L (10-42); BILIRUBIN,TOTAL 0.4 mg/dL (0.2-1.0); BUN - BLOOD UREA NITROGEN 30 mg/dL (6-20); CALCIUM 9.8 mg/dL (8.5-10.3); CARBON DIOXIDE - CO2 25 mmol/L (21-32); CHLORIDE 102 mmol/L (101-111); CREATININE 1.5 mg/dL (0.6-1.3); GFR - MDRD 36 (>89); GLUCOSE 145 mg/dL (74-104); POTASSIUM 3.9 mmol/L (3.5-4.5); SODIUM 138 mmol/L (135-145); TOTAL PROTEIN 7.8 g/dL (6.4-8.9)
[2024-07-17 18:47] LABS: BILIRUBIN,URINE NEGATIVE (NEGATIVE); GLUCOSE, URINE (UA) NEGATIVE (NEGATIVE); KETONES,URINE (UA) NEGATIVE (NEGATIVE); LEUKOCYTE ESTERASE, URINE TRACE (NEGATIVE); NITRITE,URINE NEGATIVE (NEGATIVE); OCCULT BLOOD,URINE MODERATE (NEGATIVE); PH,URINE 5.5 PH (5.0-7.5); PROTEIN,URINE NEGATIVE (NEGATIVE); UROBILINOGEN,URINE 0.2 (NORMAL) E.U./dL (NORMAL)
[2024-07-17 18:47] LABS: LIPASE < 10 U/L (11-82)
[2024-07-17 18:49] LABS: CLARITY,URINE SL. CLOUDY (CLEAR)
[2024-07-17 18:56] LABS: DIFFERENTIAL COMMENT MANUAL=AUTO DIFF; PLATELET ESTIMATE, MANUAL NORMAL (130-450,000) (NORMAL); PLATELET MORPHOLOGY NORMAL APPEARANCE (NORMAL); RBC MORPHOLOGY (MULTIPLE) NORMAL APPEARANCE (NORMAL)
[2024-07-17 19:16] LABS: AMORPHOUS SEDIMENT,UR Few /LPF; BACTERIA,URINE Moderate /HPF (None Seen); RBC,URINE 0-5 /HPF (0-5); SQUAMOUS EPITHELIAL CELL,UR MOD Squamous (<= Few); WBC,URINE 0-3 /HPF (0-5)
[2024-07-17 19:17] LABS: CRYSTALS,URINE 3-5 Uric Acid /LPF
[2024-07-17] MEDS ORDERED: iohexoL-300 100 ML VIAL ONE (19:43)
--- NOTE | 2024-07-17 19:59 | ED Physician Documentation ---
ED Addendum - Addendum Addendum: 07/17/24 22:03 I received signout/turnover of care of this patient from Dr. Stinson; please see her note for complete H&P. In brief, patient presents for abdominal pain, nausea and vomiting. The only test pending at the time of signout is the results of the CT A/P. The results of the CT are "mild wall thickening and mucosal hyperemia of the cecum suggests infection or inflammation. No evidence of perforation or pericolonic fluid. Prior appendectomy and hysterectomy."; this is per the radiologist reading. I then evaluated the patient and she is actively vomiting. Once the vomiting has stopped, she says she is having ongoing abdominal pain and request another dose of pain medication. I already ordered 1 dose of IV Dilaudid 1 mg (in addition to 1 such previous dose given by Dr. Stinson earlier on this patient's ED stay), and at this point, I ordered another dose (for a total of 3 mg IV Dilaudid). Furthermore, I ordered a second liter of normal saline to be given IV, 40 mg of Protonix IV (patient is complaining of heartburn), and 2.5 mg IV droperidol. Patient has a long list of allergies but tells me she specifically has had droperidol the past without untoward side effect/allergic reaction. I discussed the test results with patient. In reviewing previous ED notes as well as inpatient discharge summary, I note that colitis is has been a recurring issue for this patient. Along these lines, I asked her if she tends to improve with antibiotics, specifically because I noticed her inpatient stay a few years ago indicated, in the discharge summary, that she did not require any antibiotics for similar CT findings (mild colitis) at that time. Patient tells me that she does tend to get worse without antibiotics in this scenario and seems to have gradual resolution of her symptoms whenever she is put on antibiotics. She says that ciprofloxacin tends to be the antibiotic prescribed for her in this scenario. I thus ordered 500mg iv Cipro. Will reevaluate after this latest round of fluids and meds have been given 07/18/24 03:59 On reevaluation, patient is now in NAD and reports feeling much improved and is comfortable with d/c home. test results are reviewed with patient as are return precautions
[2024-07-17] MEDS: iohexoL-300 100 ML VIAL IVP ONE (20:17)
--- NOTE | 2024-07-17 20:55 | CT Report ---
PROCEDURE: Abdomen/Pelvis W INDICATIONS: low abd pain, vomiting CONTRAST: 100ml [id number] TECHNIQUE: After the administration of intravenous contrast, a CT scan of the abdomen and pelvis was performed. Images were recorded and evaluated at appropriate window settings. Reformats: coronal and sagittal. F or radiation dose reduction, the following was used: automated exposure control, adjustment of mA and /or kV according to patient size. COMPARISON: 04/25/2024 FINDINGS: Image quality: Diagnostic. Lower chest: Minor right lower lung atelectatic change. Heavy coronary artery calcification partially imaged. Tiny hiatal hernia. Liver: No solid mass. Gallbladder: No radiopaque stones or wall thickening. Biliary tree: No intrahepatic or extrahepatic dilation, accounting for age. Spleen: No splenomegaly. Pancreas: No pancreatic ductal dilation. Adrenals: No adrenal nodule. Kidneys and ureters: Symmetric enhancement. No hydronephrosis or nephrolithiasis. No solid mass or cy st requiring follow-up. No hydroureter. Stomach, bowel and peritoneum: There is mild wall thickening of the cecum and slight mucosal hyperemi a. The appendix is absent. There is no significant pericolonic inflammation. The remainder of the col on is in spasm. Stomach and small bowel are decompressed. No pathologic free fluid. Lymph nodes: No central or retroperitoneal adenopathy. Vessels: Normal caliber abdominal aorta, IVC, and portal vein. Moderate aortic calcification. PELVIS Reproductive organs: The uterus is absent. A suspicious adnexal masses. Bladder: No abnormal wall thickening, accounting for underdistention. Pelvic lymph nodes: No pelvic adenopathy by size criteria. Bones: No suspicious bone lesions. Lumbosacral fusion from L4 through S1. Other: No significant ventral or inguinal hernia. IMPRESSION: Mild wall thickening and mucosal hyperemia of the cecum suggests infection or inflammation. No evidence of perforation or pericolonic fluid. Prior appendectomy and hysterectomy. Reviewed by: Irma Kramer MD on 07/17/2024 8:54 PM PDT Approved by: Irma Kramer MD on 07/17/2024 8:54 PM PDT Station ID: [id number]
[2024-07-17] MEDS: PANTOPRAZOLE 40 MG VIAL IVP STA (22:13)
[2024-07-17] MEDS: DROPERIDOL 5 MG/2 ML VIAL IVP STA (22:16)
[2024-07-17] MEDS: CIPROFLOXACIN 400 MG/200 ML 400 MG/200 ML BAG IV STA (22:19)
[2024-07-17] MEDS ORDERED: ONDANSETRON 4 MG/2 ML VIAL IVP STA (23:04)
[2024-07-17 23:47] VITALS: BP 195/88; O2SAT 99
== END 2024-07-17 23:40 | disposition home or self-care (01) ==
LOC: EDUNIT# → ED 17:50
DX: K52.9 Noninfective gastroenteritis and colitis, unspecified (principal)
CPT/HCPCS: 36415; 74177; 80053; 81001; 83690; 85025; 96365; 96367; 96375; 96376; 99284; 99285; J1170; J7040; Q9967; 81003; 87086

== ENCOUNTER 2024-07-26 06:16 | Emergency (ER) | payer MEDICAID ==
[2024-07-26] MEDS: SODIUM CHLORIDE 0.9% 1,000 ML IV STA (06:44)
[2024-07-26 06:51] LABS: BILIRUBIN,URINE NEGATIVE (NEGATIVE); CLARITY,URINE CLEAR (CLEAR); GLUCOSE, URINE (UA) NEGATIVE (NEGATIVE); KETONES,URINE (UA) NEGATIVE (NEGATIVE); LEUKOCYTE ESTERASE, URINE NEGATIVE (NEGATIVE); NITRITE,URINE NEGATIVE (NEGATIVE); OCCULT BLOOD,URINE NEGATIVE (NEGATIVE); PH,URINE 5.5 PH (5.0-7.5); PROTEIN,URINE NEGATIVE (NEGATIVE); UROBILINOGEN,URINE 0.2 (NORMAL) E.U./dL (NORMAL)
[2024-07-26 06:56] LABS: BASOPHILS # (AUTO) 0.1 10^3/uL (0.0-0.1); BASOPHILS % (AUTO) 0.5 %; EOSINOPHILS # (AUTO) 0.2 10^3/uL (0.0-0.7); HGB - HEMOGLOBIN 12.7 g/dL (12.0-16.0); LYMPHOCYTES # (AUTO) 2.3 10^3/uL (1.5-3.5); MEAN CORPUSCULAR HEMOGLOBIN 26.7 pg (27.0-31.0); MEAN CORPUSCULAR VOLUME 86.3 fL (81.0-99.0); MEAN PLATELET VOLUME 8.7 fL (7.9-10.8); MONOCYTES # (AUTO) 0.8 10^3/uL (0.0-1.0); MONOCYTES % (AUTO) 6.6 %; NEUTROPHILS # (AUTO) 8.1 10^3/uL (1.5-6.6); NEUTROPHILS % (AUTO) 70.6 %; PLT - PLATELET COUNT 371 10^3/uL (130-450); RED BLOOD COUNT 4.75 10^6/uL (4.20-5.40); RED CELL DISTRIBUTION WIDTH 16.2 % (12.0-15.0); WHITE BLOOD COUNT 11.5 x10^3/uL (4.8-10.8)
[2024-07-26 07:13] LABS: ALBUMIN 4.4 g/dL (3.2-5.5); ALBUMIN/GLOBULIN RATIO 1.5 (1.0-2.2); BILIRUBIN,TOTAL 0.3 mg/dL (0.2-1.0); CALCIUM 9.3 mg/dL (8.5-10.3); CREATININE 1.2 mg/dL (0.6-1.3); POTASSIUM 3.7 mmol/L (3.5-4.5); TOTAL PROTEIN 7.3 g/dL (6.4-8.9)
--- NOTE | 2024-07-26 07:56 | ED Physician Documentation ---
PD HPI ABD PAIN - Stated complaint Stated Complaint: ABD PX,NAUSEA - Chief complaint Chief Complaint: Abd Pain - History obtained from History obtained from: Patient - Additional information Additional information: The patient returns to the emergency department after being seen last week for abdominal pain, stating that her abdominal pain is worsening again. I saw her last week for low abdominal pain and labs and CT were done. She was signed out to my partner who found her to have colitis and started her on ciprofloxacin for this. The patient states that she took all of the Cipro, though she was concerned because she normally gets Flagyl as well, and states that although she felt a little better, she did not feel like it completely resolved the symptoms and now that the Cipro is done, she states she feels like she is getting worse again. She denies vomiting but has been nauseated. She has also had a lot of belching and a lot of flatulence. She states that her pain is in her low abd omen along her left side and also on her right flank. She denies any urinary symptoms. She is distantly status post appendectomy. No other complaints at this time. 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 : None HEENT: None Psych: Depression, Anxiety Musculoskeletal: Chronic back pain Derm: None - Past Surgical History Past Surgical History: Yes General: Appendectomy, Other Ortho: Spine surgery /INSERTING MACHINE OPERATOR: 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 Cardiovascular: Coronary stent - Present Medications Home Medications: Ambulatory Orders Medication Instructions Recorded Confirmed Metoprolol Tartrate [Lopressor] 25 mg PO BID #60 tablet 07/04/20 07/26/24 DULoxetine [Cymbalta] 40 mg PO DAILY 12/27/20 07/26/24 traZODone [Desyrel] 50 - 100 mg PO HS PRN 12/27/20 07/26/24 Albuterol Sulf [Ventolin Hfa 1 - 2 puffs INH Q4HR PRN 12/24/22 07/26/24 Inhaler] Pantoprazole [Protonix] 40 mg PO DAILY 12/24/22 07/26/24 Tizanidine HCl 4 - 8 mg PO TID PRN 12/24/22 07/26/24 oxyCODONE [Roxicodone] 5 mg PO Q6H PRN #18 tablet 07/10/23 07/26/24 Amlodipine Besylate [Norvasc] 10 mg PO DAILY 04/25/24 07/26/24 Clopidogrel [Plavix] 75 mg PO DAILY 04/25/24 07/26/24 cloNIDine 0.1 MG PATCH 0.1 mg TOP DAILY 04/25/24 07/26/24 [Edsiiata-Kxu-4] Meloxicam [Mobic] 7.5 mg PO BID PRN #10 tablet 07/12/24 07/26/24 Oxycodone HCl 1 tab PO Q6H PRN #15 tablet 07/12/24 07/26/24 Ketorolac [Toradol] 10 mg PO Q6H PRN #20 tablet 07/15/24 07/26/24 Ondansetron Odt [Zofran Odt] 4 mg TL Q6H PRN #14 tablet 07/17/24 07/26/24 traMADol [Ultram] 50 mg PO Q4-6H PRN #10 tablet 07/26/24 - Allergies Allergies/Adverse Reactions: Allergies Allergy/AdvReac Type Severity Reaction Status Date / Time amoxicillin trihydrate * Allergy anaphalaxis Verified 07/26/24 06:28 [From Augmentin] cephalexin monohydrate * Allergy anaphalaxis Verified 07/26/24 06:28 [From Keflex] doxycycline Allergy Unknown Verified 07/26/24 06:28 Penicillins Allergy anaphalaxis Verified 07/26/24 06:28 potassium clavulanate * Allergy anaphalaxis Verified 07/26/24 06:28 [From Augmentin] propoxyphene napsylate * Allergy "feels Verified 07/26/24 06:28 [From Darvocet-N] unbalanced" tetanus and diphtheria Allergy Edema Verified 07/26/24 06:28 toxoids codeine AdvReac Nausea Verified 07/26/24 06:28 dexamethasone AdvReac psychotic Verified 07/26/24 06:28 gabapentin [From Neurontin] AdvReac forgets Verified 07/26/24 06:28 everything, dizziness hydrocodone bitartrate * AdvReac agitated Verified 07/26/24 06:28 [From Vicodin] metoclopramide HCl * AdvReac Anxiety Verified 07/26/24 06:28 [From Reglan] prednisone AdvReac psychotic Verified 07/26/24 06:28 prochlorperazine edisylate * AdvReac anxious Verified 07/26/24 06:28 [From Compazine] prochlorperazine maleate * AdvReac anxious Verified 07/26/24 06:28 [From Compazine] topiramate [From Topamax] AdvReac Unknown Verified 07/26/24 06:28 - Social History Does the pt smoke?: No Smoking Status: Never smoker Does the pt drink ETOH?: No Does the pt have substance abuse?: Yes - Immunizations Immunizations are current?: Yes Immunizations: TDAP >10years/unknown, No immun - POLST Patient has POLST: No PD ED PE NORMAL - Vitals Vital signs reviewed: Yes - General General: Alert and oriented X 3, No acute distress, Well developed/nourished - HEENT HEENT: Atraumatic, EOMI, Moist mucous membranes - Neck Neck: Supple, no meningeal sign - Cardiac Cardiac: RRR, No murmur - Respiratory Respiratory: No respiratory distress, Clear bilaterally - Abdomen Abdomen: Soft, Non distended, Other (Tenderness to palpation left lower quadrant and right lower quadrant extending up into right flank. No rebound or guarding.) - Derm Derm: Normal color, Warm and dry, No rash - Extremities Extremities: No deformity, No edema - Neuro Neuro: Alert and oriented X 3 - Psych Psych: Normal mood, Normal affect Results - Vitals Vitals: Oxygen O2 Source Room air - Labs Labs: Laboratory Tests 07/26/24 07/26/24 07/26/24 06:35 06:40 06:40 WBC 11.5 H RBC 4.75 Hgb 12.7 Hct 41.0 MCV 86.3 MCH 26.7 L MCHC 31.0 L RDW 16.2 H Plt Count 371 MPV 8.7 Neut # (Auto) 8.1 H Lymph # (Auto) 2.3 Towns # (Auto) 0.8 Eos # (Auto) 0.2 Baso # (Auto) 0.1 Absolute Nucleated RBC 0.00 Nucleated RBC % 0.0 Sodium 138 Potassium 3.7 Chloride 105 Carbon Dioxide 26 Anion Gap 7.0 BUN 19 Creatinine 1.2 Estimated GFR (MDRD) 46 L Glucose 112 H Calcium 9.3 Total Bilirubin 0.3 AST 13 ALT 14 Alkaline Phosphatase 70 Total Protein 7.3 Albumin 4.4 Globulin 2.9 Albumin/Globulin Ratio 1.5 Lipase 27 Urine Color YELLOW Urine Clarity CLEAR Urine pH 5.5 Ur Specific [place] 1.025 Urine Protein NEGATIVE Urine Glucose (UA) NEGATIVE Urine Ketones NEGATIVE Urine Occult Blood NEGATIVE Urine Nitrite NEGATIVE Urine Bilirubin NEGATIVE Urine Urobilinogen 0.2 (NORMAL) Ur Leukocyte Esterase NEGATIVE Ur Microscopic Review NOT INDICATED Urine Culture Comments NOT INDICATED PD Medical Decision Making - ED course Complexity details: reviewed old records, reviewed results, re-evaluated patient, considered differential, d/w patient ED course: The patient did look better than she did on presentation last week, though I was concerned that she was having worsening pain and symptoms in general, now that her antibiotic course is finished. She waswas treated symptomatically with IV fluids, droperidol, and Dilaudid and Toradol, and worked up with labs and ultimately, CT scan of the abdomen and pelvis. She is found to have a white count of 11 which was slightly elevated. The patient CT scan did not show any colitis, though the radiologist made a note of a "question of partial small bowel obstruction". I went back and questionedI do not feel clinically that she has a small bowel obstruction of any degree, though I have discussed this andres ding of the CT by the radiologist with the patient. She does not wish to have an NG tube and she is not vomiting. At this point, we have discussed doing a clear liquid diet for a day or 2 and seeing if things clear up. The patient would like something for pain but I have advised her that the patient again and she stated that she had been drinking water easily and that she has been passing gas and having bowel movements. I do not feel clinically that she has a small bowel obstruction of any degree, though I have discussed this reading of the CT by the radiologist with the patient. She does not wish to have an NG tube and she is not vomiting, and I feel she is stable for discharge home at this point in time. At this point, we have discussed doing a clear liquid diet for a day or 2 and seeing if things clear up. The patient would like something for pain but I have advised her that She must use this extremely sparingly, she risks making any issue with throughput worse. We have discussed the usual indications for return. Departure - Departure Disposition: Home, Self Care Clinical Impression: Partial small bowel obstruction Abdominal pain Qualifiers: Abdominal location: lower abdomen, unspecified Qualified Code(s): R10.30 - Lower abdominal pain, unspecified Condition: Stable Instructions: ED Abdominal Pain Female Non-Specific Abdominal Pain Prescriptions: traMADol [Ultram] 50 mg PO Q4-6H PRN #10 tablet PRN Reason: Pain >8 Comments: Your CT scan does not show any infection or evidence of residual colitis. You do have a section of your small intestine that appears to be moving slowly, and there was question of whether this was a partially obstructed small bowel. However, the fact that your stomach is not distended and you are drinking fluids without difficulty makes this much less likely. It is important that you eat a high-fiber diet and given that you have had a lot of gas and belching, a probiotic would not be a bad idea. You can see if [facility] [place] has this. You may take your Zofran at home for nausea. We will give you a small amount of pain medication but you should be very careful in how much take this as it could make your bowel slow down even more. Please follow-up with your doctor as scheduled next week. You have been given sedating medication in the emergency department today and should not drive for the next 8 hours. Your prescription has been electronically transmitted to the [email or web address] pharmacy in [place]. Forms: PCP List Discharge Date/Time: 07/26/24 11:44
[2024-07-26] MEDS ORDERED: iohexoL-300 100 ML VIAL ONE (07:59)
[2024-07-26] MEDS: DROPERIDOL 5 MG/2 ML VIAL IVP STA (08:04)
[2024-07-26] MEDS: KETOROLAC 30 MG/ML VIAL IVP STA (08:04)
[2024-07-26] MEDS: HYDROmorphone 1 MG/ML CARPUJECT IVP STA ×3 (08:04→11:35)
[2024-07-26] MEDS: ONDANSETRON 4 MG/2 ML VIAL IVP STA (08:24)
[2024-07-26] MEDS: iohexoL-300 100 ML VIAL IVP ONE (08:57)
--- NOTE | 2024-07-26 08:59 | CT Report ---
PROCEDURE: Abdomen/Pelvis W INDICATIONS: Low abd pn (worse R), worsening desp abx CONTRAST: Omni 300 100ml TECHNIQUE: After the administration of intravenous contrast, a CT scan of the abdomen and pelvis was performed. Images were recorded and evaluated at appropriate window settings. Reformats: coronal and sagittal. F or radiation dose reduction, the following was used: automated exposure control, adjustment of mA and /or kV according to patient size. COMPARISON: 07/17/2024 FINDINGS: Image quality: Diagnostic. Lower chest: Present in the right coronary artery stent. Top normal heart size. Coronary artery calci fications. Extreme lung bases are clear.. Liver: No solid mass. Gallbladder: No radiopaque stones or wall thickening. Biliary tree: No intrahepatic or extrahepatic dilation, accounting for age. Spleen: No splenomegaly. Pancreas: No pancreatic ductal dilation. Adrenals: No adrenal nodule. Kidneys and ureters: No hydronephrosis. No renal cystic lesion which requires follow up. No solid mas s. Stomach, bowel and peritoneum: Small hiatal hernia. Suggestion of possible partial small bowel obstru ction at the level of the jejunum. Loops are dilated up to the size of 3.5 cm. Some proximal small riki wel bowel loops have fecal contents. The small bowel then assumes a normal caliber. Lymph nodes: No central or retroperitoneal adenopathy. Vessels: No infrarenal aortic aneurysm. Patent portal vein. PELVIS Reproductive organs: Uterus is surgically absent. No adnexal masses.. Bladder: No abnormal wall thickening, accounting for underdistention. Pelvic lymph nodes: No pelvic adenopathy by size criteria. Bones: No aggressive osseous abnormality. Lower lumbar laminectomy and fusion.. Other: No significant ventral or inguinal hernia. IMPRESSION: 1. Question partial proximal small bowel obstruction. 2. Remote hysterectomy and lumbar surgery. Reviewed by: Jose Angel Malone MD on 07/26/2024 8:58 AM PDT Approved by: Jose Angel Malone MD on 07/26/2024 8:58 AM PDT Station ID: [id number]
[2024-07-26 11:51] VITALS: BP 160/78; O2SAT 97
== END 2024-07-26 11:44 | disposition home or self-care (01) ==
LOC: ED 06:16
DX: K56.600 Partial intestinal obstruction, unspecified as to cause (principal); R10.30 Lower abdominal pain, unspecified; I10 Essential (primary) hypertension; E78.00 Pure hypercholesterolemia, unspecified; Z79.899 Other long term (current) drug therapy; Z79.02 Long term (current) use of antithrombotics/antiplatelets
CPT/HCPCS: 36415; 74177; 80053; 81003; 83690; 85025; 96374; 96375; 96376; 99284; J1170; Q9967; 81001; 87086

== ENCOUNTER 2024-08-03 06:18 | Outpatient (CLI) | payer MEDICAID | END 2024-08-03 23:59 | disposition critical access hospital (66) | LOC: EMS 06:18 | DX: R19.7 Diarrhea, unspecified (principal); K92.1 Melena; R10.32 Left lower quadrant pain; R10.31 Right lower quadrant pain | CPT/HCPCS: A0425; A0427; A0999 ==

== ENCOUNTER 2024-08-03 06:55 | Emergency (ER) | payer MEDICAID ==
[2024-08-03 07:30] LABS: BASOPHILS % (AUTO) 0.3 %; EOSINOPHILS # (AUTO) 0.2 10^3/uL (0.0-0.7); EOSINOPHILS % (AUTO) 1.7 %; HCT - HEMATOCRIT 35.9 % (37.0-47.0); HGB - HEMOGLOBIN 11.2 g/dL (12.0-16.0); LYMPHOCYTES % (AUTO) 9.4 %; MEAN CORPUSCULAR HEMOGLOBIN 27.5 pg (27.0-31.0); MEAN CORPUSCULAR HGB CONC 31.2 g/dL (32.0-36.0); MEAN CORPUSCULAR VOLUME 88.2 fL (81.0-99.0); MEAN PLATELET VOLUME 8.4 fL (7.9-10.8); MONOCYTES # (AUTO) 0.7 10^3/uL (0.0-1.0); MONOCYTES % (AUTO) 6.2 %; NEUTROPHILS # (AUTO) 8.9 10^3/uL (1.5-6.6); NEUTROPHILS % (AUTO) 82.1 %; PLT - PLATELET COUNT 267 10^3/uL (130-450); RED BLOOD COUNT 4.07 10^6/uL (4.20-5.40); RED CELL DISTRIBUTION WIDTH 15.9 % (12.0-15.0); WHITE BLOOD COUNT 10.9 x10^3/uL (4.8-10.8)
[2024-08-03 07:43] LABS: ALBUMIN/GLOBULIN RATIO 1.4 (1.0-2.2); ALKALINE PHOSPHATASE 64 IU/L (42-121); ALT ALANINE AMINOTRANSFERASE 9 IU/L (10-60); AST ASPARTATE AMINOTRANSFERASE 12 IU/L (10-42); BILIRUBIN,TOTAL 0.4 mg/dL (0.2-1.0); BUN - BLOOD UREA NITROGEN 20 mg/dL (6-20); CALCIUM 8.9 mg/dL (8.5-10.3); CARBON DIOXIDE - CO2 27 mmol/L (21-32); CHLORIDE 106 mmol/L (101-111); CREATININE 1.2 mg/dL (0.6-1.3); GFR - MDRD 46 (>89); GLUCOSE 130 mg/dL (74-104); POTASSIUM 4.2 mmol/L (3.5-4.5); SODIUM 138 mmol/L (135-145); TOTAL PROTEIN 6.8 g/dL (6.4-8.9)
[2024-08-03] MEDS: SODIUM CHLORIDE 0.9% 1,000 ML IV STA (07:43)
--- NOTE | 2024-08-03 07:47 | ED Physician Documentation ---
PD HPI GI BLEED - Stated complaint Stated Complaint: ABD PX - Chief complaint Chief Complaint: Abd Pain - History of Present Illness Timing - onset: Yesterday Timing - duration: Days (1) Timing - details: Abrupt onset, Still present (The patient is having lower left to lower mid abdominal crampy pain starting yesterday with 3-4 episodes of bright red blood and clots per rectum. Denies nausea or vomiting. No lightheadedness or near syncope. She states similar episode Dec 2023 and was admitted to [facility]. Colonoscopy/cautery) Associated symptoms: BRBPR (with clots). No: Black/tarry stool Contributing factors: Anticoagulated (Plavix treatment for prior heart stents.). No: Sick contact, Bad food, NSAID use Similar symptoms before: Diagnosis (reported polyps with bleeding and treated with scope/cautery per pt. 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 : None HEENT: None Psych: Depression, Anxiety Musculoskeletal: Chronic back pain Derm: None - Past Surgical History Past Surgical History: Yes General: Appendectomy, Other Ortho: Spine surgery /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: 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 Cardiovascular: Coronary stent - Present Medications Home Medications: Ambulatory Orders Medication Instructions Recorded Confirmed Metoprolol Tartrate [Lopressor] 25 mg PO BID #60 tablet 07/04/20 07/26/24 DULoxetine [Cymbalta] 40 mg PO DAILY 12/27/20 07/26/24 traZODone [Desyrel] 50 - 100 mg PO HS PRN 12/27/20 07/26/24 Albuterol Sulf [Ventolin Hfa 1 - 2 puffs INH Q4HR PRN 12/24/22 07/26/24 Inhaler] Pantoprazole [Protonix] 40 mg PO DAILY 12/24/22 07/26/24 Tizanidine HCl 4 - 8 mg PO TID PRN 12/24/22 07/26/24 oxyCODONE [Roxicodone] 5 mg PO Q6H PRN #18 tablet 07/10/23 07/26/24 Amlodipine Besylate [Norvasc] 10 mg PO DAILY 04/25/24 07/26/24 Clopidogrel [Plavix] 75 mg PO DAILY 04/25/24 07/26/24 cloNIDine 0.1 MG PATCH 0.1 mg TOP DAILY 04/25/24 07/26/24 [Vnxaedii-Sbb-4] Meloxicam [Mobic] 7.5 mg PO BID PRN #10 tablet 07/12/24 07/26/24 Oxycodone HCl 1 tab PO Q6H PRN #15 tablet 07/12/24 07/26/24 Ketorolac [Toradol] 10 mg PO Q6H PRN #20 tablet 07/15/24 07/26/24 Ondansetron Odt [Zofran Odt] 4 mg TL Q6H PRN #14 tablet 07/17/24 07/26/24 traMADol [Ultram] 50 mg PO Q4-6H PRN #10 tablet 07/26/24 Hydrocortisone Supp [Anusol-Hc] 25 mg AK DAILY #6 supp 08/03/24 - Allergies Allergies/Adverse Reactions: Allergies Allergy/AdvReac Type Severity Reaction Status Date / Time amoxicillin trihydrate * Allergy anaphalaxis Verified 07/26/24 06:28 [From Augmentin] cephalexin monohydrate * Allergy anaphalaxis Verified 07/26/24 06:28 [From Keflex] doxycycline Allergy Unknown Verified 07/26/24 06:28 Penicillins Allergy anaphalaxis Verified 07/26/24 06:28 potassium clavulanate * Allergy anaphalaxis Verified 07/26/24 06:28 [From Augmentin] propoxyphene napsylate * Allergy "feels Verified 07/26/24 06:28 [From Darvocet-N] unbalanced" tetanus and diphtheria Allergy Edema Verified 07/26/24 06:28 toxoids codeine AdvReac Nausea Verified 07/26/24 06:28 dexamethasone AdvReac psychotic Verified 07/26/24 06:28 gabapentin [From Neurontin] AdvReac forgets Verified 07/26/24 06:28 everything, dizziness hydrocodone bitartrate * AdvReac agitated Verified 07/26/24 06:28 [From Vicodin] metoclopramide HCl * AdvReac Anxiety Verified 07/26/24 06:28 [From Reglan] prednisone AdvReac psychotic Verified 07/26/24 06:28 prochlorperazine edisylate * AdvReac anxious Verified 07/26/24 06:28 [From Compazine] prochlorperazine maleate * AdvReac anxious Verified 07/26/24 06:28 [From Compazine] topiramate [From Topamax] AdvReac Unknown Verified 07/26/24 06:28 - Social History Does the pt smoke?: No Smoking Status: Never smoker Does the pt drink ETOH?: No Does the pt have substance abuse?: Yes - Immunizations Immunizations are current?: Yes Immunizations: TDAP >10years/unknown, No immun - POLST Patient has POLST: No PD ED PE NORMAL - Vitals Vital signs reviewed: Yes - General General: Alert and oriented X 3, No acute distress, Well developed/nourished - Abdomen Abdomen: Normal bowel sounds, Soft, Non distended, No organomegaly, Other (There is tenderness to palpation in the mid lower abdomen and left lower quadrant. Mildly on the left mid abdomen. No tenderness on the right nor epigastric area.) - Rectal Rectal: Deferred (The patient had stooled into a hat here in the department which showed some red blood and a 1 to 2 ounces appearance of clotted blood. No stool.) - Derm Derm: Normal color, Warm and dry - Neuro Neuro: Alert and oriented X 3, Normal speech Results - Vitals Vitals: Vital Signs - 24 hr 08/03/24 08/03/24 08/03/24 06:59 09:05 10:12 Temperature 36.4 C L 36.8 C Heart Rate 91 86 70 Respiratory 18 20 16 Rate Blood Pressure 173/81 H 149/67 H 134/79 H O2 Saturation 98 98 97 Oxygen O2 Source Room air - Labs Labs: Microbiology 08/03/24 07:37 Occult Blood - Final Stool Laboratory Tests 08/03/24 08/03/24 08/03/24 07:23 07:23 07:23 WBC 10.9 H RBC 4.07 L Hgb 11.2 L Hct 35.9 L MCV 88.2 MCH 27.5 MCHC 31.2 L RDW 15.9 H Plt Count 267 MPV 8.4 Neut # (Auto) 8.9 H Lymph # (Auto) 1.0 L [place] # (Auto) 0.7 Eos # (Auto) 0.2 Baso # (Auto) 0.0 Absolute Nucleated RBC 0.00 Nucleated RBC % 0.0 Sodium 138 Potassium 4.2 Chloride 106 Carbon Dioxide 27 Anion Gap 5.0 L BUN 20 Creatinine 1.2 Estimated GFR (MDRD) 46 L Glucose 130 H Calcium 8.9 Total Bilirubin 0.4 AST 12 ALT 9 L Alkaline Phosphatase 64 Total Protein 6.8 Albumin 4.0 Globulin 2.8 Albumin/Globulin Ratio 1.4 Lipase < 10 L Blood Type A POSITIVE Antibody Screen NEGATIVE - Rads (name of study) abd/pelvic CT Relevant Findings:: Prelim report reviewed (no acute findings), EMP independent interpretation of test PD Medical Decision Making - ED course Complexity details: reviewed old records, reviewed results (CT without any acute abnormalities. She may be having polyp type bleeding like she did in December. Consider internal hemorrhoid given red blood and just some clots. No focal signs of infection. Hemoglobin at her baseline range. No further stools here.), considered differential (Onset of red blood per rectum with clots. No rectal pain. She is having lower abdominal and left pain. Recently seen here in the ER twice this month for abdominal pain with cramps and diagnosed cecal colitis July 17. Seen on the with pain in CT showed possible mild SBo vs spasm.), d/w patient ED course: She seems stable at discharge. Normal vital signs and baseline hemoglobin with a few bowel movements of red blood and small amount of clots. Departure - Departure Disposition: Home, Self Care Clinical Impression: Lower abdominal pain, Hematochezia, BRBPR (bright red blood per rectum) Condition: Stable Record reviewed to determine appropriate education?: Yes Instructions: ED Hematochezia Stable Follow-Up: Surgical Care [Provider Group] Prescriptions: Hydrocortisone Supp [Anusol-Hc] 25 mg AK DAILY #6 supp Comments: Your blood count is mildly anemic at this point at 11.2 hemoglobin. Your past hemoglobins have ranged from 10-12 so you are in the same ballpark as usual. Your blood pressure and heart rate are good as is your blood count comparable to normal. Your bodies doing okay with the amount of blood loss at this time. Your CT scan did not show any signs of localized inflammation or problems. This is different from whether there is something bleeding. Since you have had colonoscopies just as recent as December, we know there should be any notable abnormalities such as tumors or cancers. Common causes for bleeding can be po lyps or hemorrhoids or local irritation around diverticula etc. Typically these blood vessels that start bleeding will stop on their own after a day or 2 just like a cut or laceration or nosebleed. See if this improves and stops bleeding through today and into tomorrow. Return if significant increase in amount. Follow-up with some persistence or recurrence in the near future. Presuming possibility of an internal hemorrhoid, I would suggest a anti- inflammatory suppository daily for the next 5 or 6 days. Stay well-hydrated. Continue usual medicines. Follow-up with your primary care if recurrent episodes to a mild degree. You could also follow-up with the surgery office for evaluation of potential scope or such if recurrences. As any prescription to your preferred pharmacy. Forms: PCP List Discharge Date/Time: 08/03/24 10:12
[2024-08-03] MEDS ORDERED: iohexoL-300 100 ML VIAL ONE (07:48)
[2024-08-03 07:56] LABS: LIPASE < 10 U/L (11-82)
[2024-08-03] MEDS: HYDROmorphone 1 MG/ML CARPUJECT IVP STA ×2 (08:17→09:45)
[2024-08-03] MEDS: TRANEXAMIC ACID 1,000 MG in SODIUM CHLORIDE 0.9% 100ML 100 ML IV STA (08:17)
--- NOTE | 2024-08-03 08:36 | CT Report ---
PROCEDURE: Angio Abdomen/Pelvis INDICATIONS: recent Dx colitis; clots/BRBPR x 1 day CONTRAST: See chart TECHNIQUE: After the administration of intravenous contrast, 2.5 mm thick sections acquired from the diaphragm t o the symphysis. 10 mm maximum-intensity projection (MIP) reformats were then acquired. For radiati on dose reduction, the following was used: automated exposure control, adjustment of mA and/or kV ac cording to patient size. COMPARISON: CT abdomen and pelvis dated 07/26/2024 FINDINGS: Image quality: Excellent. VESSELS: Aorta: Normal caliber without dissection. Mesenteric arteries: Celiac trunk, superior and inferior mesenteric arteries appear patent. Right pelvic arteries: Patent Left pelvic arteries: Patent CHEST: Lung bases and heart: Extreme lung bases are clear. Normal heart size. Coronary artery calcifications . ABDOMEN: Liver: No solid mass. Gallbladder and biliary tree: No radiopaque stones or wall thickening. No biliary dilation. Spleen: No splenomegaly. Pancreas: No pancreatic ductal dilation. Adrenals: No adrenal nodule. Kidneys and ureters: No hydronephrosis. No renal cystic lesion which requires follow up. No solid mas s. Bowel and peritoneum: No bowel distension. No pathologic free fluid. No active extravasation identifi ed into colon or small bowel. Lymph nodes: No central or retroperitoneal adenopathy. PELVIS Reproductive organs: Uterus is surgically absent. No adnexal masses. Remote posterior lumbar decompre ssion and posterior lateral fusion and interbody fusion at L4-S1.. Bladder: No abnormal wall thickening, accounting for underdistension. Pelvic lymph nodes: No pelvic adenopathy by size criteria. Bones: No aggressive osseous abnormality. Other: No significant ventral or inguinal hernia. IMPRESSION: 1. No acute GI bleeding is identified as occurring during this study. 2. No acute process identified. 3. Remote hysterectomy and lumbar surgery. Reviewed by: Jose Angel Malone MD on 08/03/2024 8:35 AM PDT Approved by: Jose Angel Malone MD on 08/03/2024 8:35 AM PDT Station ID: [id number]
[2024-08-03] MEDS: HYDROCORTISONE 25 MG SUPPOSITORY PR STA (09:45)
[2024-08-03 10:16] VITALS: BP 134/79; O2SAT 97
[2024-08-03] MEDS: iohexoL-300 100 ML VIAL IVP ONE (10:37)
== END 2024-08-03 10:12 | disposition home or self-care (01) ==
LOC: EDUNIT# → ED 06:55
DX: R10.30 Lower abdominal pain, unspecified (principal); K62.5 Hemorrhage of anus and rectum; I10 Essential (primary) hypertension; E78.00 Pure hypercholesterolemia, unspecified; J45.909 Unspecified asthma, uncomplicated; F32.A Depression, unspecified; F41.9 Anxiety disorder, unspecified; Z79.02 Long term (current) use of antithrombotics/antiplatelets; Z95.5 Presence of coronary angioplasty implant and graft
CPT/HCPCS: 36415; 74174; 80053; 82272; 83690; 85025; 86850; 86900; 86901; 96365; 96375; 96376; 99283; 99284; J1170; J3490; Q9967

== ENCOUNTER 2025-11-11 13:12 | Observation (INO) ==
[2025-11-11] MEDS: ONDANSETRON 4 MG/2 ML VIAL IVP STA (13:46)
[2025-11-11] MEDS: SODIUM CHLORIDE 0.9% 1,000 ML IV STA (13:46)
[2025-11-11] MEDS: HYDROmorphone 0.5 MG/0.5 ML SYRINGE IVP STA ×3 (13:46→16:40)
[2025-11-11 13:52] LABS: HCT - HEMATOCRIT 42.1 % (37.0-47.0); HGB - HEMOGLOBIN 13.9 g/dL (12.0-16.0); MEAN PLATELET VOLUME 8.5 fL (7.9-10.8); NRBC ABSOLUTE COUNT (AUTO) 0.00 x10^3/uL; NUCLEATED RED BLOOD CELLS AUTO 0.0 /100WBC; PLT - PLATELET COUNT 295 10^3/uL (130-450); RED CELL DISTRIBUTION WIDTH 13.8 % (12.0-15.0)
--- NOTE | 2025-11-11 14:02 | ED Physician Documentation ---
History of Present Illness Stated complaint Stated Complaint: BACK PX N/V Chief complaint Chief Complaint: General History obtained from History obtained from: Patient History of Present Illness Timing: Prior to arrival Additonal information Additional information: Patient 60-year-old female presenting to the emergency department with nausea vomiting frequent stooling and generalized abdominal cramping and back pain. Patient has past medical history remarkable for cyclical vomiting hypertension chronic back pain. She notes symptoms started around 3 AM last night after smoking some marijuana yesterday evening. She notes she was on a hiatus for. After being seen here on 10 15 had a full workup including ultrasound and CT scan and MRCP that showed no signs of acute cholecystitis. She was diagnosed at that time for possible acalculous cholecystitis but was given antibiotics and discharged home. She notes she was feeling well and fine the last few weeks until she smoked marijuana again last night. She has a history of cyclical vomiting and has history of laparoscopic use in the past to evaluate for endometriosis but no history of appendectomy or cholecystectomy. Patient has been unable to keep anything down and is actively vomiting on arrival here in the ED. She feels her current panic is worse than normal than her regular cyclical vomiting symptoms but denies any fevers no urinary symptoms. No chest pain or shortness of breath. Meds/Allgy Home Medications Ambulatory Orders Medication Instructions Recorded Confirmed metoprolol tartrate 25 mg tablet 25 mg PO BID #60 tabs 07/04/20 11/11/25 duloxetine 20 mg capsule,delayed 40 mg PO DAILY 11/11/25 release trazodone 50 mg tablet 50 - 100 mg PO HS PRN Insomn ia 12/27/20 11/11/25 albuterol sulfate 90 mcg/actuation 1 - 2 puff inhalati on Q4HR PRN 12/24/22 11/11/25 aerosol inhaler (Ventolin HFA) Shortness Of Air/Wheezi ng pantoprazole 40 mg tablet,delayed 40 mg PO DAILY 12/2411/11/25 release tizanidine 4 mg capsule 4 - 8 mg PO TID PRN Spasms 0 12/24/22 11/11/25 amlodipine 10 mg tablet (Norvasc) 10 mg PO DAILY 04/2511/11/25 clonidine 0.1 mg/24 hr weekly 0.1 mg topical DAILY 11/0611/11/25 transdermal patch clopidogrel 75 mg tablet 75 mg PO DAILY 04/25/2410/15 meloxicam 7.5 mg tablet 7.5 mg PO BID PRN Pain #10 t abs 07/12/24 11/11/25 oxycodone 10 mg tablet 1 tab PO Q6H PRN pain #15 tabs 07/12/24 11/11/25 ondansetron 4 mg disintegrating 4 mg translingual Q6H PRN Nausea / 07/17/24 11/11/25 tablet Vomiting #14 tabs tramadol 50 mg tablet 50 mg PO Q4-6H PRN Pain >8 # 10 tabs 07/26/24 11/11/25 dicyclomine 10 mg capsule 10 mg PO BID #60 caps 11/11/25 ciprofloxacin HCl 500 mg tablet 500 mg PO BID #20 tabs 10/15/25 11/11/25 diazepam 10 mg tablet mg 11/11/25 losartan 100 mg tablet mg 11/11/25 ondansetron 4 mg disintegrating 4 mg translingual Q6H PRN Nausea / 11/11/25 tablet Vomiting #10 tabs rosuvastatin 40 mg tablet mg 11/11/25 Allergies Allergies Allergy/AdvReac Type Severity Reaction Status Date / Time amoxicillin trihydrate * Allergy anaphalaxis Verified 11/11/25 13:16 (From Augmentin) cephalexin monohydrate * Allergy anaphalaxis Verified 11/11/25 13:16 (From Keflex) doxycycline Allergy Unknown Verified 11/11/25 13:16 Penicillins Allergy anaphalaxis Verified 11/11/25 13:16 potassium clavulanate * Allergy anaphalaxis Verified 11/11/25 13:16 (From Augmentin) propoxyphene napsylate * Allergy "feels Verified 11/11/25 13:16 (From Darvocet-N) unbalanced" tetanus and diphtheria Allergy Edema Verified 11/11/25 13:16 toxoids codeine AdvReac Nausea Verified 11/11/25 13:16 dexamethasone AdvReac psychotic Verified 11/11/25 13:16 gabapentin (From Neurontin) AdvReac forgets Verified 11/11/25 13:16 everything, dizziness hydrocodone bitartrate * AdvReac agitated Verified 11/11/25 13:16 (From Vicodin) metoclopramide HCl * (From AdvReac Anxiety Verified 11/11/25 13:16 Reglan) prednisone AdvReac psychotic Verified 11/11/25 13:16 prochlorperazine edisylate * AdvReac anxious Verified 11/11/25 13:16 (From Compazine) prochlorperazine maleate * AdvReac anxious Verified 11/11/25 13:16 (From Compazine) topiramate (From Topamax) AdvReac Unknown Verified 11/11/25 13:16 PFSH Active Problems All Active Problems (Updated 11/11/25 @ 17:24 by Lili Osullivan PA-C) Abdominal cramping, generalized (Acute) Leukocytosis (Acute) Nausea & vomiting (Acute) Cyclical vomiting (Acute) Acute acalculous cholecystitis (Acute) Abnormal gallbladder ultrasound (Acute) Elevated troponin (Acute) Cyclical vomiting with nausea (Acute) Intractable nausea and vomiting (Acute) Marijuana abuse (Acute) Hypertensive urgency (Acute) Nausea (Acute) Hypertensive emergency (Acute) Failure of outpatient treatment (Chronic) Nausea and vomiting (Acute) CKD (chronic kidney disease) stage 2, GFR 60-89 ml/min (Acute) Chronic back pain (Chronic) HTN (hypertension) (Chronic) Anxiety (Acute) Heart murmur (Chronic) Chest pain (Acute) Acute colitis (Acute) Abdominal pain (Acute) Low back pain (Chronic) Colitis (Acute) Vomiting (Acute) Left-sided chest wall pain (Acute) Gastritis (Acute) Back pain (Chronic) Sciatica (Chronic) Medical History Medical History (Updated 11/11/25 @ 17:24 by Lili Osullivan PA-C) Hypertension Social History Social History (Updated 11/11/25 @ 13:38 by Young Hugo, RN, BSN) Do you dip or chew tobacco?: No Do you vape?: No Patient requests smoking cessation consult: No Initiate information on smoking cessation: No Living arrangement: At home Living Condition: With spouse/s.o. Support Person: Yes Do you feel safe in your home environment?: Yes History of physical, verbal, emotional, or financial abuse?: No ETOH Use: Wine Frequency: Occasional Substance Use: denies use Are you sexually active?: Yes POLST Patient has POLST: No Exam Exam Vital Signs: Vital Signs x48h Temp Pulse Resp BP Pulse Ox 11/11/25 17:00 92 18 174/82 H 98 11/11/25 15:46 80 16 205/104 H 99 11/11/25 13:16 36.6 C 82 19 174/96 H 98 Constitutional normal general appearance HENMT normocephalic and head/scalp atraumatic Eyes PERRL, EOMs intact bilaterally and conjunctivae normal Neck/C-Spine visual inspection normal Lymph no lymphadenopathy noted Chest inspection of chest normal Respiratory breath sounds equal bilaterally, normal respiratory effort and clear to auscultation bilaterally Cardiovascular normal heart rate noted, regular rhythm noted, no gallop and no rub Gastrointestinal Abdomen diffusely tender throughout no rebound but generalized guarding on p alpation. Active bowel sounds appreciated no reproducible cysts CVA tenderness no spinous process tenderness on palpation. No obvious distention. Results Vitals Vitals: Vital Signs - 24 hr 11/11/25 13:16 11/11/25 13:46 11/11/25 14:18 Temperature 36.6 C Temperature Source Temporal Artery Scan Pulse Rate 82 Respiratory Rate 19 Blood Pressure 174/96 H O2 Saturation 98 O2 Source Room air Pain Intensity 8 8 5 11/11/25 15:08 11/11/25 15:46 11/11/25 16:40 Temperature Temperature Source Pulse Rate 80 Respiratory Rate 16 Blood Pressure 205/104 H O2 Saturation 99 O2 Source Room air Pain Intensity 9 8 9 11/11/25 16:43 11/11/25 17:00 11/11/25 17:20 Temperature Temperature Source Pulse Rate 92 Respiratory Rate 18 Blood Pressure 174/82 H O2 Saturation 98 O2 Source Room air Pain Intensity 8 6 6 Oxygen O2 Source Room air Labs Labs: Laboratory Tests 11/11/25 11/11/25 13:45 14:04 WBC 12.6 H RBC 5.01 Hgb 13.9 Hct 42.1 MCV 84.0 MCH 27.7 MCHC 33.0 RDW 13.8 Plt Count 295 MPV 8.5 Neut # (Auto) 11.3 H Lymph # (Auto) 0.[address] [place] # (Auto) 0.5 Eos # (Auto) 0.0 Baso # (Auto) 0.0 Absolute Nucleated RBC 0.00 Nucleated RBC % 0.0 Sodium 138 Potassium 3.6 Chloride 102 Carbon Dioxide 26 Anion Gap 10.0 BUN 16 Creatinine 1.2 Estimated GFR (MDRD) 46 L Glucose 148 H Calcium 9.6 Total Bilirubin 0.5 AST 12 ALT 10 Alkaline Phosphatase 80 Total Protein 8.1 Albumin 4.4 Globulin 3.7 Albumin/Globulin Ratio 1.2 Lipase < 10 L Urine Color YELLOW Urine Clarity CLEAR Urine pH 6.5 Ur Specific [place] 1.020 Urine Protein 30 H Urine Glucose (UA) NEGATIVE Urine Ketones 40 H Urine Occult Blood NEGATIVE Urine Nitrite NEGATIVE Urine Bilirubin SMALL H Urine Urobilinogen 0.2 (NORMAL) Ur Leukocyte Esterase NEGATIVE Urine RBC None Seen Urine WBC 0-3 Ur Squamous Epith Cells RARE Squamous Urine Bacteria Few Urine Casts 0-2 Hyaline Casts Ur Microscopic Review INDICATED Urine Culture Comments NOT INDICATED PD Medical Decision Making ED course Complexity details: reviewed old records and reviewed results ED course: Patient is a 60-year-old female presenting to the emergency department with chronic nausea and vomiting symptoms started around 3 AM after recently doing marijuana last night. Patient has past medical history of cyclical vomiting syndrome history of cannabis hyperemesis. She was seen here earlier this month on 12 for evaluation for elevated liver enzymes and bilirubin. She was evaluated at that time for possible acute cholecystitis but after MRCP CT scan and ultrasound she had negative workup. Patient was reevaluated the next day had improvement with Haldol and Dilaudid and has been abstaining from cannabis until last night. She has no fevers generalized abdominal cramping no chest pain or shortness of breath. She has not tried anything at home prior to coming in. She has been having frequent bowel movements but no specific diarrhea. She has some clear sputum here in the ED. No history of alcohol use. Vitals are stable here in the emergency department normotensive afebrile nontachycardic. She has generalized abdominal pain on palpation active bowel sounds appreciated. Mild leukocytosis of 12.6 here in the ED no signs of anemia she has a GFR of 46 but this appears close to her baseline around 42 which was seen earlier this month. Patient had normal LFTs normal bilirubin. Lipase well within normal limits. She has about 40 ketones in her urine but no signs of infection. Patient was given a liter of fluids she was given Zofran and Dilaudid for pain control. Patient continued to have nausea vomiting and abdominal pain and some chronic back pain. She was given Dilaudid and Continues to have nausea vomiting she was given Reglan Benadryl and another dose of Dilaudid here in the ED on reevaluation patient is still having recurrent nausea vomiting. I gave patient droperidol which seemed to improve some of her symptoms but on p.o. challenge she had another episode of vomiting. I discussed with hospitalist they do not feel patient requires admission at this time due to persistent nausea and vomiting as she has normal electrolytes no significant ANTHONY she has medications at home we discussed patient has had multiple episodes of nausea and vomiting despite antiemetics. I relayed this to patient she is willing to try another p.o. challenge here in the ED. She was able to tolerate some ice chips here in the ED and her fianc came to pick her up. However prior to her going home she threw up 2 more times despite multiple doses of antiemetics pain meds and fluids here in the ED. I reached out to hospitalist staff again Dr. Alcaraz given patient's persistent nausea and vomiting he will keep patient here in the hospital patient is preferable to staying in the hospital and is agreeable with this plan. Discharge Plan Discharge Patient Disposition: 66 [facility] DC/Xfer Condition: Good Clinical Impression: Cyclical vomiting, Nausea & vomiting, Leukocytosis, Abdominal cramping, generalized Prescriptions: New ondansetron 4 mg tablet,disintegrating 4 mg translingual Q6H PRN (Reason: Nausea / Vomiting) Qty: 10 0RF No Action metoprolol tartrate 25 MG tablet 25 mg PO BID Qty: 60 0RF trazodone 50 MG tablet 50 - 100 mg PO HS PRN (Reason: Insomnia) Patient Comments: TAKE 1-2 TABLETS BY MOUTH NIGHTLY NEEDED FOR INSOMNIA. duloxetine 20 MG capsule,delayed release(DR/EC) 40 mg PO DAILY pantoprazole 40 MG tablet,delayed release (DR/EC) 40 mg PO DAILY albuterol sulfate [Ventolin HFA] 200 PUFFS/18 GM HFA aerosol inhaler 1 - 2 puff inhalation Q4HR PRN (Reason: Shortness Of Air/Wheezing) tizanidine 4 MG capsule 4 - 8 mg PO TID PRN (Reason: Spasms) clonidine 1 PATCH patch weekly 0.1 mg topical DAILY clopidogrel 75 MG tablet 75 mg PO DAILY amlodipine [Norvasc] 10 MG tablet 10 mg PO DAILY meloxicam 7.5 MG tablet 7.5 mg PO BID PRN (Reason: Pain) Qty: 10 0RF oxycodone 10 MG tablet 1 tab PO Q6H PRN (Reason: pain ) Qty: 15 0RF ondansetron 4 MG tablet,disintegrating 4 mg translingual Q6H PRN (Reason: Nausea / Vomiting) Qty: 14 0RF tramadol 50 MG tablet 50 mg PO Q4-6H PRN (Reason: Pain >8) Qty: 10 0RF dicyclomine 10 mg capsule 10 mg PO BID Qty: 60 0RF ciprofloxacin HCl 500 mg tablet 500 mg PO BID Qty: 20 0RF diazepam 10 mg tablet Patient Comments: TAKE 1 TABLET BY MOUTH DAILY NEEDED FOR ANXIETY. losartan 100 mg tablet rosuvastatin 40 mg tablet Activity Restrictions/Additional Instructions: You are seen here in the emergency department for your abdominal pain cramping your workup here in the ED shows some elevated white count which sometimes can mean infection but also could be just secondary to your recurrent nausea and vomiting. Your other labs are stable and your electrolytes are within normal range we gave you multiple medications to help with your symptoms here. We discussed having you stay overnight but as we discussed hospitalist did not feel this was recommended at this time you were able to eat some ice chips here in the ED which is reassuring I recommend taking some nausea meds at home and following up closely with your PCP in the outpatient setting please abstain from marijuana use as I suspect this is causing some of your symptoms. Print Language: Tajik
[2025-11-11 14:13] LABS: GLUCOSE, URINE (UA) NEGATIVE (NEGATIVE); KETONES,URINE (UA) 40 mg/dL (NEGATIVE); OCCULT BLOOD,URINE NEGATIVE (NEGATIVE)
[2025-11-11 14:17] LABS: ALT ALANINE AMINOTRANSFERASE 10 IU/L (10-60); AST ASPARTATE AMINOTRANSFERASE 12 IU/L (10-42); BUN - BLOOD UREA NITROGEN 16 mg/dL (6-20); CARBON DIOXIDE - CO2 26 mmol/L (21-32); CREATININE 1.2 mg/dL (0.6-1.3); GFR - MDRD 46 (>89)
[2025-11-11 14:24] LABS: SQUAMOUS EPITHELIAL CELL,UR RARE Squamous (<= Few)
[2025-11-11 14:25] LABS: CASTS, URINE 0-2 Hyaline Casts /LPF
[2025-11-11] MEDS: METOCLOPRAMIDE 10 MG/2 ML VIAL IVP STA (14:45)
[2025-11-11] MEDS: DROPERIDOL 5 MG/2 ML VIAL IVP STA (16:12)
[2025-11-11] MEDS: PANTOPRAZOLE 40 MG VIAL IVP STA (16:12)
[2025-11-11] MEDS: CAPSAICIN 0.025% CREAM 60 GM TUBE TOP SCH (16:40)
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
[2025-11-11] MEDS ORDERED: ONDANSETRON ODT 4 MG TABLET TL PRN (18:50)
[2025-11-11] MEDS ORDERED: PROCHLORPERAZINE 10 MG/2 ML VIAL IVP PRN (18:50)
[2025-11-11] MEDS ORDERED: SODIUM CHLORIDE FLUSH 0.9% 10 ML SYRINGE IVP PRN (18:50)
[2025-11-11] MEDS ORDERED: METOCLOPRAMIDE 10 MG TABLET PO PRN (18:50)
[2025-11-11] MEDS ORDERED: DICYCLOMINE 10 MG CAPSULE PO PRN (18:50)
[2025-11-11] MEDS ORDERED: HYDROmorphone 0.5 MG/0.5 ML SYRINGE IVP PRN (18:58)
[2025-11-11] MEDS: ONDANSETRON 4 MG/2 ML VIAL IVP PRN (19:29)
[2025-11-11] MEDS: oxyCODONE 5 MG TABLET PO SCH (19:45)
[2025-11-11] MEDS: HYDROmorphone 0.5 MG/0.5 ML SYRINGE IVP PRN (19:45)
[2025-11-11] MEDS: ACETAMINOPHEN 500 MG TABLET PO SCH (20:59)
[2025-11-11] MEDS ORDERED: tiZANidine 4 MG TABLET PO PRN (21:37)
[2025-11-11] MEDS: HEPARIN 5,000 UNIT/ML VIAL SUBQ SCH (21:39)
[2025-11-11] MEDS ORDERED: ACETAMINOPHEN 500 MG TABLET PO SCH (22:00)
[2025-11-12] MEDS: SODIUM CHLORIDE FLUSH 0.9% 10 ML SYRINGE IVP SCH (00:12)
[2025-11-12] MEDS: ACETAMINOPHEN 1,000 MG/100 ML 1,000 MG/100 ML BAG IV PRN (01:12)
[2025-11-12] MEDS: METOCLOPRAMIDE 10 MG/2 ML VIAL IVP PRN (06:31)
[2025-11-12 08:00] VITALS: O2SAT 98
[2025-11-12] MEDS: METOPROLOL SUCCINATE 50 MG TABLET PO SCH (08:12)
[2025-11-12] MEDS: LOSARTAN 50 MG TABLET PO SCH (08:12)
[2025-11-12] MEDS: CLOPIDOGREL 75 MG TABLET PO SCH (08:12)
[2025-11-12] MEDS: PANTOPRAZOLE 40 MG TABLET PO SCH (08:12)
[2025-11-12 09:07] LABS: HCT - HEMATOCRIT 39.2 % (37.0-47.0); HGB - HEMOGLOBIN 12.5 g/dL (12.0-16.0); MEAN PLATELET VOLUME 8.7 fL (7.9-10.8); NRBC ABSOLUTE COUNT (AUTO) 0.00 x10^3/uL; NUCLEATED RED BLOOD CELLS AUTO 0.0 /100WBC; PLT - PLATELET COUNT 261 10^3/uL (130-450); RED CELL DISTRIBUTION WIDTH 14.4 % (12.0-15.0)
[2025-11-12 09:20] LABS: ALT ALANINE AMINOTRANSFERASE 10.0 IU/L (10-60); AST ASPARTATE AMINOTRANSFERASE 19.0 IU/L (10-42); BUN - BLOOD UREA NITROGEN 14.0 mg/dL (6-20); CARBON DIOXIDE - CO2 27.0 mmol/L (21-32); CREATININE 1.2 mg/dL (0.6-1.3); GFR - MDRD 46.0 (>89)
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
[2025-11-12 13:25] VITALS: BP 151/72; TEMP 98.1
[2025-11-13] MEDS ORDERED: PANTOPRAZOLE 40 MG TABLET PO SCH (07:00)
== END 2025-11-12 13:25 | disposition home or self-care (01) ==
LOC: MS2 13:12 → ED 13:12 → MS2 19:00
PROVIDERS: ADMIT Student in an Organized Health Care Education/Training Program; ATTEND Student in an Organized Health Care Education/Training Program
DX: D72.829 Elevated white blood cell count, unspecified; I10 Essential (primary) hypertension; F41.9 Anxiety disorder, unspecified; Z79.02 Long term (current) use of antithrombotics/antiplatelets; R10.84 Generalized abdominal pain; I25.2 Old myocardial infarction; F11.20 Opioid dependence, uncomplicated; G89.29 Other chronic pain; M54.9 Dorsalgia, unspecified; R11.16 Cannabis hyperemesis syndrome